=== PATIENT | male | born 1935 | race Caucasian/White ===

== ENCOUNTER 2019-09-09 10:02 | Emergency (ER) | payer MEDICARE, OTHER ==
[2019-09-09 10:11] VITALS: BP 109/78
--- NOTE | 2019-09-09 12:24 | ED Physician Documentation ---
PD HPI LOWER EXT INJURY - Stated complaint Stated Complaint: R LEG INJURY - Chief complaint Chief Complaint: Ext Problem - History obtained from History obtained from: Patient - History of Present Illness PD HPI LOW EXT INJURY LOCATION: Right, Knee Type of injury: Fall Where injury occurred: Other ([employer] [place]) Timing - onset: How many days ago (1) Timing - duration: Days (1) Timing - details: Gradual onset Pain level max: 7 Pain level now: 6 Improved by: Rest, Ice, Immobilization Worsened by: Moving, Palpating Associated symptoms: Swelling. No: Weakness, Numbness, Tingling Contributing factors: No: Anticoagulated, Prior ortho surgery, Prosthetic joint, Work related Recently seen: Not recently seen - Additional information Additional information: Patient states that he was at the [employer] when several dogs ran into him causing his knee to buckle. States has had swelling since that time. Worse with walking. Better with rest. Review of Systems Constitutional: denies: Fever, Chills GI: denies: Vomiting, Diarrhea Skin: denies: Rash Musculoskeletal: denies: Neck pain, Back pain Neurologic: denies: Headache PD PAST MEDICAL HISTORY - Past Medical History Past Medical History: Yes Cardiovascular: None Respiratory: Asthma Endocrine/Autoimmune: None GI: Colon polyps : None HEENT: None Psych: None Musculoskeletal: None Derm: None - Past Surgical History General: Bowel surgery, Colonoscopy Ortho: Hip replacement, Knee replacement - Present Medications Home Medications: Ambulatory Orders Medication Instructions Recorded Confirmed Albuterol Sulfate [Ventolin Hfa] 1 puffs INH DAILY PRN 06/13/14 06/13/14 Beclomethasone 80 Mcg [Qvar 80] 1 puffs INH DAILY 06/13/14 06/13/14 predniSONE [Prednisone] 20 mg ORAL DAILY 06/13/14 06/13/14 - Allergies Allergies/Adverse Reactions: Allergies Allergy/AdvReac Type Severity Reaction Status Date / Time azithromycin [From Zithromax] Allergy Hives Verified 06/13/14 07:55 Penicillins Allergy Hives Verified 06/12/14 12:10 PD ED PE NORMAL - Vitals Vital signs reviewed: Yes - General General: Alert and oriented X 3, No acute distress, Well developed/nourished - HEENT HEENT: Moist mucous membranes - Neck Neck: Supple, no meningeal sign - Cardiac Cardiac: RRR, Strong equal pulses - Respiratory Respiratory: No respiratory distress, Clear bilaterally - Derm Derm: Warm and dry - Extremities Extremities: Other (Tender to palpation diffusely about the right knee. Ligament testing is limited secondary to joint effusion and swelling and pain. Neurovascularly intact. No gross deformity.) - Neuro Neuro: Alert and oriented X 3 - Psych Psych: Normal mood, Normal affect Results - Vitals Vitals: Vital Signs - 24 hr 09/09/19 10:08 Temperature 36.8 C Heart Rate 94 Respiratory 18 Rate Blood Pressure 109/78 O2 Saturation 98 Oxygen O2 Source Room air - Rads (name of study) Right knee x-ray Radiology: Prelim report reviewed, EMP read contemporaneously, See rad report (1. "[id number]" appearance of the medial compartment, marginal arthrosis and subchondral sclerosis with some bone remodeling of the medial compartment. Kellgren David Grade 4. 2. No fractures. No joint effusion. ) PD MEDICAL DECISION MAKING - ED course Complexity details: reviewed results, re-evaluated patient, considered differential, d/w patient ED course: Possible right knee sprain. Ligaments were difficult to test secondary to acute pain. We will have his ligaments retested with his doctor in a week. He has his own walker. Is ambulating well with this. Oumar bandage applied. Patient counseled regarding signs and symptoms for which I believe and urgent re- evaluation would be necessary. Patient with good understanding of and agreement to plan and is comfortable going home at this time This document was made in part using voice recognition software. While efforts are made to proofread this document, sound alike and grammatical errors may occur. 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 Follow-up with your doctor for repeat evaluation in 1 week when the swelling has decreased. The ligament testing will be easier to perform at that time. You may bear weight as tolerated. You may also want to try a neoprene compression brace on your knee. This can be obtained at [facility] or [facility]
--- NOTE | 2019-09-09 12:38 | XRAY Report ---
Reason: trauma Procedure Date: 09/09/2019 Accession Number: [id number] / [id number] Procedure: XR - Knee 4 View RT CPT Code: Final Report FULL RESULT: EXAM: RIGHT KNEE RADIOGRAPHY EXAM DATE: 09/09/2019 12:15 PM. CLINICAL HISTORY: Trauma. COMPARISON: None. TECHNIQUE: 3 views. FINDINGS: Bones: Normal. No fractures or bone lesions. Joints: There is "[id number]" appearance of the medial compartment, marginal arthrosis, subchondral sclerosis and some bone remodeling at the medial compartment. Arthrosis also seen at the tibial spine and patellofemoral joint. Soft Tissues: Normal. No soft tissue swelling. IMPRESSION: 1. "[id number]" appearance of the medial compartment, marginal arthrosis and subchondral sclerosis with some bone remodeling of the medial compartment. Kellgren David Grade 4. 2. No fractures. No joint effusion. Kellgren and David classification of osteoarthritis: Grade 0: no radiographic features of osteoarthritis are present Grade 1: doubtful joint space narrowing (JSN) and possible osteophytic lipping Grade 2: definite osteophytes and possible JSN on anteroposterior weight-bearing radiograph Grade 3: multiple osteophytes, definite JSN, sclerosis, possible bony deformity Grade 4: large osteophytes, marked JSN, severe sclerosis and definite bony deformity RADIA
== END 2019-09-09 13:15 | disposition home or self-care (01) ==
LOC: ED 10:02
DX: S83.91XA Sprain of unspecified site of right knee, initial encounter (principal); W54.1XXA Struck by dog, initial encounter; Y92.838 Other recreation area as the place of occurrence of the external cause
CPT/HCPCS: 99282; 99283

== ENCOUNTER 2022-10-02 19:24 | Outpatient (CLI) | payer MEDICARE | END 2022-10-02 19:25 | disposition critical access hospital (66) | LOC: EMS 19:24 | DX: R31.9 Hematuria, unspecified (principal); N36.8 Other specified disorders of urethra; R53.1 Weakness; R60.0 Localized edema; Z99.3 Dependence on wheelchair | CPT/HCPCS: A0425; A0429 ==

== ENCOUNTER 2022-10-02 19:39 | Emergency (ER) | payer MEDICARE ==
[2022-10-02] MEDS ORDERED: SODIUM CHLORIDE 0.9% 500 ML IV STA (20:02)
[2022-10-02] MEDS ORDERED: FUROSEMIDE 20 MG/2 ML VIAL IVP STA (20:02)
--- NOTE | 2022-10-02 20:03 | ED Physician Documentation ---
History of Present Illness - Stated complaint Stated Complaint: CATH ISSUE - Chief complaint Chief Complaint: General - History obtained from History obtained from: Patient, Family - History of Present Illness Timing: Today Pain level max: 0 Pain level now: 0 - Additonal information Additional information: 86-year-old male history of paraplegia s/p spine surgery. He has a chronic indwelling Pugh catheter. He states that 2 weeks ago it was changed and there was difficulty in changing the catheter. It was changed again yesterday and today he noticed blood in his underwear. No fevers. No chills. Nothing makes it better or worse. Family also states he appears weaker than usual. And has more swelling in his legs than usual. No shortness of breath. No chest pain. He lives at home Review of Systems Constitutional: denies: Fever, Chills Nose: denies: Rhinorrhea / runny nose, Congestion Cardiac: denies: Chest pain / pressure, Palpitations Respiratory: denies: Cough GI: denies: Vomiting, Diarrhea Skin: denies: Rash Musculoskeletal: denies: Neck pain, Back pain Neurologic: denies: Headache PD PAST MEDICAL HISTORY - Past Medical History Past Medical History: Yes Cardiovascular: None Respiratory: Asthma Endocrine/Autoimmune: None GI: Colon polyps : None HEENT: None Psych: None Musculoskeletal: None Derm: None - Past Surgical History Past Surgical History: Yes General: Bowel surgery, Colonoscopy Ortho: Hip replacement, Knee replacement - Present Medications Home Medications: Ambulatory Orders Medication Instructions Recorded Confirmed Albuterol Sulfate [Ventolin Hfa] 1 puffs INH DAILY PRN 06/13/14 10/02/22 Beclomethasone 80 Mcg [Qvar 80] 1 puffs INH DAILY 06/13/14 10/02/22 Aspirin EC [Ecotrin] 81 mg PO BID 10/02/22 10/02/22 Baclofen 5 mg PO Q6HR PRN 10/02/22 10/02/22 Ciprofloxacin HCl [Cipro] 500 mg PO BID #14 tablet 10/02/22 Famotidine [Pepcid] 20 mg PO BID 10/02/22 10/02/22 Furosemide [Lasix] 20 mg PO DAILY #7 tablet 10/02/22 Gabapentin [Neurontin] 100 mg PO HS 10/02/22 10/02/22 HYDROcod/ACETAM 5/325 [Birney 5/325] 1 ea PO Q6H PRN #14 tablet 10/02/22 Lisinopril [Zestril] 40 mg PO DAILY 10/02/22 10/02/22 Metoprolol Succinate 100 mg PO DAILY 10/02/22 10/02/22 amLODIPine [Norvasc] 5 mg PO DAILY 10/02/22 10/02/22 traMADol [Ultram] 50 mg PO Q12H PRN 10/02/22 10/02/22 traZODone [Desyrel] 50 mg PO HS 10/02/22 10/02/22 - Allergies Allergies/Adverse Reactions: Allergies Allergy/AdvReac Type Severity Reaction Status Date / Time azithromycin [From Zithromax] Allergy Hives Verified 06/13/14 07:55 Penicillins Allergy Hives Verified 06/12/14 12:10 - Social History Does the pt smoke?: No Smoking Status: Never smoker PD ED PE NORMAL - Vitals Vital signs reviewed: Yes - General General: Alert and oriented X 3, No acute distress - Neck Neck: Supple, no meningeal sign - Cardiac Cardiac: RRR - Respiratory Respiratory: No respiratory distress, Clear bilaterally - Abdomen Abdomen: Soft, Non tender, Non distended - Derm Derm: Warm and dry, No rash - Extremities Extremities: Other (1+ B LE pitting edema) - Neuro Neuro: Alert and oriented X 3 - Psych Psych: Normal mood, Normal affect Results - Vitals Vitals: Vital Signs - 24 hr 10/02/22 10/02/22 19:58 21:13 Temperature 36.9 C 36.8 C Heart Rate 85 87 Respiratory 19 15 Rate Blood Pressure 167/75 H 154/74 H O2 Saturation 98 100 Oxygen O2 Source Room air - Labs Labs: Laboratory Tests 10/02/22 10/02/22 10/02/22 20:09 20:09 20:30 WBC 11.5 H RBC 3.78 L Hgb 11.2 L Hct 34.6 L MCV 91.5 MCH 29.6 MCHC 32.4 RDW 12.6 Plt Count 294 MPV 9.8 Neut # (Auto) 7.7 H Lymph # (Auto) 2.5 Drew # (Auto) 1.0 Eos # (Auto) 0.2 Baso # (Auto) 0.0 Absolute Nucleated RBC 0.00 Nucleated RBC % 0.0 Sodium 137 Potassium 3.9 Chloride 100 L Carbon Dioxide 26 Anion Gap 11.0 BUN 14 Creatinine 1.0 Estimated GFR (MDRD) 71 L Glucose 115 H Calcium 8.5 Total Bilirubin 0.7 AST 24 ALT 20 Alkaline Phosphatase 79 Total Protein 7.4 Albumin 3.3 Globulin 4.1 Albumin/Globulin Ratio 0.8 L Lipase 24 Urine Color YELLOW Urine Clarity CLOUDY Urine pH 6.0 Ur Specific [place] 1.020 Urine Protein 30 H Urine Glucose (UA) NEGATIVE Urine Ketones NEGATIVE Urine Occult Blood LARGE H Urine Nitrite POSITIVE H Urine Bilirubin NEGATIVE Urine Urobilinogen 0.2 (NORMAL) Ur Leukocyte Esterase MODERATE H Urine RBC 11-25 H Urine WBC >25 H Ur Squamous Epith Cells NONE SEEN Urine Bacteria Many H Ur Microscopic Review INDICATED Urine Culture Comments INDICATED PD Medical Decision Making - ED course Complexity details: reviewed results, considered differential, d/w patient, d/w family Reviewed Lab Results: CBC shows a mild leukocytosis, mild anemia. His ER abdominal panel does not show any significant acute abnormalities. Urinalysis is consistent with UTI. ED course: Patient is well-appearing, nontoxic. Afebrile. Has an elevated white blood cell count and what appears to be a catheter associated UTI. Will place on antibiotics for this. He has allergies to penicillins and azithromycin. We will place him on ciprofloxacin. We will have him follow-up with his doctor for further care. He was also given Lasix for his peripheral edema, recommend elevating his legs, compression stockings. He also request something for pain. Has tramadol but states that his sacral pressure ulcers hurt as well. No evidence of sepsis. No indication for admission. We will have him follow-up with his doctor for further care. Patient and family counseled regarding signs and symptoms for which I believe and urgent re-evaluation would be necessary. Patient with good understanding of and agreement to plan and is comfortable going home at this time This document was made in part using voice recognition software. While efforts are made to proofread this document, sound alike and grammatical errors may occur. Departure - Departure Disposition: 01 Home, Self Care Clinical Impression: Peripheral edema UTI (urinary tract infection) Qualifiers: Urinary tract infection type: catheter-associated UTI Indwelling urinary catheter type: indwelling urethral catheter Encounter type: initial encounter Qualified Code(s): T83.511A - Infection and inflammatory reaction due to indwelling urethral catheter, initial encounter Condition: Good Instructions: ED Edema Legs Bilateral, ED UTI Cystitis Male Follow-Up: your,doctor in 1 week [Other] Prescriptions: Ciprofloxacin HCl [Cipro] 500 mg PO BID #14 tablet Furosemide [Lasix] 20 mg PO DAILY #7 tablet HYDROcod/ACETAM 5/325 [Birney 5/325] 1 ea PO Q6H PRN #14 tablet PRN Reason: Pain Comments: Your prescriptions were sent to [facility] in [place]. Please follow-up with your doctor for further care. Take all antibiotics until gone. Please return if you worsen.
--- OUTSIDE RECORDS SUMMARY | 2022-10-02 20:03 | EXTERNAL MEDICAL SUMMARY RPT | Continuity of Care Document ---
:1935 Author Organization [facility] Address [address] [place] [address] Phone Care Team Providers Name Role Phone Unavailable Unavailable Unavailable Perico Sherman Unavailable Unavailable Allergies and Intolerances date description facility type (no date) [facility] (unknown) Encounters No information. Functional Status No information. Immunizations No information. Medications date description facility 2022-08-04 00:00 Oxycodone [facility] 2022-08-04 00:00 Docusate Sodium [facility] 2022-08-04 00:00 Aspirin [facility] 2022-08-04 00:00 Famotidine [facility] 2022-08-04 00:00 Methylprednisolone [facility] 2022-08-04 00:00 Hydroxyzine Pamoate [facility] Problems date description facility 2022-07-04 12:33 Arthrodesis status [facility] 2022-07-04 12:35 Arthrodesis [facility] 2022-07-15 14:59 Hyperglycemia, unspecified [facility] 2022-07-15 14:59 Encounter for preprocedural [facility] examination 2022-07-15 17:12 Hyperglycemia, unspecified [facility] 2022-07-15 17:12 Encounter for preprocedural [facility] examination 2022-07-30 12:39 Other spondylosis with myelopathy, [facility] 2022-07-30 12:39 Spinal stenosis, [facility] 2022-07-30 13:12 Other spondylosis with myelopathy, [facility] 2022-07-30 13:12 Spinal stenosis, [facility] 2022-07-30 13:31 Other spondylosis with myelopathy, [facility] 2022-07-30 13:31 Spinal stenosis, [facility] 2022-07-30 13:48 Other spondylosis with myelopathy, [facility] 2022-07-30 13:48 Spinal stenosis, [facility] 2022-07-31 16:19 Other spondylosis with myelopathy, [facility] 2022-07-31 16:19 Spinal stenosis, thoracic [facility] 2022-08-03 00:00 Right foot drop [facility] 2022-08-03 13:54 Foot drop, [facility] 2022-08-03 13:54 Other spondylosis with myelopathy, [facility] 2022-08-03 13:54 Spinal stenosis, [facility] 2022-08-04 12:24 Foot drop, [facility] 2022-08-04 12:24 Other spondylosis with myelopathy, [facility] 2022-08-04 12:24 Spinal stenosis, [facility] 2022-08-04 13:15 Foot drop, [facility] 2022-08-04 13:15 Other spondylosis with myelopathy, [facility] 2022-08-04 13:15 Spinal stenosis, [facility] 2022-08-04 15:03 Foot drop, [facility] 2022-08-04 15:03 Other spondylosis with myelopathy, [facility] 2022-08-04 15:03 Spinal stenosis, [facility] 2022-08-05 09:13 Foot drop, [facility] 2022-08-05 09:13 Other spondylosis with myelopathy, [facility] 2022-08-05 09:13 Spinal stenosis, [facility] 2022-08-06 08:17 Foot drop, [facility] 2022-08-06 08:17 Other spondylosis with myelopathy, [facility] 2022-08-06 08:17 Spinal stenosis, [facility] 2022-08-06 09:06 Foot drop, [facility] 2022-08-06 09:06 Other spondylosis with myelopathy, [facility] 2022-08-06 09:06 Spinal stenosis, [facility] 2022-08-06 15:22 Foot drop, [facility] 2022-08-06 15:22 Other spondylosis with myelopathy, [facility] 2022-08-06 15:22 Spinal stenosis, [facility] 2022-08-06 18:50 Foot drop, right [facility] 2022-08-06 18:50 Other spondylosis with myelopathy, [facility] region 2022-08-06 18:50 Spinal stenosis, thoracic region [facility] 2022-08-06 18:52 Foot drop, right [facility] 2022-08-06 18:52 Other spondylosis with myelopathy, [facility] 2022-08-06 18:52 Spinal stenosis, thoracic region [facility] Procedures date description facility 2022-07-30 00:00 [facility]:00 Excision of Thoracic Vertebral Disc, Op en [facility] Approach 2022-07-30 00:00 fusion of thoracic vertebral joint with [facility] autologous tissue substitute, posterior approach, posterior column, open approac h 2022-07-30 00:00 fusion of thoracic vertebral joint with [facility] interbody fusion device, posterior appro ach, anterior column, open approach 2022-07-30 00:00 XR fluoro, less than 60 minutes [facility] 2022-07-30 00:00 XR thoracic spine, 2 views [facility] Results/Labs test date author facility value unit interpret ation Result panel 1 (unknown) (no date) (unknown) [facility]) Result panel 2 (unknown) (no date) (unknown) [facility]) Result panel 3 (unknown) (no date) (unknown) [facility]) Result panel 4 (unknown) (no date) (unknown) [facility]) Result panel 5 (unknown) (no date) (unknown) [facility]) Result panel 6 (unknown) (no date) (unknown) [facility]) Result panel 7 (unknown) (no date) (unknown) [facility]) Result panel 8 (unknown) (no date) (unknown) [facility]) Result panel 9 (unknown) (no date) (unknown[facility]) Result panel 10 (unknown) (no date) (unknown[facility]) Result panel 11 (unknown) (no date) (unknown[facility]) Result panel 12 (unknown) (no date) (unknown[facility]) Result panel 13 (unknown) (no date) (unknown[facility]) Result panel 14 (unknown) (no date) (unknown[facility]) Result panel 15 (unknown) (no date) (unknown[facility]) Result panel 16 (unknown) (no date) (unknown[facility]) Result panel 17 (unknown) (no date) (unknown[facility]) Result panel 18 (unknown) (no date) (unknown[facility]) Result panel 19 (unknown) (no date) (unknown[facility]) Result panel 20 (unknown) (no date) (unknown[facility]) Result panel 21 (unknown) (no date) (unknown[facility]) Result panel 22 (unknown) (no date) (unknown[facility]) Result panel 23 (unknown) (no date) (unknown[facility]) Result panel 24 (unknown) (no date) (unknown) [facility]) Result panel 25 (unknown) (no date) (unknown[facility]) Result panel 26 (unknown) (no date) (unknown[facility]) Result panel 27 (unknown) (no date) (unknown[facility]) Result panel 28 (unknown) (no date) (unknown) [facility]) Result panel 29 (unknown) (no date) (unknown[facility]) Result panel 30 (unknown) (no date) (unknown) [facility]) Result panel 31 (unknown) (no date) (unknown) [facility]) Result panel 32 (unknown) (no date) (unknown) [facility]) Result panel 33 (unknown) (no date) (unknown) [facility]) Result panel 34 (unknown) (no date) (unknown[facility]) Result panel 35 (unknown) (no date) (unknown[facility]) Result panel 36 (unknown) (no date) (unknown) [facility]) Result panel 37 (unknown) (no date) (unknown) [facility]) Result panel 38 (unknown) (no date) (unknown) [facility]) Result panel 39 (unknown) (no date) (unknown) [facility]) Result panel 40 (unknown) (no date) (unknown) [facility]) Result panel 41 (unknown) (no date) (unknown) [facility]) Result panel 42 (unknown) (no date) (unknown) [facility]) Result panel 43 (unknown) (no date) (unknown) [facility]) Result panel 44 (unknown) (no date) (unknown) [facility]) Result panel 45 (unknown) (no date) (unknown) [facility]) Result panel 46 (unknown) (no date) (unknown) [facility]) Result panel 47 (unknown) (no date) (unknown) [facility]) Result panel 48 (unknown) (no date) (unknown) [facility]) Result panel 49 (unknown) (no date) (unknown) [facility]) Result panel 50 (unknown) (no date) (unknown) [facility]) Result panel 51 (unknown) (no date) (unknown) [facility]) Result panel 52 (unknown) (no date) (unknown) [facility]) Result panel 53 (unknown) (no date) (unknown) [facility]) Result panel 54 (unknown) (no date) (unknown[facility]) Result panel 55 (unknown) (no date) (unknown) [facility]) Result panel 56 (unknown) (no date) (unknown) [facility]) Result panel 57 (unknown) (no date) (unknown) [facility]) Result panel 58 (unknown) (no date) (unknown) [facility]) Result panel 59 (unknown) (no date) (unknown) [facility]) Result panel 60 (unknown) (no date) (unknown) [facility]) Result panel 61 (unknown) (no date) (unknown) [facility]) Result panel 62 (unknown) (no date) (unknown) [facility]) Result panel 63 (unknown) (no date) (unknown) [facility]) Result panel 64 (unknown) (no date) (unknown) [facility]) Result panel 65 (unknown) (no date) (unknown) [facility]) Result panel 66 (unknown) (no date) (unknown) [facility]) Result panel 67 (unknown) (no date) (unknown) [facility]) Result panel 68 (unknown) (no date) (unknown) [facility]) Result panel 69 (unknown) (no date) (unknown) [facility]) Result panel 70 (unknown) (no date) (unknown) [facility]) Result panel 71 (unknown) (no date) (unknown) [facility]) Result panel 72 (unknown) (no date) (unknown) [facility]) Result panel 73 (unknown) (no date) (unknown) [facility]) Result panel 74 (unknown) (no date) (unknown) [facility]) Result panel 75 (unknown) (no date) (unknown) [facility]) Result panel 76 (unknown) (no date) (unknown) [facility]) Result panel 77 (unknown) (no date) (unknown) [facility]) Result panel 78 (unknown) (no date) (unknown) [facility]) Result panel 79 (unknown) (no date) (unknown) [facility]) Result panel 80 (unknown) (no date) (unknown) [facility]) Result panel 81 (unknown) (no date) (unknown) [facility]) Result panel 82 (unknown) (no date) (unknown) [facility]) Result panel 83 (unknown) (no date) (unknown) [facility]) Result panel 84 (unknown) (no date) (unknown) [facility]) Result panel 85 (unknown) (no date) (unknown) [facility]) Result panel 86 (unknown) (no date) (unknown) [facility]) Result panel 87 (unknown) (no date) (unknown) [facility]) Result panel 88 (unknown) (no date) (unknown) [facility]) Result panel 89 (unknown) (no date) (unknown) [facility]) Result panel 90 (unknown) (no date) (unknown) [facility]) Result panel 91 (unknown) (no date) (unknown) [facility]) Result panel 92 (unknown) (no date) (unknown) [facility]) Result panel 93 (unknown) (no date) (unknown) [facility]) Result panel 94 (unknown) (no date) (unknown) [facility]) Result panel 95 (unknown) (no date) (unknown) [facility]) Result panel 96 (unknown) (no date) (unknown) [facility]) Result panel 97 (unknown) (no date) (unknown) [facility]) Result panel 98 (unknown) (no date) (unknown) [facility]) Result panel 99 (unknown) (no (unknown) (unknown) (no value) (units (unk nown) date) unknown) (unknown) (no (unknown) (unknown) 06/18/2022, (units (un known) date) 13:35. unknown) (unknown) (no (unknown) (unknown) 07/04/22 (units (unkno wn) date) unknown) (unknown) (no (unknown) (unknown) [address] [place] [address] (units (unknown) date) unknown) (unknown) (no (unknown) (unknown) 25. (units (unkno wn) date) unknown) (unknown) (no (unknown) (unknown) 730 (units (unkno wn) date) unknown) (unknown) (no (unknown) (unknown) Abnormally (units (unk nown) date) increased T2 unknown) weighted signal can be seen within the spinal cord at (unknown) (no (unknown) (unknown) Accession (units (unkn own) date) Number: unknown) [id number] (unknown) (no (unknown) (unknown) Age/Sex: 86 / M (units (unknown) date) Date of Service: unknown) (unknown) (no (unknown) (unknown) Alignment and (units ( unknown) date) Curvature: There unknown) is normal bony alignment. (unknown) (no (unknown) (unknown) BECKY Meneses (units ( unknown) date) [id number] unknown) (unknown) (no (unknown) (unknown) Approved by: (units (u nknown) date) noy Lamb M.D. on 07/04/2022 at 13:40 (unknown) (no (unknown) (unknown) Bone Marrow: (units (u nknown) date) Marrow is of unknown) normal overall signal. No acute vertebral body (unknown) (no (unknown) (unknown) COMPARISON: [facility] (units (unknown) date) Outside Film, CT, unknown) CT LUMBAR SPINE WITHOUT CONTRAST, (unknown) (no (unknown) (unknown) : 1935 (units (unknown) date) Acct:[id number] unknown) (unknown) (no (unknown) (unknown) Dictated by: (units (u nknown) date) Ramiro Castillo, unknownBreezy Christian on 07/04/2022 at 13:34 (unknown) (no (unknown) (unknown) Elsewhere, (units (unk nown) date) milder unknown) degenerative changes are seen, scattered levels of mild to (unknown) (no (unknown) (unknown) FINDINGS: (units (unkn own) date) unknown) (unknown) (no (unknown) (unknown) IMPRESSION: (units (un known) date) Focal T11-T12 unknown) degenerative change, with a central/right disc (unknown) (no (unknown) (unknown) INDICATIONS: S/P (units (unknown) date) LUMBAR FUSION unknown) (unknown) (no (unknown) (unknown) Image quality: (units (unknown) date) Excellent. unknown) (unknown) (no (unknown) (unknown) [facility] (units (unknown) date) unknown) (unknown) (no (unknown) (unknown) [facility], (units (unknown) date) MR, MR LUMBAR unknown) SPINE WO CON, 05/10/2021, 13:31. (unknown) (no (unknown) (unknown) Loc: MRI (units (unkno wn) date) unknown) (unknown) (no (unknown) (unknown) Magnetic (units (unkno wn) date) Resonance Report unknown) (unknown) (no (unknown) (unknown) Miscellaneous: (units (unknown) date) At the T11-T12 unknown) level, there is a central/right disc extrusion, (unknown) (no (unknown) (unknown) Moderate (units (unkno wn) date) bilateral neural unknown) foraminal narrowing can be seen at this level. (unknown) (no (unknown) (unknown) Noncontrast (units (un known) date) sagittal T1 spine unknown) echo and T2 fast spin echo, sagittal STIR, and T2 (unknown) (no (unknown) (unknown) Ordering (units (unkno wn) date) Provider: unknown) Chepe Cade MD (unknown) (no (unknown) (unknown) PROCEDURE: MR (units ( unknown) date) THORACIC SPINE WO unknown) CON (unknown) (no (unknown) (unknown) Paraspinous Soft (units (unknown) date) Tissues: No unknown) paravertebral masses. (unknown) (no (unknown) (unknown) Patient: (units (unkno wn) date) Faith Rosario MR#: unknown) [id number] (unknown) (no (unknown) (unknown) Procedure: MR (units ( unknown) date) thoracic spine wo unknown) con (unknown) (no (unknown) (unknown) Signed (units (unkno wn) date) unknown) (unknown) (no (unknown) (unknown) Spinal Cord: At (units (unknown) date) the T11-T12 unknown) level, there is increased T2 weighted cord signal (unknown) (no (unknown) (unknown) TECHNIQUE: (units (unk nown) date) unknown) (unknown) (no (unknown) (unknown) There is also (units ( unknown) date) prominent unknown) hypertrophy of the posterior elements. This results in (unknown) (no (unknown) (unknown) central canal (units ( unknown) date) narrowing, with unknown) prominent flattening and narrowing of the distal (unknown) (no (unknown) (unknown) compression (units (un known) date) unknown) (unknown) (no (unknown) (unknown) cord. (units (unkno wn) date) unknown) (unknown) (no (unknown) (unknown) echo through the (units (unknown) date) thoracic spine. unknown) (unknown) (no (unknown) (unknown) effect upon the (units (unknown) date) distal spinal unknown) cord, with flattening, as seen on series 8, image (unknown) (no (unknown) (unknown) elements seen, (units (unknown) date) right worse than unknown) left. There is severe central canal narrowing, (unknown) (no (unknown) (unknown) elsewhere. (units (unk nown) date) unknown) (unknown) (no (unknown) (unknown) extrusion. (units (unk nown) date) unknown) (unknown) (no (unknown) (unknown) fast spin (units (unkn own) date) unknown) (unknown) (no (unknown) (unknown) fractures. 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 (unknown) (no (unknown) (unknown) moderate (units (unkno wn) date) unknown) (unknown) (no (unknown) (unknown) neural foraminal (units (unknown) date) narrowing. No unknown) significant central canal narrowing is seen (unknown) (no (unknown) (unknown) posterior (units (unkn own) date) unknown) (unknown) (no (unknown) (unknown) seen (units (unkno wn) date) unknown) (unknown) (no (unknown) (unknown) severe (units (unkno wn) date) unknown) (unknown) (no (unknown) (unknown) spinal (units (unkno wn) date) unknown) (unknown) (no (unknown) (unknown) superior (units (unkno wn) date) migration of the unknown) disc material. There is prominent hypertrophy of the (unknown) (no (unknown) (unknown) the T11-T12 (units (un known) date) unknown) (unknown) (no (unknown) (unknown) with mass (units (unkn own) date) unknown) (unknown) (no (unknown) (unknown) with mild (units (unkn own) date) unknown) (unknown) (no (unknown) (unknown) within the (units (unk nown) date) central cord, as unknown) on series 6, image 9. Result panel 100 (unknown) (no date) (unknown) (unknown) 0.6 % (unkn own) (unknown) (no date) (unknown) (unknown) 100 /ul (unkn own) (unknown) (no date) (unknown) (unknown) 13.3 % (unkn own) (unknown) (no date) (unknown) (unknown) 14.0 g/dl (unkn own) (unknown) (no date) (unknown) (unknown) 26.4 % (unkn own) (unknown) (no date) (unknown) (unknown) 2600 /ul (unkn own) (unknown) (no date) (unknown) (unknown) 291 x10 3/ul (unkn own) (unknown) (no date) (unknown) (unknown) 3.1 % (unkn own) (unknown) (no date) (unknown) (unknown) 30.3 pg (unkn own) (unknown) (no date) (unknown) (unknown) 300 /ul (unkn own) (unknown) (no date) (unknown) (unknown) 33.9 % (unkn own) (unknown) (no date) (unknown) (unknown) 4.61 x10 6/ul (unkn own) (unknown) (no date) (unknown) (unknown) 41.2 % (unkn own) (unknown) (no date) (unknown) (unknown) 6.4 % (unkn own) (unknown) (no date) (unknown) (unknown) 600 /ul (unkn own) (unknown) (no date) (unknown) (unknown) 6200 /ul (unkn own) (unknown) (no date) (unknown) (unknown) 63.5 % (unkn own) (unknown) (no date) (unknown) (unknown) 89.4 fl (unkn own) (unknown) (no date) (unknown) (unknown) 9.7 x10 3/ul (unkn own) Result panel 101 (unknown) (no date) (unknown) (unknown) Negative (units (unkn own) unknown) (unknown) (no date) (unknown) (unknown) Negative (units (unkn own) unknown) Result panel 102 (unknown) (no (unknown) (unknown) (no value) (units (unk nown) date) unknown) (unknown) (no (unknown) (unknown) 07/30/22 1349 (units ( unknown) date) unknown) (unknown) (no (unknown) (unknown) 30 (units (unkno wn) date) unknown) (unknown) (no (unknown) (unknown) Age/Sex: 86 / M (units (unknown) date) unknown) (unknown) (no (unknown) (unknown) COVID-19 status: (units (unknown) date) Negative unknown) (unknown) (no (unknown) (unknown) COVID-19 (units (unkno wn) date) unknown) (unknown) (no (unknown) (unknown) Changes to H+P: (units (unknown) date) No unknown) (unknown) (no (unknown) (unknown) Criteria for (units (u nknown) date) continued unknown) procedure: Expected advancement of disease process, (unknown) (no (unknown) (unknown) : 1935 (units (unknown) date) Acct:[id number] unknown) (unknown) (no (unknown) (unknown) Date of Service: (units (unknown) date) 07/30/22 unknown) (unknown) (no (unknown) (unknown) Deterioration of (units (unknown) date) the patient's unknown) condition or overall health and Delay expected to (unknown) (no (unknown) (unknown) History + (units (unkn own) date) Physical unknown) reviewed/Exam performed by Physician: Yes (unknown) (no (unknown) (unknown) Interval Note (units ( unknown) date) unknown) (unknown) (no (unknown) (unknown) [facility] (units (unknown) date) [address] [place] [address] unknown) [place] [address] (unknown) (no (unknown) (unknown) Patient: (units (unkno wn) date) Faith Rosario MR#: unknown) [id number] (unknown) (no (unknown) (unknown) Possibility delay (units (unknown) date) results in more unknown) complex future surgery or treatment, Increased (unknown) (no (unknown) (unknown) Pre-operative (units ( unknown) date) Note unknown) (unknown) (no (unknown) (unknown) Provider: (units (unkn own) date) Chepe Cade MD unknown) (unknown) (no (unknown) (unknown) Result date/Date (units (unknown) date) tested (Pos, unknown) Neg/Pending): 07/30/22 (unknown) (no (unknown) (unknown) Signed (units (unkno wn) date) By:<Electronicall unknown) y signed by Chepe Cade MD> (unknown) (no (unknown) (unknown) loss of (units (unkno wn) date) function, unknown) Continuing or worsening of significant or severe pain, (unknown) (no (unknown) (unknown) result in (units (unkn own) date) less-positive unknown) ultimate med/surg outcome Result panel 103 (unknown) (no (unknown) (unknown) (no value) (units (unk nown) date) unknown) (unknown) (no (unknown) (unknown) 07/30/22 (units (unkno wn) date) unknown) (unknown) (no (unknown) (unknown) [address] [place] [address] (units (unknown) date) unknown) (unknown) (no (unknown) (unknown) 730 (units (unkno wn) date) unknown) (unknown) (no (unknown) (unknown) Accession Number: (units (unknown) date) [id number] unknown) (unknown) (no (unknown) (unknown) Age/Sex: 86 / M (units (unknown) date) Date of Service: unknown) (unknown) (no (unknown) (unknown) [place], [place] (units ( unknown) date) [id number] unknown) (unknown) (no (unknown) (unknown) Approved by: Jarred (units (unknown) date) Gino Beard on unknown) 07/30/2022 at 20:50 (unknown) (no (unknown) (unknown) COMPARISON: None. (units (unknown) date) unknown) (unknown) (no (unknown) (unknown) : 1935 (units (unknown) date) Acct:[id number] unknown) (unknown) (no (unknown) (unknown) Dictated by: Jarred (units (unknown) date) Gino Beard on unknown) 07/30/2022 at 20:49 (unknown) (no (unknown) (unknown) FINDINGS: (units (unkn own) date) unknown) (unknown) (no (unknown) (unknown) IMPRESSION: (units (un known) date) Intraoperative unknown) fluoroscopic support for T11-T12 posterior spinal (unknown) (no (unknown) (unknown) INDICATIONS: (units (u nknown) date) T11-12 FUSION unknown) (unknown) (no (unknown) (unknown) [facility] (units (unknown) date) unknown) (unknown) (no (unknown) (unknown) Limited (units (unkno wn) date) fluoroscopic images unknown) of the thoracic spine were acquired (unknown) (no (unknown) (unknown) Loc: AC 221-1 (units ( unknown) date) unknown) (unknown) (no (unknown) (unknown) Ordering Provider: (units (unknown) date) Chepe Cade MD unknown) (unknown) (no (unknown) (unknown) PROCEDURE: XR (units ( unknown) date) THORACIC SPINE 2V unknown) (unknown) (no (unknown) (unknown) Patient: (units (unkno wn) date) Faith Rosario MR#: unknown) [id number] (unknown) (no (unknown) (unknown) Please see (units (unk nown) date) procedural/operativ unknown) e note for further details. (unknown) (no (unknown) (unknown) Procedure: XR (units ( unknown) date) thoracic spine 2V unknown) (unknown) (no (unknown) (unknown) Signed (units (unkno wn) date) unknown) (unknown) (no (unknown) (unknown) TECHNIQUE: 2 views (units (unknown) date) of the thoracic unknown) spine were acquired. (unknown) (no (unknown) (unknown) XRay Report (units (un known) date) unknown) (unknown) (no (unknown) (unknown) and (units (unkno wn) date) unknown) (unknown) (no (unknown) (unknown) demonstrating (units ( unknown) date) posterior fusion of unknown) T11 and T12 with bilateral paraspinal rods (unknown) (no (unknown) (unknown) fusion. (units (unkno wn) date) unknown) (unknown) (no (unknown) (unknown) intraoperatively (units (unknown) date) unknown) (unknown) (no (unknown) (unknown) pedicular screws. (units (unknown) date) No gross hardware unknown) complication noted. Result panel 104 (unknown) (no (unknown) (unknown) (no value) (units (unk nown) date) unknown) (unknown) (no (unknown) (unknown) 1. T11-12 (units (unkn own) date) bilateral unknown) laminectomy and facetecomies (unknown) (no (unknown) (unknown) 2. 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 T11-12 (units (unkn own) date) posterolateral unknown) fusion (unknown) (no (unknown) (unknown) 3. T11-12 (units (unkn own) date) posterior unknown) non-segmental instrumentation (unknown) (no (unknown) (unknown) 30 (units (unkno wn) date) unknown) (unknown) (no (unknown) (unknown) 4. Utilization of (units (unknown) date) microsurgical unknown) technique and operating microscope (unknown) (no (unknown) (unknown) Admit to (units (unkno wn) date) inpatient hospital unknown) (unknown) (no (unknown) (unknown) Age/Sex: 86 / M (units (unknown) date) unknown) (unknown) (no (unknown) (unknown) Anesthesia Type: (units (unknown) date) General unknown) (unknown) (no (unknown) (unknown) Lens Marker: Jack Church (units (unknown) date) Pancho unknown) (unknown) (no (unknown) (unknown) Blood products (units (unknown) date) transfused: none unknown) (unknown) (no (unknown) (unknown) Click Yes if (units (u nknown) date) Unassisted: No unknown) (unknown) (no (unknown) (unknown) Closure Type: (units ( unknown) date) primary unknown) (unknown) (no (unknown) (unknown) Complications: (units (unknown) date) none unknown) (unknown) (no (unknown) (unknown) Condition: stable (units (unknown) date) unknown) (unknown) (no (unknown) (unknown) : 1935 (units (unknown) date) Acct:[id number] unknown) (unknown) (no (unknown) (unknown) Date of Service: (units (unknown) date) 07/30/22 unknown) (unknown) (no (unknown) (unknown) Date of (units (unkno wn) date) procedure: unknown) 07/30/22 (unknown) (no (unknown) (unknown) Disposition: PACU (units (unknown) date) unknown) (unknown) (no (unknown) (unknown) Estimated Blood (units (unknown) date) Loss (mL): 20 unknown) (unknown) (no (unknown) (unknown) Globus revolve (units (unknown) date) screws unknown) (unknown) (no (unknown) (unknown) Indications: (units (u nknown) date) unknown) (unknown) (no (unknown) (unknown) [facility] (units (unknown) date) [address] unknown) [place] [address] (unknown) (no (unknown) (unknown) Operative (units (unkn own) date) Date/Time/Diagnose unknown) s (unknown) (no (unknown) (unknown) Operative Note (units (unknown) date) unknown) (unknown) (no (unknown) (unknown) Operative Notes (units (unknown) date) unknown) (unknown) (no (unknown) (unknown) Patient failed (units ( unknown) date) multiple unknown) conservative management with worsening pain weakness and (unknown) (no (unknown) (unknown) Patient has been (units (unknown) date) having difficulty unknown) performing activity of daily living. 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 (unknown) (no (unknown) (unknown) Procedure + (units (un known) date) Clinicians unknown) (unknown) (no (unknown) (unknown) Procedure: (units (unk nown) date) unknown) (unknown) (no (unknown) (unknown) Prosthetic (units (unk nown) date) devices, grafts, unknown) tissues, transplants, or devices: (unknown) (no (unknown) (unknown) Provider: (units (unkn own) date) Chepe Cade MD unknown) (unknown) (no (unknown) (unknown) Same procedure as (units (unknown) date) scheduled: Yes unknown) (unknown) (no (unknown) (unknown) Signed By: (units (unk nown) date) unknown) (unknown) (no (unknown) (unknown) Specimen(s): none (units (unknown) date) sent unknown) (unknown) (no (unknown) (unknown) Surgeon: Chepe Cade (units (unknown) date) unknown) (unknown) (no (unknown) (unknown) Time of (units (unkno wn) date) procedure: 14:20 unknown) (unknown) (no (unknown) (unknown) discussing risks (units (unknown) date) benefits of unknown) treatment options, patient elected proceed with (unknown) (no (unknown) (unknown) edema. (units (unkno wn) date) unknown) (unknown) (no (unknown) (unknown) myelopathy. (units (un known) date) Thoracic MRI shows unknown) severe spinal stenosis at T11-12 with cord (unknown) (no (unknown) (unknown) surgery. (units (unkno wn) date) unknown) (unknown) (no (unknown) (unknown) worsening balance (units (unknown) date) consistent with unknown) myelopathy correlating to his MRI findings. Result panel 105 (unknown) (no (unknown) (unknown) (no value) (units (unk nown) date) unknown) (unknown) (no (unknown) (unknown) 1. T11-12 (units (unkn own) date) bilateral unknown) laminectomy and facetecomies (unknown) (no (unknown) (unknown) 07/30/22 1723 (units ( unknown) date) unknown) (unknown) (no (unknown) (unknown) 2. 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 T11-12 (units (unkn own) date) posterolateral unknown) fusion (unknown) (no (unknown) (unknown) 3. T11-12 (units (unkn own) date) posterior unknown) non-segmental instrumentation (unknown) (no (unknown) (unknown) 30 (units (unkno wn) date) unknown) (unknown) (no (unknown) (unknown) 4. Utilization of (units (unknown) date) microsurgical unknown) technique and operating microscope (unknown) (no (unknown) (unknown) Admit to (units (unkno wn) date) inpatient hospital unknown) (unknown) (no (unknown) (unknown) After all the (units ( unknown) date) hardware was unknown) placed, and confirmed with AP and lateral C-arm (unknown) (no (unknown) (unknown) Age/Sex: 86 / M (units (unknown) date) unknown) (unknown) (no (unknown) (unknown) Anesthesia Type: (units (unknown) date) General unknown) (unknown) (no (unknown) (unknown) Lens Marker: Jack Church (units (unknown) date) Pancho unknown) (unknown) (no (unknown) (unknown) Blood products (units (unknown) date) transfused: none unknown) (unknown) (no (unknown) (unknown) Click Yes if (units (u nknown) date) Unassisted: No unknown) (unknown) (no (unknown) (unknown) Closure Type: (units ( unknown) date) primary unknown) (unknown) (no (unknown) (unknown) Complications: (units (unknown) date) none unknown) (unknown) (no (unknown) (unknown) Condition: stable (units (unknown) date) unknown) (unknown) (no (unknown) (unknown) : 1935 (units (unknown) date) Acct:[id number] unknown) (unknown) (no (unknown) (unknown) Date of Service: (units (unknown) date) 07/30/22 unknown) (unknown) (no (unknown) (unknown) Date of (units (unkno wn) date) procedure: unknown) 07/30/22 (unknown) (no (unknown) (unknown) Disposition: PACU (units (unknown) date) unknown) (unknown) (no (unknown) (unknown) Estimated Blood (units (unknown) date) Loss (mL): 20 unknown) (unknown) (no (unknown) (unknown) Full decompression (units (unknown) date) was performed unknown) after the laminectomy facetectomy and resection (unknown) (no (unknown) (unknown) Globus revolve (units (unknown) date) screws unknown) (unknown) (no (unknown) (unknown) Immediately after (units (unknown) date) patient was placed unknown) into the prone position on the Uzair (unknown) (no (unknown) (unknown) Indications: (units (u nknown) date) unknown) (unknown) (no (unknown) (unknown) [facility] (units (unknown) date) [address] [place] [address] unknown) [place] [address] (unknown) (no (unknown) (unknown) MARS retractors (units (unknown) date) was placed inside unknown) the incision and docked onto the T11 lamina. (unknown) (no (unknown) (unknown) Operative (units (unkn own) date) Date/Time/Diagnose unknown) s (unknown) (no (unknown) (unknown) Operative Note (units (unknown) date) unknown) (unknown) (no (unknown) (unknown) Operative Notes (units (unknown) date) unknown) (unknown) (no (unknown) (unknown) Patient failed (units ( unknown) date) multiple unknown) conservative management with worsening pain weakness and (unknown) (no (unknown) (unknown) Patient has been (units (unknown) date) having difficulty unknown) performing activity of daily living. After (unknown) (no (unknown) (unknown) Patient has been (units (unknown) date) having unknown) progressively worsening symptoms consistent with (unknown) (no (unknown) (unknown) Patient tolerated (units (unknown) date) the procedure unknown) without issues. (unknown) (no (unknown) (unknown) Patient was found (units (unknown) date) to have severe unknown) central spinal stenosis due to multiple (unknown) (no (unknown) (unknown) Patient was seen (units (unknown) date) in the unknown) preoperative area. Risks and benefits of the surgery was (unknown) (no (unknown) (unknown) Patient will be (units (unknown) date) admitted to the unknown) inpatient hospital for medical management and (unknown) (no (unknown) (unknown) Patient: (units (unkno wn) date) Faith Rosario MR#: unknown) [id number] (unknown) (no (unknown) (unknown) Plan for (units (unkno wn) date) aftercare: unknown) (unknown) (no (unknown) (unknown) Post-op (units (unkno wn) date) diagnosis: same unknown) (unknown) (no (unknown) (unknown) Post-operative (units (unknown) date) unknown) (unknown) (no (unknown) (unknown) Pre-op diagnosis: (units (unknown) date) 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 (unknown) (no (unknown) (unknown) Procedure + (units (un known) date) Clinicians unknown) (unknown) (no (unknown) (unknown) Procedure in (units (u nknown) date) detail: unknown) (unknown) (no (unknown) (unknown) Procedure: (units (unk nown) date) unknown) (unknown) (no (unknown) (unknown) Prosthetic (units (unk nown) date) devices, grafts, unknown) tissues, transplants, or devices: (unknown) (no (unknown) (unknown) Provider: (units (unkn own) date) Chepe Cade MD unknown) (unknown) (no (unknown) (unknown) Ray-Dipti gauze for (units (unknown) date) 3 min to unknown) accomplish hemostasis. After the gauze was removed (unknown) (no (unknown) (unknown) Same procedure as (units (unknown) date) scheduled: Yes unknown) (unknown) (no (unknown) (unknown) Signed (units (unkno wn) date) By:<Electronically unknown) signed by Chepe Cade MD> (unknown) (no (unknown) (unknown) Specimen(s): none (units (unknown) date) sent unknown) (unknown) (no (unknown) (unknown) Surgeon: Chepe Cade (units (unknown) date) unknown) (unknown) (no (unknown) (unknown) There was partial (units (unknown) date) recovery to unknown) patient's left lower extremity after the (unknown) (no (unknown) (unknown) Time of (units (unkno wn) date) procedure: 14:20 unknown) (unknown) (no (unknown) (unknown) Using AP and (units (u nknown) date) lateral C-arm unknown) imaging the interval between T11-12 was identified (unknown) (no (unknown) (unknown) Using (units (unkno wn) date) microsurgical unknown) technique and operating microscope, a T11 bilateral (unknown) (no (unknown) (unknown) Using the double (units (unknown) date) C-arm technique, unknown) pedicle screws were placed into the T11-12 (unknown) (no (unknown) (unknown) and marked on (units ( unknown) date) patient's back. A unknown) 2 inch incision 2 in from midline was made on (unknown) (no (unknown) (unknown) closed with 2-0 (units (unknown) date) Vicryl. The skin unknown) was closed with skin seema. (unknown) (no (unknown) (unknown) decompression was (units (unknown) date) completed. And unknown) there was no change to patient's right lower (unknown) (no (unknown) (unknown) discussed with (units (unknown) date) the patient. unknown) Informed consent was obtained from the patient and (unknown) (no (unknown) (unknown) discussing risks (units (unknown) date) benefits of unknown) treatment options, patient elected proceed with (unknown) (no (unknown) (unknown) edema. (units (unkno wn) date) unknown) (unknown) (no (unknown) (unknown) enlarged facet (units (unknown) date) joint. These unknown) findings are all consistent with patient's MRI (unknown) (no (unknown) (unknown) extremity which (units (unknown) date) was still unknown) significantly decreased compared to patient's baseline (unknown) (no (unknown) (unknown) extruded disc (units ( unknown) date) fragments as well unknown) as hypertrophied ligamentum flavum along with (unknown) (no (unknown) (unknown) given to the (units (u nknown) date) patient less than unknown) 30 min before the incision was made. Patient was (unknown) (no (unknown) (unknown) imaging that was (units (unknown) date) performed on his unknown) thoracic spine. (unknown) (no (unknown) (unknown) imaging, the wound (units (unknown) date) was then irrigated unknown) with sterile normal saline and packed with (unknown) (no (unknown) (unknown) laminectomy and (units (unknown) date) T11-T12 unknown) facetectomy was performed using a Kerrison rongeur. (unknown) (no (unknown) (unknown) lower extremity. (units (unknown) date) unknown) (unknown) (no (unknown) (unknown) myelopathy. (units (un known) date) Thoracic MRI shows unknown) severe spinal stenosis at T11-12 with cord (unknown) (no (unknown) (unknown) neuro vascular (units (unknown) date) monitoring. unknown) (unknown) (no (unknown) (unknown) of ligamentum (units ( unknown) date) flavum along with unknown) partial diskectomy was performed. (unknown) (no (unknown) (unknown) operative room. (units (unknown) date) General anesthesia unknown) was administered. Prophylactic antibiotic was (unknown) (no (unknown) (unknown) pedicles (units (unkno wn) date) bilaterally. This unknown) was done by placing the Jamshidi needle into the (unknown) (no (unknown) (unknown) pedicles, then (units (unknown) date) placing the unknown) guidewires over the Jamshidi needle, and finally (unknown) (no (unknown) (unknown) placed in the (units ( unknown) date) chart. Surgical unknown) site was marked. Patient was taken to the (unknown) (no (unknown) (unknown) placed into a (units ( unknown) date) prone position on unknown) the Uzair table. Patient's back was then (unknown) (no (unknown) (unknown) placing the (units (unk nown) date) cannulated screws unknown) over the guidewires bilaterally. After the pedicle (unknown) (no (unknown) (unknown) prepped and (units (un known) date) draped in the unknown) sterile fashion. Time-out was performed at this time. (unknown) (no (unknown) (unknown) screws using (units (u nknown) date) locking caps and unknown) torque limiting screwdriver. (unknown) (no (unknown) (unknown) screws were (units (un known) date) placed, 2 titanium unknown) rods was locked into the heads of the pedicle (unknown) (no (unknown) (unknown) signal prior to (units (unknown) date) patient's was unknown) positioned into the prone position. (unknown) (no (unknown) (unknown) surgery. (units (unkno wn) date) unknown) (unknown) (no (unknown) (unknown) table there was a (units (unknown) date) significant unknown) decreased motor and sensory function to patient's (unknown) (no (unknown) (unknown) the deep fascia (units (unknown) date) was closed with #1 unknown) Vicryl suture. The subcutaneous layer was (unknown) (no (unknown) (unknown) the right side (units (unknown) date) first. The fascia unknown) was incised in line with skin incision. Globus (unknown) (no (unknown) (unknown) worsening balance (units (unknown) date) consistent with unknown) myelopathy correlating to his MRI findings. Result panel 106 (unknown) (no (unknown) (unknown) (no value) (units (unk nown) date) unknown) (unknown) (no (unknown) (unknown) (past 8 hours): (units (unknown) date) unknown) (unknown) (no (unknown) (unknown) 00:00 07/31/22 (units (unknown) date) unknown) (unknown) (no (unknown) (unknown) 02:00 07/31/22 (units (unknown) date) unknown) (unknown) (no (unknown) (unknown) 04:00 (units (unkno wn) date) unknown) (unknown) (no (unknown) (unknown) 07/30/22 (units (unkno wn) date) unknown) (unknown) (no (unknown) (unknown) 07/31/22 (units (unkno wn) date) unknown) (unknown) (no (unknown) (unknown) 12:49 (units (unkno wn) date) unknown) (unknown) (no (unknown) (unknown) 30 (units (unkno wn) date) unknown) (unknown) (no (unknown) (unknown) Age/Sex: 86 / M (units (unknown) date) unknown) (unknown) (no (unknown) (unknown) Assessment + Plan (units (unknown) date) narrative: unknown) (unknown) (no (unknown) (unknown) Assessment + Plan (units (unknown) date) unknown) (unknown) (no (unknown) (unknown) Asthma (units (unkno wn) date) unknown) (unknown) (no (unknown) (unknown) Blood Pressure (units (unknown) date) 128/55 L 111/53 L unknown) 132/63 (unknown) (no (unknown) (unknown) Critical Care (units ( unknown) date) time: unknown) (unknown) (no (unknown) (unknown) : 1935 (units (unknown) date) Acct:[id number] unknown) (unknown) (no (unknown) (unknown) Date of Service: (units (unknown) date) 07/30/22 unknown) (unknown) (no (unknown) (unknown) Exam (units (unkno wn) date) unknown) (unknown) (no (unknown) (unknown) Graves' disease (units (unknown) date) unknown) (unknown) (no (unknown) (unknown) HTN (hypertension) (units (unknown) date) unknown) (unknown) (no (unknown) (unknown) His BP was kept (units (unknown) date) higher unknown) intentionally in order to improving perfusion to his (unknown) (no (unknown) (unknown) History of colon (units (unknown) date) resection () unknown) (unknown) (no (unknown) (unknown) History of (units (unk nown) date) 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 (-1999) (unknown) (no (unknown) (unknown) 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 () (unknown) (no (unknown) (unknown) Hx of sinus (units (un known) date) surgery (-2018) unknown) (unknown) (no (unknown) (unknown) Hyperthyroidism (units (unknown) date) unknown) (unknown) (no (unknown) (unknown) I spent a total of (units (unknown) date) [] minutes of unknown) critical care time on this patient's care (unknown) (no (unknown) (unknown) [facility] (units (unknown) date) [address] unknown) [place] [address] (unknown) (no (unknown) (unknown) Laboratory Results (units (unknown) date) - last 24 hr unknown) (unknown) (no (unknown) (unknown) Labs (units (unkno wn) date) unknown) (unknown) (no (unknown) (unknown) Labs: (units (unkno wn) date) unknown) (unknown) (no (unknown) (unknown) Medical History (units (unknown) date) (Updated 11/19/21 @ unknown) 07:20 by Caty Martinez PA-C) (unknown) (no (unknown) (unknown) Mr. Rosario is POD#1 (units (unknown) date) s/p T11-12 unknown) laminectomy and posterior fusion with (unknown) (no (unknown) (unknown) Objective (units (unkn own) date) unknown) (unknown) (no (unknown) (unknown) On exam today, (units ( unknown) date) patient is A+O x3, unknown) he has intact sensation to both legs and feet, (unknown) (no (unknown) (unknown) Oxygen Delivery (units (unknown) date) Method Room Air unknown) (unknown) (no (unknown) (unknown) Oxygen Flow Rate 0 (units (unknown) date) unknown) (unknown) (no (unknown) (unknown) PFSH (units (unkno wn) date) unknown) (unknown) (no (unknown) (unknown) Patient had (units (un known) date) significant drop in unknown) baseline EMG and motor evoked potential from (unknown) (no (unknown) (unknown) Patient is in (units (u nknown) date) minimum pain this unknown) morning. He is receiving IV steroids to decrease (unknown) (no (unknown) (unknown) Patient: (units (unkno wn) date) Faith Rosario MR#: unknown) [id number] (unknown) (no (unknown) (unknown) Plan to continue (units (unknown) date) current medical unknown) management, take sedating medication only as (unknown) (no (unknown) (unknown) Post surgery, (units ( unknown) date) patient had slight unknown) recovery in his left sided neuromonitoring (unknown) (no (unknown) (unknown) Precancerous (units (u nknown) date) lesion unknown) (unknown) (no (unknown) (unknown) Progress Note (units ( unknown) date) unknown) (unknown) (no (unknown) (unknown) Provider: Chepe Cade (units (unknown) date) unknown) (unknown) (no (unknown) (unknown) Pulse Oximetry 97 (units (unknown) date) 97 98 unknown) (unknown) (no (unknown) (unknown) Pulse Rate 78 76 (units (unknown) date) 84 unknown) (unknown) (no (unknown) (unknown) Respiratory Rate (units (unknown) date) 18 17 unknown) (unknown) (no (unknown) (unknown) S/P lumbar spinal (units (unknown) date) fusion (11/18/21) unknown) (unknown) (no (unknown) (unknown) SARS-CoV-2 (PCR) (units (unknown) date) Negative unknown) (unknown) (no (unknown) (unknown) Sciatica (units (unkno wn) date) unknown) (unknown) (no (unknown) (unknown) Signed By: (units (unk nown) date) unknown) (unknown) (no (unknown) (unknown) Smoking Status: (units (unknown) date) Never smoker unknown) (unknown) (no (unknown) (unknown) Social History (units (unknown) date) unknown) (unknown) (no (unknown) (unknown) Spinal stenosis (units (unknown) date) unknown) (unknown) (no (unknown) (unknown) Surgical History (units (unknown) date) (Updated 07/25/22 @ unknown) 10:40 by Myah Dunham RN) (unknown) (no (unknown) (unknown) Temperature 97.3 F (units (unknown) date) L 97.1 F L unknown) (unknown) (no (unknown) (unknown) Time Spent With (units (unknown) date) Patient unknown) (unknown) (no (unknown) (unknown) Vital Signs (units (un known) date) unknown) (unknown) (no (unknown) (unknown) Will continue (units ( unknown) date) monitor and assess unknown) his neuro status. (unknown) (no (unknown) (unknown) Will participate (units (unknown) date) in PT as tolerated unknown) today. (unknown) (no (unknown) (unknown) alcohol intake: (units (unknown) date) current unknown) (unknown) (no (unknown) (unknown) he has intact (units ( unknown) date) motor exam to his unknown) LLE. He has 4+/5 right EHL, 3/5 right (unknown) (no (unknown) (unknown) household members: (units (unknown) date) none unknown) (unknown) (no (unknown) (unknown) indicating spinal (units (unknown) date) cord edema. unknown) (unknown) (no (unknown) (unknown) instrumentation. (units (unknown) date) unknown) (unknown) (no (unknown) (unknown) muscle groups; he (units (unknown) date) was examined in unknown) recovery room post anesthesia prior to (unknown) (no (unknown) (unknown) necessary in order (units (unknown) date) to keep his mean unknown) arterial pressure higher than 80 to improve (unknown) (no (unknown) (unknown) neuro structures (units (unknown) date) and facilitate unknown) recovery. (unknown) (no (unknown) (unknown) neuromonitoring (units (unknown) date) after patient was unknown) placed into prone position prior to starting (unknown) (no (unknown) (unknown) quadriceps. (units (un known) date) unknown) (unknown) (no (unknown) (unknown) sensiblity to both (units (unknown) date) legs and unknown) significant motor weakness to both legs in multiple (unknown) (no (unknown) (unknown) signals. Patient (units (unknown) date) had significant unknown) post surgery physical exam with decreased (unknown) (no (unknown) (unknown) spinal cord (units (un known) date) inflammation, which unknown) was present on his MRI as hyerintense signal (unknown) (no (unknown) (unknown) surgery. (units (unkno wn) date) unknown) (unknown) (no (unknown) (unknown) tissue perfusion. (units (unknown) date) unknown) (unknown) (no (unknown) (unknown) today; this time (units (unknown) date) is exclusive of unknown) procedural time. (unknown) (no (unknown) (unknown) transfer to his (units (unknown) date) room last evening. unknown) This was expected and consistent with Result panel 107 (unknown) (no date) (unknown) (unknown) 12.1 g/dl (unkn own) (unknown) (no date) (unknown) (unknown) 37.2 % (unkn own) Result panel 108 (unknown) (no (unknown) (unknown) (no value) (units (unk nown) date) unknown) (unknown) (no (unknown) (unknown) (past 8 hours): (units (unknown) date) unknown) (unknown) (no (unknown) (unknown) -He is receiving (units (unknown) date) IV steroids to unknown) decrease spinal cord inflammation, which was (unknown) (no (unknown) (unknown) -His BP was kept (units (unknown) date) higher unknown) intentionally in order to improving perfusion to his (unknown) (no (unknown) (unknown) -On exam today, (units (unknown) date) patient is A+O x3, unknown) he has intact sensation to both legs and (unknown) (no (unknown) (unknown) -Plan to continue (units (unknown) date) current medical unknown) management, take sedating medication only as (unknown) (no (unknown) (unknown) -Post surgery, (units (unknown) date) patient had slight unknown) recovery in his left sided neuromonitoring (unknown) (no (unknown) (unknown) -Will continue (units (unknown) date) monitor and assess unknown) his neuro status, which is slightly improved (unknown) (no (unknown) (unknown) -continue with (units (unknown) date) physical unknown) therapy/occupationa l therapy. No bending, lifting, (unknown) (no (unknown) (unknown) -disposition, to (units (unknown) date) be determined. unknown) Likely to acute rehab facility in the next 1-3 (unknown) (no (unknown) (unknown) -there is (units (unkn own) date) significant concern unknown) about him being safe upon discharge. Physical (unknown) (no (unknown) (unknown) 08/01/22 15:35 (units (unknown) date) unknown) (unknown) (no (unknown) (unknown) 08/01/22 1655 (units ( unknown) date) unknown) (unknown) (no (unknown) (unknown) 08/01/22 (units (unkno wn) date) unknown) (unknown) (no (unknown) (unknown) 11:00 08/01/22 (units (unknown) date) unknown) (unknown) (no (unknown) (unknown) 15:35 (units (unkno wn) date) unknown) (unknown) (no (unknown) (unknown) 30 (units (unkno wn) date) unknown) (unknown) (no (unknown) (unknown) Actual Procedure (units (unknown) date) Side Surgeon unknown) (unknown) (no (unknown) (unknown) Age/Sex: 86 / M (units (unknown) date) unknown) (unknown) (no (unknown) (unknown) Assessment + Plan (units (unknown) date) Post-op unknown) (unknown) (no (unknown) (unknown) Asthma (units (unkno wn) date) unknown) (unknown) (no (unknown) (unknown) Blood Pressure (units (unknown) date) 155/70 H 152/71 H unknown) (unknown) (no (unknown) (unknown) : 1935 (units (unknown) date) Acct:[id number] unknown) (unknown) (no (unknown) (unknown) Date Patient Seen: (units (unknown) date) 08/01/22 unknown) (unknown) (no (unknown) (unknown) Date of Service: (units (unknown) date) 07/30/22 unknown) (unknown) (no (unknown) (unknown) EHL is 4/5, (units (un known) date) plantar flexion is unknown) 3/5, dorsiflexion is 3/5. (unknown) (no (unknown) (unknown) Exam Narrative: (units (unknown) date) unknown) (unknown) (no (unknown) (unknown) Exam (units (unkno wn) date) unknown) (unknown) (no (unknown) (unknown) Graves' disease (units (unknown) date) unknown) (unknown) (no (unknown) (unknown) HTN (hypertension) (units (unknown) date) unknown) (unknown) (no (unknown) (unknown) Hct 37.2 L (units (unk nown) date) unknown) (unknown) (no (unknown) (unknown) Hgb 12.1 L (units (unk nown) date) unknown) (unknown) (no (unknown) (unknown) History of colon (units (unknown) date) resection (-1969) unknown) (unknown) (no (unknown) (unknown) History of (units (unk nown) date) 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 () (unknown) (no (unknown) (unknown) 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 () (unknown) (no (unknown) (unknown) Hx of sinus (units (un known) date) surgery (-2019) unknown) (unknown) (no (unknown) (unknown) Hyperthyroidism (units (unknown) date) unknown) (unknown) (no (unknown) (unknown) Interval history: (units (unknown) date) unknown) (unknown) (no (unknown) (unknown) [facility] (units (unknown) date) [address]) [place] [address] (unknown) (no (unknown) (unknown) Laboratory Results (units (unknown) date) - last 24 hr unknown) (unknown) (no (unknown) (unknown) Labs (units (unkno wn) date) unknown) (unknown) (no (unknown) (unknown) Labs: (units (unkno wn) date) unknown) (unknown) (no (unknown) (unknown) Medical History (units (unknown) date) (Reviewed 08/01/22 unknown) @ 16:51 by Cat Peter PA-C) (unknown) (no (unknown) (unknown) Narrative (units (unkn own) date) unknown) (unknown) (no (unknown) (unknown) Objective (units (unkn own) date) unknown) (unknown) (no (unknown) (unknown) Operation Date: (units (unknown) date) 07/30/22 14:45 unknown) (unknown) (no (unknown) (unknown) Oxygen Delivery (units (unknown) date) Method Room Air unknown) (unknown) (no (unknown) (unknown) Oxygen Flow Rate 0 (units (unknown) date) 0 unknown) (unknown) (no (unknown) (unknown) Oxygen Flow Rate 0 (units (unknown) date) unknown) (unknown) (no (unknown) (unknown) PFSH (units (unkno wn) date) unknown) (unknown) (no (unknown) (unknown) Patient: (units (unkno wn) date) Faith Rosario MR#: unknown) [id number] (unknown) (no (unknown) (unknown) Physical therapy (units (unknown) date) and occupational unknown) therapy are at bedside. Bilateral lower (unknown) (no (unknown) (unknown) Pleasant (units (unkno wn) date) 86-year-old male, unknown) resting comfortably in bed, no acute distress. (unknown) (no (unknown) (unknown) Postoperative day: (units (unknown) date) 2 unknown) (unknown) (no (unknown) (unknown) Postoperative plan (units (unknown) date) narrative: -Patient unknown) had significant drop in baseline EMG and (unknown) (no (unknown) (unknown) Postoperative (units ( unknown) date) status narrative: unknown) Mr. Rosario is POD#2 s/p T11-12 laminectomy and (unknown) (no (unknown) (unknown) Postoperative (units ( unknown) date) unknown) (unknown) (no (unknown) (unknown) Precancerous (units (u nknown) date) lesion unknown) (unknown) (no (unknown) (unknown) Procedures (units (unk nown) date) unknown) (unknown) (no (unknown) (unknown) Procedures: (units (un known) date) unknown) (unknown) (no (unknown) (unknown) Progress Note (units ( unknown) date) unknown) (unknown) (no (unknown) (unknown) Provider: (units (unkn own) date) Cat Peter P.A-C unknown) (unknown) (no (unknown) (unknown) Pulse Oximetry 99 (units (unknown) date) 98 unknown) (unknown) (no (unknown) (unknown) Pulse Rate 81 107 (units (unknown) date) H unknown) (unknown) (no (unknown) (unknown) Respiratory Rate (units (unknown) date) 18 16 unknown) (unknown) (no (unknown) (unknown) Result Diagrams: (units (unknown) date) unknown) (unknown) (no (unknown) (unknown) S/P lumbar spinal (units (unknown) date) fusion (11/18/21) unknown) (unknown) (no (unknown) (unknown) Sciatica (units (unkno wn) date) unknown) (unknown) (no (unknown) (unknown) Signed (units (unkno wn) date) By:<Electronically unknown) signed by Cat Peter> (unknown) (no (unknown) (unknown) Smoking Status: (units (unknown) date) Never smoker unknown) (unknown) (no (unknown) (unknown) Social History (units (unknown) date) (Reviewed 08/01/22 unknown) @ 16:51 by Cat Peter PA-C) (unknown) (no (unknown) (unknown) Spinal stenosis (units (unknown) date) unknown) (unknown) (no (unknown) (unknown) Subjective (units (unk nown) date) unknown) (unknown) (no (unknown) (unknown) Surgical History (units (unknown) date) (Reviewed 08/01/22 unknown) @ 16:51 by Cat Peter PA-C) (unknown) (no (unknown) (unknown) Temperature 97.7 F (units (unknown) date) 97.4 F L unknown) (unknown) (no (unknown) (unknown) The patient is (units (unknown) date) complaining of unknown) moderate mid back pain. The main concern was his (unknown) (no (unknown) (unknown) Time Patient Seen: (units (unknown) date) 12:20 unknown) (unknown) (no (unknown) (unknown) Vital Signs (units (un known) date) unknown) (unknown) (no (unknown) (unknown) [Embedded Image (units (unknown) date) Not Available] unknown) (unknown) (no (unknown) (unknown) alcohol intake: (units (unknown) date) current unknown) (unknown) (no (unknown) (unknown) baseline sensation (units (unknown) date) is returning and unknown) right feels comparable to left. He is still (unknown) (no (unknown) (unknown) complaining of (units (unknown) date) significant unknown) right-sided lower extremity weakness, although this (unknown) (no (unknown) (unknown) days. (units (unkno wn) date) unknown) (unknown) (no (unknown) (unknown) extremity motor (units (unknown) date) functions. unknown) (unknown) (no (unknown) (unknown) extremity (units (unkn own) date) throughout, right unknown) lower extremity demonstrates 3+ with hip flexion, (unknown) (no (unknown) (unknown) extremity: (units (unk nown) date) Sensation is unknown) grossly intact throughout all dermatomes bilaterally, (unknown) (no (unknown) (unknown) feet, he has (units (u nknown) date) intact motor exam unknown) to his LLE. He has 4+/5 right EHL, 3/5 right (unknown) (no (unknown) (unknown) from postop day 1. (units (unknown) date) He is still having unknown) significant limitations with right lower (unknown) (no (unknown) (unknown) has improved (units (u nknown) date) somewhat from unknown) yesterday. He is currently on IV steroids due to his (unknown) (no (unknown) (unknown) household members: (units (unknown) date) none unknown) (unknown) (no (unknown) (unknown) intraoperative (units (unknown) date) findings. unknown) (unknown) (no (unknown) (unknown) more intensive (units (unknown) date) physical therapy, unknown) and I concur with this plan. (unknown) (no (unknown) (unknown) motor evoked (units (u nknown) date) potential from unknown) neuromonitoring after patient was placed into prone (unknown) (no (unknown) (unknown) muscle groups; he (units (unknown) date) was examined in unknown) recovery room post anesthesia prior to (unknown) (no (unknown) (unknown) necessary in order (units (unknown) date) to keep his mean unknown) arterial pressure higher than 80 to improve (unknown) (no (unknown) (unknown) neuro structures (units (unknown) date) and facilitate unknown) recovery. (unknown) (no (unknown) (unknown) neurologic (units (unk nown) date) changes. unknown) (unknown) (no (unknown) (unknown) p T11-12 (units (unkno wn) date) laminectomy, fusion unknown) Chepe Cade MD (unknown) (no (unknown) (unknown) position prior to (units (unknown) date) starting surgery. unknown) (unknown) (no (unknown) (unknown) posterior fusion (units (unknown) date) with unknown) instrumentation (unknown) (no (unknown) (unknown) present on his MRI (units (unknown) date) as hyerintense unknown) signal indicating spinal cord edema. (unknown) (no (unknown) (unknown) quadriceps. (units (un known) date) unknown) (unknown) (no (unknown) (unknown) sensation to both (units (unknown) date) legs and unknown) significant motor weakness to both legs in multiple (unknown) (no (unknown) (unknown) signals. Patient (units (unknown) date) had significant unknown) post surgery physical exam with decreased (unknown) (no (unknown) (unknown) significant (units (un known) date) decrease in unknown) neurovascular status during the initial slip prior to (unknown) (no (unknown) (unknown) surgery (units (unkno wn) date) positioning. Please unknown) see plan for further details. He is currently (unknown) (no (unknown) (unknown) therapy and (units (un known) date) occupational unknown) therapy are recommending an acute rehab facility for (unknown) (no (unknown) (unknown) tissue perfusion. (units (unknown) date) unknown) (unknown) (no (unknown) (unknown) transfer to his (units (unknown) date) room on the floor. unknown) This was expected and consistent with his (unknown) (no (unknown) (unknown) twisting x6 weeks. (units (unknown) date) unknown) (unknown) (no (unknown) (unknown) which is improved (units (unknown) date) from yesterday. unknown) Strength is intact on his left lower (unknown) (no (unknown) (unknown) working with (units (u nknown) date) physical therapy unknown) and occupational therapy. He notes that his Result panel 109 (unknown) (no (unknown) (unknown) (no value) (units (unk nown) date) unknown) (unknown) (no (unknown) (unknown) (past 8 hours): (units (unknown) date) unknown) (unknown) (no (unknown) (unknown) 04:00 08/02/22 (units (unknown) date) unknown) (unknown) (no (unknown) (unknown) 08:06 (units (unkno wn) date) unknown) (unknown) (no (unknown) (unknown) 08/01/22 15:35 (units (unknown) date) unknown) (unknown) (no (unknown) (unknown) 08/01/22 (units (unkno wn) date) unknown) (unknown) (no (unknown) (unknown) 08/02/22 0932 (units ( unknown) date) unknown) (unknown) (no (unknown) (unknown) 08/02/22 (units (unkno wn) date) unknown) (unknown) (no (unknown) (unknown) 15:35 (units (unkno wn) date) unknown) (unknown) (no (unknown) (unknown) 30 (units (unkno wn) date) unknown) (unknown) (no (unknown) (unknown) Actual Procedure (units (unknown) date) Side Surgeon unknown) (unknown) (no (unknown) (unknown) Age/Sex: 86 / M (units (unknown) date) unknown) (unknown) (no (unknown) (unknown) Assessment + Plan (units (unknown) date) Post-op unknown) (unknown) (no (unknown) (unknown) Asthma (units (unkno wn) date) unknown) (unknown) (no (unknown) (unknown) Blood Pressure (units (unknown) date) 160/81 H 138/70 unknown) (unknown) (no (unknown) (unknown) : 1935 (units (unknown) date) Acct:[id number] unknown) (unknown) (no (unknown) (unknown) Date of Service: (units (unknown) date) 07/30/22 unknown) (unknown) (no (unknown) (unknown) Exam Narrative: (units (unknown) date) unknown) (unknown) (no (unknown) (unknown) Exam (units (unkno wn) date) unknown) (unknown) (no (unknown) (unknown) Graves' disease (units (unknown) date) unknown) (unknown) (no (unknown) (unknown) HTN (hypertension) (units (unknown) date) unknown) (unknown) (no (unknown) (unknown) Hct 37.2 L (units (unk nown) date) unknown) (unknown) (no (unknown) (unknown) Hgb 12.1 L (units (unk nown) date) unknown) (unknown) (no (unknown) (unknown) History of colon (units (unknown) date) resection (-1969) unknown) (unknown) (no (unknown) (unknown) History of (units (unk nown) date) 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 (-1999) (unknown) (no (unknown) (unknown) 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 We will (unknown) (no (unknown) (unknown) Interval history: (units (unknown) date) unknown) (unknown) (no (unknown) (unknown) [facility] (units (unknown) date) [address]) [place] [address] (unknown) (no (unknown) (unknown) Laboratory Results (units (unknown) date) - last 24 hr unknown) (unknown) (no (unknown) (unknown) Labs (units (unkno wn) date) unknown) (unknown) (no (unknown) (unknown) Labs: (units (unkno wn) date) unknown) (unknown) (no (unknown) (unknown) Medical History (units (unknown) date) (Reviewed 08/01/22 unknown) @ 16:51 by Cat Peter PA-C) (unknown) (no (unknown) (unknown) Narrative (units (unkn own) date) unknown) (unknown) (no (unknown) (unknown) Objective (units (unkn own) date) unknown) (unknown) (no (unknown) (unknown) Operation Date: (units (unknown) date) 07/30/22 14:45 unknown) (unknown) (no (unknown) (unknown) Oxygen Delivery (units (unknown) date) Method Room Air unknown) (unknown) (no (unknown) (unknown) Oxygen Flow Rate 0 (units (unknown) date) unknown) (unknown) (no (unknown) (unknown) PFSH (units (unkno wn) date) unknown) (unknown) (no (unknown) (unknown) Patient: (units (unkno wn) date) Faith Rosario MR#: unknown) [id number] (unknown) (no (unknown) (unknown) Postoperative day: (units (unknown) date) 3 unknown) (unknown) (no (unknown) (unknown) Postoperative plan (units (unknown) date) narrative: As noted unknown) above, the patient will be transferred to (unknown) (no (unknown) (unknown) Postoperative (units ( unknown) date) plan: routine unknown) post-op care (Care for neurologic deficit as (unknown) (no (unknown) (unknown) Postoperative (units ( unknown) date) status narrative: unknown) The patient has a continued neurologic deficit (unknown) (no (unknown) (unknown) Postoperative (units ( unknown) date) status: other unknown) (Neurologic deficit) (unknown) (no (unknown) (unknown) Postoperative (units ( unknown) date) unknown) (unknown) (no (unknown) (unknown) Precancerous (units (u nknown) date) lesion unknown) (unknown) (no (unknown) (unknown) Procedures (units (unk nown) date) unknown) (unknown) (no (unknown) (unknown) Procedures: (units (un known) date) unknown) (unknown) (no (unknown) (unknown) Progress Note (units ( unknown) date) unknown) (unknown) (no (unknown) (unknown) Provider: (units (unkn own) date) Georeg Das MD unknown) (unknown) (no (unknown) (unknown) Pulse Oximetry 97 (units (unknown) date) 95 unknown) (unknown) (no (unknown) (unknown) Pulse Rate 89 89 (units (unknown) date) unknown) (unknown) (no (unknown) (unknown) Respiratory Rate (units (unknown) date) 21 16 unknown) (unknown) (no (unknown) (unknown) Result Diagrams: (units (unknown) date) unknown) (unknown) (no (unknown) (unknown) S/P lumbar spinal (units (unknown) date) fusion (11/18/21) unknown) (unknown) (no (unknown) (unknown) Sciatica (units (unkno wn) date) unknown) (unknown) (no (unknown) (unknown) Signed (units (unkno wn) date) By:<Electronically unknown) signed by George Das MD> (unknown) (no (unknown) (unknown) Smoking Status: (units (unknown) date) Never smoker unknown) (unknown) (no (unknown) (unknown) Social History (units (unknown) date) (Reviewed 08/01/22 unknown) @ 16:51 by Cat Peter PA-C) (unknown) (no (unknown) (unknown) Spinal stenosis (units (unknown) date) unknown) (unknown) (no (unknown) (unknown) Subjective (units (unk nown) date) unknown) (unknown) (no (unknown) (unknown) Surgical History (units (unknown) date) (Reviewed 08/01/22 unknown) @ 16:51 by Cat Peter PA-C) (unknown) (no (unknown) (unknown) Temperature 97.7 F (units (unknown) date) 98.0 F unknown) (unknown) (no (unknown) (unknown) The patient is (units (unknown) date) examined while unknown) lying in his hospital bed. He appears (unknown) (no (unknown) (unknown) The patient (units (un known) date) reports he remains unknown) numb and has difficulty moving his right leg. (unknown) (no (unknown) (unknown) Time Spent With (units (unknown) date) Patient unknown) (unknown) (no (unknown) (unknown) Time with patient: (units (unknown) date) 15-24 minutes unknown) (unknown) (no (unknown) (unknown) Vital Signs (units (un known) date) unknown) (unknown) (no (unknown) (unknown) [Embedded Image (units (unknown) date) Not Available] unknown) (unknown) (no (unknown) (unknown) after loss of (units ( unknown) date) signal while unknown) positioning for surgery Thursday. He continues to (unknown) (no (unknown) (unknown) alcohol intake: (units (unknown) date) current unknown) (unknown) (no (unknown) (unknown) an inpatient (units (u nknown) date) rehabilitation unknown) facility. This requires evaluation by a medicine (unknown) (no (unknown) (unknown) can dorsiflex and (units (unknown) date) plantar flex his unknown) toes and ankle on the left. He can not lift (unknown) (no (unknown) (unknown) comfortable. He (units (unknown) date) can dorsiflex his unknown) great toe on the right but not his ankle. He (unknown) (no (unknown) (unknown) continue the (units (u nknown) date) supportive care as unknown) outlined by Dr. Cade in his notes. (unknown) (no (unknown) (unknown) either leg off the (units (unknown) date) mattress. unknown) (unknown) (no (unknown) (unknown) have significant (units (unknown) date) weakness on unknown) examination. (unknown) (no (unknown) (unknown) hospitalist (units (un known) date) consult in unknown) preparation for transfer to the inpatient rehabilitation (unknown) (no (unknown) (unknown) household members: (units (unknown) date) none unknown) (unknown) (no (unknown) (unknown) outlined by (units (unknown) date) Alyssia.) and discharge unknown) (Plan for discharge to inpatient (unknown) (no (unknown) (unknown) p T11-12 (units (unkno wn) date) laminectomy, fusion unknown) Chepe Cade MD (unknown) (no (unknown) (unknown) rehabilitation (units (unknown) date) based on his unknown) progress with physical therapy. We will obtain a (unknown) (no (unknown) (unknown) specialists prior (units (unknown) date) to transfer and we unknown) have consulted the hospitalist for this. (unknown) (no (unknown) (unknown) unit.) (units (unkno wn) date) unknown) Result panel 110 (unknown) (no date) (unknown) (unknown) 0-1/HPF (units (unkn own) unknown) (unknown) (no date) (unknown) (unknown) 0-1/HPF (units (unkn own) unknown) (unknown) (no date) (unknown) (unknown) 1-5 /HPF (units (unkn own) unknown) (unknown) (no date) (unknown) (unknown) 5-10/HPF (units (unkn own) unknown) (unknown) (no date) (unknown) (unknown) None Seen (units (unk nown) unknown) (unknown) (no date) (unknown) (unknown) Specimen (units (unkn own) Cultured unknown) Result panel 111 (unknown) (no (unknown) (unknown) (no value) (units (unk nown) date) unknown) (unknown) (no (unknown) (unknown) (1-3) #240 tabs (units (unknown) date) unknown) (unknown) (no (unknown) (unknown) (past 8 hours): (units (unknown) date) unknown) (unknown) (no (unknown) (unknown) 08/01/22 15:35 (units (unknown) date) unknown) (unknown) (no (unknown) (unknown) 08/02/22 (units (unkno wn) date) unknown) (unknown) (no (unknown) (unknown) 12:23 (units (unkno wn) date) unknown) (unknown) (no (unknown) (unknown) 16:52 (units (unkno wn) date) unknown) (unknown) (no (unknown) (unknown) 30 (units (unkno wn) date) unknown) (unknown) (no (unknown) (unknown) 86 yo male (units (unk nown) date) presently hospital unknown) day #3 and POD #3, admitted for T11-12 bilateral (unknown) (no (unknown) (unknown) Age/Sex: 86 / M (units (unknown) date) unknown) (unknown) (no (unknown) (unknown) Allergies (units (unkn own) date) unknown) (unknown) (no (unknown) (unknown) Allergy/AdvReac (units (unknown) date) Type Severity unknown) Reaction Status Date / Time (unknown) (no (unknown) (unknown) Assessment + Plan (units (unknown) date) unknown) (unknown) (no (unknown) (unknown) Asthma (units (unkno wn) date) unknown) (unknown) (no (unknown) (unknown) Blood Pressure (units (unknown) date) 149/74 H unknown) (unknown) (no (unknown) (unknown) Chief complaint: (units (unknown) date) INPT unknown) (unknown) (no (unknown) (unknown) Consult Note (units (u nknown) date) unknown) (unknown) (no (unknown) (unknown) Consult details (units (unknown) date) unknown) (unknown) (no (unknown) (unknown) Critical Care (units ( unknown) date) time: unknown) (unknown) (no (unknown) (unknown) : 1935 (units (unknown) date) Acct:[id number] unknown) (unknown) (no (unknown) (unknown) Date of Service: (units (unknown) date) 07/30/22 unknown) (unknown) (no (unknown) (unknown) Exam (units (unkno wn) date) unknown) (unknown) (no (unknown) (unknown) Graves' disease (units (unknown) date) unknown) (unknown) (no (unknown) (unknown) HTN (hypertension) (units (unknown) date) unknown) (unknown) (no (unknown) (unknown) History of Present (units (unknown) date) Illness unknown) (unknown) (no (unknown) (unknown) History of colon (units (unknown) date) resection () unknown) (unknown) (no (unknown) (unknown) History of (units (unk nown) date) 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 () (unknown) (no (unknown) (unknown) 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 () (unknown) (no (unknown) (unknown) Home Medications (units (unknown) date) and Allergies unknown) (unknown) (no (unknown) (unknown) Home Medications (units (unknown) date) unknown) (unknown) (no (unknown) (unknown) Hx of sinus (units (un known) date) surgery () unknown) (unknown) (no (unknown) (unknown) Hyperthyroidism (units (unknown) date) unknown) (unknown) (no (unknown) (unknown) I spent a total of (units (unknown) date) [] minutes of unknown) critical care time on this patient's care (unknown) (no (unknown) (unknown) [facility] (units (unknown) date) [address] unknown) [place] [address] (unknown) (no (unknown) (unknown) Laboratory Results (units (unknown) date) - last 24 hr unknown) (unknown) (no (unknown) (unknown) Labs (units (unkno wn) date) unknown) (unknown) (no (unknown) (unknown) Labs: (units (unkno wn) date) unknown) (unknown) (no (unknown) (unknown) Medical History (units (unknown) date) (Reviewed 08/01/22 unknown) @ 16:51 by Cat Peter PA-C) (unknown) (no (unknown) (unknown) Medication (units (unk nown) date) Instructions unknown) Recorded Confirmed Type (unknown) (no (unknown) (unknown) Meds (units (unkno wn) date) unknown) (unknown) (no (unknown) (unknown) Narrative: (units (unk nown) date) unknown) (unknown) (no (unknown) (unknown) Objective (units (unkn own) date) unknown) (unknown) (no (unknown) (unknown) Oxygen Delivery (units (unknown) date) Method Room Air unknown) (unknown) (no (unknown) (unknown) Oxygen Flow Rate 0 (units (unknown) date) unknown) (unknown) (no (unknown) (unknown) PFSH (units (unkno wn) date) unknown) (unknown) (no (unknown) (unknown) Patient: (units (unkno wn) date) Faith Rosario MR#: unknown) [id number] (unknown) (no (unknown) (unknown) Precancerous (units (u nknown) date) lesion unknown) (unknown) (no (unknown) (unknown) Provider: (units (unkn own) date) Kyung Fofana MD unknown) (unknown) (no (unknown) (unknown) Pulse Oximetry 96 (units (unknown) date) unknown) (unknown) (no (unknown) (unknown) Pulse Rate 93 H (units (unknown) date) unknown) (unknown) (no (unknown) (unknown) Respiratory Rate (units (unknown) date) 16 unknown) (unknown) (no (unknown) (unknown) Result Diagrams: (units (unknown) date) unknown) (unknown) (no (unknown) (unknown) S/P lumbar spinal (units (unknown) date) fusion (11/18/21) unknown) (unknown) (no (unknown) (unknown) Sciatica (units (unkno wn) date) unknown) (unknown) (no (unknown) (unknown) Signed By: (units (unk nown) date) unknown) (unknown) (no (unknown) (unknown) Smoking Status: (units (unknown) date) Never smoker unknown) (unknown) (no (unknown) (unknown) Social History (units (unknown) date) unknown) (unknown) (no (unknown) (unknown) Spinal stenosis (units (unknown) date) unknown) (unknown) (no (unknown) (unknown) Surgical History (units (unknown) date) (Reviewed 08/01/22 unknown) @ 16:51 by Cat Peter PA-C) (unknown) (no (unknown) (unknown) Temperature 98.2 F (units (unknown) date) unknown) (unknown) (no (unknown) (unknown) Time Spent With (units (unknown) date) Patient unknown) (unknown) (no (unknown) (unknown) Tobacco + (units (unkn own) date) Substance Use unknown) (unknown) (no (unknown) (unknown) Ur Culture (units (unk nown) date) Indicated? Specimen unknown) cultured (unknown) (no (unknown) (unknown) Ur Squamous Epith (units (unknown) date) Cells 1-5 /hpf unknown) (unknown) (no (unknown) (unknown) Urine Bacteria (units (unknown) date) None seen unknown) (unknown) (no (unknown) (unknown) Urine RBC 0-1/hpf (units (unknown) date) unknown) (unknown) (no (unknown) (unknown) Urine WBC 5-10/hpf (units (unknown) date) H unknown) (unknown) (no (unknown) (unknown) Vital Signs (units (un known) date) unknown) (unknown) (no (unknown) (unknown) [Embedded Image (units (unknown) date) Not Available] unknown) (unknown) (no (unknown) (unknown) acetaminophen 325 (units (unknown) date) mg tablet 650 mg PO unknown) Q6HR PRN Pain, Mild 11/20/21 07/30/22 Rx (unknown) (no (unknown) (unknown) alcohol intake: (units (unknown) date) current unknown) (unknown) (no (unknown) (unknown) amlodipine 5 mg (units (unknown) date) tablet 5 mg PO unknown) DAILY 11/14/21 07/30/22 History (unknown) (no (unknown) (unknown) azithromycin (units (u nknown) date) Allergy Severe unknown) Hives Verified 07/30/22 13:29 (unknown) (no (unknown) (unknown) fluticasone 500 (units (unknown) date) mcg-salmeterol 50 1 unknown) inh inhalation QAM 11/14/21 07/30/22 History (unknown) (no (unknown) (unknown) household members: (units (unknown) date) none unknown) (unknown) (no (unknown) (unknown) inhalation (Advair (units (unknown) date) Diskus) unknown) (unknown) (no (unknown) (unknown) laminectomy and (units (unknown) date) facetecomies, unknown) T11-12 posterolateral fusion [id number] posterior (unknown) (no (unknown) (unknown) lisinopril 40 mg (units (unknown) date) tablet 40 mg PO unknown) DAILY 11/14/21 07/30/22 History (unknown) (no (unknown) (unknown) mcg/dose blistr (units (unknown) date) powdr for unknown) (unknown) (no (unknown) (unknown) metoprolol (units (unk nown) date) succinate 100 mg unknown) 100 mg PO DAILY 11/14/21 07/30/22 History (unknown) (no (unknown) (unknown) non-segmental (units ( unknown) date) instrumentation for unknown) thoracic myelopathy sxs. (unknown) (no (unknown) (unknown) tablet,extended (units (unknown) date) release 24 hr unknown) (unknown) (no (unknown) (unknown) today; this time (units (unknown) date) is exclusive of unknown) procedural time. Result panel 112 (unknown) (no (unknown) (unknown) (no value) (units (unk nown) date) unknown) (unknown) (no (unknown) (unknown) (1-3) #240 tabs (units (unknown) date) unknown) (unknown) (no (unknown) (unknown) (past 8 hours): (units (unknown) date) unknown) (unknown) (no (unknown) (unknown) 08/01/22 15:35 (units (unknown) date) unknown) (unknown) (no (unknown) (unknown) 08/02/22 (units (unkno wn) date) unknown) (unknown) (no (unknown) (unknown) 12:23 (units (unkno wn) date) unknown) (unknown) (no (unknown) (unknown) 16:52 (units (unkno wn) date) unknown) (unknown) (no (unknown) (unknown) 30 (units (unkno wn) date) unknown) (unknown) (no (unknown) (unknown) 86 yo male (units (unk nown) date) presently hospital unknown) day #3 and POD #3, admitted for T11-12 bilateral (unknown) (no (unknown) (unknown) Age/Sex: 86 / M (units (unknown) date) unknown) (unknown) (no (unknown) (unknown) All systems (units (un known) date) reviewed and unknown) negative (unknown) (no (unknown) (unknown) Allergies (units (unkn own) date) unknown) (unknown) (no (unknown) (unknown) Allergy/AdvReac (units (unknown) date) Type Severity unknown) Reaction Status Date / Time (unknown) (no (unknown) (unknown) Assessment + Plan (units (unknown) date) unknown) (unknown) (no (unknown) (unknown) Asthma (units (unkno wn) date) unknown) (unknown) (no (unknown) (unknown) Blood Pressure (units (unknown) date) 149/74 H unknown) (unknown) (no (unknown) (unknown) Chief complaint: (units (unknown) date) INPT unknown) (unknown) (no (unknown) (unknown) Consult Note (units (u nknown) date) unknown) (unknown) (no (unknown) (unknown) Consult details (units (unknown) date) unknown) (unknown) (no (unknown) (unknown) Critical Care (units ( unknown) date) time: unknown) (unknown) (no (unknown) (unknown) : 1935 (units (unknown) date) Acct:[id number] unknown) (unknown) (no (unknown) (unknown) Date of Service: (units (unknown) date) 07/30/22 unknown) (unknown) (no (unknown) (unknown) Exam (units (unkno wn) date) unknown) (unknown) (no (unknown) (unknown) Graves' disease (units (unknown) date) unknown) (unknown) (no (unknown) (unknown) HTN (hypertension) (units (unknown) date) unknown) (unknown) (no (unknown) (unknown) History of Present (units (unknown) date) Illness unknown) (unknown) (no (unknown) (unknown) History of colon (units (unknown) date) resection (-1970) unknown) (unknown) (no (unknown) (unknown) History of (units (unk nown) date) 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 () (unknown) (no (unknown) (unknown) 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 () (unknown) (no (unknown) (unknown) Home Medications (units (unknown) date) and Allergies unknown) (unknown) (no (unknown) (unknown) Home Medications (units (unknown) date) unknown) (unknown) (no (unknown) (unknown) Hx of sinus (units (un known) date) surgery () unknown) (unknown) (no (unknown) (unknown) Hyperthyroidism (units (unknown) date) unknown) (unknown) (no (unknown) (unknown) I spent a total of (units (unknown) date) [] minutes of unknown) critical care time on this patient's care (unknown) (no (unknown) (unknown) [facility] (units (unknown) date) [address] [place] [address] Street unknown) [place] [address] (unknown) (no (unknown) (unknown) Laboratory Results (units (unknown) date) - last 24 hr unknown) (unknown) (no (unknown) (unknown) Labs (units (unkno wn) date) unknown) (unknown) (no (unknown) (unknown) Labs: (units (unkno wn) date) unknown) (unknown) (no (unknown) (unknown) Medical History (units (unknown) date) (Reviewed 08/01/22 unknown) @ 16:51 by aCt Peter PA-C) (unknown) (no (unknown) (unknown) Medication (units (unk nown) date) Instructions unknown) Recorded Confirmed Type (unknown) (no (unknown) (unknown) Meds (units (unkno wn) date) unknown) (unknown) (no (unknown) (unknown) Narrative: (units (unk nown) date) unknown) (unknown) (no (unknown) (unknown) Objective (units (unkn own) date) unknown) (unknown) (no (unknown) (unknown) Oxygen Delivery (units (unknown) date) Method Room Air unknown) (unknown) (no (unknown) (unknown) Oxygen Flow Rate 0 (units (unknown) date) unknown) (unknown) (no (unknown) (unknown) PFSH (units (unkno wn) date) unknown) (unknown) (no (unknown) (unknown) Patient: (units (unkno wn) date) Faith Rosario MR#: unknown) [id number] (unknown) (no (unknown) (unknown) Plans are in place (units (unknown) date) for admission to unknown) acute inpatient Rehab at discharge. Pt's (unknown) (no (unknown) (unknown) Precancerous (units (u nknown) date) lesion unknown) (unknown) (no (unknown) (unknown) Provider: (units (unkn own) date) Kyung Fofana MD unknown) (unknown) (no (unknown) (unknown) Pt reports he has (units (unknown) date) had some urinary unknown) retention. Booker catheter was d/c'd (unknown) (no (unknown) (unknown) Pulse Oximetry 96 (units (unknown) date) unknown) (unknown) (no (unknown) (unknown) Pulse Rate 93 H (units (unknown) date) unknown) (unknown) (no (unknown) (unknown) RLE slightly. He (units (unknown) date) feels his LLE is unknown) normal. (unknown) (no (unknown) (unknown) Respiratory Rate (units (unknown) date) 16 unknown) (unknown) (no (unknown) (unknown) Result Diagrams: (units (unknown) date) unknown) (unknown) (no (unknown) (unknown) Review of Systems (units (unknown) date) unknown) (unknown) (no (unknown) (unknown) S/P lumbar spinal (units (unknown) date) fusion (11/18/21) unknown) (unknown) (no (unknown) (unknown) Sciatica (units (unkno wn) date) unknown) (unknown) (no (unknown) (unknown) Signed By: (units (unk nown) date) unknown) (unknown) (no (unknown) (unknown) Smoking Status: (units (unknown) date) Never smoker unknown) (unknown) (no (unknown) (unknown) Social History (units (unknown) date) unknown) (unknown) (no (unknown) (unknown) Spinal stenosis (units (unknown) date) unknown) (unknown) (no (unknown) (unknown) Surgical History (units (unknown) date) (Reviewed 08/01/22 unknown) @ 16:51 by Cat Peter PA-C) (unknown) (no (unknown) (unknown) Temperature 98.2 F (units (unknown) date) unknown) (unknown) (no (unknown) (unknown) Time Spent With (units (unknown) date) Patient unknown) (unknown) (no (unknown) (unknown) Tobacco + (units (unkn own) date) Substance Use unknown) (unknown) (no (unknown) (unknown) Ur Culture (units (unk nown) date) Indicated? Specimen unknown) cultured (unknown) (no (unknown) (unknown) Ur Squamous Epith (units (unknown) date) Cells 1-5 /hpf unknown) (unknown) (no (unknown) (unknown) Urine Bacteria (units (unknown) date) None seen unknown) (unknown) (no (unknown) (unknown) Urine RBC 0-1/hpf (units (unknown) date) unknown) (unknown) (no (unknown) (unknown) Urine WBC 5-10/hpf (units (unknown) date) H unknown) (unknown) (no (unknown) (unknown) Vital Signs (units (un known) date) unknown) (unknown) (no (unknown) (unknown) [Embedded Image (units (unknown) date) Not Available] unknown) (unknown) (no (unknown) (unknown) acetaminophen 325 (units (unknown) date) mg tablet 650 mg PO unknown) Q6HR PRN Pain, Mild 11/20/21 07/30/22 Rx (unknown) (no (unknown) (unknown) alcohol intake: (units (unknown) date) current unknown) (unknown) (no (unknown) (unknown) amlodipine 5 mg (units (unknown) date) tablet 5 mg PO unknown) DAILY 11/14/21 07/30/22 History (unknown) (no (unknown) (unknown) azithromycin (units (u nknown) date) Allergy Severe unknown) Hives Verified 07/30/22 13:29 (unknown) (no (unknown) (unknown) continues to be (units (unknown) date) unable to void. He unknown) notes his last BM was 5 days ago. He notes (unknown) (no (unknown) (unknown) fluticasone 500 (units (unknown) date) mcg-salmeterol 50 1 unknown) inh inhalation QAM 11/14/21 07/30/22 History (unknown) (no (unknown) (unknown) had a drop in EMG (units (unknown) date) when placed in unknown) prone position at the start of surgery. AFter (unknown) (no (unknown) (unknown) household members: (units (unknown) date) none unknown) (unknown) (no (unknown) (unknown) inhalation (Advair (units (unknown) date) Diskus) unknown) (unknown) (no (unknown) (unknown) insurance is (units (u nknown) date) requesting a unknown) hospitalist consult. (unknown) (no (unknown) (unknown) laminectomy and (units (unknown) date) facetecomies, unknown) T11-12 posterolateral fusion [id number] posterior (unknown) (no (unknown) (unknown) lisinopril 40 mg (units (unknown) date) tablet 40 mg PO unknown) DAILY 11/14/21 07/30/22 History (unknown) (no (unknown) (unknown) mcg/dose blistr (units (unknown) date) powdr for unknown) (unknown) (no (unknown) (unknown) metoprolol (units (unk nown) date) succinate 100 mg unknown) 100 mg PO DAILY 11/14/21 07/30/22 History (unknown) (no (unknown) (unknown) non-segmental (units ( unknown) date) instrumentation for unknown) thoracic myelopathy sxs. During surgery, he (unknown) (no (unknown) (unknown) normal po intake. (units (unknown) date) NO unknown) CP/SOB/N/V/abdomina l pain/MOE/other neuro sxs. (unknown) (no (unknown) (unknown) since surgery and (units (unknown) date) now is able to unknown) wiggle his toes on the right side and move his (unknown) (no (unknown) (unknown) steroids d/t MRI (units (unknown) date) revealing spinal unknown) cord inflammation. He has had improvement (unknown) (no (unknown) (unknown) surgery, he had (units (unknown) date) decreased sensation unknown) to both legs as well as significant motor (unknown) (no (unknown) (unknown) tablet,extended (units (unknown) date) release 24 hr unknown) (unknown) (no (unknown) (unknown) today; this time (units (unknown) date) is exclusive of unknown) procedural time. (unknown) (no (unknown) (unknown) weakness. He was (units (unknown) date) found to have some unknown) partial paralysis. He was placed on (unknown) (no (unknown) (unknown) yesterday. He (units ( unknown) date) required I/O cathx unknown) 2 for volumes of 600 and 1L overnight. He Result panel 113 (unknown) (no (unknown) (unknown) (no value) (units (unk nown) date) unknown) (unknown) (no (unknown) (unknown) (1-3) #240 tabs (units (unknown) date) unknown) (unknown) (no (unknown) (unknown) (past 8 hours): (units (unknown) date) unknown) (unknown) (no (unknown) (unknown) 1. Post-op spinal (units (unknown) date) cord edema unknown) (unknown) (no (unknown) (unknown) 08/01/22 15:35 (units (unknown) date) unknown) (unknown) (no (unknown) (unknown) 08/02/22 (units (unkno wn) date) unknown) (unknown) (no (unknown) (unknown) 12:23 (units (unkno wn) date) unknown) (unknown) (no (unknown) (unknown) 16:52 (units (unkno wn) date) unknown) (unknown) (no (unknown) (unknown) 2. Urinary (units (unk nown) date) retention unknown) (unknown) (no (unknown) (unknown) 3. Constipation (units (unknown) date) unknown) (unknown) (no (unknown) (unknown) 30 (units (unkno wn) date) unknown) (unknown) (no (unknown) (unknown) 4. HTN (units (unkno wn) date) unknown) (unknown) (no (unknown) (unknown) 5. (units (unkno wn) date) unknown) (unknown) (no (unknown) (unknown) 86 yo male (units (unk nown) date) presently hospital unknown) day #3 and POD #3, admitted for T11-12 bilateral (unknown) (no (unknown) (unknown) Abd: soft, NT/ND, (units (unknown) date) BTx4, no HSM/masses unknown) (unknown) (no (unknown) (unknown) Add bowel regimen (units (unknown) date) unknown) (unknown) (no (unknown) (unknown) Age/Sex: 86 / M (units (unknown) date) unknown) (unknown) (no (unknown) (unknown) All systems (units (un known) date) reviewed and unknown) negative (unknown) (no (unknown) (unknown) Allergies (units (unkn own) date) unknown) (unknown) (no (unknown) (unknown) Allergy/AdvReac (units (unknown) date) Type Severity unknown) Reaction Status Date / Time (unknown) (no (unknown) (unknown) Assessment + Plan (units (unknown) date) narrative: unknown) (unknown) (no (unknown) (unknown) Assessment + Plan (units (unknown) date) unknown) (unknown) (no (unknown) (unknown) Asthma (units (unkno wn) date) unknown) (unknown) (no (unknown) (unknown) Blood Pressure (units (unknown) date) 149/74 H unknown) (unknown) (no (unknown) (unknown) CV: RRR, no M/R/G (units (unknown) date) unknown) (unknown) (no (unknown) (unknown) Chest: CTAB, resp (units (unknown) date) excursions symmetric unknown) (unknown) (no (unknown) (unknown) Chief complaint: (units (unknown) date) INPT unknown) (unknown) (no (unknown) (unknown) Consult Note (units (u nknown) date) unknown) (unknown) (no (unknown) (unknown) Consult details (units (unknown) date) unknown) (unknown) (no (unknown) (unknown) Continue (units (unkno wn) date) monitoring. Would unknown) recommend restarting his usual antihypertensives (unknown) (no (unknown) (unknown) Critical Care time: (unit s (unknown) date) unknown) (unknown) (no (unknown) (unknown) : 1935 (units (unknown) date) Acct:[id number] unknown) (unknown) (no (unknown) (unknown) Date of Service: (units (unknown) date) 07/30/22 unknown) (unknown) (no (unknown) (unknown) Exam Narrative: (units (unknown) date) unknown) (unknown) (no (unknown) (unknown) Exam (units (unkno wn) date) unknown) (unknown) (no (unknown) (unknown) Extr: warm, well (units (unknown) date) perfused no C/C/E unknown) (unknown) (no (unknown) (unknown) Booker to be (units (un known) date) replaced. Will send unknown) a UA to r/o UTI. Certainly he may have a (unknown) (no (unknown) (unknown) GEN: Pleasant (units ( unknown) date) elderly male, A+Ox3, unknown) NAD (unknown) (no (unknown) (unknown) Graves' disease (units (unknown) date) unknown) (unknown) (no (unknown) (unknown) HEENT: NC/AT, (units ( unknown) date) PERRL, EOMI, sclera unknown) anicteric, conjunctivae clear, OP clear (unknown) (no (unknown) (unknown) HTN (hypertension) (units (unknown) date) unknown) (unknown) (no (unknown) (unknown) History of Present (units (unknown) date) Illness unknown) (unknown) (no (unknown) (unknown) History of colon (units (unknown) date) resection (-1969) unknown) (unknown) (no (unknown) (unknown) History of (units (unk nown) date) 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 () (unknown) (no (unknown) (unknown) 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 unknown) () (unknown) (no (unknown) (unknown) Home Medications (units (unknown) date) and Allergies unknown) (unknown) (no (unknown) (unknown) Home Medications (units (unknown) date) unknown) (unknown) (no (unknown) (unknown) Hx of sinus surgery (unit s (unknown) date) () unknown) (unknown) (no (unknown) (unknown) Hyperthyroidism (units (unknown) date) unknown) (unknown) (no (unknown) (unknown) I spent a total of (units (unknown) date) [] minutes of unknown) critical care time on this patient's care (unknown) (no (unknown) (unknown) [facility] (units (unknown) date) [address] unknown) [place] [address] (unknown) (no (unknown) (unknown) Laboratory Results (units (unknown) date) - last 24 hr unknown) (unknown) (no (unknown) (unknown) Labs (units (unkno wn) date) unknown) (unknown) (no (unknown) (unknown) Labs: (units (unkno wn) date) unknown) (unknown) (no (unknown) (unknown) Medical History (units (unknown) date) (Reviewed 08/01/22 @ unknown) 16:51 by Cat Peter PA-C) (unknown) (no (unknown) (unknown) Medication (units (unk nown) date) Instructions unknown) Recorded Confirmed Type (unknown) (no (unknown) (unknown) Meds (units (unkno wn) date) unknown) (unknown) (no (unknown) (unknown) Narrative (units (unkn own) date) unknown) (unknown) (no (unknown) (unknown) Narrative: (units (unk nown) date) unknown) (unknown) (no (unknown) (unknown) Neck: supple, No (units (unknown) date) LAD, no bruits unknown) (unknown) (no (unknown) (unknown) Neuro: he is able (units (unknown) date) to move his right unknown) leg against gravity, able to wiggle toes, (unknown) (no (unknown) (unknown) Objective (units (unkn own) date) unknown) (unknown) (no (unknown) (unknown) Ongoing mgmt per (units (unknown) date) surgical team. unknown) Inpatient rehab is highly recommended. Pt is (unknown) (no (unknown) (unknown) Oxygen Delivery (units (unknown) date) Method Room Air unknown) (unknown) (no (unknown) (unknown) Oxygen Flow Rate 0 (units (unknown) date) unknown) (unknown) (no (unknown) (unknown) PFSH (units (unkno wn) date) unknown) (unknown) (no (unknown) (unknown) Patient: Faith Rosario (unit s (unknown) date) MR#: [id number] unknown) (unknown) (no (unknown) (unknown) Plans are in place (units (unknown) date) for admission to unknown) acute inpatient Rehab at discharge. Pt's (unknown) (no (unknown) (unknown) Precancerous lesion (unit s (unknown) date) unknown) (unknown) (no (unknown) (unknown) Provider: (units (unkn own) date) Kyung Fofana MD unknown) (unknown) (no (unknown) (unknown) Pt reports he has (units (unknown) date) had some urinary unknown) retention. Booker catheter was d/c'd (unknown) (no (unknown) (unknown) Pulse Oximetry 96 (units (unknown) date) unknown) (unknown) (no (unknown) (unknown) Pulse Rate 93 H (units (unknown) date) unknown) (unknown) (no (unknown) (unknown) RLE slightly. He (units (unknown) date) feels his LLE is unknown) normal. (unknown) (no (unknown) (unknown) Respiratory Rate 16 (unit s (unknown) date) unknown) (unknown) (no (unknown) (unknown) Result Diagrams: (units (unknown) date) unknown) (unknown) (no (unknown) (unknown) Review of Systems (units (unknown) date) unknown) (unknown) (no (unknown) (unknown) S/P lumbar spinal (units (unknown) date) fusion (11/18/21) unknown) (unknown) (no (unknown) (unknown) Sciatica (units (unkno wn) date) unknown) (unknown) (no (unknown) (unknown) Signed By: (units (unk nown) date) unknown) (unknown) (no (unknown) (unknown) Smoking Status: (units (unknown) date) Never smoker unknown) (unknown) (no (unknown) (unknown) Social History (units (unknown) date) unknown) (unknown) (no (unknown) (unknown) Spinal stenosis (units (unknown) date) unknown) (unknown) (no (unknown) (unknown) Surgical History (units (unknown) date) (Reviewed 08/01/22 @ unknown) 16:51 by Cat Peter PA-C) (unknown) (no (unknown) (unknown) Temperature 98.2 F (units (unknown) date) unknown) (unknown) (no (unknown) (unknown) Time Spent With (units (unknown) date) Patient unknown) (unknown) (no (unknown) (unknown) Tobacco + Substance (unit s (unknown) date) Use unknown) (unknown) (no (unknown) (unknown) Ur Culture (units (unk nown) date) Indicated? Specimen unknown) cultured (unknown) (no (unknown) (unknown) Ur Squamous Epith (units (unknown) date) Cells 1-5 /hpf unknown) (unknown) (no (unknown) (unknown) Urine Bacteria None (unit s (unknown) date) seen unknown) (unknown) (no (unknown) (unknown) Urine RBC 0-1/hpf (units (unknown) date) unknown) (unknown) (no (unknown) (unknown) Urine WBC 5-10/hpf (units (unknown) date) H unknown) (unknown) (no (unknown) (unknown) Vital Signs (units (un known) date) unknown) (unknown) (no (unknown) (unknown) [Embedded Image Not (unit s (unknown) date) Available] unknown) (unknown) (no (unknown) (unknown) acetaminophen 325 (units (unknown) date) mg tablet 650 mg PO unknown) Q6HR PRN Pain, Mild 11/20/21 07/30/22 Rx (unknown) (no (unknown) (unknown) alcohol intake: (units (unknown) date) current unknown) (unknown) (no (unknown) (unknown) amlodipine 5 mg (units (unknown) date) tablet 5 mg PO DAILY unknown) 11/14/21 07/30/22 History (unknown) (no (unknown) (unknown) azithromycin (units (u nknown) date) Allergy Severe Hives unknown) Verified 07/30/22 13:29 (unknown) (no (unknown) (unknown) component of (units (u nknown) date) neurogenic bladder. unknown) Could also be secondary to constipation and (unknown) (no (unknown) (unknown) continues to be (units (unknown) date) unable to void. He unknown) notes his last BM was 5 days ago. He notes (unknown) (no (unknown) (unknown) fluticasone 500 (units (unknown) date) mcg-salmeterol 50 1 unknown) inh inhalation QAM 11/14/21 07/30/22 History (unknown) (no (unknown) (unknown) had a drop in EMG (units (unknown) date) when placed in prone unknown) position at the start of surgery. AFter (unknown) (no (unknown) (unknown) household members: (units (unknown) date) none unknown) (unknown) (no (unknown) (unknown) inhalation (Advair (units (unknown) date) Diskus) unknown) (unknown) (no (unknown) (unknown) insurance is (units (u nknown) date) requesting a unknown) hospitalist consult. (unknown) (no (unknown) (unknown) laminectomy and (units (unknown) date) facetecomies, T11-12 unknown) posterolateral fusion [id number] posterior (unknown) (no (unknown) (unknown) lisinopril 40 mg (units (unknown) date) tablet 40 mg PO unknown) DAILY 11/14/21 07/30/22 History (unknown) (no (unknown) (unknown) mcg/dose blistr (units (unknown) date) powdr for unknown) (unknown) (no (unknown) (unknown) metoprolol (units (unk nown) date) succinate 100 mg 100 unknown) mg PO DAILY 11/14/21 07/30/22 History (unknown) (no (unknown) (unknown) non-segmental (units ( unknown) date) instrumentation for unknown) thoracic myelopathy sxs. During surgery, he (unknown) (no (unknown) (unknown) normal po intake. (units (unknown) date) NO unknown) CP/SOB/N/V/abdominal pain/MOE/other neuro sxs. (unknown) (no (unknown) (unknown) not having a BM in (units (unknown) date) 5 days. Will unknown) monitor. (unknown) (no (unknown) (unknown) sensation intact (units (unknown) date) t/o unknown) (unknown) (no (unknown) (unknown) since surgery and (units (unknown) date) now is able to unknown) wiggle his toes on the right side and move his (unknown) (no (unknown) (unknown) steroids d/t MRI (units (unknown) date) revealing spinal unknown) cord inflammation. He has had improvement (unknown) (no (unknown) (unknown) surgery, he had (units (unknown) date) decreased sensation unknown) to both legs as well as significant motor (unknown) (no (unknown) (unknown) tablet,extended (units (unknown) date) release 24 hr unknown) (unknown) (no (unknown) (unknown) today; this time is (unit s (unknown) date) exclusive of unknown) procedural time. (unknown) (no (unknown) (unknown) very motivated and (units (unknown) date) is exhibiting unknown) improvement since surgery. (unknown) (no (unknown) (unknown) weakness. He was (units (unknown) date) found to have some unknown) partial paralysis. He was placed on (unknown) (no (unknown) (unknown) yesterday. He (units ( unknown) date) required I/O cathx 2 unknown) for volumes of 600 and 1L overnight. He Result panel 114 (unknown) (no (unknown) (unknown) (no value) (units (unk nown) date) unknown) (unknown) (no (unknown) (unknown) (1-3) #240 tabs (units (unknown) date) unknown) (unknown) (no (unknown) (unknown) (past 8 hours): (units (unknown) date) unknown) (unknown) (no (unknown) (unknown) 1. Post-op spinal (units (unknown) date) cord edema unknown) (unknown) (no (unknown) (unknown) 08/01/22 15:35 (units (unknown) date) unknown) (unknown) (no (unknown) (unknown) 08/02/22 2137 (units ( unknown) date) unknown) (unknown) (no (unknown) (unknown) 08/02/22 (units (unkno wn) date) unknown) (unknown) (no (unknown) (unknown) 12:23 (units (unkno wn) date) unknown) (unknown) (no (unknown) (unknown) 16:52 (units (unkno wn) date) unknown) (unknown) (no (unknown) (unknown) 2. Urinary (units (unk nown) date) retention unknown) (unknown) (no (unknown) (unknown) 3. Constipation (units (unknown) date) unknown) (unknown) (no (unknown) (unknown) 30 (units (unkno wn) date) unknown) (unknown) (no (unknown) (unknown) 4. HTN (units (unkno wn) date) unknown) (unknown) (no (unknown) (unknown) 5. Asthma (units (unkn own) date) unknown) (unknown) (no (unknown) (unknown) 86 yo male (units (unk nown) date) presently hospital unknown) day #3 and POD #3, admitted for T11-12 bilateral (unknown) (no (unknown) (unknown) Abd: soft, NT/ND, (units (unknown) date) BTx4, no HSM/masses unknown) (unknown) (no (unknown) (unknown) Add bowel regimen (units (unknown) date) unknown) (unknown) (no (unknown) (unknown) Age/Sex: 86 / M (units (unknown) date) unknown) (unknown) (no (unknown) (unknown) All systems (units (un known) date) reviewed and unknown) negative (unknown) (no (unknown) (unknown) Allergies (units (unkn own) date) unknown) (unknown) (no (unknown) (unknown) Allergy/AdvReac (units (unknown) date) Type Severity unknown) Reaction Status Date / Time (unknown) (no (unknown) (unknown) Assessment + Plan (units (unknown) date) narrative: unknown) (unknown) (no (unknown) (unknown) Assessment + Plan (units (unknown) date) unknown) (unknown) (no (unknown) (unknown) Asthma (units (unkno wn) date) unknown) (unknown) (no (unknown) (unknown) Blood Pressure (units (unknown) date) 149/74 H unknown) (unknown) (no (unknown) (unknown) CV: RRR, no M/R/G (units (unknown) date) unknown) (unknown) (no (unknown) (unknown) Chest: CTAB, resp (units (unknown) date) excursions symmetric unknown) (unknown) (no (unknown) (unknown) Chief complaint: (units (unknown) date) INPT unknown) (unknown) (no (unknown) (unknown) Code (units (unkno wn) date) unknown) (unknown) (no (unknown) (unknown) Consult Note (units (u nknown) date) unknown) (unknown) (no (unknown) (unknown) Consult details (units (unknown) date) unknown) (unknown) (no (unknown) (unknown) Continue (units (unkno wn) date) monitoring. Would unknown) recommend restarting his usual antihypertensives (unknown) (no (unknown) (unknown) Critical Care time: (unit s (unknown) date) unknown) (unknown) (no (unknown) (unknown) : 1935 (units (unknown) date) Acct:[id number] unknown) (unknown) (no (unknown) (unknown) Date of Service: (units (unknown) date) 07/30/22 unknown) (unknown) (no (unknown) (unknown) Dispo (units (unkno wn) date) unknown) (unknown) (no (unknown) (unknown) Exam Narrative: (units (unknown) date) unknown) (unknown) (no (unknown) (unknown) Exam (units (unkno wn) date) unknown) (unknown) (no (unknown) (unknown) Extr: warm, well (units (unknown) date) perfused no C/C/E unknown) (unknown) (no (unknown) (unknown) Booker to be (units (un known) date) replaced. Will send unknown) a UA to r/o UTI. Certainly he may have a (unknown) (no (unknown) (unknown) Full (units (unkno wn) date) unknown) (unknown) (no (unknown) (unknown) GEN: Pleasant (units ( unknown) date) elderly male, A+Ox3, unknown) NAD (unknown) (no (unknown) (unknown) Graves' disease (units (unknown) date) unknown) (unknown) (no (unknown) (unknown) HEENT: NC/AT, (units ( unknown) date) PERRL, EOMI, sclera unknown) anicteric, conjunctivae clear, OP clear (unknown) (no (unknown) (unknown) HTN (hypertension) (units (unknown) date) unknown) (unknown) (no (unknown) (unknown) History of Present (units (unknown) date) Illness unknown) (unknown) (no (unknown) (unknown) History of colon (units (unknown) date) resection (-1969) unknown) (unknown) (no (unknown) (unknown) History of (units (unk nown) date) 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 () (unknown) (no (unknown) (unknown) 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 unknown) () (unknown) (no (unknown) (unknown) Home Medications (units (unknown) date) and Allergies unknown) (unknown) (no (unknown) (unknown) Home Medications (units (unknown) date) unknown) (unknown) (no (unknown) (unknown) Hx of sinus surgery (unit s (unknown) date) () unknown) (unknown) (no (unknown) (unknown) Hyperthyroidism (units (unknown) date) unknown) (unknown) (no (unknown) (unknown) I spent a total of (units (unknown) date) [] minutes of unknown) critical care time on this patient's care (unknown) (no (unknown) (unknown) [facility] (units (unknown) date) [address] [place] [address] unknown) [place] [address] (unknown) (no (unknown) (unknown) Laboratory Results (units (unknown) date) - last 24 hr unknown) (unknown) (no (unknown) (unknown) Labs (units (unkno wn) date) unknown) (unknown) (no (unknown) (unknown) Labs: (units (unkno wn) date) unknown) (unknown) (no (unknown) (unknown) Medical History (units (unknown) date) (Reviewed 08/01/22 @ unknown) 16:51 by Cat Peter PA-C) (unknown) (no (unknown) (unknown) Medication (units (unk nown) date) Instructions unknown) Recorded Confirmed Type (unknown) (no (unknown) (unknown) Meds (units (unkno wn) date) unknown) (unknown) (no (unknown) (unknown) Narrative (units (unkn own) date) unknown) (unknown) (no (unknown) (unknown) Narrative: (units (unk nown) date) unknown) (unknown) (no (unknown) (unknown) Neck: supple, No (units (unknown) date) LAD, no bruits unknown) (unknown) (no (unknown) (unknown) Neuro: he is able (units (unknown) date) to move his right unknown) leg against gravity, able to wiggle toes, (unknown) (no (unknown) (unknown) Objective (units (unkn own) date) unknown) (unknown) (no (unknown) (unknown) Ongoing mgmt per (units (unknown) date) surgical team. unknown) Inpatient rehab is highly recommended. Pt is (unknown) (no (unknown) (unknown) Oxygen Delivery (units (unknown) date) Method Room Air unknown) (unknown) (no (unknown) (unknown) Oxygen Flow Rate 0 (units (unknown) date) unknown) (unknown) (no (unknown) (unknown) PFSH (units (unkno wn) date) unknown) (unknown) (no (unknown) (unknown) Patient: Faith Rosario (unit s (unknown) date) MR#: [id number] unknown) (unknown) (no (unknown) (unknown) Pending (units (unkno wn) date) unknown) (unknown) (no (unknown) (unknown) Per surgery (units (un known) date) unknown) (unknown) (no (unknown) (unknown) Plans are in place (units (unknown) date) for admission to unknown) acute inpatient Rehab at discharge. Pt's (unknown) (no (unknown) (unknown) Precancerous lesion (unit s (unknown) date) unknown) (unknown) (no (unknown) (unknown) Prophy (units (unkno wn) date) unknown) (unknown) (no (unknown) (unknown) Provider: (units (unkn own) date) Kyung Fofana MD unknown) (unknown) (no (unknown) (unknown) Pt reports he has (units (unknown) date) had some urinary unknown) retention. Booker catheter was d/c'd (unknown) (no (unknown) (unknown) Pulse Oximetry 96 (units (unknown) date) unknown) (unknown) (no (unknown) (unknown) Pulse Rate 93 H (units (unknown) date) unknown) (unknown) (no (unknown) (unknown) RLE slightly. He (units (unknown) date) feels his LLE is unknown) normal. (unknown) (no (unknown) (unknown) Respiratory Rate 16 (unit s (unknown) date) unknown) (unknown) (no (unknown) (unknown) Restart Advair (units (unknown) date) unknown) (unknown) (no (unknown) (unknown) Result Diagrams: (units (unknown) date) unknown) (unknown) (no (unknown) (unknown) Review of Systems (units (unknown) date) unknown) (unknown) (no (unknown) (unknown) S/P lumbar spinal (units (unknown) date) fusion (11/18/21) unknown) (unknown) (no (unknown) (unknown) Sciatica (units (unkno wn) date) unknown) (unknown) (no (unknown) (unknown) Signed (units (unkno wn) date) By:<Electronically unknown) signed by Kyung Fofana MD> (unknown) (no (unknown) (unknown) Smoking Status: (units (unknown) date) Never smoker unknown) (unknown) (no (unknown) (unknown) Social History (units (unknown) date) unknown) (unknown) (no (unknown) (unknown) Spinal stenosis (units (unknown) date) unknown) (unknown) (no (unknown) (unknown) Surgical History (units (unknown) date) (Reviewed 08/01/22 @ unknown) 16:51 by Cat Peter PA-C) (unknown) (no (unknown) (unknown) Temperature 98.2 F (units (unknown) date) unknown) (unknown) (no (unknown) (unknown) Time Spent With (units (unknown) date) Patient unknown) (unknown) (no (unknown) (unknown) Tobacco + Substance (unit s (unknown) date) Use unknown) (unknown) (no (unknown) (unknown) Ur Culture (units (unk nown) date) Indicated? Specimen unknown) cultured (unknown) (no (unknown) (unknown) Ur Squamous Epith (units (unknown) date) Cells 1-5 /hpf unknown) (unknown) (no (unknown) (unknown) Urine Bacteria None (unit s (unknown) date) seen unknown) (unknown) (no (unknown) (unknown) Urine RBC 0-1/hpf (units (unknown) date) unknown) (unknown) (no (unknown) (unknown) Urine WBC 5-10/hpf (units (unknown) date) H unknown) (unknown) (no (unknown) (unknown) Vital Signs (units (un known) date) unknown) (unknown) (no (unknown) (unknown) [Embedded Image Not (unit s (unknown) date) Available] unknown) (unknown) (no (unknown) (unknown) acetaminophen 325 (units (unknown) date) mg tablet 650 mg PO unknown) Q6HR PRN Pain, Mild 11/20/21 07/30/22 Rx (unknown) (no (unknown) (unknown) alcohol intake: (units (unknown) date) current unknown) (unknown) (no (unknown) (unknown) amlodipine 5 mg (units (unknown) date) tablet 5 mg PO DAILY unknown) 11/14/21 07/30/22 History (unknown) (no (unknown) (unknown) azithromycin (units (u nknown) date) Allergy Severe Hives unknown) Verified 07/30/22 13:29 (unknown) (no (unknown) (unknown) component of (units (u nknown) date) neurogenic bladder. unknown) Could also be secondary to constipation and (unknown) (no (unknown) (unknown) continues to be (units (unknown) date) unable to void. He unknown) notes his last BM was 5 days ago. He notes (unknown) (no (unknown) (unknown) fluticasone 500 (units (unknown) date) mcg-salmeterol 50 1 unknown) inh inhalation QAM 11/14/21 07/30/22 History (unknown) (no (unknown) (unknown) had a drop in EMG (units (unknown) date) when placed in prone unknown) position at the start of surgery. AFter (unknown) (no (unknown) (unknown) household members: (units (unknown) date) none unknown) (unknown) (no (unknown) (unknown) inhalation (Advair (units (unknown) date) Diskus) unknown) (unknown) (no (unknown) (unknown) insurance is (units (u nknown) date) requesting a unknown) hospitalist consult. 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 During surgery, he (unknown) (no (unknown) (unknown) normal po intake. (units (unknown) date) NO unknown) CP/SOB/N/V/abdominal pain/MOE/other neuro sxs. (unknown) (no (unknown) (unknown) not having a BM in (units (unknown) date) 5 days. Will unknown) monitor. (unknown) (no (unknown) (unknown) sensation intact (units (unknown) date) t/o unknown) (unknown) (no (unknown) (unknown) since surgery and (units (unknown) date) now is able to unknown) wiggle his toes on the right side and move his (unknown) (no (unknown) (unknown) steroids d/t MRI (units (unknown) date) revealing spinal unknown) cord inflammation. He has had improvement (unknown) (no (unknown) (unknown) surgery, he had (units (unknown) date) decreased sensation unknown) to both legs as well as significant motor (unknown) (no (unknown) (unknown) tablet,extended (units (unknown) date) release 24 hr unknown) (unknown) (no (unknown) (unknown) today; this time is (unit s (unknown) date) exclusive of unknown) procedural time. (unknown) (no (unknown) (unknown) very motivated and (units (unknown) date) is exhibiting unknown) improvement since surgery. (unknown) (no (unknown) (unknown) weakness. He was (units (unknown) date) found to have some unknown) partial paralysis. He was placed on (unknown) (no (unknown) (unknown) yesterday. He (units ( unknown) date) required I/O cathx 2 unknown) for volumes of 600 and 1L overnight. He Result panel 115 (unknown) (no (unknown) (unknown) (no value) (units (unk nown) date) unknown) (unknown) (no (unknown) (unknown) (past 8 hours): (units (unknown) date) unknown) (unknown) (no (unknown) (unknown) 07:00 (units (unkno wn) date) unknown) (unknown) (no (unknown) (unknown) 08/01/22 15:35 (units (unknown) date) unknown) (unknown) (no (unknown) (unknown) 08/02/22 (units (unkno wn) date) unknown) (unknown) (no (unknown) (unknown) 08/03/22 0905 (units ( unknown) date) unknown) (unknown) (no (unknown) (unknown) 08/03/22 (units (unkno wn) date) unknown) (unknown) (no (unknown) (unknown) 12:23 (units (unkno wn) date) unknown) (unknown) (no (unknown) (unknown) 30 (units (unkno wn) date) unknown) (unknown) (no (unknown) (unknown) Actual Procedure (units (unknown) date) Side Surgeon unknown) (unknown) (no (unknown) (unknown) Age/Sex: 86 / M (units (unknown) date) unknown) (unknown) (no (unknown) (unknown) Assessment + Plan (units (unknown) date) Post-op unknown) (unknown) (no (unknown) (unknown) Asthma (units (unkno wn) date) unknown) (unknown) (no (unknown) (unknown) Blood Pressure (units (unknown) date) 150/69 H unknown) (unknown) (no (unknown) (unknown) : 1935 (units (unknown) date) Acct:[id number] unknown) (unknown) (no (unknown) (unknown) Date Patient Seen: (units (unknown) date) 08/03/22 unknown) (unknown) (no (unknown) (unknown) Date of Service: (units (unknown) date) 07/30/22 unknown) (unknown) (no (unknown) (unknown) Exam Narrative: (units (unknown) date) unknown) (unknown) (no (unknown) (unknown) Exam (units (unkno wn) date) unknown) (unknown) (no (unknown) (unknown) Graves' disease (units (unknown) date) unknown) (unknown) (no (unknown) (unknown) HTN (hypertension) (units (unknown) date) unknown) (unknown) (no (unknown) (unknown) History of colon (units (unknown) date) resection (-1969) unknown) (unknown) (no (unknown) (unknown) History of (units (unk nown) date) 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 () (unknown) (no (unknown) (unknown) 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 () (unknown) (no (unknown) (unknown) Hx of sinus (units (un known) date) surgery () unknown) (unknown) (no (unknown) (unknown) Hyperthyroidism (units (unknown) date) unknown) (unknown) (no (unknown) (unknown) Interval history: (units (unknown) date) unknown) (unknown) (no (unknown) (unknown) [facility] (units (unknown) date) [address] [place] [address] unknown) [place] [address] (unknown) (no (unknown) (unknown) Laboratory Results (units (unknown) date) - last 24 hr unknown) (unknown) (no (unknown) (unknown) Labs (units (unkno wn) date) unknown) (unknown) (no (unknown) (unknown) Labs: (units (unkno wn) date) unknown) (unknown) (no (unknown) (unknown) Medical History (units (unknown) date) (Reviewed 08/01/22 unknown) @ 16:51 by Cat Peter PA-C) (unknown) (no (unknown) (unknown) Narrative (units (unkn own) date) unknown) (unknown) (no (unknown) (unknown) Objective (units (unkn own) date) unknown) (unknown) (no (unknown) (unknown) On physical (units (un known) date) examination he unknown) shows he can bend and straighten his knees. He is (unknown) (no (unknown) (unknown) Operation Date: (units (unknown) date) 07/30/22 14:45 unknown) (unknown) (no (unknown) (unknown) Oxygen Delivery (units (unknown) date) Method Room Air unknown) (unknown) (no (unknown) (unknown) Oxygen Flow Rate 0 (units (unknown) date) unknown) (unknown) (no (unknown) (unknown) PFSH (units (unkno wn) date) unknown) (unknown) (no (unknown) (unknown) Patient: (units (unkno wn) date) Faith Rosario MR#: unknown) [id number] (unknown) (no (unknown) (unknown) Postoperative day: (units (unknown) date) 4 unknown) (unknown) (no (unknown) (unknown) Postoperative plan (units (unknown) date) narrative: He has unknown) been seen by the hospitalist service in (unknown) (no (unknown) (unknown) Postoperative (units ( unknown) date) plan: routine unknown) post-op care and other (Continued supportive care (unknown) (no (unknown) (unknown) Postoperative (units ( unknown) date) status narrative: unknown) He appears to have some mild improvement in his (unknown) (no (unknown) (unknown) Postoperative (units ( unknown) date) status: other unknown) (Slight [place] improving neurologic deficit) (unknown) (no (unknown) (unknown) Postoperative (units ( unknown) date) unknown) (unknown) (no (unknown) (unknown) Precancerous (units (u nknown) date) lesion unknown) (unknown) (no (unknown) (unknown) Procedures (units (unk nown) date) unknown) (unknown) (no (unknown) (unknown) Procedures: (units (un known) date) unknown) (unknown) (no (unknown) (unknown) Progress Note (units ( unknown) date) unknown) (unknown) (no (unknown) (unknown) Provider: (units (unkn own) date) George Das MD unknown) (unknown) (no (unknown) (unknown) Pulse Oximetry 98 (units (unknown) date) unknown) (unknown) (no (unknown) (unknown) Pulse Rate 61 (units ( unknown) date) unknown) (unknown) (no (unknown) (unknown) Respiratory Rate (units (unknown) date) 16 unknown) (unknown) (no (unknown) (unknown) Result Diagrams: (units (unknown) date) unknown) (unknown) (no (unknown) (unknown) S/P lumbar spinal (units (unknown) date) fusion (11/18/21) unknown) (unknown) (no (unknown) (unknown) Sciatica (units (unkno wn) date) unknown) (unknown) (no (unknown) (unknown) Signed (units (unkno wn) date) By:<Electronically unknown) signed by George Das MD> (unknown) (no (unknown) (unknown) Smoking Status: (units (unknown) date) Never smoker unknown) (unknown) (no (unknown) (unknown) Social History (units (unknown) date) (Reviewed 08/01/22 unknown) @ 16:51 by Cat Peter PA-C) (unknown) (no (unknown) (unknown) Spinal stenosis (units (unknown) date) unknown) (unknown) (no (unknown) (unknown) Subjective (units (unk nown) date) unknown) (unknown) (no (unknown) (unknown) Surgical History (units (unknown) date) (Reviewed 08/01/22 unknown) @ 16:51 by Cat Peter PA-C) (unknown) (no (unknown) (unknown) Temperature 98.4 F (units (unknown) date) unknown) (unknown) (no (unknown) (unknown) The patient (units (un known) date) reports he is unknown) seeing some improvement in his leg function and is (unknown) (no (unknown) (unknown) Time Patient Seen: (units (unknown) date) 08:45 unknown) (unknown) (no (unknown) (unknown) Time Spent With (units (unknown) date) Patient unknown) (unknown) (no (unknown) (unknown) Time with patient: (units (unknown) date) less than 15 unknown) minutes (unknown) (no (unknown) (unknown) Ur Culture (units (unk nown) date) Indicated? Specimen unknown) cultured (unknown) (no (unknown) (unknown) Ur Squamous Epith (units (unknown) date) Cells 1-5 /hpf unknown) (unknown) (no (unknown) (unknown) Urine Bacteria (units (unknown) date) None seen unknown) (unknown) (no (unknown) (unknown) Urine RBC 0-1/hpf (units (unknown) date) unknown) (unknown) (no (unknown) (unknown) Urine WBC 5-10/hpf (units (unknown) date) H unknown) (unknown) (no (unknown) (unknown) Vital Signs (units (un known) date) unknown) (unknown) (no (unknown) (unknown) [Embedded Image (units (unknown) date) Not Available] unknown) (unknown) (no (unknown) (unknown) able to flex and (units (unknown) date) extend his knees unknown) partially. (unknown) (no (unknown) (unknown) alcohol intake: (units (unknown) date) current unknown) (unknown) (no (unknown) (unknown) household members: (units (unknown) date) none unknown) (unknown) (no (unknown) (unknown) neurologic (units (unk nown) date) deficit. unknown) (unknown) (no (unknown) (unknown) p T11-12 (units (unkno wn) date) laminectomy, fusion unknown) Chepe Cade MD (unknown) (no (unknown) (unknown) preparation for (units (unknown) date) his transferred to unknown) inpatient rehabilitation likely tomorrow. We (unknown) (no (unknown) (unknown) still limited in (units (unknown) date) dorsiflexion of the unknown) foot on the right. (unknown) (no (unknown) (unknown) while neurologic (units (unknown) date) recovery unknown) continues.) (unknown) (no (unknown) (unknown) will continue the (units (unknown) date) supportive care as unknown) outlined in Dr. Cade's plan earlier. Result panel 116 (unknown) (no (unknown) (unknown) (no value) (units (unk nown) date) unknown) (unknown) (no (unknown) (unknown) (past 8 hours): (units (unknown) date) unknown) (unknown) (no (unknown) (unknown) 00:00 07/31/22 (units (unknown) date) unknown) (unknown) (no (unknown) (unknown) 02:00 07/31/22 (units (unknown) date) unknown) (unknown) (no (unknown) (unknown) 04:00 (units (unkno wn) date) unknown) (unknown) (no (unknown) (unknown) 07/30/22 (units (unkno wn) date) unknown) (unknown) (no (unknown) (unknown) 07/31/22 (units (unkno wn) date) unknown) (unknown) (no (unknown) (unknown) 08/03/22 1030 (units ( unknown) date) unknown) (unknown) (no (unknown) (unknown) 12:49 (units (unkno wn) date) unknown) (unknown) (no (unknown) (unknown) 30 (units (unkno wn) date) unknown) (unknown) (no (unknown) (unknown) Age/Sex: 86 / M (units (unknown) date) unknown) (unknown) (no (unknown) (unknown) Assessment + Plan (units (unknown) date) narrative: unknown) (unknown) (no (unknown) (unknown) Assessment + Plan (units (unknown) date) unknown) (unknown) (no (unknown) (unknown) Asthma (units (unkno wn) date) unknown) (unknown) (no (unknown) (unknown) Blood Pressure (units (unknown) date) 128/55 L 111/53 L unknown) 132/63 (unknown) (no (unknown) (unknown) Critical Care (units ( unknown) date) time: unknown) (unknown) (no (unknown) (unknown) : 1935 (units (unknown) date) Acct:[id number] unknown) (unknown) (no (unknown) (unknown) Date of Service: (units (unknown) date) 07/30/22 unknown) (unknown) (no (unknown) (unknown) Exam (units (unkno wn) date) unknown) (unknown) (no (unknown) (unknown) Graves' disease (units (unknown) date) unknown) (unknown) (no (unknown) (unknown) HTN (hypertension) (units (unknown) date) unknown) (unknown) (no (unknown) (unknown) His BP was kept (units (unknown) date) higher unknown) intentionally in order to improving perfusion to his (unknown) (no (unknown) (unknown) History of colon (units (unknown) date) resection (-1970) unknown) (unknown) (no (unknown) (unknown) History of (units (unk nown) date) 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 () (unknown) (no (unknown) (unknown) 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 () (unknown) (no (unknown) (unknown) Hx of sinus (units (un known) date) surgery (-2019) unknown) (unknown) (no (unknown) (unknown) Hyperthyroidism (units (unknown) date) unknown) (unknown) (no (unknown) (unknown) I spent a total of (units (unknown) date) [] minutes of unknown) critical care time on this patient's care (unknown) (no (unknown) (unknown) [facility] (units (unknown) date) [address] unknown) [place] [address] (unknown) (no (unknown) (unknown) Laboratory Results (units (unknown) date) - last 24 hr unknown) (unknown) (no (unknown) (unknown) Labs (units (unkno wn) date) unknown) (unknown) (no (unknown) (unknown) Labs: (units (unkno wn) date) unknown) (unknown) (no (unknown) (unknown) Medical History (units (unknown) date) (Updated 11/19/21 @ unknown) 07:20 by Caty Martinez PA-C) (unknown) (no (unknown) (unknown) Mr. Rosario is POD#1 (units (unknown) date) s/p T11-12 unknown) laminectomy and posterior fusion with (unknown) (no (unknown) (unknown) Objective (units (unkn own) date) unknown) (unknown) (no (unknown) (unknown) On exam today, (units ( unknown) date) patient is A+O x3, unknown) he has intact sensation to both legs and feet, (unknown) (no (unknown) (unknown) Oxygen Delivery (units (unknown) date) Method Room Air unknown) (unknown) (no (unknown) (unknown) Oxygen Flow Rate 0 (units (unknown) date) unknown) (unknown) (no (unknown) (unknown) PFSH (units (unkno wn) date) unknown) (unknown) (no (unknown) (unknown) Patient had (units (un known) date) significant drop in unknown) baseline EMG and motor evoked potential from (unknown) (no (unknown) (unknown) Patient is in (units (u nknown) date) minimum pain this unknown) morning. He is receiving IV steroids to decrease (unknown) (no (unknown) (unknown) Patient: (units (unkno wn) date) Faith Rosario MR#: unknown) [id number] (unknown) (no (unknown) (unknown) Plan to continue (units (unknown) date) current medical unknown) management, take sedating medication only as (unknown) (no (unknown) (unknown) Post surgery, (units ( unknown) date) patient had slight unknown) recovery in his left sided neuromonitoring (unknown) (no (unknown) (unknown) Precancerous (units (u nknown) date) lesion unknown) (unknown) (no (unknown) (unknown) Progress Note (units ( unknown) date) unknown) (unknown) (no (unknown) (unknown) Provider: Chepe Cade (units (unknown) date) unknown) (unknown) (no (unknown) (unknown) Pulse Oximetry 97 (units (unknown) date) 97 98 unknown) (unknown) (no (unknown) (unknown) Pulse Rate 78 76 (units (unknown) date) 84 unknown) (unknown) (no (unknown) (unknown) Respiratory Rate (units (unknown) date) 18 17 unknown) (unknown) (no (unknown) (unknown) S/P lumbar spinal (units (unknown) date) fusion (11/18/21) unknown) (unknown) (no (unknown) (unknown) SARS-CoV-2 (PCR) (units (unknown) date) Negative unknown) (unknown) (no (unknown) (unknown) Sciatica (units (unkno wn) date) unknown) (unknown) (no (unknown) (unknown) Signed (units (unkno wn) date) By:<Electronically unknown) signed by Chepe Cade MD> (unknown) (no (unknown) (unknown) Smoking Status: (units (unknown) date) Never smoker unknown) (unknown) (no (unknown) (unknown) Social History (units (unknown) date) unknown) (unknown) (no (unknown) (unknown) Spinal stenosis (units (unknown) date) unknown) (unknown) (no (unknown) (unknown) Surgical History (units (unknown) date) (Updated 07/25/22 @ unknown) 10:40 by Myah Dunham RN) (unknown) (no (unknown) (unknown) Temperature 97.3 F (units (unknown) date) L 97.1 F L unknown) (unknown) (no (unknown) (unknown) Time Spent With (units (unknown) date) Patient unknown) (unknown) (no (unknown) (unknown) Vital Signs (units (un known) date) unknown) (unknown) (no (unknown) (unknown) Will continue (units ( unknown) date) monitor and assess unknown) his neuro status. (unknown) (no (unknown) (unknown) Will participate (units (unknown) date) in PT as tolerated unknown) today. (unknown) (no (unknown) (unknown) alcohol intake: (units (unknown) date) current unknown) (unknown) (no (unknown) (unknown) he has intact (units ( unknown) date) motor exam to his unknown) LLE. He has 4+/5 right EHL, 3/5 right (unknown) (no (unknown) (unknown) household members: (units (unknown) date) none unknown) (unknown) (no (unknown) (unknown) indicating spinal (units (unknown) date) cord edema. unknown) (unknown) (no (unknown) (unknown) instrumentation. (units (unknown) date) unknown) (unknown) (no (unknown) (unknown) muscle groups; he (units (unknown) date) was examined in unknown) recovery room post anesthesia prior to (unknown) (no (unknown) (unknown) necessary in order (units (unknown) date) to keep his mean unknown) arterial pressure higher than 80 to improve (unknown) (no (unknown) (unknown) neuro structures (units (unknown) date) and facilitate unknown) recovery. (unknown) (no (unknown) (unknown) neuromonitoring (units (unknown) date) after patient was unknown) placed into prone position prior to starting (unknown) (no (unknown) (unknown) quadriceps. (units (un known) date) unknown) (unknown) (no (unknown) (unknown) sensiblity to both (units (unknown) date) legs and unknown) significant motor weakness to both legs in multiple (unknown) (no (unknown) (unknown) signals. Patient (units (unknown) date) had significant unknown) post surgery physical exam with decreased (unknown) (no (unknown) (unknown) spinal cord (units (un known) date) inflammation, which unknown) was present on his MRI as hyerintense signal (unknown) (no (unknown) (unknown) surgery. (units (unkno wn) date) unknown) (unknown) (no (unknown) (unknown) tissue perfusion. (units (unknown) date) unknown) (unknown) (no (unknown) (unknown) today; this time (units (unknown) date) is exclusive of unknown) procedural time. (unknown) (no (unknown) (unknown) transfer to his (units (unknown) date) room last evening. unknown) This was expected and consistent with Result panel 117 (unknown) (no (unknown) (unknown) (no value) (units (unk nown) date) unknown) (unknown) (no (unknown) (unknown) (past 8 hours): (units (unknown) date) unknown) (unknown) (no (unknown) (unknown) 07:00 (units (unkno wn) date) unknown) (unknown) (no (unknown) (unknown) 08/01/22 15:35 (units (unknown) date) unknown) (unknown) (no (unknown) (unknown) 08/02/22 (units (unkno wn) date) unknown) (unknown) (no (unknown) (unknown) 08/03/22 (units (unkno wn) date) unknown) (unknown) (no (unknown) (unknown) 12:23 (units (unkno wn) date) unknown) (unknown) (no (unknown) (unknown) 30 (units (unkno wn) date) unknown) (unknown) (no (unknown) (unknown) Age/Sex: 86 / M (units (unknown) date) unknown) (unknown) (no (unknown) (unknown) Assessment + Plan (units (unknown) date) narrative: unknown) (unknown) (no (unknown) (unknown) Assessment + Plan (units (unknown) date) unknown) (unknown) (no (unknown) (unknown) Asthma (units (unkno wn) date) unknown) (unknown) (no (unknown) (unknown) Blood Pressure (units (unknown) date) 150/69 H unknown) (unknown) (no (unknown) (unknown) Critical Care (units ( unknown) date) time: unknown) (unknown) (no (unknown) (unknown) : 1935 (units (unknown) date) Acct:[id number] unknown) (unknown) (no (unknown) (unknown) Date of Service: (units (unknown) date) 07/30/22 unknown) (unknown) (no (unknown) (unknown) Exam (units (unkno wn) date) unknown) (unknown) (no (unknown) (unknown) Graves' disease (units (unknown) date) unknown) (unknown) (no (unknown) (unknown) HTN (hypertension) (units (unknown) date) unknown) (unknown) (no (unknown) (unknown) History of colon (units (unknown) date) resection () unknown) (unknown) (no (unknown) (unknown) History of (units (unk nown) date) 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 () (unknown) (no (unknown) (unknown) 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 () (unknown) (no (unknown) (unknown) Hx of sinus (units (un known) date) surgery () unknown) (unknown) (no (unknown) (unknown) Hyperthyroidism (units (unknown) date) unknown) (unknown) (no (unknown) (unknown) I spent a total of (units (unknown) date) [] minutes of unknown) critical care time on this patient's care (unknown) (no (unknown) (unknown) [facility] (units (unknown) date) [address]) [place] [address] (unknown) (no (unknown) (unknown) Laboratory Results (units (unknown) date) - last 24 hr unknown) (unknown) (no (unknown) (unknown) Labs (units (unkno wn) date) unknown) (unknown) (no (unknown) (unknown) Labs: (units (unkno wn) date) unknown) (unknown) (no (unknown) (unknown) Medical History (units (unknown) date) (Reviewed 08/01/22 unknown) @ 16:51 by Cat Peter PA-C) (unknown) (no (unknown) (unknown) Objective (units (unkn own) date) unknown) (unknown) (no (unknown) (unknown) On exam, he's (units ( unknown) date) alert and oriented unknown) x3, pain is well controlled. (unknown) (no (unknown) (unknown) Oxygen Delivery (units (unknown) date) Method Room Air unknown) (unknown) (no (unknown) (unknown) Oxygen Flow Rate 0 (units (unknown) date) unknown) (unknown) (no (unknown) (unknown) PFSH (units (unkno wn) date) unknown) (unknown) (no (unknown) (unknown) POD#3 s/p T11-12 (units (unknown) date) laminectomy and unknown) posterior fusion. (unknown) (no (unknown) (unknown) Patient states he (units (unknown) date) has more ability unknown) today to move his legs today than yesterday. (unknown) (no (unknown) (unknown) Patient: (units (unkno wn) date) Faith Rosario MR#: unknown) [id number] (unknown) (no (unknown) (unknown) Precancerous (units (u nknown) date) lesion unknown) (unknown) (no (unknown) (unknown) Progress Note (units ( unknown) date) unknown) (unknown) (no (unknown) (unknown) Provider: Chepe Cade (units (unknown) date) unknown) (unknown) (no (unknown) (unknown) Pulse Oximetry 98 (units (unknown) date) unknown) (unknown) (no (unknown) (unknown) Pulse Rate 61 (units ( unknown) date) unknown) (unknown) (no (unknown) (unknown) Respiratory Rate (units (unknown) date) 16 unknown) (unknown) (no (unknown) (unknown) Result Diagrams: (units (unknown) date) unknown) (unknown) (no (unknown) (unknown) S/P lumbar spinal (units (unknown) date) fusion (11/18/21) unknown) (unknown) (no (unknown) (unknown) Sciatica (units (unkno wn) date) unknown) (unknown) (no (unknown) (unknown) Signed By: (units (unk nown) date) unknown) (unknown) (no (unknown) (unknown) Smoking Status: (units (unknown) date) Never smoker unknown) (unknown) (no (unknown) (unknown) Social History (units (unknown) date) (Reviewed 08/01/22 unknown) @ 16:51 by Cat Peter PA-C) (unknown) (no (unknown) (unknown) Spinal stenosis (units (unknown) date) unknown) (unknown) (no (unknown) (unknown) Surgical History (units (unknown) date) (Reviewed 08/01/22 unknown) @ 16:51 by Cat Peter PA-C) (unknown) (no (unknown) (unknown) Temperature 98.4 F (units (unknown) date) unknown) (unknown) (no (unknown) (unknown) Time Spent With (units (unknown) date) Patient unknown) (unknown) (no (unknown) (unknown) Ur Culture (units (unk nown) date) Indicated? Specimen unknown) cultured (unknown) (no (unknown) (unknown) Ur Squamous Epith (units (unknown) date) Cells 1-5 /hpf unknown) (unknown) (no (unknown) (unknown) Urine Bacteria (units (unknown) date) None seen unknown) (unknown) (no (unknown) (unknown) Urine RBC 0-1/hpf (units (unknown) date) unknown) (unknown) (no (unknown) (unknown) Urine WBC 5-10/hpf (units (unknown) date) H unknown) (unknown) (no (unknown) (unknown) Vital Signs (units (un known) date) unknown) (unknown) (no (unknown) (unknown) [Embedded Image (units (unknown) date) Not Available] unknown) (unknown) (no (unknown) (unknown) alcohol intake: (units (unknown) date) current unknown) (unknown) (no (unknown) (unknown) household members: (units (unknown) date) none unknown) (unknown) (no (unknown) (unknown) today; this time (units (unknown) date) is exclusive of unknown) procedural time. Result panel 118 (unknown) (no (unknown) (unknown) (no value) (units (unk nown) date) unknown) (unknown) (no (unknown) (unknown) (past 8 hours): (units (unknown) date) unknown) (unknown) (no (unknown) (unknown) 07:00 (units (unkno wn) date) unknown) (unknown) (no (unknown) (unknown) 08/01/22 15:35 (units (unknown) date) unknown) (unknown) (no (unknown) (unknown) 08/02/22 (units (unkno wn) date) unknown) (unknown) (no (unknown) (unknown) 08/03/22 1039 (units ( unknown) date) unknown) (unknown) (no (unknown) (unknown) 08/03/22 (units (unkno wn) date) unknown) (unknown) (no (unknown) (unknown) 12:23 (units (unkno wn) date) unknown) (unknown) (no (unknown) (unknown) 30 (units (unkno wn) date) unknown) (unknown) (no (unknown) (unknown) Age/Sex: 86 / M (units (unknown) date) unknown) (unknown) (no (unknown) (unknown) Assessment + Plan (units (unknown) date) narrative: unknown) (unknown) (no (unknown) (unknown) Assessment + Plan (units (unknown) date) unknown) (unknown) (no (unknown) (unknown) Asthma (units (unkno wn) date) unknown) (unknown) (no (unknown) (unknown) Blood Pressure (units (unknown) date) 150/69 H unknown) (unknown) (no (unknown) (unknown) Critical Care (units ( unknown) date) time: unknown) (unknown) (no (unknown) (unknown) : 1935 (units (unknown) date) Acct:[id number] unknown) (unknown) (no (unknown) (unknown) Date of Service: (units (unknown) date) 07/30/22 unknown) (unknown) (no (unknown) (unknown) EHL, 4-/5 hip (units ( unknown) date) flexion, 3/5 knee unknown) extension. 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) [place] [address] (unknown) (no (unknown) (unknown) Laboratory Results (units (unknown) date) - last 24 hr unknown) (unknown) (no (unknown) (unknown) Labs (units (unkno wn) date) unknown) (unknown) (no (unknown) (unknown) Labs: (units (unkno wn) date) unknown) (unknown) (no (unknown) (unknown) Medical History (units (unknown) date) (Reviewed 08/01/22 unknown) @ 16:51 by Cat Peter PA-C) (unknown) (no (unknown) (unknown) Objective (units (unkn own) date) unknown) (unknown) (no (unknown) (unknown) On exam, he's (units ( unknown) date) alert and oriented unknown) x3, pain is well controlled. He has in LLE 5/5 (unknown) (no (unknown) (unknown) Oxygen Delivery (units (unknown) date) Method Room Air unknown) (unknown) (no (unknown) (unknown) Oxygen Flow Rate 0 (units (unknown) date) unknown) (unknown) (no (unknown) (unknown) PFSH (units (unkno wn) date) unknown) (unknown) (no (unknown) (unknown) POD#3 s/p T11-12 (units (unknown) date) laminectomy and unknown) posterior fusion. (unknown) (no (unknown) (unknown) Patient stated his (units (unknown) date) right ankle was unknown) 'rolling under his leg' prior to surgery, (unknown) (no (unknown) (unknown) Patient states he (units (unknown) date) has more ability unknown) today to move his legs today than yesterday. (unknown) (no (unknown) (unknown) Patient: (units (unkno wn) date) Faith Rosario MR#: unknown) [id number] (unknown) (no (unknown) (unknown) Plan for placement (units (unknown) date) to inpatient rehab unknown) tomorrow. (unknown) (no (unknown) (unknown) Precancerous (units (u nknown) date) lesion unknown) (unknown) (no (unknown) (unknown) Progress Note (units ( unknown) date) unknown) (unknown) (no (unknown) (unknown) Provider: Chepe Cade (units (unknown) date) unknown) (unknown) (no (unknown) (unknown) Pulse Oximetry 98 (units (unknown) date) unknown) (unknown) (no (unknown) (unknown) Pulse Rate 61 (units ( unknown) date) unknown) (unknown) (no (unknown) (unknown) Respiratory Rate (units (unknown) date) 16 unknown) (unknown) (no (unknown) (unknown) Result Diagrams: (units (unknown) date) unknown) (unknown) (no (unknown) (unknown) S/P lumbar spinal (units (unknown) date) fusion (11/18/21) unknown) (unknown) (no (unknown) (unknown) Sciatica (units (unkno wn) date) unknown) (unknown) (no (unknown) (unknown) Sensibility is (units (unknown) date) grossly intact in unknown) BLE. (unknown) (no (unknown) (unknown) Signed (units (unkno wn) date) By:<Electronically unknown) signed by Chepe Cade MD> (unknown) (no (unknown) (unknown) Smoking Status: (units (unknown) date) Never smoker unknown) (unknown) (no (unknown) (unknown) Social History (units (unknown) date) (Reviewed 08/01/22 unknown) @ 16:51 by Cat Peter PA-C) (unknown) (no (unknown) (unknown) Spinal stenosis (units (unknown) date) unknown) (unknown) (no (unknown) (unknown) Surgical History (units (unknown) date) (Reviewed 08/01/22 unknown) @ 16:51 by Cat Peter PA-C) (unknown) (no (unknown) (unknown) Temperature 98.4 F (units (unknown) date) unknown) (unknown) (no (unknown) (unknown) Time Spent With (units (unknown) date) Patient unknown) (unknown) (no (unknown) (unknown) Ur Culture (units (unk nown) date) Indicated? Specimen unknown) cultured (unknown) (no (unknown) (unknown) Ur Squamous Epith (units (unknown) date) Cells 1-5 /hpf unknown) (unknown) (no (unknown) (unknown) Urine Bacteria (units (unknown) date) None seen unknown) (unknown) (no (unknown) (unknown) Urine RBC 0-1/hpf (units (unknown) date) unknown) (unknown) (no (unknown) (unknown) Urine WBC 5-10/hpf (units (unknown) date) H unknown) (unknown) (no (unknown) (unknown) Vital Signs (units (un known) date) unknown) (unknown) (no (unknown) (unknown) Will continue (units ( unknown) date) current medical unknown) management and therapy. (unknown) (no (unknown) (unknown) [Embedded Image (units (unknown) date) Not Available] unknown) (unknown) (no (unknown) (unknown) alcohol intake: (units (unknown) date) current unknown) (unknown) (no (unknown) (unknown) consistent with a (units (unknown) date) drop foot to the unknown) right ankle prior to surgery. He may benefit (unknown) (no (unknown) (unknown) from AFO to his (units (unknown) date) RLE to facilitate unknown) ambulation. (unknown) (no (unknown) (unknown) household members: (units (unknown) date) none unknown) (unknown) (no (unknown) (unknown) quadriceps, 4+/5 (units (unknown) date) hamstring/knee unknown) flexion, 4+/5 plantar/dorsiflexio n. RLE 4+/5 (unknown) (no (unknown) (unknown) today; this time (units (unknown) date) is exclusive of unknown) procedural time. Result panel 119 (unknown) (no date) (unknown) (unknown) No growth. (units (un known) unknown) Result panel 120 (unknown) (no (unknown) (unknown) (no value) (units (unk nown) date) unknown) (unknown) (no (unknown) (unknown) (past 8 hours): (units (unknown) date) unknown) (unknown) (no (unknown) (unknown) 1. 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 Urinary (units (unk nown) date) retention unknown) (unknown) (no (unknown) (unknown) 3. Constipation (units (unknown) date) unknown) (unknown) (no (unknown) (unknown) 30 (units (unkno wn) date) unknown) (unknown) (no (unknown) (unknown) 4. Hypertension (units (unknown) date) unknown) (unknown) (no (unknown) (unknown) 5. Asthma (units (unkn own) date) unknown) (unknown) (no (unknown) (unknown) ?yo male presently (units (unknown) date) hospital day #3 and unknown) POD #3, admitted for? T11-12 bilateral (unknown) (no (unknown) (unknown) ABD: Soft, NT/ND, (units (unknown) date) BT present in all 4 unknown) quadrants, no organomegaly or masses (unknown) (no (unknown) (unknown) Age/Sex: 86 / M (units (unknown) date) unknown) (unknown) (no (unknown) (unknown) Assessment + Plan (units (unknown) date) narrative: unknown) (unknown) (no (unknown) (unknown) Assessment + Plan (units (unknown) date) unknown) (unknown) (no (unknown) (unknown) Asthma (units (unkno wn) date) unknown) (unknown) (no (unknown) (unknown) Blood Pressure (units (unknown) date) 134/65 unknown) (unknown) (no (unknown) (unknown) Blood pressures (units (unknown) date) have been elevated unknown) at times. He has been off of his (unknown) (no (unknown) (unknown) CHEST: Respiratory (units (unknown) date) excursions unknown) symmetric, CTAB (unknown) (no (unknown) (unknown) CV: RRR, no M/R/G (units (unknown) date) unknown) (unknown) (no (unknown) (unknown) Code status (units (un known) date) unknown) (unknown) (no (unknown) (unknown) Continue Advair (units (unknown) date) unknown) (unknown) (no (unknown) (unknown) Continue Booker (units (unknown) date) catheter for now. unknown) Await urine culture. He may neurogenic (unknown) (no (unknown) (unknown) Critical Care (units ( unknown) date) time: unknown) (unknown) (no (unknown) (unknown) : 1935 (units (unknown) date) Acct:[id number] unknown) (unknown) (no (unknown) (unknown) Date of Service: (units (unknown) date) 07/30/22 unknown) (unknown) (no (unknown) (unknown) Discussed a (units (un known) date) suppository with unknown) him today and he is receptive. This has been (unknown) (no (unknown) (unknown) Disposition (units (un known) date) unknown) (unknown) (no (unknown) (unknown) EXTR: warm, well (units (unknown) date) perfused, no C/C/E unknown) (unknown) (no (unknown) (unknown) Exam Narrative: (units (unknown) date) unknown) (unknown) (no (unknown) (unknown) Exam (units (unkno wn) date) unknown) (unknown) (no (unknown) (unknown) Full (units (unkno wn) date) unknown) (unknown) (no (unknown) (unknown) GEN: Very pleasant (units (unknown) date) elderly male, Alert unknown) and oriented x 3, NAD (unknown) (no (unknown) (unknown) Graves' disease (units (unknown) date) unknown) (unknown) (no (unknown) (unknown) HEENT:NC, Face (units (unknown) date) symmetric unknown) (unknown) (no (unknown) (unknown) HTN (hypertension) (units (unknown) date) unknown) (unknown) (no (unknown) (unknown) History of colon (units (unknown) date) resection (-1969) unknown) (unknown) (no (unknown) (unknown) History of (units (unk nown) date) 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 (-1999) (unknown) (no (unknown) (unknown) 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 () (unknown) (no (unknown) (unknown) Hx of sinus (units (un known) date) surgery () unknown) (unknown) (no (unknown) (unknown) Hyperthyroidism (units (unknown) date) unknown) (unknown) (no (unknown) (unknown) I spent a total of (units (unknown) date) [] minutes of unknown) critical care time on this patient's care (unknown) (no (unknown) (unknown) Inpatient rehab (units (unknown) date) once insurance Auth unknown) obtain (unknown) (no (unknown) (unknown) Interval history: (units (unknown) date) unknown) (unknown) (no (unknown) (unknown) [facility] (units (unknown) date) [address] unknown) [place] [address] (unknown) (no (unknown) (unknown) Labs (units (unkno wn) date) unknown) (unknown) (no (unknown) (unknown) Medical History (units (unknown) date) (Reviewed 08/01/22 unknown) @ 16:51 by Cat Peter PA-C) (unknown) (no (unknown) (unknown) NEURO: Alert and (units (unknown) date) oriented x 3, he unknown) does have some mildly improved movement of his (unknown) (no (unknown) (unknown) Narrative (units (unkn own) date) unknown) (unknown) (no (unknown) (unknown) Objective (units (unkn own) date) unknown) (unknown) (no (unknown) (unknown) Oxygen Delivery (units (unknown) date) Method Room Air unknown) (unknown) (no (unknown) (unknown) Oxygen Flow Rate 0 (units (unknown) date) unknown) (unknown) (no (unknown) (unknown) PFSH (units (unkno wn) date) unknown) (unknown) (no (unknown) (unknown) Patient: (units (unkno wn) date) Faith Rosario MR#: unknown) [id number] (unknown) (no (unknown) (unknown) Per surgery (units (un known) date) unknown) (unknown) (no (unknown) (unknown) Precancerous (units (u nknown) date) lesion unknown) (unknown) (no (unknown) (unknown) Progress Note (units ( unknown) date) unknown) (unknown) (no (unknown) (unknown) Prophylaxis (units (un known) date) unknown) (unknown) (no (unknown) (unknown) Provider: (units (unkn own) date) Kyung Fofana MD unknown) (unknown) (no (unknown) (unknown) Pulse Oximetry 98 (units (unknown) date) 96 unknown) (unknown) (no (unknown) (unknown) Pulse Rate 87 101 (units (unknown) date) H unknown) (unknown) (no (unknown) (unknown) RLE slightly.? He (units (unknown) date) feels his LLE is unknown) normal. Plans are in place for admission to (unknown) (no (unknown) (unknown) Respiratory Rate (units (unknown) date) 18 22 unknown) (unknown) (no (unknown) (unknown) Result Diagrams: (units (unknown) date) unknown) (unknown) (no (unknown) (unknown) S/P lumbar spinal (units (unknown) date) fusion (11/18/21) unknown) (unknown) (no (unknown) (unknown) SKIN: warm and (units (unknown) date) dry, no rash unknown) (unknown) (no (unknown) (unknown) Sciatica (units (unkno wn) date) unknown) (unknown) (no (unknown) (unknown) Signed (units (unkno wn) date) By:<Electronically unknown) signed by Kyung Fofana MD> (unknown) (no (unknown) (unknown) Smoking Status: (units (unknown) date) Never smoker unknown) (unknown) (no (unknown) (unknown) Social History (units (unknown) date) (Reviewed 08/01/22 unknown) @ 16:51 by aCt Peter PA-C) (unknown) (no (unknown) (unknown) Spinal stenosis (units (unknown) date) unknown) (unknown) (no (unknown) (unknown) Subjective (units (unk nown) date) unknown) (unknown) (no (unknown) (unknown) Surgical History (units (unknown) date) (Reviewed 08/01/22 unknown) @ 16:51 by Cat Peter PA-C) (unknown) (no (unknown) (unknown) Temperature 97.9 F (units (unknown) date) 97.9 F unknown) (unknown) (no (unknown) (unknown) Time Spent With (units (unknown) date) Patient unknown) (unknown) (no (unknown) (unknown) Vital Signs (units (un known) date) unknown) (unknown) (no (unknown) (unknown) [Embedded Image (units (unknown) date) Not Available] unknown) (unknown) (no (unknown) (unknown) acute inpatient (units (unknown) date) Rehab at unknown) discharge.? Pt's insurance requested a hospitalist (unknown) (no (unknown) (unknown) alcohol intake: (units (unknown) date) current unknown) (unknown) (no (unknown) (unknown) antihypertensive (units (unknown) date) therapy per the unknown) attending physician to promote blood supply and (unknown) (no (unknown) (unknown) ation. Continue (units (unknown) date) monitoring. unknown) (unknown) (no (unknown) (unknown) bladder given his (units (unknown) date) spinal cord edema unknown) versus urinary retention related to constip (unknown) (no (unknown) (unknown) blood flow. Resume (units (unknown) date) when surgeon feels unknown) appropriate (unknown) (no (unknown) (unknown) consult, and I saw (units (unknown) date) the patient unknown) yesterday. Booker catheter remains in place (unknown) (no (unknown) (unknown) had a drop in EMG (units (unknown) date) when placed in unknown) prone position at the start of surgery.? AFter (unknown) (no (unknown) (unknown) household members: (units (unknown) date) none unknown) (unknown) (no (unknown) (unknown) laminectomy and (units (unknown) date) facetecomies, unknown) T11-12 posterolateral fusion [id number] posterior (unknown) (no (unknown) (unknown) movements. (units (unk nown) date) unknown) (unknown) (no (unknown) (unknown) non-segmental (units ( unknown) date) instrumentation for unknown) thoracic myelopathy sxs.? During surgery, he (unknown) (no (unknown) (unknown) ongoing management (units (unknown) date) by surgical team. unknown) He has been accepted to inpatient rehab at (unknown) (no (unknown) (unknown) ordered. Continue (units (unknown) date) oral bowel unknown) medication regimen as well (unknown) (no (unknown) (unknown) Penboost (units (u nknown) date) pending insurance unknown) authorization. (unknown) (no (unknown) (unknown) right lower (units (un known) date) extremity against unknown) gravity compared with yesterday (unknown) (no (unknown) (unknown) secondary to (units (u nknown) date) recurrent urinary unknown) retention. He reports he has not yet had a bowel (unknown) (no (unknown) (unknown) since surgery and (units (unknown) date) now is able to unknown) wiggle his toes on the right side and move his (unknown) (no (unknown) (unknown) steroids d/t MRI (units (unknown) date) revealing spinal unknown) cord inflammation.? He has had improvement (unknown) (no (unknown) (unknown) surgery, he had (units (unknown) date) decreased sensation unknown) to both legs as well as significant motor (unknown) (no (unknown) (unknown) today; this time (units (unknown) date) is exclusive of unknown) procedural time. (unknown) (no (unknown) (unknown) weakness.? He was (units (unknown) date) found to have some unknown) partial paralysis.? He was placed on Result panel 121 (unknown) (no date) (unknown) (unknown) No growth. (units (un known) unknown) Result panel 122 (unknown) (no (unknown) (unknown) (no value) (units (unk nown) date) unknown) (unknown) (no (unknown) (unknown) (past 8 hours): (units (unknown) date) unknown) (unknown) (no (unknown) (unknown) 06:00 08/04/22 (units (unknown) date) unknown) (unknown) (no (unknown) (unknown) 07:52 08/04/22 (units (unknown) date) unknown) (unknown) (no (unknown) (unknown) 08:00 (units (unkno wn) date) unknown) (unknown) (no (unknown) (unknown) 1 inh INHALATION (units (unknown) date) QAM unknown) (unknown) (no (unknown) (unknown) 1. T11-12 (units (unkn own) date) bilateral unknown) laminectomy and facetecomies (unknown) (no (unknown) (unknown) 1. 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 T11-12 (units (unkn own) date) posterolateral unknown) fusion (unknown) (no (unknown) (unknown) 3. T11-12 (units (unkn own) date) posterior unknown) non-segmental instrumentation (unknown) (no (unknown) (unknown) 30 (units (unkno wn) date) unknown) (unknown) (no (unknown) (unknown) 4. Utilization of (units (unknown) date) microsurgical unknown) technique and operating microscope (unknown) (no (unknown) (unknown) 40 mg PO DAILY (units (unknown) date) unknown) (unknown) (no (unknown) (unknown) 5 mg PO DAILY (units ( unknown) date) unknown) (unknown) (no (unknown) (unknown) 650 mg PO Q6HR PRN (units (unknown) date) (Reason: Pain, Mild unknown) (1-3)) Qty: 240 2RF (unknown) (no (unknown) (unknown) Age/Sex: 86 / M (units (unknown) date) unknown) (unknown) (no (unknown) (unknown) Anesthesia Type: (units (unknown) date) General unknown) (unknown) (no (unknown) (unknown) Lens Marker: Jack Church (units (unknown) date) [place] unknown) (unknown) (no (unknown) (unknown) Asthma (units (unkno wn) date) unknown) (unknown) (no (unknown) (unknown) Blood Pressure (units (unknown) date) 153/76 H 168/78 H unknown) (unknown) (no (unknown) (unknown) Blood products (units (unknown) date) transfused: none unknown) (unknown) (no (unknown) (unknown) Cat Peter, (units (unknown) date) PA-C unknown) (unknown) (no (unknown) (unknown) Chief complaint: (units (unknown) date) s/p thoracic unknown) fusion; h/o R foot drop, myelopathy (unknown) (no (unknown) (unknown) Click Yes if (units (u nknown) date) Unassisted: No unknown) (unknown) (no (unknown) (unknown) Closure Type: (units ( unknown) date) primary unknown) (unknown) (no (unknown) (unknown) Comment: (units (unkno wn) date) unknown) (unknown) (no (unknown) (unknown) Consult to (units (unk nown) date) Hospitalist Service unknown) Routine (unknown) (no (unknown) (unknown) Consult to (units (unk nown) date) Occupational unknown) Therapy Evaluate + Treat (unknown) (no (unknown) (unknown) Consult to (units (unk nown) date) Physical Therapy unknown) Evaluate + Treat (unknown) (no (unknown) (unknown) Consulting (units (unk nown) date) Provider: unknown) George Das (unknown) (no (unknown) (unknown) Consults: (units (unkn own) date) unknown) (unknown) (no (unknown) (unknown) : 1935 (units (unknown) date) Acct:[id number] unknown) (unknown) (no (unknown) (unknown) Date Patient Seen: (units (unknown) date) 08/04/22 unknown) (unknown) (no (unknown) (unknown) Date of Service: (units (unknown) date) 07/30/22 unknown) (unknown) (no (unknown) (unknown) Date of admission: (units (unknown) date) unknown) (unknown) (no (unknown) (unknown) Date of procedure: (units (unknown) date) 07/30/22 unknown) (unknown) (no (unknown) (unknown) Device (units (unkno wn) date) unknown) (unknown) (no (unknown) (unknown) Discharge Data (units (unknown) date) unknown) (unknown) (no (unknown) (unknown) Discharge (units (unkn own) date) Diagnosis: unknown) (unknown) (no (unknown) (unknown) Discharge Plan (units (unknown) date) unknown) (unknown) (no (unknown) (unknown) Discharge (units (unkn own) date) Providers unknown) (unknown) (no (unknown) (unknown) Discharge Summary (units (unknown) date) unknown) (unknown) (no (unknown) (unknown) Discharge orders + (units (unknown) date) Medications unknown) (unknown) (no (unknown) (unknown) Discharge (units (unkn own) date) provider: unknown) (unknown) (no (unknown) (unknown) Perico Sherman MD (units (unknown) date) [Primary Care unknown) Provider] (unknown) (no (unknown) (unknown) Estimated Blood (units (unknown) date) Loss (mL): 20 unknown) (unknown) (no (unknown) (unknown) Exam (units (unkno wn) date) unknown) (unknown) (no (unknown) (unknown) Follow (units (unkno wn) date) up/Referrals: unknown) (unknown) (no (unknown) (unknown) Globus revolve (units (unknown) date) screws unknown) (unknown) (no (unknown) (unknown) Graves' disease (units (unknown) date) unknown) (unknown) (no (unknown) (unknown) HTN (hypertension) (units (unknown) date) unknown) (unknown) (no (unknown) (unknown) Has provider been (units (unknown) date) notified: Yes unknown) (unknown) (no (unknown) (unknown) History of Present (units (unknown) date) Illness unknown) (unknown) (no (unknown) (unknown) History of colon (units (unknown) date) resection () unknown) (unknown) (no (unknown) (unknown) History of (units (unk nown) date) 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 () (unknown) (no (unknown) (unknown) 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 () (unknown) (no (unknown) (unknown) Hospital Course (units (unknown) date) unknown) (unknown) (no (unknown) (unknown) Hospital Course: (units (unknown) date) unknown) (unknown) (no (unknown) (unknown) Hx of sinus (units (un known) date) surgery () unknown) (unknown) (no (unknown) (unknown) Hyperthyroidism (units (unknown) date) unknown) (unknown) (no (unknown) (unknown) Indications: (units (u nknown) date) unknown) (unknown) (no (unknown) (unknown) [facility] (units (unknown) date) [address] unknown) [place] [id number] (unknown) (no (unknown) (unknown) Labs (units (unkno wn) date) unknown) (unknown) (no (unknown) (unknown) Perico Sherman MD (units (unknown) date) unknown) (unknown) (no (unknown) (unknown) Medical History (units (unknown) date) (Reviewed 08/01/22 unknown) @ 16:51 by Cat A Walker, PA-C) (unknown) (no (unknown) (unknown) Narrative: (units (unk nown) date) unknown) (unknown) (no (unknown) (unknown) No Action (units (unkn own) date) unknown) (unknown) (no (unknown) (unknown) Objective (units (unkn own) date) unknown) (unknown) (no (unknown) (unknown) Operative (units (unkn own) date) Date/Time/Diagnoses unknown) (unknown) (no (unknown) (unknown) Operative Notes (units (unknown) date) unknown) (unknown) (no (unknown) (unknown) Oxygen Delivery (units (unknown) date) Method Room Air unknown) (unknown) (no (unknown) (unknown) Oxygen Flow Rate 0 (units (unknown) date) unknown) (unknown) (no (unknown) (unknown) PFSH (units (unkno wn) date) unknown) (unknown) (no (unknown) (unknown) Patient failed (units ( unknown) date) multiple unknown) conservative management with worsening pain weakness and (unknown) (no (unknown) (unknown) Patient has been (units (unknown) date) having difficulty unknown) performing activity of daily living.? After (unknown) (no (unknown) (unknown) Patient has been (units (unknown) date) having unknown) progressively worsening symptoms consistent with (unknown) (no (unknown) (unknown) Patient is (units (unk nown) date) complaining of mild unknown) low back pain. He continues to have somewhat (unknown) (no (unknown) (unknown) Patient: (units (unkno wn) date) Faith Rosario MR#: unknown) [id number] (unknown) (no (unknown) (unknown) Physician (units (unkn own) date) Instructions: unknown) Evaluate and Treat (unknown) (no (unknown) (unknown) Physician (units (unkn own) date) Instructions: unknown) Evaluate and treat (unknown) (no (unknown) (unknown) Precancerous (units (u nknown) date) lesion unknown) (unknown) (no (unknown) (unknown) Prescriptions: (units (unknown) date) unknown) (unknown) (no (unknown) (unknown) Primary Care (units (u nknown) date) Provider: unknown) Perico Sherman (unknown) (no (unknown) (unknown) Primary care (units (u nknown) date) physician: unknown) (unknown) (no (unknown) (unknown) Procedure + (units (un known) date) Clinicians unknown) (unknown) (no (unknown) (unknown) Procedure: (units (unk nown) date) unknown) (unknown) (no (unknown) (unknown) Prosthetic (units (unk nown) date) devices, grafts, unknown) tissues, transplants, or devices: (unknown) (no (unknown) (unknown) Provider (units (unkno wn) date) unknown) (unknown) (no (unknown) (unknown) Provider: (units (unkn own) date) Cat Peter P.A-C unknown) (unknown) (no (unknown) (unknown) Pulse Oximetry 98 (units (unknown) date) 97 97 unknown) (unknown) (no (unknown) (unknown) Pulse Rate 77 84 (units (unknown) date) 79 unknown) (unknown) (no (unknown) (unknown) Reason for (units (unk nown) date) consultation: unknown) Medical evaluation prior to transfer to inpatient (unknown) (no (unknown) (unknown) Respiratory Rate (units (unknown) date) 16 18 15 unknown) (unknown) (no (unknown) (unknown) Result Diagrams: (units (unknown) date) unknown) (unknown) (no (unknown) (unknown) S/P lumbar spinal (units (unknown) date) fusion (11/18/21) unknown) (unknown) (no (unknown) (unknown) Same procedure as (units (unknown) date) scheduled: Yes unknown) (unknown) (no (unknown) (unknown) Sciatica (units (unkno wn) date) unknown) (unknown) (no (unknown) (unknown) Signed By: (units (unk nown) date) unknown) (unknown) (no (unknown) (unknown) Smoking Status: (units (unknown) date) Never smoker unknown) (unknown) (no (unknown) (unknown) Social History (units (unknown) date) (Reviewed 08/01/22 unknown) @ 16:51 by Cat Peter PA-C) (unknown) (no (unknown) (unknown) Specimen(s): none (units (unknown) date) sent unknown) (unknown) (no (unknown) (unknown) Spinal stenosis (units (unknown) date) unknown) (unknown) (no (unknown) (unknown) Summary (units (unkno wn) date) unknown) (unknown) (no (unknown) (unknown) Surgeon: Chepe Cade (units (unknown) date) unknown) (unknown) (no (unknown) (unknown) Surgical History (units (unknown) date) (Reviewed 08/01/22 unknown) @ 16:51 by Cat Peter PA-C) (unknown) (no (unknown) (unknown) Temperature 97.9 F (units (unknown) date) 97.6 F unknown) (unknown) (no (unknown) (unknown) The main concern (units (unknown) date) was his significant unknown) decrease in neurovascular status during the (unknown) (no (unknown) (unknown) Time Patient Seen: (units (unknown) date) 07:40 unknown) (unknown) (no (unknown) (unknown) Time of procedure: (units (unknown) date) 14:20 unknown) (unknown) (no (unknown) (unknown) Vital Signs (units (un known) date) unknown) (unknown) (no (unknown) (unknown) [Embedded Image (units (unknown) date) Not Available] unknown) (unknown) (no (unknown) (unknown) acetaminophen 325 (units (unknown) date) mg Tablet unknown) (unknown) (no (unknown) (unknown) alcohol intake: (units (unknown) date) current unknown) (unknown) (no (unknown) (unknown) amlodipine 5 mg (units (unknown) date) Tablet unknown) (unknown) (no (unknown) (unknown) comparable to (units ( unknown) date) left.? He is still unknown) complaining of significant right-sided lower (unknown) (no (unknown) (unknown) currently on IV (units (unknown) date) steroids due to his unknown) neurologic changes. (unknown) (no (unknown) (unknown) decreased (units (unkn own) date) sensation in unknown) bilateral lower extremities. He notes his weakness has (unknown) (no (unknown) (unknown) details.? He is (units (unknown) date) currently working unknown) with physical therapy and occupational (unknown) (no (unknown) (unknown) discussing risks (units (unknown) date) benefits of unknown) treatment options, patient elected proceed with (unknown) (no (unknown) (unknown) edema. (units (unkno wn) date) unknown) (unknown) (no (unknown) (unknown) extremity weakness, (units (unknown) date) which has stayed unknown) about the same in the last 24 hours.? He is (unknown) (no (unknown) (unknown) fluticasone (units (un known) date) propion-salmeterol unknown) [Advair Diskus] 500-50 mcg/dose Blister With (unknown) (no (unknown) (unknown) household members: (units (unknown) date) none unknown) (unknown) (no (unknown) (unknown) initial slip prior (units (unknown) date) to surgery unknown) positioning.? Please see plan for further (unknown) (no (unknown) (unknown) lisinopril 40 mg (units (unknown) date) Tablet unknown) (unknown) (no (unknown) (unknown) metoprolol (units (unk nown) date) succinate 100 mg unknown) Tablet Extended Release 24 Hr (unknown) (no (unknown) (unknown) myelopathy.? (units (u nknown) date) Thoracic MRI shows unknown) severe spinal stenosis at T11-12 with cord (unknown) (no (unknown) (unknown) rehab (units (unkno wn) date) unknown) (unknown) (no (unknown) (unknown) stayed about the (units (unknown) date) same in last 24 unknown) hours. (unknown) (no (unknown) (unknown) surgery. (units (unkno wn) date) unknown) (unknown) (no (unknown) (unknown) therapy.? He notes (units (unknown) date) that his baseline unknown) sensation is returning and right feels (unknown) (no (unknown) (unknown) worsening balance (units (unknown) date) consistent with unknown) myelopathy correlating to his MRI findings.? Result panel 123 (unknown) (no (unknown) (unknown) (no value) (units (unk nown) date) unknown) (unknown) (no (unknown) (unknown) (past 8 hours): (units (unknown) date) unknown) (unknown) (no (unknown) (unknown) -He is receiving (units (unknown) date) IV steroids to unknown) decrease spinal cord inflammation, which was (unknown) (no (unknown) (unknown) -His BP was kept (units (unknown) date) higher unknown) intentionally in order to improving perfusion to his (unknown) (no (unknown) (unknown) -On exam today, (units (unknown) date) patient is A+O x3, unknown) he has intact sensation to both legs and (unknown) (no (unknown) (unknown) -Patient had (units (u nknown) date) significant drop in unknown) baseline EMG and motor evoked potential from (unknown) (no (unknown) (unknown) -Plan to continue (units (unknown) date) current medical unknown) management, take sedating medication only as (unknown) (no (unknown) (unknown) -Post surgery, (units (unknown) date) patient had slight unknown) recovery in his left sided neuromonitoring (unknown) (no (unknown) (unknown) -Will continue (units (unknown) date) monitor and assess unknown) his neuro status, which is slightly improved (unknown) (no (unknown) (unknown) -continue with (units (unknown) date) physical unknown) therapy/occupationa l therapy.? No bending, lifting, (unknown) (no (unknown) (unknown) -disposition, to (units (unknown) date) be determined.? unknown) Likely to acute rehab facility in the next 1-3 (unknown) (no (unknown) (unknown) -there is (units (unkn own) date) significant concern unknown) about him being safe upon discharge.? Physical (unknown) (no (unknown) (unknown) 06:00 08/04/22 (units (unknown) date) unknown) (unknown) (no (unknown) (unknown) 07:52 08/04/22 (units (unknown) date) unknown) (unknown) (no (unknown) (unknown) 08:00 (units (unkno wn) date) unknown) (unknown) (no (unknown) (unknown) 1 inh INHALATION (units (unknown) date) QAM unknown) (unknown) (no (unknown) (unknown) 1. T11-12 (units (unkn own) date) bilateral unknown) laminectomy and facetecomies (unknown) (no (unknown) (unknown) 1. 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 T11-12 (units (unkn own) date) posterolateral unknown) fusion (unknown) (no (unknown) (unknown) 3. T11-12 (units (unkn own) date) posterior unknown) non-segmental instrumentation (unknown) (no (unknown) (unknown) 30 (units (unkno wn) date) unknown) (unknown) (no (unknown) (unknown) 4. Utilization of (units (unknown) date) microsurgical unknown) technique and operating microscope (unknown) (no (unknown) (unknown) 40 mg PO DAILY (units (unknown) date) unknown) (unknown) (no (unknown) (unknown) 5 mg PO DAILY (units ( unknown) date) unknown) (unknown) (no (unknown) (unknown) 650 mg PO Q6HR PRN (units (unknown) date) (Reason: Pain, Mild unknown) (1-3)) Qty: 240 2RF (unknown) (no (unknown) (unknown) Age/Sex: 86 / M (units (unknown) date) unknown) (unknown) (no (unknown) (unknown) Anesthesia Type: (units (unknown) date) General unknown) (unknown) (no (unknown) (unknown) Assessment and (units (unknown) date) Plan unknown) (unknown) (no (unknown) (unknown) Assessment: (units (un known) date) unknown) (unknown) (no (unknown) (unknown) Lens Marker: Jack Church (units (unknown) date) [place] unknown) (unknown) (no (unknown) (unknown) Asthma (units (unkno wn) date) unknown) (unknown) (no (unknown) (unknown) Blood Pressure (units (unknown) date) 153/76 H 168/78 H unknown) (unknown) (no (unknown) (unknown) Blood products (units (unknown) date) transfused: none unknown) (unknown) (no (unknown) (unknown) Cat A Walker, (units (unknown) date) PA-C unknown) (unknown) (no (unknown) (unknown) Chief complaint: (units (unknown) date) s/p thoracic unknown) fusion; h/o R foot drop, myelopathy (unknown) (no (unknown) (unknown) Click Yes if (units (u nknown) date) Unassisted: No unknown) (unknown) (no (unknown) (unknown) Closure Type: (units ( unknown) date) primary unknown) (unknown) (no (unknown) (unknown) Comment: (units (unkno wn) date) unknown) (unknown) (no (unknown) (unknown) Consult to (units (unk nown) date) Hospitalist Service unknown) Routine (unknown) (no (unknown) (unknown) Consult to (units (unk nown) date) Occupational unknown) Therapy Evaluate + Treat (unknown) (no (unknown) (unknown) Consult to (units (unk nown) date) Physical Therapy unknown) Evaluate + Treat (unknown) (no (unknown) (unknown) Consulting (units (unk nown) date) Provider: unknown) George Das (unknown) (no (unknown) (unknown) Consults: (units (unkn own) date) unknown) (unknown) (no (unknown) (unknown) : 1935 (units (unknown) date) Acct:[id number] unknown) (unknown) (no (unknown) (unknown) Date Patient Seen: (units (unknown) date) 08/04/22 unknown) (unknown) (no (unknown) (unknown) Date of Service: (units (unknown) date) 07/30/22 unknown) (unknown) (no (unknown) (unknown) Date of admission: (units (unknown) date) unknown) (unknown) (no (unknown) (unknown) Date of procedure: (units (unknown) date) 07/30/22 unknown) (unknown) (no (unknown) (unknown) Device (units (unkno wn) date) unknown) (unknown) (no (unknown) (unknown) Discharge (units (unkn own) date) Assessment + Plan unknown) (unknown) (no (unknown) (unknown) Discharge Data (units (unknown) date) unknown) (unknown) (no (unknown) (unknown) Discharge (units (unkn own) date) Diagnosis: unknown) (unknown) (no (unknown) (unknown) Discharge Plan (units (unknown) date) unknown) (unknown) (no (unknown) (unknown) Discharge (units (unkn own) date) Providers unknown) (unknown) (no (unknown) (unknown) Discharge Summary (units (unknown) date) unknown) (unknown) (no (unknown) (unknown) Discharge orders + (units (unknown) date) Medications unknown) (unknown) (no (unknown) (unknown) Discharge (units (unkn own) date) provider: unknown) (unknown) (no (unknown) (unknown) Perico Sherman MD (units (unknown) date) [Primary Care unknown) Provider] (unknown) (no (unknown) (unknown) Estimated Blood (units (unknown) date) Loss (mL): 20 unknown) (unknown) (no (unknown) (unknown) Exam Narrative: (units (unknown) date) unknown) (unknown) (no (unknown) (unknown) Exam (units (unkno wn) date) unknown) (unknown) (no (unknown) (unknown) Follow (units (unkno wn) date) up/Referrals: unknown) (unknown) (no (unknown) (unknown) Globus revolve (units (unknown) date) screws unknown) (unknown) (no (unknown) (unknown) Graves' disease (units (unknown) date) unknown) (unknown) (no (unknown) (unknown) HTN (hypertension) (units (unknown) date) unknown) (unknown) (no (unknown) (unknown) Has provider been (units (unknown) date) notified: Yes unknown) (unknown) (no (unknown) (unknown) History of Present (units (unknown) date) Illness unknown) (unknown) (no (unknown) (unknown) History of colon (units (unknown) date) resection () unknown) (unknown) (no (unknown) (unknown) History of (units (unk nown) date) 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 () (unknown) (no (unknown) (unknown) 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 () (unknown) (no (unknown) (unknown) Hospital Course (units (unknown) date) unknown) (unknown) (no (unknown) (unknown) Hospital Course: (units (unknown) date) unknown) (unknown) (no (unknown) (unknown) Hx of sinus (units (un known) date) surgery () unknown) (unknown) (no (unknown) (unknown) Hyperthyroidism (units (unknown) date) unknown) (unknown) (no (unknown) (unknown) Indications: (units (u nknown) date) unknown) (unknown) (no (unknown) (unknown) [facility] (units (unknown) date) [address] unknown) [place] [address] (unknown) (no (unknown) (unknown) Labs (units (unkno wn) date) unknown) (unknown) (no (unknown) (unknown) Perico Sherman MD (units (unknown) date) unknown) (unknown) (no (unknown) (unknown) Medical History (units (unknown) date) (Reviewed 08/01/22 unknown) @ 16:51 by Cat Peter PA-C) (unknown) (no (unknown) (unknown) Mr. Rosario is POD#5 (units (unknown) date) s/p T11-12 unknown) laminectomy and posterior fusion with (unknown) (no (unknown) (unknown) Narrative (units (unkn own) date) unknown) (unknown) (no (unknown) (unknown) Narrative: (units (unk nown) date) unknown) (unknown) (no (unknown) (unknown) No Action (units (unkn own) date) unknown) (unknown) (no (unknown) (unknown) Objective (units (unkn own) date) unknown) (unknown) (no (unknown) (unknown) Operative (units (unkn own) date) Date/Time/Diagnoses unknown) (unknown) (no (unknown) (unknown) Operative Notes (units (unknown) date) unknown) (unknown) (no (unknown) (unknown) Oxygen Delivery (units (unknown) date) Method Room Air unknown) (unknown) (no (unknown) (unknown) Oxygen Flow Rate 0 (units (unknown) date) unknown) (unknown) (no (unknown) (unknown) PFSH (units (unkno wn) date) unknown) (unknown) (no (unknown) (unknown) Patient failed (units ( unknown) date) multiple unknown) conservative management with worsening pain weakness and (unknown) (no (unknown) (unknown) Patient has been (units (unknown) date) having difficulty unknown) performing activity of daily living.? After (unknown) (no (unknown) (unknown) Patient has been (units (unknown) date) having unknown) progressively worsening symptoms consistent with (unknown) (no (unknown) (unknown) Patient is (units (unk nown) date) complaining of mild unknown) low back pain. He continues to have somewhat (unknown) (no (unknown) (unknown) Patient: (units (unkno wn) date) Faith Rosario MR#: unknown) [id number] (unknown) (no (unknown) (unknown) Physician (units (unkn own) date) Instructions: unknown) Evaluate and Treat (unknown) (no (unknown) (unknown) Physician (units (unkn own) date) Instructions: unknown) Evaluate and treat (unknown) (no (unknown) (unknown) Plan of Treatment: (units (unknown) date) unknown) (unknown) (no (unknown) (unknown) Pleasant (units (unkno wn) date) 86-year-old male, unknown) resting comfortably in bed, no acute distress. (unknown) (no (unknown) (unknown) Precancerous (units (u nknown) date) lesion unknown) (unknown) (no (unknown) (unknown) Prescriptions: (units (unknown) date) unknown) (unknown) (no (unknown) (unknown) Primary Care (units (u nknown) date) Provider: unknown) Perico Sherman (unknown) (no (unknown) (unknown) Primary care (units (u nknown) date) physician: unknown) (unknown) (no (unknown) (unknown) Procedure + (units (un known) date) Clinicians unknown) (unknown) (no (unknown) (unknown) Procedure: (units (unk nown) date) unknown) (unknown) (no (unknown) (unknown) Prosthetic (units (unk nown) date) devices, grafts, unknown) tissues, transplants, or devices: (unknown) (no (unknown) (unknown) Provider (units (unkno wn) date) unknown) (unknown) (no (unknown) (unknown) Provider: (units (unkn own) date) Cat Peter P.A-C unknown) (unknown) (no (unknown) (unknown) Pulse Oximetry 98 (units (unknown) date) 97 97 unknown) (unknown) (no (unknown) (unknown) Pulse Rate 77 84 (units (unknown) date) 79 unknown) (unknown) (no (unknown) (unknown) Reason for (units (unk nown) date) consultation: unknown) Medical evaluation prior to transfer to inpatient (unknown) (no (unknown) (unknown) Respiratory Rate (units (unknown) date) 16 18 15 unknown) (unknown) (no (unknown) (unknown) Result Diagrams: (units (unknown) date) unknown) (unknown) (no (unknown) (unknown) S/P lumbar spinal (units (unknown) date) fusion (11/18/21) unknown) (unknown) (no (unknown) (unknown) Same procedure as (units (unknown) date) scheduled: Yes unknown) (unknown) (no (unknown) (unknown) Sciatica (units (unkno wn) date) unknown) (unknown) (no (unknown) (unknown) Signed By: (units (unk nown) date) unknown) (unknown) (no (unknown) (unknown) Smoking Status: (units (unknown) date) Never smoker unknown) (unknown) (no (unknown) (unknown) Social History (units (unknown) date) (Reviewed 08/01/22 unknown) @ 16:51 by Cat Peter PA-C) (unknown) (no (unknown) (unknown) Specimen(s): none (units (unknown) date) sent unknown) (unknown) (no (unknown) (unknown) Spinal stenosis (units (unknown) date) unknown) (unknown) (no (unknown) (unknown) Summary (units (unkno wn) date) unknown) (unknown) (no (unknown) (unknown) Surgeon: Chepe Cade (units (unknown) date) unknown) (unknown) (no (unknown) (unknown) Surgical History (units (unknown) date) (Reviewed 08/01/22 unknown) @ 16:51 by Cat Peter PA-C) (unknown) (no (unknown) (unknown) Temperature 97.9 F (units (unknown) date) 97.6 F unknown) (unknown) (no (unknown) (unknown) The main concern (units (unknown) date) was his significant unknown) decrease in neurovascular status during the (unknown) (no (unknown) (unknown) Time Patient Seen: (units (unknown) date) 07:40 unknown) (unknown) (no (unknown) (unknown) Time of procedure: (units (unknown) date) 14:20 unknown) (unknown) (no (unknown) (unknown) Vital Signs (units (un known) date) unknown) (unknown) (no (unknown) (unknown) [Embedded Image (units (unknown) date) Not Available] unknown) (unknown) (no (unknown) (unknown) acetaminophen 325 (units (unknown) date) mg Tablet unknown) (unknown) (no (unknown) (unknown) alcohol intake: (units (unknown) date) current unknown) (unknown) (no (unknown) (unknown) amlodipine 5 mg (units (unknown) date) Tablet unknown) (unknown) (no (unknown) (unknown) comparable to (units ( unknown) date) left.? He is still unknown) complaining of significant right-sided lower (unknown) (no (unknown) (unknown) currently on IV (units (unknown) date) steroids due to his unknown) neurologic changes. (unknown) (no (unknown) (unknown) days. (units (unkno wn) date) unknown) (unknown) (no (unknown) (unknown) decreased (units (unkn own) date) sensation in unknown) bilateral lower extremities. He notes his weakness has (unknown) (no (unknown) (unknown) details.? He is (units (unknown) date) currently working unknown) with physical therapy and occupational (unknown) (no (unknown) (unknown) discussing risks (units (unknown) date) benefits of unknown) treatment options, patient elected proceed with (unknown) (no (unknown) (unknown) edema. (units (unkno wn) date) unknown) (unknown) (no (unknown) (unknown) extremity motor (units (unknown) date) functions. unknown) (unknown) (no (unknown) (unknown) extremity weakness, (units (unknown) date) which has stayed unknown) about the same in the last 24 hours.? He is (unknown) (no (unknown) (unknown) feet, he has (units (u nknown) date) intact motor exam unknown) to his LLE. He has 4+/5 right EHL, 3/5 right (unknown) (no (unknown) (unknown) fluticasone (units (un known) date) propion-salmeterol unknown) [Advair Diskus] 500-50 mcg/dose Blister With (unknown) (no (unknown) (unknown) from postop day (units (unknown) date) 1.? He is still unknown) having significant limitations with right lower (unknown) (no (unknown) (unknown) household members: (units (unknown) date) none unknown) (unknown) (no (unknown) (unknown) initial slip prior (units (unknown) date) to surgery unknown) positioning.? Please see plan for further (unknown) (no (unknown) (unknown) instrumentation (units (unknown) date) unknown) (unknown) (no (unknown) (unknown) intraoperative (units (unknown) date) findings. unknown) (unknown) (no (unknown) (unknown) lisinopril 40 mg (units (unknown) date) Tablet unknown) (unknown) (no (unknown) (unknown) metoprolol (units (unk nown) date) succinate 100 mg unknown) Tablet Extended Release 24 Hr (unknown) (no (unknown) (unknown) more intensive (units (unknown) date) physical therapy, unknown) and I concur with this plan. (unknown) (no (unknown) (unknown) muscle groups; he (units (unknown) date) was examined in unknown) recovery room post anesthesia prior to (unknown) (no (unknown) (unknown) myelopathy.? 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 (unknown) (no (unknown) (unknown) neuromonitoring (units (unknown) date) after patient was unknown) placed into prone position prior to starting (unknown) (no (unknown) (unknown) present on his MRI (units (unknown) date) as hyerintense unknown) signal indicating spinal cord edema. (unknown) (no (unknown) (unknown) quadriceps. (units (un known) date) unknown) (unknown) (no (unknown) (unknown) rehab (units (unkno wn) date) unknown) (unknown) (no (unknown) (unknown) sensation to both (units (unknown) date) legs and unknown) significant motor weakness to both legs in multiple (unknown) (no (unknown) (unknown) signals. Patient (units (unknown) date) had significant unknown) post surgery physical exam with decreased (unknown) (no (unknown) (unknown) stayed about the (units (unknown) date) same in last 24 unknown) hours. (unknown) (no (unknown) (unknown) surgery. (units (unkno wn) date) unknown) (unknown) (no (unknown) (unknown) therapy and (units (un known) date) occupational unknown) therapy are recommending an acute rehab facility for (unknown) (no (unknown) (unknown) therapy.? He notes (units (unknown) date) that his baseline unknown) sensation is returning and right feels (unknown) (no (unknown) (unknown) tissue perfusion. (units (unknown) date) unknown) (unknown) (no (unknown) (unknown) transfer to his (units (unknown) date) room on the floor. unknown) This was expected and consistent with his (unknown) (no (unknown) (unknown) twisting x6 weeks. (units (unknown) date) unknown) (unknown) (no (unknown) (unknown) worsening balance (units (unknown) date) consistent with unknown) myelopathy correlating to his MRI findings.? Result panel 124 (unknown) (no (unknown) (unknown) (no value) (units (unk nown) date) unknown) (unknown) (no (unknown) (unknown) (past 8 hours): (units (unknown) date) unknown) (unknown) (no (unknown) (unknown) -He is receiving (units (unknown) date) IV steroids to unknown) decrease spinal cord inflammation, which was (unknown) (no (unknown) (unknown) -He received IV (units (unknown) date) steroids to unknown) decrease spinal cord inflammation, which was present (unknown) (no (unknown) (unknown) -His BP was kept (units (unknown) date) higher unknown) intentionally in order to improving perfusion to his (unknown) (no (unknown) (unknown) -On exam today, (units (unknown) date) patient is A+O x3, unknown) he has intact sensation to both legs and (unknown) (no (unknown) (unknown) -Patient had (units (u nknown) date) significant drop in unknown) baseline EMG and motor evoked potential from (unknown) (no (unknown) (unknown) -Plan to continue (units (unknown) date) current medical unknown) management, take sedating medication only as (unknown) (no (unknown) (unknown) -Post surgery, (units (unknown) date) patient had slight unknown) recovery in his left sided neuromonitoring (unknown) (no (unknown) (unknown) -Will continue (units (unknown) date) monitor and assess unknown) his neuro status, which is slightly improved (unknown) (no (unknown) (unknown) -continue with (units (unknown) date) physical unknown) therapy/occupationa l therapy.? No bending, lifting, (unknown) (no (unknown) (unknown) -disposition, to (units (unknown) date) be determined.? unknown) Likely to acute rehab facility in the next 1-3 (unknown) (no (unknown) (unknown) -he will need (units ( unknown) date) intense rehab unknown) during his recovery, therefore he will be (unknown) (no (unknown) (unknown) -there is (units (unkn own) date) significant concern unknown) about him being safe upon discharge.? Physical (unknown) (no (unknown) (unknown) 06:00 08/04/22 (units (unknown) date) unknown) (unknown) (no (unknown) (unknown) 07:52 08/04/22 (units (unknown) date) unknown) (unknown) (no (unknown) (unknown) 08:00 (units (unkno wn) date) unknown) (unknown) (no (unknown) (unknown) 1 inh INHALATION (units (unknown) date) QAM unknown) (unknown) (no (unknown) (unknown) 1. T11-12 (units (unkn own) date) bilateral unknown) laminectomy and facetecomies (unknown) (no (unknown) (unknown) 1. 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 T11-12 (units (unkn own) date) posterolateral unknown) fusion (unknown) (no (unknown) (unknown) 3. T11-12 (units (unkn own) date) posterior unknown) non-segmental instrumentation (unknown) (no (unknown) (unknown) 30 (units (unkno wn) date) unknown) (unknown) (no (unknown) (unknown) 4. Utilization of (units (unknown) date) microsurgical unknown) technique and operating microscope (unknown) (no (unknown) (unknown) 40 mg PO DAILY (units (unknown) date) unknown) (unknown) (no (unknown) (unknown) 5 mg PO DAILY (units ( unknown) date) unknown) (unknown) (no (unknown) (unknown) 650 mg PO Q6HR PRN (units (unknown) date) (Reason: Pain, Mild unknown) (1-3)) Qty: 240 2RF (unknown) (no (unknown) (unknown) Age/Sex: 86 / M (units (unknown) date) unknown) (unknown) (no (unknown) (unknown) Anesthesia Type: (units (unknown) date) General unknown) (unknown) (no (unknown) (unknown) Assessment and (units (unknown) date) Plan unknown) (unknown) (no (unknown) (unknown) Assessment: (units (un known) date) unknown) (unknown) (no (unknown) (unknown) Lens Marker: Jack Church (units (unknown) date) [place] unknown) (unknown) (no (unknown) (unknown) Asthma (units (unkno wn) date) unknown) (unknown) (no (unknown) (unknown) Blood Pressure (units (unknown) date) 153/76 H 168/78 H unknown) (unknown) (no (unknown) (unknown) Blood products (units (unknown) date) transfused: none unknown) (unknown) (no (unknown) (unknown) Cat Peter, (units (unknown) date) PA-C unknown) (unknown) (no (unknown) (unknown) Chief complaint: (units (unknown) date) s/p thoracic unknown) fusion; h/o R foot drop, myelopathy (unknown) (no (unknown) (unknown) Click Yes if (units (u nknown) date) Unassisted: No unknown) (unknown) (no (unknown) (unknown) Closure Type: (units ( unknown) date) primary unknown) (unknown) (no (unknown) (unknown) Cognitive/behavior (units (unknown) date) al status at unknown) discharge: at baseline, oriented (unknown) (no (unknown) (unknown) Comment: (units (unkno wn) date) unknown) (unknown) (no (unknown) (unknown) Consult to (units (unk nown) date) Hospitalist Service unknown) Routine (unknown) (no (unknown) (unknown) Consult to (units (unk nown) date) Occupational unknown) Therapy Evaluate + Treat (unknown) (no (unknown) (unknown) Consult to (units (unk nown) date) Physical Therapy unknown) Evaluate + Treat (unknown) (no (unknown) (unknown) Consulting (units (unk nown) date) Provider: unknown) George Das (unknown) (no (unknown) (unknown) Consults: (units (unkn own) date) unknown) (unknown) (no (unknown) (unknown) : 1935 (units (unknown) date) Acct:[id number] unknown) (unknown) (no (unknown) (unknown) Date Patient Seen: (units (unknown) date) 08/04/22 unknown) (unknown) (no (unknown) (unknown) Date of Service: (units (unknown) date) 07/30/22 unknown) (unknown) (no (unknown) (unknown) Date of admission: (units (unknown) date) unknown) (unknown) (no (unknown) (unknown) Date of procedure: (units (unknown) date) 07/30/22 unknown) (unknown) (no (unknown) (unknown) Device (units (unkno wn) date) unknown) (unknown) (no (unknown) (unknown) Discharge (units (unkn own) date) Assessment + Plan unknown) (unknown) (no (unknown) (unknown) Discharge Data (units (unknown) date) unknown) (unknown) (no (unknown) (unknown) Discharge Date: (units (unknown) date) 08/04/22 unknown) (unknown) (no (unknown) (unknown) Discharge (units (unkn own) date) Diagnosis: unknown) (unknown) (no (unknown) (unknown) Discharge Plan (units (unknown) date) unknown) (unknown) (no (unknown) (unknown) Discharge (units (unkn own) date) Providers unknown) (unknown) (no (unknown) (unknown) Discharge Summary (units (unknown) date) unknown) (unknown) (no (unknown) (unknown) Discharge orders + (units (unknown) date) Medications unknown) (unknown) (no (unknown) (unknown) Discharge (units (unkn own) date) provider: unknown) (unknown) (no (unknown) (unknown) Perico Sherman MD (units (unknown) date) [Primary Care unknown) Provider] (unknown) (no (unknown) (unknown) Estimated Blood (units (unknown) date) Loss (mL): 20 unknown) (unknown) (no (unknown) (unknown) Exam Narrative: (units (unknown) date) unknown) (unknown) (no (unknown) (unknown) Exam (units (unkno wn) date) unknown) (unknown) (no (unknown) (unknown) Follow (units (unkno wn) date) up/Referrals: unknown) (unknown) (no (unknown) (unknown) Functional status (units (unknown) date) at discharge: uses unknown) cane/walker (unknown) (no (unknown) (unknown) Globus revolve (units (unknown) date) screws unknown) (unknown) (no (unknown) (unknown) Graves' disease (units (unknown) date) unknown) (unknown) (no (unknown) (unknown) HTN (hypertension) (units (unknown) date) unknown) (unknown) (no (unknown) (unknown) Has provider been (units (unknown) date) notified: Yes unknown) (unknown) (no (unknown) (unknown) History of Present (units (unknown) date) Illness unknown) (unknown) (no (unknown) (unknown) History of colon (units (unknown) date) resection (-1969) unknown) (unknown) (no (unknown) (unknown) History of (units (unk nown) date) 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 () (unknown) (no (unknown) (unknown) 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 () (unknown) (no (unknown) (unknown) Hospital Course (units (unknown) date) unknown) (unknown) (no (unknown) (unknown) Hospital Course: (units (unknown) date) unknown) (unknown) (no (unknown) (unknown) Hx of sinus (units (un known) date) surgery (-2018) unknown) (unknown) (no (unknown) (unknown) Hyperthyroidism (units (unknown) date) unknown) (unknown) (no (unknown) (unknown) Indications: (units (u nknown) date) unknown) (unknown) (no (unknown) (unknown) [facility] (units (unknown) date) [address] unknown) [place] [address] (unknown) (no (unknown) (unknown) Labs (units (unkno wn) date) unknown) (unknown) (no (unknown) (unknown) Perico Sherman MD (units (unknown) date) unknown) (unknown) (no (unknown) (unknown) Medical History (units (unknown) date) (Reviewed 08/01/22 unknown) @ 16:51 by Cat Peter PA-C) (unknown) (no (unknown) (unknown) Mr. Rosario is POD#5 (units (unknown) date) s/p T11-12 unknown) laminectomy and posterior fusion with (unknown) (no (unknown) (unknown) Narrative (units (unkn own) date) unknown) (unknown) (no (unknown) (unknown) Narrative: (units (unk nown) date) unknown) (unknown) (no (unknown) (unknown) No Action (units (unkn own) date) unknown) (unknown) (no (unknown) (unknown) Objective (units (unkn own) date) unknown) (unknown) (no (unknown) (unknown) Operative (units (unkn own) date) Date/Time/Diagnoses unknown) (unknown) (no (unknown) (unknown) Operative Notes (units (unknown) date) unknown) (unknown) (no (unknown) (unknown) Overall status at (units (unknown) date) discharge: patient unknown) is progressing back to baseline (unknown) (no (unknown) (unknown) Oxygen Delivery (units (unknown) date) Method Room Air unknown) (unknown) (no (unknown) (unknown) Oxygen Flow Rate 0 (units (unknown) date) unknown) (unknown) (no (unknown) (unknown) PFSH (units (unkno wn) date) unknown) (unknown) (no (unknown) (unknown) Patient failed (units ( unknown) date) multiple unknown) conservative management with worsening pain weakness and (unknown) (no (unknown) (unknown) Patient has been (units (unknown) date) having difficulty unknown) performing activity of daily living.? After (unknown) (no (unknown) (unknown) Patient has been (units (unknown) date) having unknown) progressively worsening symptoms consistent with (unknown) (no (unknown) (unknown) Patient is (units (unk n) date) complaining of mild unknown) back pain. He continues to have somewhat (unknown) (no (unknown) (unknown) Patient: (units (unkno wn) date) Faith Rosario MR#: unknown) [id number] (unknown) (no (unknown) (unknown) Physician (units (unkn own) date) Instructions: unknown) Evaluate and Treat (unknown) (no (unknown) (unknown) Physician (units (unkn own) date) Instructions: unknown) Evaluate and treat (unknown) (no (unknown) (unknown) Plan of Treatment: (units (unknown) date) unknown) (unknown) (no (unknown) (unknown) Pleasant (units (o wn) date) 86-year-old male, unknown) resting comfortably in bed, no acute distress. (unknown) (no (unknown) (unknown) Precancerous (units (u nknown) date) lesion unknown) (unknown) (no (unknown) (unknown) Prescriptions: (units (unknown) date) unknown) (unknown) (no (unknown) (unknown) Primary Care (units (u nknown) date) Provider: unknown) Perico Sherman (unknown) (no (unknown) (unknown) Primary care (units (u nknown) date) physician: unknown) (unknown) (no (unknown) (unknown) Procedure + (units (un known) date) Clinicians unknown) (unknown) (no (unknown) (unknown) Procedure: (units (unk nown) date) unknown) (unknown) (no (unknown) (unknown) Prosthetic (units (unk n) date) devices, grafts, unknown) tissues, transplants, or devices: (unknown) (no (unknown) (unknown) Provider (units (o wn) date) unknown) (unknown) (no (unknown) (unknown) Provider: (units (unkn own) date) Cat Peter P.A-C unknown) (unknown) (no (unknown) (unknown) Pulse Oximetry 98 (units (unknown) date) 97 97 unknown) (unknown) (no (unknown) (unknown) Pulse Rate 77 84 (units (unknown) date) 79 unknown) (unknown) (no (unknown) (unknown) Reason for (units (unk nown) date) consultation: unknown) Medical evaluation prior to transfer to inpatient (unknown) (no (unknown) (unknown) Respiratory Rate (units (unknown) date) 16 18 15 unknown) (unknown) (no (unknown) (unknown) Result Diagrams: (units (unknown) date) unknown) (unknown) (no (unknown) (unknown) S/P lumbar spinal (units (unknown) date) fusion (11/18/21) unknown) (unknown) (no (unknown) (unknown) Same procedure as (units (unknown) date) scheduled: Yes unknown) (unknown) (no (unknown) (unknown) Sciatica (units (unkno wn) date) unknown) (unknown) (no (unknown) (unknown) Signed By: (units (unk nown) date) unknown) (unknown) (no (unknown) (unknown) Smoking Status: (units (unknown) date) Never smoker unknown) (unknown) (no (unknown) (unknown) Social History (units (unknown) date) (Reviewed 08/01/22 unknown) @ 16:51 by Cat Peter PA-C) (unknown) (no (unknown) (unknown) Specimen(s): none (units (unknown) date) sent unknown) (unknown) (no (unknown) (unknown) Spinal stenosis (units (unknown) date) unknown) (unknown) (no (unknown) (unknown) Status at (units (unkn own) date) Discharge unknown) (unknown) (no (unknown) (unknown) Summary (units (unkno wn) date) unknown) (unknown) (no (unknown) (unknown) Surgeon: Chepe Cade (units (unknown) date) unknown) (unknown) (no (unknown) (unknown) Surgical History (units (unknown) date) (Reviewed 08/01/22 unknown) @ 16:51 by Cat Peter PA-C) (unknown) (no (unknown) (unknown) Temperature 97.9 F (units (unknown) date) 97.6 F unknown) (unknown) (no (unknown) (unknown) The main concern (units (unknown) date) was his significant unknown) decrease in neurovascular status during the (unknown) (no (unknown) (unknown) Time Patient Seen: (units (unknown) date) 07:40 unknown) (unknown) (no (unknown) (unknown) Time of procedure: (units (unknown) date) 14:20 unknown) (unknown) (no (unknown) (unknown) Vital Signs (units (un known) date) unknown) (unknown) (no (unknown) (unknown) [Embedded Image (units (unknown) date) Not Available] unknown) (unknown) (no (unknown) (unknown) acetaminophen 325 (units (unknown) date) mg Tablet unknown) (unknown) (no (unknown) (unknown) alcohol intake: (units (unknown) date) current unknown) (unknown) (no (unknown) (unknown) amlodipine 5 mg (units (unknown) date) Tablet unknown) (unknown) (no (unknown) (unknown) comparable to (units ( unknown) date) left.? He is still unknown) complaining of significant right-sided lower (unknown) (no (unknown) (unknown) currently on IV (units (unknown) date) steroids due to his unknown) neurologic changes. (unknown) (no (unknown) (unknown) days. (units (unkno wn) date) unknown) (unknown) (no (unknown) (unknown) decreased (units (unkn own) date) sensation in unknown) bilateral lower extremities. He notes his weakness has (unknown) (no (unknown) (unknown) details.? He is (units (unknown) date) currently working unknown) with physical therapy and occupational (unknown) (no (unknown) (unknown) discussing risks (units (unknown) date) benefits of unknown) treatment options, patient elected proceed with (unknown) (no (unknown) (unknown) edema. (units (unkno wn) date) unknown) (unknown) (no (unknown) (unknown) extremity motor (units (unknown) date) functions. unknown) (unknown) (no (unknown) (unknown) extremity weakness, (units (unknown) date) which has stayed unknown) about the same in the last 24 hours.? He is (unknown) (no (unknown) (unknown) feet, he has (units (u nknown) date) intact motor exam unknown) to his LLE. He has 4+/5 right EHL, 3/5 right (unknown) (no (unknown) (unknown) fluticasone (units (un known) date) propion-salmeterol unknown) [Advair Diskus] 500-50 mcg/dose Blister With (unknown) (no (unknown) (unknown) from postop day (units (unknown) date) 1.? He is still unknown) having significant limitations with right lower (unknown) (no (unknown) (unknown) household members: (units (unknown) date) none unknown) (unknown) (no (unknown) (unknown) initial slip prior (units (unknown) date) to surgery unknown) positioning.? Please see plan for further (unknown) (no (unknown) (unknown) instrumentation (units (unknown) date) unknown) (unknown) (no (unknown) (unknown) intraoperative (units (unknown) date) findings. unknown) (unknown) (no (unknown) (unknown) lisinopril 40 mg (units (unknown) date) Tablet unknown) (unknown) (no (unknown) (unknown) metoprolol (units (unk nown) date) succinate 100 mg unknown) Tablet Extended Release 24 Hr (unknown) (no (unknown) (unknown) more intensive (units (unknown) date) physical therapy, unknown) and I concur with this plan. (unknown) (no (unknown) (unknown) muscle groups; he (units (unknown) date) was examined in unknown) recovery room post anesthesia prior to (unknown) (no (unknown) (unknown) myelopathy.? 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 (unknown) (no (unknown) (unknown) neuromonitoring (units (unknown) date) after patient was unknown) placed into prone position prior to starting (unknown) (no (unknown) (unknown) on his MRI as (units ( unknown) date) hyerintense signal unknown) indicating spinal cord edema. (unknown) (no (unknown) (unknown) present on his MRI (units (unknown) date) as hyerintense unknown) signal indicating spinal cord edema. (unknown) (no (unknown) (unknown) quadriceps. (units (un known) date) unknown) (unknown) (no (unknown) (unknown) rehab (units (unkno wn) date) unknown) (unknown) (no (unknown) (unknown) sensation to both (units (unknown) date) legs and unknown) significant motor weakness to both legs in multiple (unknown) (no (unknown) (unknown) signals. Patient (units (unknown) date) had significant unknown) post surgery physical exam with decreased (unknown) (no (unknown) (unknown) stayed about the (units (unknown) date) same in last 24 unknown) hours. (unknown) (no (unknown) (unknown) surgery. (units (unkno wn) date) unknown) (unknown) (no (unknown) (unknown) therapy and (units (un known) date) occupational unknown) therapy are recommending an acute rehab facility for (unknown) (no (unknown) (unknown) therapy.? He notes (units (unknown) date) that his baseline unknown) sensation is returning and right feels (unknown) (no (unknown) (unknown) tissue perfusion. (units (unknown) date) unknown) (unknown) (no (unknown) (unknown) transfer to his (units (unknown) date) room on the floor. unknown) This was expected and consistent with his (unknown) (no (unknown) (unknown) transferred to an (units (unknown) date) acute care rehab unknown) facility. (unknown) (no (unknown) (unknown) twisting x6 weeks. (units (unknown) date) unknown) (unknown) (no (unknown) (unknown) worsening balance (units (unknown) date) consistent with unknown) myelopathy correlating to his MRI findings.? Result panel 125 (unknown) (no (unknown) (unknown) (no value) (units (unk nown) date) unknown) (unknown) (no (unknown) (unknown) (past 8 hours): (units (unknown) date) unknown) (unknown) (no (unknown) (unknown) -He is receiving (units (unknown) date) IV steroids to unknown) decrease spinal cord inflammation, which was (unknown) (no (unknown) (unknown) -He received IV (units (unknown) date) steroids to unknown) decrease spinal cord inflammation, which was present (unknown) (no (unknown) (unknown) -His BP was kept (units (unknown) date) higher unknown) intentionally in order to improving perfusion to his (unknown) (no (unknown) (unknown) -On exam today, (units (unknown) date) patient is A+O x3, unknown) he has intact sensation to both legs and (unknown) (no (unknown) (unknown) -Patient had (units (u nknown) date) significant drop in unknown) baseline EMG and motor evoked potential from (unknown) (no (unknown) (unknown) -Plan to continue (units (unknown) date) current medical unknown) management, take sedating medication only as (unknown) (no (unknown) (unknown) -Post surgery, (units (unknown) date) patient had slight unknown) recovery in his left sided neuromonitoring (unknown) (no (unknown) (unknown) -Will continue (units (unknown) date) monitor and assess unknown) his neuro status, which is slightly improved (unknown) (no (unknown) (unknown) -continue with (units (unknown) date) physical unknown) therapy/occupationa l therapy.? No bending, lifting, (unknown) (no (unknown) (unknown) -disposition, to (units (unknown) date) be determined.? unknown) Likely to acute rehab facility in the next 1-3 (unknown) (no (unknown) (unknown) -he will need (units ( unknown) date) intense rehab unknown) during his recovery, therefore he will be (unknown) (no (unknown) (unknown) -there is (units (unkn own) date) significant concern unknown) about him being safe upon discharge.? Physical (unknown) (no (unknown) (unknown) 06:00 08/04/22 (units (unknown) date) unknown) (unknown) (no (unknown) (unknown) 07:52 08/04/22 (units (unknown) date) unknown) (unknown) (no (unknown) (unknown) 08:00 (units (unkno wn) date) unknown) (unknown) (no (unknown) (unknown) 1 inh INHALATION (units (unknown) date) QAM unknown) (unknown) (no (unknown) (unknown) 1. T11-12 (units (unkn own) date) bilateral unknown) laminectomy and facetecomies (unknown) (no (unknown) (unknown) 1. 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 T11-12 (units (unkn own) date) posterolateral unknown) fusion (unknown) (no (unknown) (unknown) 3. T11-12 (units (unkn own) date) posterior unknown) non-segmental instrumentation (unknown) (no (unknown) (unknown) 30 (units (unkno wn) date) unknown) (unknown) (no (unknown) (unknown) 4. Utilization of (units (unknown) date) microsurgical unknown) technique and operating microscope (unknown) (no (unknown) (unknown) 40 mg PO DAILY (units (unknown) date) unknown) (unknown) (no (unknown) (unknown) 5 mg PO DAILY (units ( unknown) date) unknown) (unknown) (no (unknown) (unknown) 650 mg PO Q6HR PRN (units (unknown) date) (Reason: Pain, Mild unknown) (1-3)) Qty: 240 2RF (unknown) (no (unknown) (unknown) Age/Sex: 86 / M (units (unknown) date) unknown) (unknown) (no (unknown) (unknown) Anesthesia Type: (units (unknown) date) General unknown) (unknown) (no (unknown) (unknown) Assessment and (units (unknown) date) Plan unknown) (unknown) (no (unknown) (unknown) Assessment: (units (un known) date) unknown) (unknown) (no (unknown) (unknown) Lens Marker: Jack Church (units (unknown) date) [place] unknown) (unknown) (no (unknown) (unknown) Asthma (units (unkno wn) date) unknown) (unknown) (no (unknown) (unknown) Blood Pressure (units (unknown) date) 153/76 H 168/78 H unknown) (unknown) (no (unknown) (unknown) Blood products (units (unknown) date) transfused: none unknown) (unknown) (no (unknown) (unknown) Cat A Walker, (units (unknown) date) PA-C unknown) (unknown) (no (unknown) (unknown) Chief complaint: (units (unknown) date) s/p thoracic unknown) fusion; h/o R foot drop, myelopathy (unknown) (no (unknown) (unknown) Click Yes if (units (u nknown) date) Unassisted: No unknown) (unknown) (no (unknown) (unknown) Closure Type: (units ( unknown) date) primary unknown) (unknown) (no (unknown) (unknown) Cognitive/behavior (units (unknown) date) al status at unknown) discharge: at baseline, oriented (unknown) (no (unknown) (unknown) Comment: (units (unkno wn) date) unknown) (unknown) (no (unknown) (unknown) Consult to (units (unk nown) date) Hospitalist Service unknown) Routine (unknown) (no (unknown) (unknown) Consult to (units (unk nown) date) Occupational unknown) Therapy Evaluate + Treat (unknown) (no (unknown) (unknown) Consult to (units (unk nown) date) Physical Therapy unknown) Evaluate + Treat (unknown) (no (unknown) (unknown) Consulting (units (unk nown) date) Provider: unknown) George Das (unknown) (no (unknown) (unknown) Consults: (units (unkn own) date) unknown) (unknown) (no (unknown) (unknown) : 1935 (units (unknown) date) Acct:[id number] unknown) (unknown) (no (unknown) (unknown) Date Patient Seen: (units (unknown) date) 08/04/22 unknown) (unknown) (no (unknown) (unknown) Date of Service: (units (unknown) date) 07/30/22 unknown) (unknown) (no (unknown) (unknown) Date of admission: (units (unknown) date) unknown) (unknown) (no (unknown) (unknown) Date of procedure: (units (unknown) date) 07/30/22 unknown) (unknown) (no (unknown) (unknown) Device (units (unkno wn) date) unknown) (unknown) (no (unknown) (unknown) Discharge (units (unkn own) date) Assessment + Plan unknown) (unknown) (no (unknown) (unknown) Discharge Data (units (unknown) date) unknown) (unknown) (no (unknown) (unknown) Discharge Date: (units (unknown) date) 08/04/22 unknown) (unknown) (no (unknown) (unknown) Discharge (units (unkn own) date) Diagnosis: unknown) (unknown) (no (unknown) (unknown) Discharge Plan (units (unknown) date) unknown) (unknown) (no (unknown) (unknown) Discharge (units (unkn own) date) Providers unknown) (unknown) (no (unknown) (unknown) Discharge Summary (units (unknown) date) unknown) (unknown) (no (unknown) (unknown) Discharge orders + (units (unknown) date) Medications unknown) (unknown) (no (unknown) (unknown) Discharge (units (unkn own) date) provider: unknown) (unknown) (no (unknown) (unknown) Perico Sherman MD (units (unknown) date) [Primary Care unknown) Provider] (unknown) (no (unknown) (unknown) Estimated Blood (units (unknown) date) Loss (mL): 20 unknown) (unknown) (no (unknown) (unknown) Exam Narrative: (units (unknown) date) unknown) (unknown) (no (unknown) (unknown) Exam (units (unkno wn) date) unknown) (unknown) (no (unknown) (unknown) Follow (units (unkno wn) date) up/Referrals: unknown) (unknown) (no (unknown) (unknown) Functional status (units (unknown) date) at discharge: uses unknown) edwarde/walker (unknown) (no (unknown) (unknown) Globus revolve (units (unknown) date) screws unknown) (unknown) (no (unknown) (unknown) Graves' disease (units (unknown) date) unknown) (unknown) (no (unknown) (unknown) HTN (hypertension) (units (unknown) date) unknown) (unknown) (no (unknown) (unknown) Has provider been (units (unknown) date) notified: Yes unknown) (unknown) (no (unknown) (unknown) History of Present (units (unknown) date) Illness unknown) (unknown) (no (unknown) (unknown) History of colon (units (unknown) date) resection () unknown) (unknown) (no (unknown) (unknown) History of (units (unk nown) date) 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 () (unknown) (no (unknown) (unknown) 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 () (unknown) (no (unknown) (unknown) Hospital Course (units (unknown) date) unknown) (unknown) (no (unknown) (unknown) Hospital Course: (units (unknown) date) unknown) (unknown) (no (unknown) (unknown) Hx of sinus (units (un known) date) surgery () unknown) (unknown) (no (unknown) (unknown) Hyperthyroidism (units (unknown) date) unknown) (unknown) (no (unknown) (unknown) Indications: (units (u nknown) date) unknown) (unknown) (no (unknown) (unknown) [facility] (units (unknown) date) [address] unknown) [place] [id number] (unknown) (no (unknown) (unknown) Labs (units (unkno wn) date) unknown) (unknown) (no (unknown) (unknown) Perico Sherman MD (units (unknown) date) unknown) (unknown) (no (unknown) (unknown) Medical History (units (unknown) date) (Reviewed 08/01/22 unknown) @ 16:51 by Cat Peter PA-C) (unknown) (no (unknown) (unknown) Mr. Rosario is POD#5 (units (unknown) date) s/p T11-12 unknown) laminectomy and posterior fusion with (unknown) (no (unknown) (unknown) Narrative (units (unkn own) date) unknown) (unknown) (no (unknown) (unknown) Narrative: (units (unk nown) date) unknown) (unknown) (no (unknown) (unknown) No Action (units (unkn own) date) unknown) (unknown) (no (unknown) (unknown) Objective (units (unkn own) date) unknown) (unknown) (no (unknown) (unknown) Operative (units (unkn own) date) Date/Time/Diagnoses unknown) (unknown) (no (unknown) (unknown) Operative Notes (units (unknown) date) unknown) (unknown) (no (unknown) (unknown) Overall status at (units (unknown) date) discharge: patient unknown) is progressing back to baseline (unknown) (no (unknown) (unknown) Oxygen Delivery (units (unknown) date) Method Room Air unknown) (unknown) (no (unknown) (unknown) Oxygen Flow Rate 0 (units (unknown) date) unknown) (unknown) (no (unknown) (unknown) PFSH (units (unkno wn) date) unknown) (unknown) (no (unknown) (unknown) Patient failed (units ( unknown) date) multiple unknown) conservative management with worsening pain weakness and (unknown) (no (unknown) (unknown) Patient has been (units (unknown) date) having difficulty unknown) performing activity of daily living.? After (unknown) (no (unknown) (unknown) Patient has been (units (unknown) date) having unknown) progressively worsening symptoms consistent with (unknown) (no (unknown) (unknown) Patient is (units (unk nown) date) complaining of mild unknown) back pain. He continues to have somewhat (unknown) (no (unknown) (unknown) Patient: (units (unkno wn) date) Faith Rosario MR#: unknown) [id number] (unknown) (no (unknown) (unknown) Physician (units (unkn own) date) Instructions: unknown) Evaluate and Treat (unknown) (no (unknown) (unknown) Physician (units (unkn own) date) Instructions: unknown) Evaluate and treat (unknown) (no (unknown) (unknown) Plan of Treatment: (units (unknown) date) unknown) (unknown) (no (unknown) (unknown) Pleasant (units (o wn) date) 86-year-old male, unknown) resting comfortably in bed, no acute distress. (unknown) (no (unknown) (unknown) Precancerous (units (u nknown) date) lesion unknown) (unknown) (no (unknown) (unknown) Prescriptions: (units (unknown) date) unknown) (unknown) (no (unknown) (unknown) Primary Care (units (u nknown) date) Provider: unknown) Perico Sherman (unknown) (no (unknown) (unknown) Primary care (units (u nknown) date) physician: unknown) (unknown) (no (unknown) (unknown) Procedure + (units (un known) date) Clinicians unknown) (unknown) (no (unknown) (unknown) Procedure: (units (unk n) date) unknown) (unknown) (no (unknown) (unknown) Prosthetic (units (unk n) date) devices, grafts, unknown) tissues, transplants, or devices: (unknown) (no (unknown) (unknown) Provider (units (o wn) date) unknown) (unknown) (no (unknown) (unknown) Provider: (units (unkn own) date) Cat Peter P.A-C unknown) (unknown) (no (unknown) (unknown) Pulse Oximetry 98 (units (unknown) date) 97 97 unknown) (unknown) (no (unknown) (unknown) Pulse Rate 77 84 (units (unknown) date) 79 unknown) (unknown) (no (unknown) (unknown) Reason for (units (unk nown) date) consultation: unknown) Medical evaluation prior to transfer to inpatient (unknown) (no (unknown) (unknown) Respiratory Rate (units (unknown) date) 16 18 15 unknown) (unknown) (no (unknown) (unknown) Result Diagrams: (units (unknown) date) unknown) (unknown) (no (unknown) (unknown) S/P lumbar spinal (units (unknown) date) fusion (11/18/21) unknown) (unknown) (no (unknown) (unknown) Same procedure as (units (unknown) date) scheduled: Yes unknown) (unknown) (no (unknown) (unknown) Sciatica (units (unkno wn) date) unknown) (unknown) (no (unknown) (unknown) Signed By: (units (unk nown) date) unknown) (unknown) (no (unknown) (unknown) Smoking Status: (units (unknown) date) Never smoker unknown) (unknown) (no (unknown) (unknown) Social History (units (unknown) date) (Reviewed 08/01/22 unknown) @ 16:51 by Cat Peter PA-C) (unknown) (no (unknown) (unknown) Specimen(s): none (units (unknown) date) sent unknown) (unknown) (no (unknown) (unknown) Spinal stenosis (units (unknown) date) unknown) (unknown) (no (unknown) (unknown) Status at (units (unkn own) date) Discharge unknown) (unknown) (no (unknown) (unknown) Summary (units (unkno wn) date) unknown) (unknown) (no (unknown) (unknown) Surgeon: Chepe Cade (units (unknown) date) unknown) (unknown) (no (unknown) (unknown) Surgical History (units (unknown) date) (Reviewed 08/01/22 unknown) @ 16:51 by Cat Peter PA-C) (unknown) (no (unknown) (unknown) Temperature 97.9 F (units (unknown) date) 97.6 F unknown) (unknown) (no (unknown) (unknown) The main concern (units (unknown) date) was his significant unknown) decrease in neurovascular status during the (unknown) (no (unknown) (unknown) Time Patient Seen: (units (unknown) date) 07:40 unknown) (unknown) (no (unknown) (unknown) Time of procedure: (units (unknown) date) 14:20 unknown) (unknown) (no (unknown) (unknown) Vital Signs (units (un known) date) unknown) (unknown) (no (unknown) (unknown) [Embedded Image (units (unknown) date) Not Available] unknown) (unknown) (no (unknown) (unknown) acetaminophen 325 (units (unknown) date) mg Tablet unknown) (unknown) (no (unknown) (unknown) alcohol intake: (units (unknown) date) current unknown) (unknown) (no (unknown) (unknown) amlodipine 5 mg (units (unknown) date) Tablet unknown) (unknown) (no (unknown) (unknown) comparable to (units ( unknown) date) left.? He is still unknown) complaining of significant right-sided lower (unknown) (no (unknown) (unknown) currently on IV (units (unknown) date) steroids due to his unknown) neurologic changes. (unknown) (no (unknown) (unknown) days. (units (unkno wn) date) unknown) (unknown) (no (unknown) (unknown) decreased (units (unkn own) date) sensation in unknown) bilateral lower extremities. He notes his weakness has (unknown) (no (unknown) (unknown) details.? He is (units (unknown) date) currently working unknown) with physical therapy and occupational (unknown) (no (unknown) (unknown) discussing risks (units (unknown) date) benefits of unknown) treatment options, patient elected proceed with (unknown) (no (unknown) (unknown) edema. (units (unkno wn) date) unknown) (unknown) (no (unknown) (unknown) extremity motor (units (unknown) date) functions. unknown) (unknown) (no (unknown) (unknown) extremity weakness, (units (unknown) date) which has stayed unknown) about the same in the last 24 hours.? He is (unknown) (no (unknown) (unknown) feet, he has (units (u nknown) date) intact motor exam unknown) to his LLE. He has 4+/5 right EHL, 3/5 right (unknown) (no (unknown) (unknown) fluticasone (units (un known) date) propion-salmeterol unknown) [Advair Diskus] 500-50 mcg/dose Blister With (unknown) (no (unknown) (unknown) from postop day (units (unknown) date) 1.? He is still unknown) having significant limitations with right lower (unknown) (no (unknown) (unknown) household members: (units (unknown) date) none unknown) (unknown) (no (unknown) (unknown) initial slip prior (units (unknown) date) to surgery unknown) positioning.? Please see plan for further (unknown) (no (unknown) (unknown) instrumentation (units (unknown) date) unknown) (unknown) (no (unknown) (unknown) intraoperative (units (unknown) date) findings. unknown) (unknown) (no (unknown) (unknown) lisinopril 40 mg (units (unknown) date) Tablet unknown) (unknown) (no (unknown) (unknown) metoprolol (units (unk nown) date) succinate 100 mg unknown) Tablet Extended Release 24 Hr (unknown) (no (unknown) (unknown) more intensive (units (unknown) date) physical therapy, unknown) and I concur with this plan. (unknown) (no (unknown) (unknown) muscle groups; he (units (unknown) date) was examined in unknown) recovery room post anesthesia prior to (unknown) (no (unknown) (unknown) myelopathy.? 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 (unknown) (no (unknown) (unknown) neuromonitoring (units (unknown) date) after patient was unknown) placed into prone position prior to starting (unknown) (no (unknown) (unknown) on his MRI as (units ( unknown) date) hyerintense signal unknown) indicating spinal cord edema. (unknown) (no (unknown) (unknown) present on his MRI (units (unknown) date) as hyerintense unknown) signal indicating spinal cord edema. (unknown) (no (unknown) (unknown) quadriceps. (units (un known) date) unknown) (unknown) (no (unknown) (unknown) rehab (units (unkno wn) date) unknown) (unknown) (no (unknown) (unknown) sensation to both (units (unknown) date) legs and unknown) significant motor weakness to both legs in multiple (unknown) (no (unknown) (unknown) signals. Patient (units (unknown) date) had significant unknown) post surgery physical exam with decreased (unknown) (no (unknown) (unknown) stayed about the (units (unknown) date) same in last 24 unknown) hours. (unknown) (no (unknown) (unknown) surgery. (units (unkno wn) date) unknown) (unknown) (no (unknown) (unknown) therapy and (units (un known) date) occupational unknown) therapy are recommending an acute rehab facility for (unknown) (no (unknown) (unknown) therapy.? He notes (units (unknown) date) that his baseline unknown) sensation is returning and right feels (unknown) (no (unknown) (unknown) tissue perfusion. (units (unknown) date) unknown) (unknown) (no (unknown) (unknown) transfer to his (units (unknown) date) room on the floor. unknown) This was expected and consistent with his (unknown) (no (unknown) (unknown) transferred to an (units (unknown) date) acute care rehab unknown) facility. (unknown) (no (unknown) (unknown) twisting x6 weeks. (units (unknown) date) unknown) (unknown) (no (unknown) (unknown) worsening balance (units (unknown) date) consistent with unknown) myelopathy correlating to his MRI findings.? Result panel 126 (unknown) (no (unknown) (unknown) (no value) (units (unk nown) date) unknown) (unknown) (no (unknown) (unknown) (past 8 hours): (units (unknown) date) unknown) (unknown) (no (unknown) (unknown) -He is receiving (units (unknown) date) IV steroids to unknown) decrease spinal cord inflammation, which was (unknown) (no (unknown) (unknown) -He received IV (units (unknown) date) steroids to unknown) decrease spinal cord inflammation, which was present (unknown) (no (unknown) (unknown) -His BP was kept (units (unknown) date) higher unknown) intentionally in order to improving perfusion to his (unknown) (no (unknown) (unknown) -Patient had (units (u nknown) date) significant drop in unknown) baseline EMG and motor evoked potential from (unknown) (no (unknown) (unknown) -Plan to continue (units (unknown) date) current medical unknown) management, take sedating medication only as (unknown) (no (unknown) (unknown) -Post surgery, (units (unknown) date) patient had slight unknown) recovery in his left sided neuromonitoring (unknown) (no (unknown) (unknown) -Will continue (units (unknown) date) monitor and assess unknown) his neuro status, which is slightly improved (unknown) (no (unknown) (unknown) -continue with (units (unknown) date) physical unknown) therapy/occupationa l therapy.? No bending, lifting, (unknown) (no (unknown) (unknown) -disposition, to (units (unknown) date) be determined.? unknown) Likely to acute rehab facility in the next 1-3 (unknown) (no (unknown) (unknown) -he will need (units ( unknown) date) intense rehab unknown) during his recovery, therefore he will be (unknown) (no (unknown) (unknown) -myelopathy (units (un known) date) unknown) (unknown) (no (unknown) (unknown) -there is (units (unkn own) date) significant concern unknown) about him being safe upon discharge.? Physical (unknown) (no (unknown) (unknown) 06:00 08/04/22 (units (unknown) date) unknown) (unknown) (no (unknown) (unknown) 07:52 08/04/22 (units (unknown) date) unknown) (unknown) (no (unknown) (unknown) 08:00 (units (unkno wn) date) unknown) (unknown) (no (unknown) (unknown) 1 inh INHALATION (units (unknown) date) QAM unknown) (unknown) (no (unknown) (unknown) 1. T11-12 (units (unkn own) date) bilateral unknown) laminectomy and facetecomies (unknown) (no (unknown) (unknown) 1. 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 T11-12 (units (unkn own) date) posterolateral unknown) fusion (unknown) (no (unknown) (unknown) 3. T11-12 (units (unkn own) date) posterior unknown) non-segmental instrumentation (unknown) (no (unknown) (unknown) 30 (units (unkno wn) date) unknown) (unknown) (no (unknown) (unknown) 4. Utilization of (units (unknown) date) microsurgical unknown) technique and operating microscope (unknown) (no (unknown) (unknown) 40 mg PO DAILY (units (unknown) date) unknown) (unknown) (no (unknown) (unknown) 5 mg PO DAILY (units ( unknown) date) unknown) (unknown) (no (unknown) (unknown) 650 mg PO Q6HR PRN (units (unknown) date) (Reason: Pain, Mild unknown) (1-3)) Qty: 240 2RF (unknown) (no (unknown) (unknown) Age/Sex: 86 / M (units (unknown) date) unknown) (unknown) (no (unknown) (unknown) Anesthesia Type: (units (unknown) date) General unknown) (unknown) (no (unknown) (unknown) Assessment and (units (unknown) date) Plan unknown) (unknown) (no (unknown) (unknown) Assessment: (units (un known) date) unknown) (unknown) (no (unknown) (unknown) Lens Marker: Jack W (units (unknown) date) [place] unknown) (unknown) (no (unknown) (unknown) Asthma (units (unkno wn) date) unknown) (unknown) (no (unknown) (unknown) Bilateral lower (units (unknown) date) extremity: unknown) Sensation is grossly intact throughout all (unknown) (no (unknown) (unknown) Blood Pressure (units (unknown) date) 153/76 H 168/78 H unknown) (unknown) (no (unknown) (unknown) Blood products (units (unknown) date) transfused: none unknown) (unknown) (no (unknown) (unknown) Cat A Walker, (units (unknown) date) PA-C unknown) (unknown) (no (unknown) (unknown) Chief complaint: (units (unknown) date) s/p thoracic unknown) fusion; h/o R foot drop, myelopathy (unknown) (no (unknown) (unknown) Click Yes if (units (u nknown) date) Unassisted: No unknown) (unknown) (no (unknown) (unknown) Closure Type: (units ( unknown) date) primary unknown) (unknown) (no (unknown) (unknown) Cognitive/behavior (units (unknown) date) al status at unknown) discharge: at baseline, oriented (unknown) (no (unknown) (unknown) Comment: (units (unkno wn) date) unknown) (unknown) (no (unknown) (unknown) Consult to (units (unk nown) date) Hospitalist Service unknown) Routine (unknown) (no (unknown) (unknown) Consult to (units (unk nown) date) Occupational unknown) Therapy Evaluate + Treat (unknown) (no (unknown) (unknown) Consult to (units (unk nown) date) Physical Therapy unknown) Evaluate + Treat (unknown) (no (unknown) (unknown) Consulting (units (unk nown) date) Provider: unknown) George Das (unknown) (no (unknown) (unknown) Consults: (units (unkn own) date) unknown) (unknown) (no (unknown) (unknown) : 1935 (units (unknown) date) Acct:[id number] unknown) (unknown) (no (unknown) (unknown) Date Patient Seen: (units (unknown) date) 08/04/22 unknown) (unknown) (no (unknown) (unknown) Date of Service: (units (unknown) date) 07/30/22 unknown) (unknown) (no (unknown) (unknown) Date of admission: (units (unknown) date) unknown) (unknown) (no (unknown) (unknown) Date of procedure: (units (unknown) date) 07/30/22 unknown) (unknown) (no (unknown) (unknown) Device (units (unkno wn) date) unknown) (unknown) (no (unknown) (unknown) Discharge (units (unkn own) date) Assessment + Plan unknown) (unknown) (no (unknown) (unknown) Discharge Data (units (unknown) date) unknown) (unknown) (no (unknown) (unknown) Discharge Date: (units (unknown) date) 08/04/22 unknown) (unknown) (no (unknown) (unknown) Discharge (units (unkn own) date) Diagnosis: unknown) (unknown) (no (unknown) (unknown) Discharge Plan (units (unknown) date) unknown) (unknown) (no (unknown) (unknown) Discharge (units (unkn own) date) Providers unknown) (unknown) (no (unknown) (unknown) Discharge Summary (units (unknown) date) unknown) (unknown) (no (unknown) (unknown) Discharge orders + (units (unknown) date) Medications unknown) (unknown) (no (unknown) (unknown) Discharge (units (unkn own) date) provider: unknown) (unknown) (no (unknown) (unknown) Perico Sherman MD (units (unknown) date) [Primary Care unknown) Provider] (unknown) (no (unknown) (unknown) Estimated Blood (units (unknown) date) Loss (mL): 20 unknown) (unknown) (no (unknown) (unknown) Exam Narrative: (units (unknown) date) unknown) (unknown) (no (unknown) (unknown) Exam (units (unkno wn) date) unknown) (unknown) (no (unknown) (unknown) Follow (units (unkno wn) date) up/Referrals: unknown) (unknown) (no (unknown) (unknown) Functional status (units (unknown) date) at discharge: uses unknown) cane/walker (unknown) (no (unknown) (unknown) Globus revolve (units (unknown) date) screws unknown) (unknown) (no (unknown) (unknown) Graves' disease (units (unknown) date) unknown) (unknown) (no (unknown) (unknown) HTN (hypertension) (units (unknown) date) unknown) (unknown) (no (unknown) (unknown) Has provider been (units (unknown) date) notified: Yes unknown) (unknown) (no (unknown) (unknown) History of Present (units (unknown) date) Illness unknown) (unknown) (no (unknown) (unknown) History of colon (units (unknown) date) resection () unknown) (unknown) (no (unknown) (unknown) History of (units (unk nown) date) 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 () (unknown) (no (unknown) (unknown) 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 () (unknown) (no (unknown) (unknown) Hospital Course (units (unknown) date) unknown) (unknown) (no (unknown) (unknown) Hospital Course: (units (unknown) date) unknown) (unknown) (no (unknown) (unknown) Hx of sinus (units (un known) date) surgery () unknown) (unknown) (no (unknown) (unknown) Hyperthyroidism (units (unknown) date) unknown) (unknown) (no (unknown) (unknown) Indications: (units (u nknown) date) unknown) (unknown) (no (unknown) (unknown) [facility] (units (unknown) date) [address] unknown) [place] [address] (unknown) (no (unknown) (unknown) Labs (units (unkno wn) date) unknown) (unknown) (no (unknown) (unknown) Perico Sherman MD (units (unknown) date) unknown) (unknown) (no (unknown) (unknown) Medical History (units (unknown) date) (Reviewed 08/04/22 unknown) @ 13:29 by Cat Peter PA-C) (unknown) (no (unknown) (unknown) Mr. Rosario is POD#5 (units (unknown) date) s/p T11-12 unknown) laminectomy and posterior fusion with (unknown) (no (unknown) (unknown) Narrative (units (unkn own) date) unknown) (unknown) (no (unknown) (unknown) Narrative: (units (unk nown) date) unknown) (unknown) (no (unknown) (unknown) No Action (units (unkn own) date) unknown) (unknown) (no (unknown) (unknown) Objective (units (unkn own) date) unknown) (unknown) (no (unknown) (unknown) Operative (units (unkn own) date) Date/Time/Diagnoses unknown) (unknown) (no (unknown) (unknown) Operative Notes (units (unknown) date) unknown) (unknown) (no (unknown) (unknown) Overall status at (units (unknown) date) discharge: patient unknown) is progressing back to baseline (unknown) (no (unknown) (unknown) Oxygen Delivery (units (unknown) date) Method Room Air unknown) (unknown) (no (unknown) (unknown) Oxygen Flow Rate 0 (units (unknown) date) unknown) (unknown) (no (unknown) (unknown) PFSH (units (unkno wn) date) unknown) (unknown) (no (unknown) (unknown) Patient failed (units ( unknown) date) multiple unknown) conservative management with worsening pain weakness and (unknown) (no (unknown) (unknown) Patient has been (units (unknown) date) having difficulty unknown) performing activity of daily living.? After (unknown) (no (unknown) (unknown) Patient has been (units (unknown) date) having unknown) progressively worsening symptoms consistent with (unknown) (no (unknown) (unknown) Patient is (units (unk nown) date) complaining of mild unknown) back pain. He continues to have somewhat (unknown) (no (unknown) (unknown) Patient: (units (unkno wn) date) Faith Rosario MR#: unknown) [id number] (unknown) (no (unknown) (unknown) Physician (units (unkn own) date) Instructions: unknown) Evaluate and Treat (unknown) (no (unknown) (unknown) Physician (units (unkn own) date) Instructions: unknown) Evaluate and treat (unknown) (no (unknown) (unknown) Plan of Treatment: (units (unknown) date) unknown) (unknown) (no (unknown) (unknown) Pleasant (units (unkno wn) date) 86-year-old male, unknown) resting comfortably in bed, no acute distress. (unknown) (no (unknown) (unknown) Precancerous (units (u nknown) date) lesion unknown) (unknown) (no (unknown) (unknown) Prescriptions: (units (unknown) date) unknown) (unknown) (no (unknown) (unknown) Primary Care (units (u nknown) date) Provider: unknown) Perico Sherman (unknown) (no (unknown) (unknown) Primary care (units (u nknown) date) physician: unknown) (unknown) (no (unknown) (unknown) Procedure + (units (un known) date) Clinicians unknown) (unknown) (no (unknown) (unknown) Procedure: (units (unk n) date) unknown) (unknown) (no (unknown) (unknown) Prosthetic (units (unk n) date) devices, grafts, unknown) tissues, transplants, or devices: (unknown) (no (unknown) (unknown) Provider (units (o wn) date) unknown) (unknown) (no (unknown) (unknown) Provider: (units (unkn own) date) Cat Peter P.A-C unknown) (unknown) (no (unknown) (unknown) Pulse Oximetry 98 (units (unknown) date) 97 97 unknown) (unknown) (no (unknown) (unknown) Pulse Rate 77 84 (units (unknown) date) 79 unknown) (unknown) (no (unknown) (unknown) Reason for (units (k ) date) consultation: unknown) Medical evaluation prior to transfer to inpatient (unknown) (no (unknown) (unknown) Respiratory Rate (units (unknown) date) 16 18 15 unknown) (unknown) (no (unknown) (unknown) Result Diagrams: (units (unknown) date) unknown) (unknown) (no (unknown) (unknown) S/P lumbar spinal (units (unknown) date) fusion (11/18/21) unknown) (unknown) (no (unknown) (unknown) Same procedure as (units (unknown) date) scheduled: Yes unknown) (unknown) (no (unknown) (unknown) Sciatica (units (o wn) date) unknown) (unknown) (no (unknown) (unknown) Signed By: (units (unk nown) date) unknown) (unknown) (no (unknown) (unknown) Smoking Status: (units (unknown) date) Never smoker unknown) (unknown) (no (unknown) (unknown) Social History (units (unknown) date) (Reviewed 08/04/22 unknown) @ 13:29 by Cat Peter PA-C) (unknown) (no (unknown) (unknown) Specimen(s): none (units (unknown) date) sent unknown) (unknown) (no (unknown) (unknown) Spinal stenosis (units (unknown) date) unknown) (unknown) (no (unknown) (unknown) Status at (units (unkn own) date) Discharge unknown) (unknown) (no (unknown) (unknown) Strength LLE: Quad (units (unknown) date) is 5/5, hamstring, unknown) 4+ out of 5, df/PF 4- out of 5, EHL 5/5. (unknown) (no (unknown) (unknown) Strength RLE: Quad (units (unknown) date) 4/5, hamstring 3/5, unknown) plantar flexion 3/5, EHL 4+ out of 5. (unknown) (no (unknown) (unknown) Summary (units (unkno wn) date) unknown) (unknown) (no (unknown) (unknown) Surgeon: Chepe Cade (units (unknown) date) unknown) (unknown) (no (unknown) (unknown) Surgical History (units (unknown) date) (Reviewed 08/04/22 unknown) @ 13:29 by Cat Peter PA-C) (unknown) (no (unknown) (unknown) Temperature 97.9 F (units (unknown) date) 97.6 F unknown) (unknown) (no (unknown) (unknown) The main concern (units (unknown) date) was his significant unknown) decrease in neurovascular status during the (unknown) (no (unknown) (unknown) Time Patient Seen: (units (unknown) date) 07:40 unknown) (unknown) (no (unknown) (unknown) Time of procedure: (units (unknown) date) 14:20 unknown) (unknown) (no (unknown) (unknown) Vital Signs (units (un known) date) unknown) (unknown) (no (unknown) (unknown) [Embedded Image (units (unknown) date) Not Available] unknown) (unknown) (no (unknown) (unknown) acetaminophen 325 (units (unknown) date) mg Tablet unknown) (unknown) (no (unknown) (unknown) alcohol intake: (units (unknown) date) current unknown) (unknown) (no (unknown) (unknown) amlodipine 5 mg (units (unknown) date) Tablet unknown) (unknown) (no (unknown) (unknown) comparable to (units ( unknown) date) left.? He is still unknown) complaining of significant right-sided lower (unknown) (no (unknown) (unknown) currently on IV (units (unknown) date) steroids due to his unknown) neurologic changes. (unknown) (no (unknown) (unknown) days. (units (unkno wn) date) unknown) (unknown) (no (unknown) (unknown) decreased (units (unkn own) date) sensation in unknown) bilateral lower extremities. He notes his weakness has (unknown) (no (unknown) (unknown) dermatomes (units (unk nown) date) bilaterally. unknown) (unknown) (no (unknown) (unknown) details.? He is (units (unknown) date) currently working unknown) with physical therapy and occupational (unknown) (no (unknown) (unknown) discussing risks (units (unknown) date) benefits of unknown) treatment options, patient elected proceed with (unknown) (no (unknown) (unknown) edema. (units (unkno wn) date) unknown) (unknown) (no (unknown) (unknown) extremity motor (units (unknown) date) functions. unknown) (unknown) (no (unknown) (unknown) extremity weakness, (units (unknown) date) which has stayed unknown) about the same in the last 24 hours.? He is (unknown) (no (unknown) (unknown) fluticasone (units (un known) date) propion-salmeterol unknown) [Advair Diskus] 500-50 mcg/dose Blister With (unknown) (no (unknown) (unknown) from postop day (units (unknown) date) 1.? He is still unknown) having significant limitations with right lower (unknown) (no (unknown) (unknown) household members: (units (unknown) date) none unknown) (unknown) (no (unknown) (unknown) initial slip prior (units (unknown) date) to surgery unknown) positioning.? Please see plan for further (unknown) (no (unknown) (unknown) instrumentation (units (unknown) date) unknown) (unknown) (no (unknown) (unknown) intraoperative (units (unknown) date) findings. unknown) (unknown) (no (unknown) (unknown) lisinopril 40 mg (units (unknown) date) Tablet unknown) (unknown) (no (unknown) (unknown) metoprolol (units (unk nown) date) succinate 100 mg unknown) Tablet Extended Release 24 Hr (unknown) (no (unknown) (unknown) more intensive (units (unknown) date) physical therapy, unknown) and I concur with this plan. (unknown) (no (unknown) (unknown) muscle groups; he (units (unknown) date) was examined in unknown) recovery room post anesthesia prior to (unknown) (no (unknown) (unknown) myelopathy.? 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 (unknown) (no (unknown) (unknown) neuromonitoring (units (unknown) date) after patient was unknown) placed into prone position prior to starting (unknown) (no (unknown) (unknown) on his MRI as (units ( unknown) date) hyerintense signal unknown) indicating spinal cord edema. (unknown) (no (unknown) (unknown) present on his MRI (units (unknown) date) as hyerintense unknown) signal indicating spinal cord edema. (unknown) (no (unknown) (unknown) rehab (units (unkno wn) date) unknown) (unknown) (no (unknown) (unknown) sensation to both (units (unknown) date) legs and unknown) significant motor weakness to both legs in multiple (unknown) (no (unknown) (unknown) signals. Patient (units (unknown) date) had significant unknown) post surgery physical exam with decreased (unknown) (no (unknown) (unknown) stayed about the (units (unknown) date) same in last 24 unknown) hours. (unknown) (no (unknown) (unknown) surgery. (units (unkno wn) date) unknown) (unknown) (no (unknown) (unknown) therapy and (units (un known) date) occupational unknown) therapy are recommending an acute rehab facility for (unknown) (no (unknown) (unknown) therapy.? He notes (units (unknown) date) that his baseline unknown) sensation is returning and right feels (unknown) (no (unknown) (unknown) tissue perfusion. (units (unknown) date) unknown) (unknown) (no (unknown) (unknown) transfer to his (units (unknown) date) room on the floor. unknown) This was expected and consistent with his (unknown) (no (unknown) (unknown) transferred to an (units (unknown) date) acute care rehab unknown) facility. (unknown) (no (unknown) (unknown) twisting x6 weeks. (units (unknown) date) unknown) (unknown) (no (unknown) (unknown) worsening balance (units (unknown) date) consistent with unknown) myelopathy correlating to his MRI findings.? Result panel 127 (unknown) (no (unknown) (unknown) (no value) (units (unk nown) date) unknown) (unknown) (no (unknown) (unknown) (past 8 hours): (units (unknown) date) unknown) (unknown) (no (unknown) (unknown) -He is receiving (units (unknown) date) IV steroids to unknown) decrease spinal cord inflammation, which was (unknown) (no (unknown) (unknown) -He received IV (units (unknown) date) steroids to unknown) decrease spinal cord inflammation, which was present (unknown) (no (unknown) (unknown) -His BP was kept (units (unknown) date) higher unknown) intentionally in order to improving perfusion to his (unknown) (no (unknown) (unknown) -Hypertension and (units (unknown) date) Asthma, being unknown) managed by hospitalist team (unknown) (no (unknown) (unknown) -POD#5 s/p T11-12 (units (unknown) date) laminectomy and unknown) posterior fusion with instrumentation (unknown) (no (unknown) (unknown) -Patient had (units (u nknown) date) significant drop in unknown) baseline EMG and motor evoked potential from (unknown) (no (unknown) (unknown) -Plan to continue (units (unknown) date) current medical unknown) management, take sedating medication only as (unknown) (no (unknown) (unknown) -Post surgery, (units (unknown) date) patient had slight unknown) recovery in his left sided neuromonitoring (unknown) (no (unknown) (unknown) -Urinary retention (units (unknown) date) unknown) (unknown) (no (unknown) (unknown) -Will continue (units (unknown) date) monitor and assess unknown) his neuro status, which is slightly improved (unknown) (no (unknown) (unknown) -continue with (units (unknown) date) physical unknown) therapy/occupationa l therapy.? No bending, lifting, (unknown) (no (unknown) (unknown) -disposition, (units ( unknown) date) acute rehab today, unknown) if authorized in bed is available.? (unknown) (no (unknown) (unknown) -h/o myelopathy (units (unknown) date) with Postop spinal unknown) cord edema (unknown) (no (unknown) (unknown) -he will need (units ( unknown) date) intense rehab unknown) during his recovery, therefore he will be (unknown) (no (unknown) (unknown) -there is (units (unkn own) date) significant concern unknown) about him being safe upon discharge.? Physical (unknown) (no (unknown) (unknown) 06:00 08/04/22 (units (unknown) date) unknown) (unknown) (no (unknown) (unknown) 07:52 08/04/22 (units (unknown) date) unknown) (unknown) (no (unknown) (unknown) 08:00 (units (unkno wn) date) unknown) (unknown) (no (unknown) (unknown) 1 inh INHALATION (units (unknown) date) QAM unknown) (unknown) (no (unknown) (unknown) 1. Postop spinal (units (unknown) date) cord edema unknown) (unknown) (no (unknown) (unknown) 1. T11-12 (units (unkn own) date) bilateral unknown) laminectomy and facetecomies (unknown) (no (unknown) (unknown) 1. 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 T11-12 (units (unkn own) date) posterolateral unknown) fusion (unknown) (no (unknown) (unknown) 2. Urinary (units (unk nown) date) retention unknown) (unknown) (no (unknown) (unknown) 3. Constipation (units (unknown) date) unknown) (unknown) (no (unknown) (unknown) 3. T11-12 (units (unkn own) date) posterior unknown) non-segmental instrumentation (unknown) (no (unknown) (unknown) 30 (units (unkno wn) date) unknown) (unknown) (no (unknown) (unknown) 4. Hypertension (units (unknown) date) unknown) (unknown) (no (unknown) (unknown) 4. Utilization of (units (unknown) date) microsurgical unknown) technique and operating microscope (unknown) (no (unknown) (unknown) 40 mg PO DAILY (units (unknown) date) unknown) (unknown) (no (unknown) (unknown) 5 mg PO DAILY (units ( unknown) date) unknown) (unknown) (no (unknown) (unknown) 5. Asthma (units (unkn own) date) unknown) (unknown) (no (unknown) (unknown) 650 mg PO Q6HR PRN (units (unknown) date) (Reason: Pain, Mild unknown) (1-3)) Qty: 240 2RF (unknown) (no (unknown) (unknown) Age/Sex: 86 / M (units (unknown) date) unknown) (unknown) (no (unknown) (unknown) Anesthesia Type: (units (unknown) date) General unknown) (unknown) (no (unknown) (unknown) Assessment and (units (unknown) date) Plan unknown) (unknown) (no (unknown) (unknown) Assessment: (units (un known) date) unknown) (unknown) (no (unknown) (unknown) Lens Marker: Jack W (units (unknown) date) [place] unknown) (unknown) (no (unknown) (unknown) Asthma (units (unkno wn) date) unknown) (unknown) (no (unknown) (unknown) Bilateral lower (units (unknown) date) extremity: unknown) Sensation is grossly intact throughout all (unknown) (no (unknown) (unknown) Blood Pressure (units (unknown) date) 153/76 H 168/78 H unknown) (unknown) (no (unknown) (unknown) Blood pressures (units (unknown) date) have been elevated unknown) at times.? He has been off of his (unknown) (no (unknown) (unknown) Blood products (units (unknown) date) transfused: none unknown) (unknown) (no (unknown) (unknown) Cat A Walker, (units (unknown) date) PA-C unknown) (unknown) (no (unknown) (unknown) Chief complaint: (units (unknown) date) s/p thoracic unknown) fusion; h/o R foot drop, myelopathy (unknown) (no (unknown) (unknown) Click Yes if (units (u nknown) date) Unassisted: No unknown) (unknown) (no (unknown) (unknown) Closure Type: (units ( unknown) date) primary unknown) (unknown) (no (unknown) (unknown) Cognitive/behavior (units (unknown) date) al status at unknown) discharge: at baseline, oriented (unknown) (no (unknown) (unknown) Comment: (units (unkno wn) date) unknown) (unknown) (no (unknown) (unknown) Consult to (units (unk nown) date) Hospitalist Service unknown) Routine (unknown) (no (unknown) (unknown) Consult to (units (unk nown) date) Occupational unknown) Therapy Evaluate + Treat (unknown) (no (unknown) (unknown) Consult to (units (unk nown) date) Physical Therapy unknown) Evaluate + Treat (unknown) (no (unknown) (unknown) Consulting (units (unk nown) date) Provider: unknown) George Das (unknown) (no (unknown) (unknown) Consults: (units (unkn own) date) unknown) (unknown) (no (unknown) (unknown) Continue Advair (units (unknown) date) unknown) (unknown) (no (unknown) (unknown) Continue Booker (units (unknown) date) catheter for now.? unknown) Await urine culture.? He may neurogenic (unknown) (no (unknown) (unknown) : 1935 (units (unknown) date) Acct:[id number] unknown) (unknown) (no (unknown) (unknown) Date Patient Seen: (units (unknown) date) 08/04/22 unknown) (unknown) (no (unknown) (unknown) Date of Service: (units (unknown) date) 07/30/22 unknown) (unknown) (no (unknown) (unknown) Date of admission: (units (unknown) date) unknown) (unknown) (no (unknown) (unknown) Date of procedure: (units (unknown) date) 07/30/22 unknown) (unknown) (no (unknown) (unknown) Device (units (unkno wn) date) unknown) (unknown) (no (unknown) (unknown) Discharge (units (unkn own) date) Assessment + Plan unknown) (unknown) (no (unknown) (unknown) Discharge Data (units (unknown) date) unknown) (unknown) (no (unknown) (unknown) Discharge Date: (units (unknown) date) 08/04/22 unknown) (unknown) (no (unknown) (unknown) Discharge (units (unkn own) date) Diagnosis: unknown) (unknown) (no (unknown) (unknown) Discharge Plan (units (unknown) date) unknown) (unknown) (no (unknown) (unknown) Discharge (units (unkn own) date) Providers unknown) (unknown) (no (unknown) (unknown) Discharge Summary (units (unknown) date) unknown) (unknown) (no (unknown) (unknown) Discharge orders + (units (unknown) date) Medications unknown) (unknown) (no (unknown) (unknown) Discharge (units (unkn own) date) provider: unknown) (unknown) (no (unknown) (unknown) Discussed a (units (un known) date) suppository with unknown) him today and he is receptive.? This has been (unknown) (no (unknown) (unknown) Perico Sherman MD (units (unknown) date) [Primary Care unknown) Provider] (unknown) (no (unknown) (unknown) Estimated Blood (units (unknown) date) Loss (mL): 20 unknown) (unknown) (no (unknown) (unknown) Exam Narrative: (units (unknown) date) unknown) (unknown) (no (unknown) (unknown) Exam (units (unkno wn) date) unknown) (unknown) (no (unknown) (unknown) Follow (units (unkno wn) date) up/Referrals: unknown) (unknown) (no (unknown) (unknown) Functional status (units (unknown) date) at discharge: uses unknown) cane/walker (unknown) (no (unknown) (unknown) Globus revolve (units (unknown) date) screws unknown) (unknown) (no (unknown) (unknown) Graves' disease (units (unknown) date) unknown) (unknown) (no (unknown) (unknown) HTN (hypertension) (units (unknown) date) unknown) (unknown) (no (unknown) (unknown) Has provider been (units (unknown) date) notified: Yes unknown) (unknown) (no (unknown) (unknown) History of Present (units (unknown) date) Illness unknown) (unknown) (no (unknown) (unknown) History of colon (units (unknown) date) resection (-1969) unknown) (unknown) (no (unknown) (unknown) History of (units (unk nown) date) 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 () (unknown) (no (unknown) (unknown) 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 unknown) [place] [address] (unknown) (no (unknown) (unknown) Labs (units (unkno wn) date) unknown) (unknown) (no (unknown) (unknown) Perico Sherman MD (units (unknown) date) unknown) (unknown) (no (unknown) (unknown) Medical History (units (unknown) date) (Reviewed 08/04/22 unknown) @ 13:29 by Cat Peter PA-C) (unknown) (no (unknown) (unknown) Narrative (units (unkn own) date) unknown) (unknown) (no (unknown) (unknown) Narrative: (units (unk nown) date) unknown) (unknown) (no (unknown) (unknown) No Action (units (unkn own) date) unknown) (unknown) (no (unknown) (unknown) Objective (units (unkn own) date) unknown) (unknown) (no (unknown) (unknown) Operative (units (unkn own) date) Date/Time/Diagnoses unknown) (unknown) (no (unknown) (unknown) Operative Notes (units (unknown) date) unknown) (unknown) (no (unknown) (unknown) Overall status at (units (unknown) date) discharge: patient unknown) is progressing back to baseline (unknown) (no (unknown) (unknown) Oxygen Delivery (units (unknown) date) Method Room Air unknown) (unknown) (no (unknown) (unknown) Oxygen Flow Rate 0 (units (unknown) date) unknown) (unknown) (no (unknown) (unknown) PFSH (units (unkno wn) date) unknown) (unknown) (no (unknown) (unknown) Patient failed (units ( unknown) date) multiple unknown) conservative management with worsening pain weakness and (unknown) (no (unknown) (unknown) Patient has been (units (unknown) date) having difficulty unknown) performing activity of daily living.? After (unknown) (no (unknown) (unknown) Patient has been (units (unknown) date) having unknown) progressively worsening symptoms consistent with (unknown) (no (unknown) (unknown) Patient is (units (unk n) date) complaining of mild unknown) back pain. He continues to have somewhat (unknown) (no (unknown) (unknown) Patient: (units (unkno wn) date) Faith Rosario MR#: unknown) [id number] (unknown) (no (unknown) (unknown) Physician (units (unkn own) date) Instructions: unknown) Evaluate and Treat (unknown) (no (unknown) (unknown) Physician (units (unkn own) date) Instructions: unknown) Evaluate and treat (unknown) (no (unknown) (unknown) Plan of Treatment: (units (unknown) date) unknown) (unknown) (no (unknown) (unknown) Pleasant (units (o wn) date) 86-year-old male, unknown) resting comfortably in bed, no acute distress. (unknown) (no (unknown) (unknown) Precancerous (units (u nknown) date) lesion unknown) (unknown) (no (unknown) (unknown) Prescriptions: (units (unknown) date) unknown) (unknown) (no (unknown) (unknown) Primary Care (units (u nknown) date) Provider: unknown) Perico Sherman (unknown) (no (unknown) (unknown) Primary care (units (u nknown) date) physician: unknown) (unknown) (no (unknown) (unknown) Procedure + (units (un known) date) Clinicians unknown) (unknown) (no (unknown) (unknown) Procedure: (units (unk nown) date) unknown) (unknown) (no (unknown) (unknown) Prosthetic (units (unk n) date) devices, grafts, unknown) tissues, transplants, or devices: (unknown) (no (unknown) (unknown) Provider (units (o wn) date) unknown) (unknown) (no (unknown) (unknown) Provider: (units (unkn own) date) Cat Peter P.A-C unknown) (unknown) (no (unknown) (unknown) Pulse Oximetry 98 (units (unknown) date) 97 97 unknown) (unknown) (no (unknown) (unknown) Pulse Rate 77 84 (units (unknown) date) 79 unknown) (unknown) (no (unknown) (unknown) Reason for (units (unk nown) date) consultation: unknown) Medical evaluation prior to transfer to inpatient (unknown) (no (unknown) (unknown) Respiratory Rate (units (unknown) date) 16 18 15 unknown) (unknown) (no (unknown) (unknown) Result Diagrams: (units (unknown) date) unknown) (unknown) (no (unknown) (unknown) S/P lumbar spinal (units (unknown) date) fusion (11/18/21) unknown) (unknown) (no (unknown) (unknown) Same procedure as (units (unknown) date) scheduled: Yes unknown) (unknown) (no (unknown) (unknown) Sciatica (units (unkno wn) date) unknown) (unknown) (no (unknown) (unknown) Signed By: (units (unk nown) date) unknown) (unknown) (no (unknown) (unknown) Smoking Status: (units (unknown) date) Never smoker unknown) (unknown) (no (unknown) (unknown) Social History (units (unknown) date) (Reviewed 08/04/22 unknown) @ 13:29 by Cat Peter PA-C) (unknown) (no (unknown) (unknown) Specimen(s): none (units (unknown) date) sent unknown) (unknown) (no (unknown) (unknown) Spinal stenosis (units (unknown) date) unknown) (unknown) (no (unknown) (unknown) Status at (units (unkn own) date) Discharge unknown) (unknown) (no (unknown) (unknown) Strength LLE: Quad (units (unknown) date) is 5/5, hamstring, unknown) 4+ out of 5, df/PF 4- out of 5, EHL 5/5. (unknown) (no (unknown) (unknown) Strength RLE: Quad (units (unknown) date) 4/5, hamstring 3/5, unknown) plantar flexion 3/5, EHL 4+ out of 5. (unknown) (no (unknown) (unknown) Summary (units (unkno wn) date) unknown) (unknown) (no (unknown) (unknown) Surgeon: Chepe Cade (units (unknown) date) unknown) (unknown) (no (unknown) (unknown) Surgical History (units (unknown) date) (Reviewed 08/04/22 unknown) @ 13:29 by Cat Peter PA-C) (unknown) (no (unknown) (unknown) Temperature 97.9 F (units (unknown) date) 97.6 F unknown) (unknown) (no (unknown) (unknown) The main concern (units (unknown) date) was his significant unknown) decrease in neurovascular status during the (unknown) (no (unknown) (unknown) Time Patient Seen: (units (unknown) date) 07:40 unknown) (unknown) (no (unknown) (unknown) Time of procedure: (units (unknown) date) 14:20 unknown) (unknown) (no (unknown) (unknown) Vital Signs (units (un known) date) unknown) (unknown) (no (unknown) (unknown) [Embedded Image (units (unknown) date) Not Available] unknown) (unknown) (no (unknown) (unknown) acetaminophen 325 (units (unknown) date) mg Tablet unknown) (unknown) (no (unknown) (unknown) alcohol intake: (units (unknown) date) current unknown) (unknown) (no (unknown) (unknown) amlodipine 5 mg (units (unknown) date) Tablet unknown) (unknown) (no (unknown) (unknown) antihypertensive (units (unknown) date) therapy per the unknown) attending physician to promote blood supply and (unknown) (no (unknown) (unknown) bladder given his (units (unknown) date) spinal cord edema unknown) versus urinary retention related to (unknown) (no (unknown) (unknown) blood flow. ? (units ( unknown) date) Resume when surgeon unknown) feels appropriate (unknown) (no (unknown) (unknown) comparable to (units ( unknown) date) left.? He is still unknown) complaining of significant right-sided lower (unknown) (no (unknown) (unknown) constipation.? (units (unknown) date) Continue unknown) monitoring. (unknown) (no (unknown) (unknown) currently on IV (units (unknown) date) steroids due to his unknown) neurologic changes. (unknown) (no (unknown) (unknown) decreased (units (unkn own) date) sensation in unknown) bilateral lower extremities. He notes his weakness has (unknown) (no (unknown) (unknown) dermatomes (units (unk nown) date) bilaterally. unknown) (unknown) (no (unknown) (unknown) details.? He is (units (unknown) date) currently working unknown) with physical therapy and occupational (unknown) (no (unknown) (unknown) discussing risks (units (unknown) date) benefits of unknown) treatment options, patient elected proceed with (unknown) (no (unknown) (unknown) edema. (units (unkno wn) date) unknown) (unknown) (no (unknown) (unknown) extremity motor (units (unknown) date) functions. unknown) (unknown) (no (unknown) (unknown) extremity weakness, (units (unknown) date) which has stayed unknown) about the same in the last 24 hours.? He is (unknown) (no (unknown) (unknown) fluticasone (units (un known) date) propion-salmeterol unknown) [Advair Diskus] 500-50 mcg/dose Blister With (unknown) (no (unknown) (unknown) from postop day (units (unknown) date) 1.? He is still unknown) having significant limitations with right lower (unknown) (no (unknown) (unknown) household members: (units (unknown) date) none unknown) (unknown) (no (unknown) (unknown) initial slip prior (units (unknown) date) to surgery unknown) positioning.? Please see plan for further (unknown) (no (unknown) (unknown) intraoperative (units (unknown) date) findings. unknown) (unknown) (no (unknown) (unknown) lisinopril 40 mg (units (unknown) date) Tablet unknown) (unknown) (no (unknown) (unknown) metoprolol (units (unk nown) date) succinate 100 mg unknown) Tablet Extended Release 24 Hr (unknown) (no (unknown) (unknown) more intensive (units (unknown) date) physical therapy, unknown) and I concur with this plan. (unknown) (no (unknown) (unknown) muscle groups; he (units (unknown) date) was examined in unknown) recovery room post anesthesia prior to (unknown) (no (unknown) (unknown) myelopathy.? 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 (unknown) (no (unknown) (unknown) neuromonitoring (units (unknown) date) after patient was unknown) placed into prone position prior to starting (unknown) (no (unknown) (unknown) on his MRI as (units ( unknown) date) hyerintense signal unknown) indicating spinal cord edema. (unknown) (no (unknown) (unknown) ongoing management (units (unknown) date) by surgical team.? unknown) He has been accepted to inpatient rehab at (unknown) (no (unknown) (unknown) ordered.? Continue (units (unknown) date) oral bowel unknown) medication regimen as well (unknown) (no (unknown) (unknown) [facility]boost (units (u nknown) date) pending insurance unknown) authorization. (unknown) (no (unknown) (unknown) present on his MRI (units (unknown) date) as hyerintense unknown) signal indicating spinal cord edema. (unknown) (no (unknown) (unknown) rehab (units (unkno wn) date) unknown) (unknown) (no (unknown) (unknown) sensation to both (units (unknown) date) legs and unknown) significant motor weakness to both legs in multiple (unknown) (no (unknown) (unknown) signals. Patient (units (unknown) date) had significant unknown) post surgery physical exam with decreased (unknown) (no (unknown) (unknown) stayed about the (units (unknown) date) same in last 24 unknown) hours. (unknown) (no (unknown) (unknown) surgery. (units (unkno wn) date) unknown) (unknown) (no (unknown) (unknown) therapy and (units (un known) date) occupational unknown) therapy are recommending an acute rehab facility for (unknown) (no (unknown) (unknown) therapy.? He notes (units (unknown) date) that his baseline unknown) sensation is returning and right feels (unknown) (no (unknown) (unknown) tissue perfusion. (units (unknown) date) unknown) (unknown) (no (unknown) (unknown) transfer to his (units (unknown) date) room on the floor. unknown) This was expected and consistent with his (unknown) (no (unknown) (unknown) transferred to an (units (unknown) date) acute care rehab unknown) facility. (unknown) (no (unknown) (unknown) twisting x6 weeks. (units (unknown) date) unknown) (unknown) (no (unknown) (unknown) worsening balance (units (unknown) date) consistent with unknown) myelopathy correlating to his MRI findings.? Result panel 128 (unknown) (no (unknown) (unknown) (no value) (units (unk nown) date) unknown) (unknown) (no (unknown) (unknown) (past 8 hours): (units (unknown) date) unknown) (unknown) (no (unknown) (unknown) Call the office (units (unknown) date) if you have chest unknown) pain, shortness of breath, significant (unknown) (no (unknown) (unknown) -Asthma :Continue (units (unknown) date) Advair unknown) (unknown) (no (unknown) (unknown) -Continue with (units (unknown) date) home exercises as unknown) directed by your physical therapist. (unknown) (no (unknown) (unknown) -Follow-up with (units (unknown) date) your surgeon 6 unknown) weeks postoperatively. (unknown) (no (unknown) (unknown) -Follow-up with (units (unknown) date) your surgeon or PA unknown) in the office in 10-14 days after surgery. (unknown) (no (unknown) (unknown) -He is receiving (units (unknown) date) IV steroids to unknown) decrease spinal cord inflammation, which was (unknown) (no (unknown) (unknown) -He received IV (units (unknown) date) steroids to unknown) decrease spinal cord inflammation, which was present (unknown) (no (unknown) (unknown) -His BP was kept (units (unknown) date) higher unknown) intentionally in order to improving perfusion to his (unknown) (no (unknown) (unknown) -Hypertension :ok (units (unknown) date) to resume normal BP unknown) meds now (unknown) (no (unknown) (unknown) -Hypertension and (units (unknown) date) Asthma, being unknown) managed by hospitalist team (unknown) (no (unknown) (unknown) -Ice your incision (units (unknown) date) as needed for unknown) pain/inflammation/s welling. Protect your skin (unknown) (no (unknown) (unknown) -Incentive (units (unk nown) date) Spirometer unknown) (breathing device from hospital): 5-10xs every hour while (unknown) (no (unknown) (unknown) -Keep dressing in (units (unknown) date) place until unknown) postoperative follow-up office visit. (unknown) (no (unknown) (unknown) -Limit bending, (units (unknown) date) lifting, twisting unknown) x6 weeks. No deep bending (more than 90 (unknown) (no (unknown) (unknown) -Okay to shower. (units (unknown) date) Keep wound out of unknown) direct water stream. Can use PressNSeal (unknown) (no (unknown) (unknown) -POD#5 s/p T11-12 (units (unknown) date) laminectomy and unknown) posterior fusion with instrumentation (unknown) (no (unknown) (unknown) -Patient had (units (u nknown) date) significant drop in unknown) baseline EMG and motor evoked potential from (unknown) (no (unknown) (unknown) -Plan to continue (units (unknown) date) current medical unknown) management, take sedating medication only as (unknown) (no (unknown) (unknown) -Please call the (units (unknown) date) office if dressing unknown) becomes wet, soiled, or saturated. 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 Urine culture showed no growth.? (unknown) (no (unknown) (unknown) -Walk frequently. (units (unknown) date) unknown) (unknown) (no (unknown) (unknown) -Weight-bearing as (units (unknown) date) tolerated. Use unknown) front wheeled walker, and progress to cane (unknown) (no (unknown) (unknown) -Will continue (units (unknown) date) monitor and assess unknown) his neuro status, which is slightly improved (unknown) (no (unknown) (unknown) -continue with (units (unknown) date) physical unknown) therapy/occupationa l therapy.? No bending, lifting, (unknown) (no (unknown) (unknown) -disposition, acute (units (unknown) date) rehab today or unknown) tomorrow, if authorized in bed is available.? (unknown) (no (unknown) (unknown) -h/o myelopathy (units (unknown) date) with Postop spinal unknown) cord edema (unknown) (no (unknown) (unknown) -he will need (units ( unknown) date) intense rehab unknown) during his recovery, therefore he will be (unknown) (no (unknown) (unknown) -s/p T11-12 (units (un known) date) laminectomy and unknown) posterior fusion with instrumentation (unknown) (no (unknown) (unknown) -there is (units (unkn own) date) significant concern unknown) about him being safe upon discharge.? Physical (unknown) (no (unknown) (unknown) 06:00 08/04/22 (units (unknown) date) unknown) (unknown) (no (unknown) (unknown) 07:52 08/04/22 (units (unknown) date) unknown) (unknown) (no (unknown) (unknown) 08:00 (units (unkno wn) date) unknown) (unknown) (no (unknown) (unknown) 1 inh INHALATION (units (unknown) date) QAM unknown) (unknown) (no (unknown) (unknown) 1. T11-12 (units (unkn own) date) bilateral unknown) laminectomy and facetecomies (unknown) (no (unknown) (unknown) 100 mg PO DAILY (units (unknown) date) unknown) (unknown) (no (unknown) (unknown) 07/30/22 12:35 (units (unknown) date) unknown) (unknown) (no (unknown) (unknown) 07/30/22 18:59 (units (unknown) date) unknown) (unknown) (no (unknown) (unknown) 07/30/22 20:30 (units (unknown) date) unknown) (unknown) (no (unknown) (unknown) 08/01/22 15:35 (units (unknown) date) unknown) (unknown) (no (unknown) (unknown) 08/02/22 09:26 (units (unknown) date) unknown) (unknown) (no (unknown) (unknown) 08/04/22 (units (unkno wn) date) unknown) (unknown) (no (unknown) (unknown) 2. T11-12 (units (unkn own) date) posterolateral unknown) fusion (unknown) (no (unknown) (unknown) 3. T11-12 (units (unkn own) date) posterior unknown) non-segmental instrumentation (unknown) (no (unknown) (unknown) 30 (units (unkno wn) date) unknown) (unknown) (no (unknown) (unknown) 4. Utilization of (units (unknown) date) microsurgical unknown) technique and operating microscope (unknown) (no (unknown) (unknown) 40 mg PO DAILY (units (unknown) date) unknown) (unknown) (no (unknown) (unknown) 5 mg PO DAILY (units ( unknown) date) unknown) (unknown) (no (unknown) (unknown) 650 mg PO Q6HR PRN (units (unknown) date) (Reason: Pain, Mild unknown) (1-3)) Qty: 240 2RF (unknown) (no (unknown) (unknown) Activities: (units (un known) date) unknown) (unknown) (no (unknown) (unknown) Age/Sex: 86 / M (units (unknown) date) unknown) (unknown) (no (unknown) (unknown) Anesthesia Type: (units (unknown) date) General unknown) (unknown) (no (unknown) (unknown) Assessment and (units (unknown) date) Plan unknown) (unknown) (no (unknown) (unknown) Assessment: (units (un known) date) unknown) (unknown) (no (unknown) (unknown) Lens Marker: Jack Church (units (unknown) date) [place] unknown) (unknown) (no (unknown) (unknown) Asthma (units (unkno wn) date) unknown) (unknown) (no (unknown) (unknown) Bilateral lower (units (unknown) date) extremity: unknown) Sensation is grossly intact throughout all (unknown) (no (unknown) (unknown) Blood Pressure (units (unknown) date) 153/76 H 168/78 H unknown) (unknown) (no (unknown) (unknown) Blood products (units (unknown) date) transfused: none unknown) (unknown) (no (unknown) (unknown) Cat A Walker, (units (unknown) date) PA-C unknown) (unknown) (no (unknown) (unknown) Chief complaint: (units (unknown) date) s/p thoracic unknown) fusion; h/o R foot drop, myelopathy (unknown) (no (unknown) (unknown) Click Yes if (units (u nknown) date) Unassisted: No unknown) (unknown) (no (unknown) (unknown) Closure Type: (units ( unknown) date) primary unknown) (unknown) (no (unknown) (unknown) Cognitive/behavior (units (unknown) date) al status at unknown) discharge: at baseline, oriented (unknown) (no (unknown) (unknown) Comment: (units (unkno wn) date) unknown) (unknown) (no (unknown) (unknown) Consult to (units (unk nown) date) Hospitalist Service unknown) Routine (unknown) (no (unknown) (unknown) Consult to (units (unk nown) date) Occupational unknown) Therapy Evaluate + Treat (unknown) (no (unknown) (unknown) Consult to (units (unk nown) date) Physical Therapy unknown) Evaluate + Treat (unknown) (no (unknown) (unknown) Consulting (units (unk nown) date) Provider: unknown) George Das (unknown) (no (unknown) (unknown) Consults: (units (unkn own) date) unknown) (unknown) (no (unknown) (unknown) : 1935 (units (unknown) date) Acct:[id number] unknown) (unknown) (no (unknown) (unknown) Date Patient Seen: (units (unknown) date) 08/04/22 unknown) (unknown) (no (unknown) (unknown) Date of Service: (units (unknown) date) 07/30/22 unknown) (unknown) (no (unknown) (unknown) Date of admission: (units (unknown) date) unknown) (unknown) (no (unknown) (unknown) Date of procedure: (units (unknown) date) 07/30/22 unknown) (unknown) (no (unknown) (unknown) Device (units (unkno wn) date) unknown) (unknown) (no (unknown) (unknown) Diet/Activity/Yolette (units (unknown) date) tments unknown) (unknown) (no (unknown) (unknown) Diet: Diet as (units ( unknown) date) Tolerated unknown) (unknown) (no (unknown) (unknown) Discharge (units (unkn own) date) Assessment + Plan unknown) (unknown) (no (unknown) (unknown) Discharge Data (units (unknown) date) unknown) (unknown) (no (unknown) (unknown) Discharge Date: (units (unknown) date) 08/04/22 unknown) (unknown) (no (unknown) (unknown) Discharge (units (unkn own) date) Diagnosis: unknown) (unknown) (no (unknown) (unknown) Discharge Plan (units (unknown) date) unknown) (unknown) (no (unknown) (unknown) Discharge (units (unkn own) date) Providers unknown) (unknown) (no (unknown) (unknown) Discharge Summary (units (unknown) date) unknown) (unknown) (no (unknown) (unknown) Discharge orders + (units (unknown) date) Medications unknown) (unknown) (no (unknown) (unknown) Discharge (units (unkn own) date) provider: unknown) (unknown) (no (unknown) (unknown) Dressing/Wound (units (unknown) date) care: unknown) (unknown) (no (unknown) (unknown) Perico Sherman MD (units (unknown) date) [Primary Care unknown) Provider] (unknown) (no (unknown) (unknown) Estimated Blood (units (unknown) date) Loss (mL): 20 unknown) (unknown) (no (unknown) (unknown) Exam Narrative: (units (unknown) date) unknown) (unknown) (no (unknown) (unknown) Exam (units (unkno wn) date) unknown) (unknown) (no (unknown) (unknown) Follow (units (unkno wn) date) up/Referrals: unknown) (unknown) (no (unknown) (unknown) Follow-up: (units (unk nown) date) unknown) (unknown) (no (unknown) (unknown) Functional status (units (unknown) date) at discharge: uses unknown) cane/walker (unknown) (no (unknown) (unknown) Globus revolve (units (unknown) date) screws unknown) (unknown) (no (unknown) (unknown) Graves' disease (units (unknown) date) unknown) (unknown) (no (unknown) (unknown) HTN (hypertension) (units (unknown) date) unknown) (unknown) (no (unknown) (unknown) Has provider been (units (unknown) date) notified: Yes unknown) 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 unknown) given his spinal cord edema versus urinary reten 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 () (unknown) (no (unknown) (unknown) 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 () (unknown) (no (unknown) (unknown) Hospital Course (units (unknown) date) unknown) (unknown) (no (unknown) (unknown) Hospital Course: (units (unknown) date) unknown) (unknown) (no (unknown) (unknown) Hx of sinus (units (un known) date) surgery (2019) unknown) (unknown) (no (unknown) (unknown) Hyperthyroidism (units (unknown) date) unknown) (unknown) (no (unknown) (unknown) Indications: (units (u nknown) date) unknown) (unknown) (no (unknown) (unknown) Instructions: DI (units (unknown) date) for Laminectomy unknown) (unknown) (no (unknown) (unknown) [facility] (units (unknown) date) [address] unknown) [place] [address] (unknown) (no (unknown) (unknown) Labs (units (unkno wn) date) unknown) (unknown) (no (unknown) (unknown) Perico Sherman MD (units (unknown) date) unknown) (unknown) (no (unknown) (unknown) Medical History (units (unknown) date) (Reviewed 08/04/22 unknown) @ 13:29 by Cat Peter PA-C) (unknown) (no (unknown) (unknown) Narrative (units (unkn own) date) unknown) (unknown) (no (unknown) (unknown) Narrative: (units (unk nown) date) unknown) (unknown) (no (unknown) (unknown) No Action (units (unkn own) date) unknown) (unknown) (no (unknown) (unknown) Objective (units (unkn own) date) unknown) (unknown) (no (unknown) (unknown) Operative (units (unkn own) date) Date/Time/Diagnoses unknown) (unknown) (no (unknown) (unknown) Operative Notes (units (unknown) date) unknown) (unknown) (no (unknown) (unknown) Other treatments: (units (unknown) date) -Patient had unknown) significant drop in baseline EMG and motor evoked (unknown) (no (unknown) (unknown) Overall status at (units (unknown) date) discharge: patient unknown) is progressing back to baseline (unknown) (no (unknown) (unknown) Oxygen Delivery (units (unknown) date) Method Room Air unknown) (unknown) (no (unknown) (unknown) Oxygen Flow Rate 0 (units (unknown) date) unknown) (unknown) (no (unknown) (unknown) PFSH (units (unkno wn) date) unknown) (unknown) (no (unknown) (unknown) Patient (units (unkno wn) date) Disposition: [facility]fer unknown) [facility] ([facility]) (no (unknown) (unknown) Patient failed (units ( unknown) date) multiple unknown) conservative management with worsening pain weakness and (unknown) (no (unknown) (unknown) Patient has been (units (unknown) date) having difficulty unknown) performing activity of daily living.? After (unknown) (no (unknown) (unknown) Patient has been (units (unknown) date) having unknown) progressively worsening symptoms consistent with (unknown) (no (unknown) (unknown) Patient is (units (unk nown) date) complaining of mild unknown) back pain. He continues to have somewhat (unknown) (no (unknown) (unknown) Patient: (units (unkno wn) date) Faith Rosario MR#: unknown) [id number] (unknown) (no (unknown) (unknown) Physician (units (unkn own) date) Instructions: unknown) Evaluate and Treat (unknown) (no (unknown) (unknown) Physician (units (unkn own) date) Instructions: unknown) Evaluate and treat (unknown) (no (unknown) (unknown) Plan of Treatment: (units (unknown) date) unknown) (unknown) (no (unknown) (unknown) Pleasant (units (unkno wn) date) 86-year-old male, unknown) resting comfortably in bed, no acute distress. (unknown) (no (unknown) (unknown) Precancerous (units (u nknown) date) lesion unknown) (unknown) (no (unknown) (unknown) Prescriptions: (units (unknown) date) unknown) (unknown) (no (unknown) (unknown) Primary Care (units (u nknown) date) Provider: unknown) Perico Sherman (unknown) (no (unknown) (unknown) Primary care (units (u nknown) date) physician: unknown) (unknown) (no (unknown) (unknown) Procedure + (units (un known) date) Clinicians unknown) (unknown) (no (unknown) (unknown) Procedure: (units (unk nown) date) unknown) (unknown) (no (unknown) (unknown) Prosthetic (units (unk nown) date) devices, grafts, unknown) tissues, transplants, or devices: (unknown) (no (unknown) (unknown) Provider (units (unkno wn) date) unknown) (unknown) (no (unknown) (unknown) Provider: (units (unkn own) date) Walker,Cat A P.A-C unknown) (unknown) (no (unknown) (unknown) Pulse Oximetry 98 (units (unknown) date) 97 97 unknown) (unknown) (no (unknown) (unknown) Pulse Rate 77 84 (units (unknown) date) 79 unknown) (unknown) (no (unknown) (unknown) Reason for (units (unk nown) date) consultation: unknown) Medical evaluation prior to transfer to inpatient (unknown) (no (unknown) (unknown) Respiratory Rate (units (unknown) date) 16 18 15 unknown) (unknown) (no (unknown) (unknown) Result Diagrams: (units (unknown) date) unknown) (unknown) (no (unknown) (unknown) S/P lumbar spinal (units (unknown) date) fusion (11/18/21) unknown) (unknown) (no (unknown) (unknown) Same procedure as (units (unknown) date) scheduled: Yes unknown) (unknown) (no (unknown) (unknown) Sciatica (units (unkno wn) date) unknown) (unknown) (no (unknown) (unknown) Signed By: (units (unk nown) date) unknown) (unknown) (no (unknown) (unknown) [facility] (units (unknown) date) Orthopedics: unknown) [phone] (unknown) (no (unknown) (unknown) Smoking Status: (units (unknown) date) Never smoker unknown) (unknown) (no (unknown) (unknown) Social History (units (unknown) date) (Reviewed 08/04/22 unknown) @ 13:29 by Cat Peter PA-C) (unknown) (no (unknown) (unknown) Specimen(s): none (units (unknown) date) sent unknown) (unknown) (no (unknown) (unknown) Spinal stenosis (units (unknown) date) unknown) (unknown) (no (unknown) (unknown) Stand Alone Forms: (units (unknown) date) Surgery Discharge unknown) (unknown) (no (unknown) (unknown) Status at (units (unkn own) date) Discharge unknown) (unknown) (no (unknown) (unknown) Strength LLE: Quad (units (unknown) date) is 5/5, hamstring, unknown) 4+ out of 5, df/PF 4- out of 5, EHL 5/5. (unknown) (no (unknown) (unknown) Strength RLE: Quad (units (unknown) date) 4/5, hamstring 3/5, unknown) plantar flexion 3/5, EHL 4+ out of 5. (unknown) (no (unknown) (unknown) Summary (units (unkno wn) date) unknown) (unknown) (no (unknown) (unknown) Surgeon: Chepe Cade (units (unknown) date) unknown) (unknown) (no (unknown) (unknown) Surgical History (units (unknown) date) (Reviewed 08/04/22 unknown) @ 13:29 by Cat Peter PA-C) (unknown) (no (unknown) (unknown) Temperature 97.9 F (units (unknown) date) 97.6 F unknown) (unknown) (no (unknown) (unknown) The main concern (units (unknown) date) was his significant unknown) decrease in neurovascular status during the (unknown) (no (unknown) (unknown) Time Patient Seen: (units (unknown) date) 07:40 unknown) (unknown) (no (unknown) (unknown) Time of procedure: (units (unknown) date) 14:20 unknown) (unknown) (no (unknown) (unknown) Visit (units (unkno wn) date) Report/Discharge unknown) Packet (unknown) (no (unknown) (unknown) Vital Signs (units (un known) date) unknown) (unknown) (no (unknown) (unknown) [Embedded Image (units (unknown) date) Not Available] unknown) (unknown) (no (unknown) (unknown) acetaminophen 325 (units (unknown) date) mg Tablet unknown) (unknown) (no (unknown) (unknown) alcohol intake: (units (unknown) date) current unknown) (unknown) (no (unknown) (unknown) amlodipine 5 mg (units (unknown) date) Tablet unknown) (unknown) (no (unknown) (unknown) awake for the (units ( unknown) date) first 1-2 weeks. unknown) (unknown) (no (unknown) (unknown) catheter if unable (units (unknown) date) to void. unknown) (unknown) (no (unknown) (unknown) comparable to (units ( unknown) date) left.? He is still unknown) complaining of significant right-sided lower (unknown) (no (unknown) (unknown) decreased (units (unkn own) date) sensation in unknown) bilateral lower extremities. He notes his weakness has (unknown) (no (unknown) (unknown) degrees) or (units (un known) date) twisting at the unknown) waist. No lifting > 20 pounds. (unknown) (no (unknown) (unknown) dermatomes (units (unk nown) date) bilaterally. unknown) (unknown) (no (unknown) (unknown) details.? He is (units (unknown) date) currently working unknown) with physical therapy and occupational (unknown) (no (unknown) (unknown) discharge, we will (units (unknown) date) transition to a unknown) Medrol Dosepak. (unknown) (no (unknown) (unknown) discussing risks (units (unknown) date) benefits of unknown) treatment options, patient elected proceed with (unknown) (no (unknown) (unknown) edema. (units (unkno wn) date) unknown) (unknown) (no (unknown) (unknown) extremity motor (units (unknown) date) functions. unknown) (unknown) (no (unknown) (unknown) extremity (units (unkn own) date) weakness, which is unknown) somewhat consistent with his baseline prior to (unknown) (no (unknown) (unknown) fluticasone (units (un known) date) propion-salmeterol unknown) [Advair Diskus] 500-50 mcg/dose Blister With (unknown) (no (unknown) (unknown) from postop day (units (unknown) date) 1.? He is still unknown) having significant limitations with right lower (unknown) (no (unknown) (unknown) household members: (units (unknown) date) none unknown) (unknown) (no (unknown) (unknown) initial slip prior (units (unknown) date) to surgery unknown) positioning.? Please see plan for further (unknown) (no (unknown) (unknown) intraoperative (units (unknown) date) findings. unknown) (unknown) (no (unknown) (unknown) lisinopril 40 mg (units (unknown) date) Tablet unknown) (unknown) (no (unknown) (unknown) metoprolol (units (unk nown) date) succinate 100 mg unknown) Tablet Extended Release 24 Hr (unknown) (no (unknown) (unknown) more intensive (units (unknown) date) physical therapy, unknown) and I concur with this plan. (unknown) (no (unknown) (unknown) muscle groups; he (units (unknown) date) was examined in unknown) recovery room post anesthesia prior to (unknown) (no (unknown) (unknown) myelopathy.? 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 OK to resume normal BP meds now. (unknown) (no (unknown) (unknown) neuro structures (units (unknown) date) and facilitate unknown) recovery. (unknown) (no (unknown) (unknown) neuromonitoring (units (unknown) date) after patient was unknown) placed into prone position prior to starting (unknown) (no (unknown) (unknown) on his MRI as (units ( unknown) date) hyerintense signal unknown) indicating spinal cord edema. (unknown) (no (unknown) (unknown) plastic wrap to (units (unknown) date) protect from shower unknown) stream. No soaking or submerging until all (unknown) (no (unknown) (unknown) potential from (units (unknown) date) neuromonitoring unknown) after patient was placed into prone position (unknown) (no (unknown) (unknown) present on his MRI (units (unknown) date) as hyerintense unknown) signal indicating spinal cord edema. Upon (unknown) (no (unknown) (unknown) prior to starting (units (unknown) date) surgery. unknown) (unknown) (no (unknown) (unknown) rehab (units (unkno wn) date) unknown) (unknown) (no (unknown) (unknown) retention related (units (unknown) date) to constipation.? unknown) Continue monitoring, he may need a new booker (unknown) (no (unknown) (unknown) sensation to both (units (unknown) date) legs and unknown) significant motor weakness to both legs in multiple (unknown) (no (unknown) (unknown) signals. Patient (units (unknown) date) had significant unknown) post surgery physical exam with decreased (unknown) (no (unknown) (unknown) stayed about the (units (unknown) date) same in last 24 unknown) hours. (unknown) (no (unknown) (unknown) surgery. (units (unkno wn) date) unknown) (unknown) (no (unknown) (unknown) surgery.? He is (units (unknown) date) currently on IV unknown) steroids due to his neurologic changes. (unknown) (no (unknown) (unknown) swelling that will (units (unknown) date) not resolve with unknown) elevating, fever over 101?, significantly (unknown) (no (unknown) (unknown) the scabs fall off (units (unknown) date) (approximately 6 unknown) weeks). (unknown) (no (unknown) (unknown) therapy and (units (un known) date) occupational unknown) therapy are recommending an acute rehab facility for (unknown) (no (unknown) (unknown) therapy.? He notes (units (unknown) date) that his baseline unknown) sensation is returning and right feels (unknown) (no (unknown) (unknown) tion related to (units (unknown) date) constipation.? unknown) Continue monitoring, he may need a new booker (unknown) (no (unknown) (unknown) tissue perfusion. (units (unknown) date) unknown) (unknown) (no (unknown) (unknown) transfer to his (units (unknown) date) room on the floor. unknown) This was expected and consistent with his (unknown) (no (unknown) (unknown) transferred to an (units (unknown) date) acute care rehab unknown) facility. (unknown) (no (unknown) (unknown) twisting x6 weeks. (units (unknown) date) unknown) (unknown) (no (unknown) (unknown) when safe. (units (unk nown) date) unknown) (unknown) (no (unknown) (unknown) with a folded (units ( unknown) date) pillowcase. unknown) (unknown) (no (unknown) (unknown) worsening balance (units (unknown) date) consistent with unknown) myelopathy correlating to his MRI findings.? (unknown) (no (unknown) (unknown) worsening pain, or (units (unknown) date) are concerned you unknown) might need to go to the Emergency Room. Result panel 129 (unknown) (no (unknown) (unknown) (no value) (units (unk nown) date) unknown) (unknown) (no (unknown) (unknown) (past 8 hours): (units (unknown) date) unknown) (unknown) (no (unknown) (unknown) Call the office (units (unknown) date) if you have chest unknown) pain, shortness of breath, significant (unknown) (no (unknown) (unknown) -Asthma :Continue (units (unknown) date) Advair unknown) (unknown) (no (unknown) (unknown) -Continue with (units (unknown) date) home exercises as unknown) directed by your physical therapist. (unknown) (no (unknown) (unknown) -Follow-up with (units (unknown) date) your surgeon 6 unknown) weeks postoperatively. (unknown) (no (unknown) (unknown) -Follow-up with (units (unknown) date) your surgeon or PA unknown) in the office in 10-14 days after surgery. (unknown) (no (unknown) (unknown) -He is receiving (units (unknown) date) IV steroids to unknown) decrease spinal cord inflammation, which was (unknown) (no (unknown) (unknown) -He received IV (units (unknown) date) steroids to unknown) decrease spinal cord inflammation, which was present (unknown) (no (unknown) (unknown) -His BP was kept (units (unknown) date) higher unknown) intentionally in order to improving perfusion to his (unknown) (no (unknown) (unknown) -Hypertension :ok (units (unknown) date) to resume normal BP unknown) meds now (unknown) (no (unknown) (unknown) -Hypertension and (units (unknown) date) Asthma, being unknown) managed by hospitalist team (unknown) (no (unknown) (unknown) -Ice your incision (units (unknown) date) as needed for unknown) pain/inflammation/s welling. Protect your skin (unknown) (no (unknown) (unknown) -Incentive (units (unk nown) date) Spirometer unknown) (breathing device from hospital): 5-10xs every hour while (unknown) (no (unknown) (unknown) -Keep dressing in (units (unknown) date) place until unknown) postoperative follow-up office visit. (unknown) (no (unknown) (unknown) -Limit bending, (units (unknown) date) lifting, twisting unknown) x6 weeks. No deep bending (more than 90 (unknown) (no (unknown) (unknown) -Okay to shower. (units (unknown) date) Keep wound out of unknown) direct water stream. Can use PressNSeal (unknown) (no (unknown) (unknown) -POD#5 s/p T11-12 (units (unknown) date) laminectomy and unknown) posterior fusion with instrumentation (unknown) (no (unknown) (unknown) -Patient had (units (u nknown) date) significant drop in unknown) baseline EMG and motor evoked potential from (unknown) (no (unknown) (unknown) -Plan to continue (units (unknown) date) current medical unknown) management, take sedating medication only as (unknown) (no (unknown) (unknown) -Please call the (units (unknown) date) office if dressing unknown) becomes wet, soiled, or saturated. 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 Urine culture showed no growth.? (unknown) (no (unknown) (unknown) -Walk frequently. (units (unknown) date) unknown) (unknown) (no (unknown) (unknown) -Weight-bearing as (units (unknown) date) tolerated. Use unknown) front wheeled walker, and progress to cane (unknown) (no (unknown) (unknown) -Will continue (units (unknown) date) monitor and assess unknown) his neuro status, which is slightly improved (unknown) (no (unknown) (unknown) -continue with (units (unknown) date) physical unknown) therapy/occupationa l therapy.? No bending, lifting, (unknown) (no (unknown) (unknown) -disposition, acute (units (unknown) date) rehab today or unknown) tomorrow, if authorized in bed is available.? (unknown) (no (unknown) (unknown) -h/o myelopathy (units (unknown) date) with Postop spinal unknown) cord edema (unknown) (no (unknown) (unknown) -he will need (units ( unknown) date) intense rehab unknown) during his recovery, therefore he will be (unknown) (no (unknown) (unknown) -s/p T11-12 (units (un known) date) laminectomy and unknown) posterior fusion with instrumentation (unknown) (no (unknown) (unknown) -there is (units (unkn own) date) significant concern unknown) about him being safe upon discharge.? Physical (unknown) (no (unknown) (unknown) 06:00 08/04/22 (units (unknown) date) unknown) (unknown) (no (unknown) (unknown) 07:52 08/04/22 (units (unknown) date) unknown) (unknown) (no (unknown) (unknown) 08:00 (units (unkno wn) date) unknown) (unknown) (no (unknown) (unknown) 1 inh INHALATION (units (unknown) date) QAM unknown) (unknown) (no (unknown) (unknown) 1. T11-12 (units (unkn own) date) bilateral unknown) laminectomy and facetecomies (unknown) (no (unknown) (unknown) 100 mg PO DAILY (units (unknown) date) unknown) (unknown) (no (unknown) (unknown) 07/30/22 12:35 (units (unknown) date) unknown) (unknown) (no (unknown) (unknown) 07/30/22 18:59 (units (unknown) date) unknown) (unknown) (no (unknown) (unknown) 07/30/22 20:30 (units (unknown) date) unknown) (unknown) (no (unknown) (unknown) 08/01/22 15:35 (units (unknown) date) unknown) (unknown) (no (unknown) (unknown) 08/02/22 09:26 (units (unknown) date) unknown) (unknown) (no (unknown) (unknown) 08/04/22 (units (unkno wn) date) unknown) (unknown) (no (unknown) (unknown) 2. T11-12 (units (unkn own) date) posterolateral unknown) fusion (unknown) (no (unknown) (unknown) 3. T11-12 (units (unkn own) date) posterior unknown) non-segmental instrumentation (unknown) (no (unknown) (unknown) 30 (units (unkno wn) date) unknown) (unknown) (no (unknown) (unknown) 4. Utilization of (units (unknown) date) microsurgical unknown) technique and operating microscope (unknown) (no (unknown) (unknown) 40 mg PO DAILY (units (unknown) date) unknown) (unknown) (no (unknown) (unknown) 5 mg PO DAILY (units ( unknown) date) unknown) (unknown) (no (unknown) (unknown) 650 mg PO Q6HR PRN (units (unknown) date) (Reason: Pain, Mild unknown) (1-3)) Qty: 240 2RF (unknown) (no (unknown) (unknown) Activities: (units (un known) date) unknown) (unknown) (no (unknown) (unknown) Age/Sex: 86 / M (units (unknown) date) unknown) (unknown) (no (unknown) (unknown) Anesthesia Type: (units (unknown) date) General unknown) (unknown) (no (unknown) (unknown) Assessment and (units (unknown) date) Plan unknown) (unknown) (no (unknown) (unknown) Assessment: (units (un known) date) unknown) (unknown) (no (unknown) (unknown) Lens Marker: Jack W (units (unknown) date) [place] unknown) (unknown) (no (unknown) (unknown) Asthma (units (unkno wn) date) unknown) (unknown) (no (unknown) (unknown) Bilateral lower (units (unknown) date) extremity: unknown) Sensation is grossly intact throughout all (unknown) (no (unknown) (unknown) Blood Pressure (units (unknown) date) 153/76 H 168/78 H unknown) (unknown) (no (unknown) (unknown) Blood products (units (unknown) date) transfused: none unknown) (unknown) (no (unknown) (unknown) Cat A Walker, (units (unknown) date) PA-C unknown) (unknown) (no (unknown) (unknown) Chief complaint: (units (unknown) date) s/p thoracic unknown) fusion; h/o R foot drop, myelopathy (unknown) (no (unknown) (unknown) Click Yes if (units (u nknown) date) Unassisted: No unknown) (unknown) (no (unknown) (unknown) Closure Type: (units ( unknown) date) primary unknown) (unknown) (no (unknown) (unknown) Cognitive/behavior (units (unknown) date) al status at unknown) discharge: at baseline, oriented (unknown) (no (unknown) (unknown) Comment: (units (unkno wn) date) unknown) (unknown) (no (unknown) (unknown) Consult to (units (unk nown) date) Hospitalist Service unknown) Routine (unknown) (no (unknown) (unknown) Consult to (units (unk nown) date) Occupational unknown) Therapy Evaluate + Treat (unknown) (no (unknown) (unknown) Consult to (units (unk nown) date) Physical Therapy unknown) Evaluate + Treat (unknown) (no (unknown) (unknown) Consulting (units (unk nown) date) Provider: unknown) George Das (unknown) (no (unknown) (unknown) Consults: (units (unkn own) date) unknown) (unknown) (no (unknown) (unknown) : 1935 (units (unknown) date) Acct:[id number] unknown) (unknown) (no (unknown) (unknown) Date Patient Seen: (units (unknown) date) 08/04/22 unknown) (unknown) (no (unknown) (unknown) Date of Service: (units (unknown) date) 07/30/22 unknown) (unknown) (no (unknown) (unknown) Date of admission: (units (unknown) date) unknown) (unknown) (no (unknown) (unknown) Date of procedure: (units (unknown) date) 07/30/22 unknown) (unknown) (no (unknown) (unknown) Device (units (unkno wn) date) unknown) (unknown) (no (unknown) (unknown) Diet/Activity/Yolette (units (unknown) date) tments unknown) (unknown) (no (unknown) (unknown) Diet: Diet as (units ( unknown) date) Tolerated unknown) (unknown) (no (unknown) (unknown) Discharge (units (unkn own) date) Assessment + Plan unknown) (unknown) (no (unknown) (unknown) Discharge Data (units (unknown) date) unknown) (unknown) (no (unknown) (unknown) Discharge Date: (units (unknown) date) 08/04/22 unknown) (unknown) (no (unknown) (unknown) Discharge (units (unkn own) date) Diagnosis: unknown) (unknown) (no (unknown) (unknown) Discharge Plan (units (unknown) date) unknown) (unknown) (no (unknown) (unknown) Discharge (units (unkn own) date) Providers unknown) (unknown) (no (unknown) (unknown) Discharge Summary (units (unknown) date) unknown) (unknown) (no (unknown) (unknown) Discharge orders + (units (unknown) date) Medications unknown) (unknown) (no (unknown) (unknown) Discharge (units (unkn own) date) provider: unknown) (unknown) (no (unknown) (unknown) Dressing/Wound (units (unknown) date) care: unknown) (unknown) (no (unknown) (unknown) Perico Sherman MD (units (unknown) date) [Primary Care unknown) Provider] (unknown) (no (unknown) (unknown) Estimated Blood (units (unknown) date) Loss (mL): 20 unknown) (unknown) (no (unknown) (unknown) Exam Narrative: (units (unknown) date) unknown) (unknown) (no (unknown) (unknown) Exam (units (unkno wn) date) unknown) (unknown) (no (unknown) (unknown) Follow (units (unkno wn) date) up/Referrals: unknown) (unknown) (no (unknown) (unknown) Follow-up: (units (unk nown) date) unknown) (unknown) (no (unknown) (unknown) Functional status (units (unknown) date) at discharge: uses unknown) cane/walker (unknown) (no (unknown) (unknown) Globus revolve (units (unknown) date) screws unknown) (unknown) (no (unknown) (unknown) Graves' disease (units (unknown) date) unknown) (unknown) (no (unknown) (unknown) HTN (hypertension) (units (unknown) date) unknown) (unknown) (no (unknown) (unknown) Has provider been (units (unknown) date) notified: Yes unknown) 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 () (unknown) (no (unknown) (unknown) 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 () (unknown) (no (unknown) (unknown) Hospital Course (units (unknown) date) unknown) (unknown) (no (unknown) (unknown) Hospital Course: (units (unknown) date) unknown) (unknown) (no (unknown) (unknown) Hx of sinus (units (un known) date) surgery () unknown) (unknown) (no (unknown) (unknown) Hyperthyroidism (units (unknown) date) unknown) (unknown) (no (unknown) (unknown) Indications: (units (u nknown) date) unknown) (unknown) (no (unknown) (unknown) Instructions: DI (units (unknown) date) for Laminectomy unknown) (unknown) (no (unknown) (unknown) [facility] (units (unknown) date) [address] unknown) [place] [id number] (unknown) (no (unknown) (unknown) Labs (units (unkno wn) date) unknown) (unknown) (no (unknown) (unknown) Perico Sherman MD (units (unknown) date) unknown) (unknown) (no (unknown) (unknown) Medical History (units (unknown) date) (Reviewed 08/04/22 unknown) @ 13:29 by Cat Peter PA-C) (unknown) (no (unknown) (unknown) Narrative (units (unkn own) date) unknown) (unknown) (no (unknown) (unknown) Narrative: (units (unk nown) date) unknown) (unknown) (no (unknown) (unknown) No Action (units (unkn own) date) unknown) (unknown) (no (unknown) (unknown) Objective (units (unkn own) date) unknown) (unknown) (no (unknown) (unknown) Operative (units (unkn own) date) Date/Time/Diagnoses unknown) (unknown) (no (unknown) (unknown) Operative Notes (units (unknown) date) unknown) (unknown) (no (unknown) (unknown) Other facility: (units (unknown) date) Acute Care Rehab unknown) facility (unknown) (no (unknown) (unknown) Other treatments: (units (unknown) date) -Patient had unknown) significant drop in baseline EMG and motor evoked (unknown) (no (unknown) (unknown) Overall status at (units (unknown) date) discharge: patient unknown) is progressing back to baseline (unknown) (no (unknown) (unknown) Oxygen Delivery (units (unknown) date) Method Room Air unknown) (unknown) (no (unknown) (unknown) Oxygen Flow Rate 0 (units (unknown) date) unknown) (unknown) (no (unknown) (unknown) PFSH (units (unkno wn) date) unknown) (unknown) (no (unknown) (unknown) Patient (units (unkno wn) date) Disposition: SNF unknown) (unknown) (no (unknown) (unknown) Patient failed (units ( unknown) date) multiple unknown) conservative management with worsening pain weakness and (unknown) (no (unknown) (unknown) Patient has been (units (unknown) date) having difficulty unknown) performing activity of daily living.? After (unknown) (no (unknown) (unknown) Patient has been (units (unknown) date) having unknown) progressively worsening symptoms consistent with (unknown) (no (unknown) (unknown) Patient is (units (unk nown) date) complaining of mild unknown) back pain. He continues to have somewhat (unknown) (no (unknown) (unknown) Patient: (units (unkno wn) date) Faith Rosario MR#: unknown) [id number] (unknown) (no (unknown) (unknown) Physician (units (unkn own) date) Instructions: unknown) Evaluate and Treat (unknown) (no (unknown) (unknown) Physician (units (unkn own) date) Instructions: unknown) Evaluate and treat (unknown) (no (unknown) (unknown) Plan of Treatment: (units (unknown) date) unknown) (unknown) (no (unknown) (unknown) Pleasant (units (unkno wn) date) 86-year-old male, unknown) resting comfortably in bed, no acute distress. (unknown) (no (unknown) (unknown) Precancerous (units (u nknown) date) lesion unknown) (unknown) (no (unknown) (unknown) Prescriptions: (units (unknown) date) unknown) (unknown) (no (unknown) (unknown) Primary Care (units (u nknown) date) Provider: unknown) Perico Sherman (unknown) (no (unknown) (unknown) Primary care (units (u nknown) date) physician: unknown) (unknown) (no (unknown) (unknown) Procedure + (units (un known) date) Clinicians unknown) (unknown) (no (unknown) (unknown) Procedure: (units (unk nown) date) unknown) (unknown) (no (unknown) (unknown) Prosthetic (units (unk n) date) devices, grafts, unknown) tissues, transplants, or devices: (unknown) (no (unknown) (unknown) Provider (units (o wn) date) unknown) (unknown) (no (unknown) (unknown) Provider: (units (unkn own) date) Cat Peter P.A-C unknown) (unknown) (no (unknown) (unknown) Pulse Oximetry 98 (units (unknown) date) 97 97 unknown) (unknown) (no (unknown) (unknown) Pulse Rate 77 84 (units (unknown) date) 79 unknown) (unknown) (no (unknown) (unknown) Reason for (units (unk nown) date) consultation: unknown) Medical evaluation prior to transfer to inpatient (unknown) (no (unknown) (unknown) Respiratory Rate (units (unknown) date) 16 18 15 unknown) (unknown) (no (unknown) (unknown) Result Diagrams: (units (unknown) date) unknown) (unknown) (no (unknown) (unknown) S/P lumbar spinal (units (unknown) date) fusion (11/18/21) unknown) (unknown) (no (unknown) (unknown) Same procedure as (units (unknown) date) scheduled: Yes unknown) (unknown) (no (unknown) (unknown) Sciatica (units (unkno wn) date) unknown) (unknown) (no (unknown) (unknown) Signed By: (units (unk nown) date) unknown) (unknown) (no (unknown) (unknown) [facility] (units (unknown) date) Orthopedics: unknown) [phone] (unknown) (no (unknown) (unknown) Smoking Status: (units (unknown) date) Never smoker unknown) (unknown) (no (unknown) (unknown) Social History (units (unknown) date) (Reviewed 08/04/22 unknown) @ 13:29 by Cat Peter PA-C) (unknown) (no (unknown) (unknown) Specimen(s): none (units (unknown) date) sent unknown) (unknown) (no (unknown) (unknown) Spinal stenosis (units (unknown) date) unknown) (unknown) (no (unknown) (unknown) Stand Alone Forms: (units (unknown) date) Surgery Discharge unknown) (unknown) (no (unknown) (unknown) Status at (units (unkn own) date) Discharge unknown) (unknown) (no (unknown) (unknown) Strength LLE: Quad (units (unknown) date) is 5/5, hamstring, unknown) 4+ out of 5, df/PF 4- out of 5, EHL 5/5. (unknown) (no (unknown) (unknown) Strength RLE: Quad (units (unknown) date) 4/5, hamstring 3/5, unknown) plantar flexion 3/5, EHL 4+ out of 5. (unknown) (no (unknown) (unknown) Summary (units (unkno wn) date) unknown) (unknown) (no (unknown) (unknown) Surgeon: Chepe Cade (units (unknown) date) unknown) (unknown) (no (unknown) (unknown) Surgical History (units (unknown) date) (Reviewed 08/04/22 unknown) @ 13:29 by Cat Peter PA-C) (unknown) (no (unknown) (unknown) Temperature 97.9 F (units (unknown) date) 97.6 F unknown) (unknown) (no (unknown) (unknown) The main concern (units (unknown) date) was his significant unknown) decrease in neurovascular status during the (unknown) (no (unknown) (unknown) Time Patient Seen: (units (unknown) date) 07:40 unknown) (unknown) (no (unknown) (unknown) Time of procedure: (units (unknown) date) 14:20 unknown) (unknown) (no (unknown) (unknown) Visit (units (unkno wn) date) Report/Discharge unknown) Packet (unknown) (no (unknown) (unknown) Vital Signs (units (un known) date) unknown) (unknown) (no (unknown) (unknown) [Embedded Image (units (unknown) date) Not Available] unknown) (unknown) (no (unknown) (unknown) acetaminophen 325 (units (unknown) date) mg Tablet unknown) (unknown) (no (unknown) (unknown) alcohol intake: (units (unknown) date) current unknown) (unknown) (no (unknown) (unknown) amlodipine 5 mg (units (unknown) date) Tablet unknown) (unknown) (no (unknown) (unknown) awake for the (units ( unknown) date) first 1-2 weeks. unknown) (unknown) (no (unknown) (unknown) catheter if unable (units (unknown) date) to void. unknown) (unknown) (no (unknown) (unknown) comparable to (units ( unknown) date) left.? He is still unknown) complaining of significant right-sided lower (unknown) (no (unknown) (unknown) decreased (units (unkn own) date) sensation in unknown) bilateral lower extremities. He notes his weakness has (unknown) (no (unknown) (unknown) degrees) or (units (un known) date) twisting at the unknown) waist. No lifting > 20 pounds. (unknown) (no (unknown) (unknown) dermatomes (units (unk nown) date) bilaterally. unknown) (unknown) (no (unknown) (unknown) discharge, we will (units (unknown) date) transition to a unknown) Medrol Dosepak. (unknown) (no (unknown) (unknown) discussing risks (units (unknown) date) benefits of unknown) treatment options, patient elected proceed with (unknown) (no (unknown) (unknown) edema. (units (unkno wn) date) unknown) (unknown) (no (unknown) (unknown) extremity motor (units (unknown) date) functions. unknown) (unknown) (no (unknown) (unknown) extremity (units (unkn own) date) weakness, which is unknown) somewhat consistent with his baseline prior to (unknown) (no (unknown) (unknown) fluticasone (units (un known) date) propion-salmeterol unknown) [Advair Diskus] 500-50 mcg/dose Blister With (unknown) (no (unknown) (unknown) from postop day (units (unknown) date) 1.? He is still unknown) having significant limitations with right lower (unknown) (no (unknown) (unknown) further details.? (units (unknown) date) He is currently unknown) working with physical therapy and occupational (unknown) (no (unknown) (unknown) household members: (units (unknown) date) none unknown) (unknown) (no (unknown) (unknown) initial flip to (units (unknown) date) prone during unknown) initial surgical positioning.? Please see plan for (unknown) (no (unknown) (unknown) intraoperative (units (unknown) date) findings. unknown) (unknown) (no (unknown) (unknown) lisinopril 40 mg (units (unknown) date) Tablet unknown) (unknown) (no (unknown) (unknown) metoprolol (units (unk nown) date) succinate 100 mg unknown) Tablet Extended Release 24 Hr (unknown) (no (unknown) (unknown) more intensive (units (unknown) date) physical therapy, unknown) and I concur with this plan. (unknown) (no (unknown) (unknown) muscle groups; he (units (unknown) date) was examined in unknown) recovery room post anesthesia prior to (unknown) (no (unknown) (unknown) myelopathy.? 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 OK to resume normal BP meds now. (unknown) (no (unknown) (unknown) neuro structures (units (unknown) date) and facilitate unknown) recovery. (unknown) (no (unknown) (unknown) neuromonitoring (units (unknown) date) after patient was unknown) placed into prone position prior to starting (unknown) (no (unknown) (unknown) on his MRI as (units ( unknown) date) hyerintense signal unknown) indicating spinal cord edema. (unknown) (no (unknown) (unknown) plastic wrap to (units (unknown) date) protect from shower unknown) stream. No soaking or submerging until all (unknown) (no (unknown) (unknown) potential from (units (unknown) date) neuromonitoring unknown) after patient was placed into prone position (unknown) (no (unknown) (unknown) present on his MRI (units (unknown) date) as hyerintense unknown) signal indicating spinal cord edema. Upon (unknown) (no (unknown) (unknown) prior to starting (units (unknown) date) surgery. unknown) (unknown) (no (unknown) (unknown) rehab (units (unkno wn) date) unknown) (unknown) (no (unknown) (unknown) retention related (units (unknown) date) to constipation.? unknown) Continue monitoring, he may need a new booker (unknown) (no (unknown) (unknown) sensation to both (units (unknown) date) legs and unknown) significant motor weakness to both legs in multiple (unknown) (no (unknown) (unknown) signals. Patient (units (unknown) date) had significant unknown) post surgery physical exam with decreased (unknown) (no (unknown) (unknown) stayed about the (units (unknown) date) same in last 24 unknown) hours. (unknown) (no (unknown) (unknown) surgery. (units (unkno wn) date) unknown) (unknown) (no (unknown) (unknown) surgery.? He is (units (unknown) date) currently on IV unknown) steroids due to his neurologic changes. (unknown) (no (unknown) (unknown) swelling that will (units (unknown) date) not resolve with unknown) elevating, fever over 101?, significantly (unknown) (no (unknown) (unknown) the scabs fall off (units (unknown) date) (approximately 6 unknown) weeks). (unknown) (no (unknown) (unknown) therapy and (units (un known) date) occupational unknown) therapy are recommending an acute rehab facility for (unknown) (no (unknown) (unknown) therapy.? He notes (units (unknown) date) that his baseline unknown) sensation is returning and right feels (unknown) (no (unknown) (unknown) tissue perfusion. (units (unknown) date) unknown) (unknown) (no (unknown) (unknown) transfer to his (units (unknown) date) room on the floor. unknown) This was expected and consistent with his (unknown) (no (unknown) (unknown) transferred to an (units (unknown) date) acute care rehab unknown) facility. (unknown) (no (unknown) (unknown) twisting x6 weeks. (units (unknown) date) unknown) (unknown) (no (unknown) (unknown) when safe. (units (unk nown) date) unknown) (unknown) (no (unknown) (unknown) with a folded (units ( unknown) date) pillowcase. unknown) (unknown) (no (unknown) (unknown) worsening balance (units (unknown) date) consistent with unknown) myelopathy correlating to his MRI findings.? (unknown) (no (unknown) (unknown) worsening pain, or (units (unknown) date) are concerned you unknown) might need to go to the Emergency Room. Result panel 130 (unknown) (no (unknown) (unknown) (no value) (units (unk nown) date) unknown) (unknown) (no (unknown) (unknown) (past 8 hours): (units (unknown) date) unknown) (unknown) (no (unknown) (unknown) Call the office (units (unknown) date) if you have chest unknown) pain, shortness of breath, significant (unknown) (no (unknown) (unknown) -Asthma :Continue (units (unknown) date) Advair unknown) (unknown) (no (unknown) (unknown) -Continue with home (unit s (unknown) date) exercises as unknown) directed by your physical therapist. (unknown) (no (unknown) (unknown) -Follow-up with (units (unknown) date) your surgeon 6 weeks unknown) postoperatively. (unknown) (no (unknown) (unknown) -Follow-up with (units (unknown) date) your surgeon or PA unknown) in the office in 10-14 days after surgery. (unknown) (no (unknown) (unknown) -He is receiving IV (unit s (unknown) date) steroids to decrease unknown) spinal cord inflammation, which was (unknown) (no (unknown) (unknown) -He received IV (units (unknown) date) steroids to decrease unknown) spinal cord inflammation, which was present (unknown) (no (unknown) (unknown) -His BP was kept (units (unknown) date) higher intentionally unknown) in order to improving perfusion to his (unknown) (no (unknown) (unknown) -Hypertension :ok (units (unknown) date) to resume normal BP unknown) meds now (unknown) (no (unknown) (unknown) -Hypertension and (units (unknown) date) Asthma, being unknown) managed by hospitalist team (unknown) (no (unknown) (unknown) -Ice your incision (units (unknown) date) as needed for unknown) pain/inflammation/sw elling. Protect your skin (unknown) (no (unknown) (unknown) -Incentive (units (unk nown) date) Spirometer unknown) (breathing device from hospital): 5-10xs every hour while (unknown) (no (unknown) (unknown) -Keep dressing in (units (unknown) date) place until unknown) postoperative follow-up office visit. (unknown) (no (unknown) (unknown) -Limit bending, (units (unknown) date) lifting, twisting x6 unknown) weeks. No deep bending (more than 90 (unknown) (no (unknown) (unknown) -Okay to shower. (units (unknown) date) Keep wound out of unknown) direct water stream. Can use PressNSeal (unknown) (no (unknown) (unknown) -POD#5 s/p T11-12 (units (unknown) date) laminectomy and unknown) posterior fusion with instrumentation (unknown) (no (unknown) (unknown) -Patient had (units (u nknown) date) significant drop in unknown) baseline EMG and motor evoked potential from (unknown) (no (unknown) (unknown) -Plan to continue (units (unknown) date) current medical unknown) management, take sedating medication only as (unknown) (no (unknown) (unknown) -Please call the (units (unknown) date) office if dressing unknown) becomes wet, soiled, or saturated. 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 Urine culture showed no growth.? (unknown) (no (unknown) (unknown) -Walk frequently. (units (unknown) date) unknown) (unknown) (no (unknown) (unknown) -Weight-bearing as (units (unknown) date) tolerated. Use front unknown) wheeled walker, and progress to cane (unknown) (no (unknown) (unknown) -Will continue (units (unknown) date) monitor and assess unknown) his neuro status, which is slightly improved (unknown) (no (unknown) (unknown) -continue with (units (unknown) date) physical unknown) therapy/occupational therapy.? No bending, lifting, (unknown) (no (unknown) (unknown) -discontinue (units (u nknown) date) Lovenox upon unknown) discharge and change to aspirin 81 mg b.i.d. x6 weeks (unknown) (no (unknown) (unknown) -disposition, acute (units (unknown) date) rehab today or unknown) tomorrow, if authorized in bed is available.? (unknown) (no (unknown) (unknown) -h/o myelopathy (units (unknown) date) with Postop spinal unknown) cord edema (unknown) (no (unknown) (unknown) -he will need (units ( unknown) date) intense rehab during unknown) his recovery, therefore he will be (unknown) (no (unknown) (unknown) -s/p T11-12 (units (un known) date) laminectomy and unknown) posterior fusion with instrumentation (unknown) (no (unknown) (unknown) -there is (units (unkn own) date) significant concern unknown) about him being safe upon discharge.? Physical (unknown) (no (unknown) (unknown) 06:00 08/04/22 (units (unknown) date) unknown) (unknown) (no (unknown) (unknown) 07:52 08/04/22 (units (unknown) date) unknown) (unknown) (no (unknown) (unknown) 08:00 (units (unkno wn) date) unknown) (unknown) (no (unknown) (unknown) 1 inh INHALATION (units (unknown) date) QAM unknown) (unknown) (no (unknown) (unknown) 1. T11-12 bilateral (unit s (unknown) date) laminectomy and unknown) facetecomies (unknown) (no (unknown) (unknown) 100 mg PO BID PRN (units (unknown) date) (Reason: unknown) constipation) Qty: 30 0RF (unknown) (no (unknown) (unknown) 100 mg PO DAILY (units (unknown) date) unknown) (unknown) (no (unknown) (unknown) 07/30/22 12:35 (units (unknown) date) unknown) (unknown) (no (unknown) (unknown) 07/30/22 18:59 (units (unknown) date) unknown) (unknown) (no (unknown) (unknown) 07/30/22 20:30 (units (unknown) date) unknown) (unknown) (no (unknown) (unknown) 08/01/22 15:35 (units (unknown) date) unknown) (unknown) (no (unknown) (unknown) 08/02/22 09:26 (units (unknown) date) unknown) (unknown) (no (unknown) (unknown) 08/04/22 1533 (units ( unknown) date) unknown) (unknown) (no (unknown) (unknown) 08/04/22 (units (unkno wn) date) unknown) (unknown) (no (unknown) (unknown) 2. T11-12 (units (unkn own) date) posterolateral unknown) fusion (unknown) (no (unknown) (unknown) 20 mg PO BID PRN (units (unknown) date) (Reason: dyspepsia) unknown) Qty: 30 0RF (unknown) (no (unknown) (unknown) 25 mg PO Q4HR PRN (units (unknown) date) (Reason: Muscle unknown) spasm/pain/nausea) Qty: 30 0RF (unknown) (no (unknown) (unknown) 3. T11-12 posterior (unit s (unknown) date) non-segmental unknown) instrumentation (unknown) (no (unknown) (unknown) 30 (units (unkno wn) date) unknown) (unknown) (no (unknown) (unknown) 4. Utilization of (units (unknown) date) microsurgical unknown) technique and operating microscope (unknown) (no (unknown) (unknown) 40 mg PO DAILY (units (unknown) date) unknown) (unknown) (no (unknown) (unknown) 5 mg PO DAILY (units ( unknown) date) unknown) (unknown) (no (unknown) (unknown) 5 mg PO Q3HR PRN (units (unknown) date) (Reason: Pain, unknown) Moderate (4-6)) Qty: 20 0RF (unknown) (no (unknown) (unknown) 650 mg PO Q6HR PRN (units (unknown) date) (Reason: Pain, Mild unknown) (1-3)) Qty: 240 2RF (unknown) (no (unknown) (unknown) 81 mg PO BID 42 (units (unknown) date) Days Qty: 84 0RF unknown) (unknown) (no (unknown) (unknown) Activities: (units (un known) date) unknown) (unknown) (no (unknown) (unknown) Age/Sex: 86 / M (units (unknown) date) unknown) (unknown) (no (unknown) (unknown) Anesthesia Type: (units (unknown) date) General unknown) (unknown) (no (unknown) (unknown) Assessment and Plan (unit s (unknown) date) unknown) (unknown) (no (unknown) (unknown) Assessment: (units (un known) date) unknown) (unknown) (no (unknown) (unknown) Lens Marker: Jack Church (units (unknown) date) [place] unknown) (unknown) (no (unknown) (unknown) Asthma (units (unkno wn) date) unknown) (unknown) (no (unknown) (unknown) Bilateral lower (units (unknown) date) extremity: Sensation unknown) is grossly intact throughout all (unknown) (no (unknown) (unknown) Blood Pressure (units (unknown) date) 153/76 H 168/78 H unknown) (unknown) (no (unknown) (unknown) Blood products (units (unknown) date) transfused: none unknown) (unknown) (no (unknown) (unknown) Cat Peter PA-C (unit s (unknown) date) unknown) (unknown) (no (unknown) (unknown) Chief complaint: (units (unknown) date) s/p thoracic fusion; unknown) h/o R foot drop, myelopathy (unknown) (no (unknown) (unknown) Click Yes if (units (u nknown) date) Unassisted: No unknown) (unknown) (no (unknown) (unknown) Closure Type: (units ( unknown) date) primary unknown) (unknown) (no (unknown) (unknown) Cognitive/behaviora (unit s (unknown) date) l status at unknown) discharge: at baseline, oriented (unknown) (no (unknown) (unknown) Comment: (units (unkno wn) date) unknown) (unknown) (no (unknown) (unknown) Consult to (units (unk nown) date) Hospitalist Service unknown) Routine (unknown) (no (unknown) (unknown) Consult to (units (unk nown) date) Occupational Therapy unknown) Evaluate + Treat (unknown) (no (unknown) (unknown) Consult to Physical (unit s (unknown) date) Therapy Evaluate + unknown) Treat (unknown) (no (unknown) (unknown) Consulting (units (unk nown) date) Provider: unknown) George Das (unknown) (no (unknown) (unknown) Consults: (units (unkn own) date) unknown) (unknown) (no (unknown) (unknown) Continued (units (unkn own) date) unknown) (unknown) (no (unknown) (unknown) : 1935 (units (unknown) date) Acct:[id number] unknown) (unknown) (no (unknown) (unknown) Date Patient Seen: (units (unknown) date) 08/04/22 unknown) (unknown) (no (unknown) (unknown) Date of Service: (units (unknown) date) 07/30/22 unknown) (unknown) (no (unknown) (unknown) Date of admission: (units (unknown) date) unknown) (unknown) (no (unknown) (unknown) Date of procedure: (units (unknown) date) 07/30/22 unknown) (unknown) (no (unknown) (unknown) Device (units (unkno wn) date) unknown) (unknown) (no (unknown) (unknown) Diet/Activity/Treat (unit s (unknown) date) ments unknown) (unknown) (no (unknown) (unknown) Diet: Diet as (units ( unknown) date) Tolerated unknown) (unknown) (no (unknown) (unknown) Discharge (units (unkn own) date) Assessment + Plan unknown) (unknown) (no (unknown) (unknown) Discharge Data (units (unknown) date) unknown) (unknown) (no (unknown) (unknown) Discharge Date: (units (unknown) date) 08/04/22 unknown) (unknown) (no (unknown) (unknown) Discharge (units (unkn own) date) Diagnosis: unknown) (unknown) (no (unknown) (unknown) Discharge Health (units (unknown) date) Status unknown) (unknown) (no (unknown) (unknown) Discharge Plan (units (unknown) date) unknown) (unknown) (no (unknown) (unknown) Discharge Providers (unit s (unknown) date) unknown) (unknown) (no (unknown) (unknown) Discharge Summary (units (unknown) date) unknown) (unknown) (no (unknown) (unknown) Discharge orders + (units (unknown) date) Medications unknown) (unknown) (no (unknown) (unknown) Discharge provider: (unit s (unknown) date) unknown) (unknown) (no (unknown) (unknown) Dressing/Wound (units (unknown) date) care: unknown) (unknown) (no (unknown) (unknown) Perico Sherman MD (units (unknown) date) [Primary Care unknown) Provider] (unknown) (no (unknown) (unknown) Estimated Blood (units (unknown) date) Loss (mL): 20 unknown) (unknown) (no (unknown) (unknown) Exam Narrative: (units (unknown) date) unknown) (unknown) (no (unknown) (unknown) Exam (units (unkno wn) date) unknown) (unknown) (no (unknown) (unknown) Follow (units (unkno wn) date) up/Referrals: unknown) (unknown) (no (unknown) (unknown) Follow-up: (units (unk nown) date) unknown) (unknown) (no (unknown) (unknown) Functional status (units (unknown) date) at discharge: uses unknown) cane/walker (unknown) (no (unknown) (unknown) Globus revolve (units (unknown) date) screws unknown) (unknown) (no (unknown) (unknown) Graves' disease (units (unknown) date) unknown) (unknown) (no (unknown) (unknown) HTN (hypertension) (units (unknown) date) unknown) (unknown) (no (unknown) (unknown) Has provider been (units (unknown) date) notified: Yes unknown) 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 unknown) () (unknown) (no (unknown) (unknown) Hospital Course (units (unknown) date) unknown) (unknown) (no (unknown) (unknown) Hospital Course: (units (unknown) date) unknown) (unknown) (no (unknown) (unknown) Hx of sinus surgery (unit s (unknown) date) (-2019) unknown) (unknown) (no (unknown) (unknown) Hyperthyroidism (units (unknown) date) unknown) (unknown) (no (unknown) (unknown) Indications: (units (u nknown) date) unknown) (unknown) (no (unknown) (unknown) Instructions: DI (units (unknown) date) for Laminectomy unknown) (unknown) (no (unknown) (unknown) [facility] (units (unknown) date) [address] unknown) [place] [address] (unknown) (no (unknown) (unknown) Labs (units (unkno wn) date) unknown) (unknown) (no (unknown) (unknown) Chepe Cade MD (units (u nknown) date) [Physician] - (10-14 unknown) days for postoperative visit) (unknown) (no (unknown) (unknown) Perico Sherman MD (units (unknown) date) unknown) (unknown) (no (unknown) (unknown) Medical History (units (unknown) date) (Reviewed 08/04/22 @ unknown) 13:29 by Cat Peter PA-C) (unknown) (no (unknown) (unknown) Multidrug resistant (unit s (unknown) date) organism: No MDRO unknown) (unknown) (no (unknown) (unknown) Narrative (units (unkn own) date) unknown) (unknown) (no (unknown) (unknown) Narrative: (units (unk nown) date) unknown) (unknown) (no (unknown) (unknown) New (units (unkno wn) date) unknown) (unknown) (no (unknown) (unknown) Objective (units (unkn own) date) unknown) (unknown) (no (unknown) (unknown) Operative (units (unkn own) date) Date/Time/Diagnoses unknown) (unknown) (no (unknown) (unknown) Operative Notes (units (unknown) date) unknown) (unknown) (no (unknown) (unknown) Other facility: (units (unknown) date) Acute Care Rehab unknown) facility (unknown) (no (unknown) (unknown) Other treatments: (units (unknown) date) -Patient had unknown) significant drop in baseline EMG and motor evoked (unknown) (no (unknown) (unknown) Overall status at (units (unknown) date) discharge: patient unknown) is progressing back to baseline (unknown) (no (unknown) (unknown) Oxygen Delivery (units (unknown) date) Method Room Air unknown) (unknown) (no (unknown) (unknown) Oxygen Flow Rate 0 (units (unknown) date) unknown) (unknown) (no (unknown) (unknown) PFSH (units (unkno wn) date) unknown) (unknown) (no (unknown) (unknown) Patient (units (unkno wn) date) Disposition: SNF unknown) (unknown) (no (unknown) (unknown) Patient failed (units ( unknown) date) multiple unknown) conservative management with worsening pain weakness and (unknown) (no (unknown) (unknown) Patient has been (units (unknown) date) having difficulty unknown) performing activity of daily living.? After (unknown) (no (unknown) (unknown) Patient has been (units (unknown) date) having progressively unknown) worsening symptoms consistent with (unknown) (no (unknown) (unknown) Patient is (units (unk nown) date) complaining of mild unknown) back pain. He continues to have somewhat (unknown) (no (unknown) (unknown) Patient: Faith Rosario (unit s (unknown) date) MR#: [id number] unknown) (unknown) (no (unknown) (unknown) Physician (units (unkn own) date) Instructions: unknown) Evaluate and Treat (unknown) (no (unknown) (unknown) Physician (units (unkn own) date) Instructions: unknown) Evaluate and treat (unknown) (no (unknown) (unknown) Plan of Treatment: (units (unknown) date) unknown) (unknown) (no (unknown) (unknown) Pleasant (units (unkno wn) date) 86-year-old male, unknown) resting comfortably in bed, no acute distress. (unknown) (no (unknown) (unknown) Precancerous lesion (unit s (unknown) date) unknown) (unknown) (no (unknown) (unknown) Prescriptions: (units (unknown) date) unknown) (unknown) (no (unknown) (unknown) Prevent blood clots (unit s (unknown) date) unknown) (unknown) (no (unknown) (unknown) Primary Care (units (u nknown) date) Provider: unknown) Perico Sherman (unknown) (no (unknown) (unknown) Primary care (units (u nknown) date) physician: unknown) (unknown) (no (unknown) (unknown) Procedure + (units (un known) date) Clinicians unknown) (unknown) (no (unknown) (unknown) Procedure: (units (unk nown) date) unknown) (unknown) (no (unknown) (unknown) Prosthetic devices, (unit s (unknown) date) grafts, tissues, unknown) transplants, or devices: (unknown) (no (unknown) (unknown) Provider (units (unkno wn) date) unknown) (unknown) (no (unknown) (unknown) Provider: (units (unkn own) date) Cat Peter P.A-C unknown) (unknown) (no (unknown) (unknown) Pulse Oximetry 98 (units (unknown) date) 97 97 unknown) (unknown) (no (unknown) (unknown) Pulse Rate 77 84 79 (unit s (unknown) date) unknown) (unknown) (no (unknown) (unknown) Reason for (units (k ) date) consultation: unknown) Medical evaluation prior to transfer to inpatient (unknown) (no (unknown) (unknown) Reason for (units (unk n) date) rehabilitation: unknown) Post-operative therapy (unknown) (no (unknown) (unknown) Rehab type: (units (un known) date) Physical therapy and unknown) Occupational therapy (unknown) (no (unknown) (unknown) Report to your (units (unknown) date) healthcare provider unknown) any signs of infection, such as:: chills, (unknown) (no (unknown) (unknown) Respiratory Rate 16 (unit s (unknown) date) 18 15 unknown) (unknown) (no (unknown) (unknown) Result Diagrams: (units (unknown) date) unknown) (unknown) (no (unknown) (unknown) Rx Instructions: (units (unknown) date) unknown) (unknown) (no (unknown) (unknown) S/P lumbar spinal (units (unknown) date) fusion (11/18/21) unknown) (unknown) (no (unknown) (unknown) Same procedure as (units (unknown) date) scheduled: Yes unknown) (unknown) (no (unknown) (unknown) Sciatica (units (o wn) date) unknown) (unknown) (no (unknown) (unknown) See Rx Instructions (unit s (unknown) date) .ROUTE .COMPLEX Qty: unknown) 21 0RF (unknown) (no (unknown) (unknown) Signed (units (unkno wn) date) By:<Electronically unknown) signed by Cat Peter> (unknown) (no (unknown) (unknown) [facility] (units (unknown) date) Orthopedics: unknown) [phone] (unknown) (no (unknown) (unknown) Skin/Wound/Dressing (unit s (unknown) date) Care unknown) (unknown) (no (unknown) (unknown) Smoking Status: (units (unknown) date) Never smoker unknown) (unknown) (no (unknown) (unknown) Social History (units (unknown) date) (Reviewed 08/04/22 @ unknown) 13:29 by Cat Peter PA-C) (unknown) (no (unknown) (unknown) Special (units (unkno wn) date) Rehabilitation unknown) Services (unknown) (no (unknown) (unknown) Specimen(s): none (units (unknown) date) sent unknown) (unknown) (no (unknown) (unknown) Spinal stenosis (units (unknown) date) unknown) (unknown) (no (unknown) (unknown) Stand Alone Forms: (units (unknown) date) Surgery Discharge unknown) (unknown) (no (unknown) (unknown) Status at Discharge (unit s (unknown) date) unknown) (unknown) (no (unknown) (unknown) Strength LLE: Quad (units (unknown) date) is 5/5, hamstring, unknown) 4+ out of 5, df/PF 4- out of 5, EHL 5/5. (unknown) (no (unknown) (unknown) Strength RLE: Quad (units (unknown) date) 4/5, hamstring 3/5, unknown) plantar flexion 3/5, EHL 4+ out of 5. (unknown) (no (unknown) (unknown) Summary (units (unkno wn) date) unknown) (unknown) (no (unknown) (unknown) Surgeon: Chepe Cade (units (unknown) date) unknown) (unknown) (no (unknown) (unknown) Surgical History (units (unknown) date) (Reviewed 08/04/22 @ unknown) 13:29 by Cat Peter PA-C) (unknown) (no (unknown) (unknown) Temperature 97.9 F (units (unknown) date) 97.6 F unknown) (unknown) (no (unknown) (unknown) The main concern was (unit s (unknown) date) his significant unknown) decrease in neurovascular status during the (unknown) (no (unknown) (unknown) Time Patient Seen: (units (unknown) date) 07:40 unknown) (unknown) (no (unknown) (unknown) Time of procedure: (units (unknown) date) 14:20 unknown) (unknown) (no (unknown) (unknown) Visit (units (unkno wn) date) Report/Discharge unknown) Packet (unknown) (no (unknown) (unknown) Vital Signs (units (un known) date) unknown) (unknown) (no (unknown) (unknown) [Embedded Image Not (unit s (unknown) date) Available] unknown) (unknown) (no (unknown) (unknown) acetaminophen 325 (units (unknown) date) mg Tablet unknown) (unknown) (no (unknown) (unknown) alcohol intake: (units (unknown) date) current unknown) (unknown) (no (unknown) (unknown) amlodipine 5 mg (units (unknown) date) Tablet unknown) (unknown) (no (unknown) (unknown) aspirin 81 mg (units ( unknown) date) tablet,delayed unknown) release (DR/EC) (unknown) (no (unknown) (unknown) awake for the first (unit s (unknown) date) 1-2 weeks. unknown) (unknown) (no (unknown) (unknown) catheter if unable (units (unknown) date) to void. unknown) (unknown) (no (unknown) (unknown) comparable to (units ( unknown) date) left.? He is still unknown) complaining of significant right-sided lower (unknown) (no (unknown) (unknown) decreased sensation (unit s (unknown) date) in bilateral lower unknown) extremities. He notes his weakness has (unknown) (no (unknown) (unknown) degrees) or (units (un known) date) twisting at the unknown) waist. No lifting > 20 pounds. (unknown) (no (unknown) (unknown) dermatomes (units (unk nown) date) bilaterally. unknown) (unknown) (no (unknown) (unknown) discharge, we will (units (unknown) date) transition to a unknown) Medrol Dosepak. (unknown) (no (unknown) (unknown) discussing risks (units (unknown) date) benefits of unknown) treatment options, patient elected proceed with (unknown) (no (unknown) (unknown) docusate sodium 100 (unit s (unknown) date) mg Capsule unknown) (unknown) (no (unknown) (unknown) edema. (units (unkno wn) date) unknown) (unknown) (no (unknown) (unknown) extremity motor (units (unknown) date) functions. unknown) (unknown) (no (unknown) (unknown) extremity weakness, (unit s (unknown) date) which is somewhat unknown) consistent with his baseline prior to (unknown) (no (unknown) (unknown) famotidine [Pepcid (units (unknown) date) AC] 20 mg Tablet unknown) (unknown) (no (unknown) (unknown) fever, night (units (u nknown) date) sweats, unusual unknown) drainage and unusual redness (unknown) (no (unknown) (unknown) fluticasone (units (un known) date) propion-salmeterol unknown) [Advair Diskus] 500-50 mcg/dose Blister With (unknown) (no (unknown) (unknown) for DVT prophylaxis (unit s (unknown) date) unknown) (unknown) (no (unknown) (unknown) from postop day 1.? (unit s (unknown) date) He is still having unknown) significant limitations with right lower (unknown) (no (unknown) (unknown) further details.? He (unit s (unknown) date) is currently working unknown) with physical therapy and occupational (unknown) (no (unknown) (unknown) household members: (units (unknown) date) none unknown) (unknown) (no (unknown) (unknown) hydroxyzine pamoate (unit s (unknown) date) 25 mg Capsule unknown) (unknown) (no (unknown) (unknown) initial flip to (units (unknown) date) prone during initial unknown) surgical positioning.? Please see plan for (unknown) (no (unknown) (unknown) intraoperative (units (unknown) date) findings. unknown) (unknown) (no (unknown) (unknown) lisinopril 40 mg (units (unknown) date) Tablet unknown) (unknown) (no (unknown) (unknown) methylprednisolone (units (unknown) date) [Medrol (Trey)] 4 mg unknown) tablets,dose pack (unknown) (no (unknown) (unknown) metoprolol (units (unk nown) date) succinate 100 mg unknown) Tablet Extended Release 24 Hr (unknown) (no (unknown) (unknown) more intensive (units (unknown) date) physical therapy, unknown) and I concur with this plan. (unknown) (no (unknown) (unknown) muscle groups; he (units (unknown) date) was examined in unknown) recovery room post anesthesia prior to (unknown) (no (unknown) (unknown) myelopathy.? 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 OK to resume home BP meds now. (unknown) (no (unknown) (unknown) neuro structures (units (unknown) date) and facilitate unknown) recovery. OK to resume normal BP meds now. (unknown) (no (unknown) (unknown) neuro structures (units (unknown) date) and facilitate unknown) recovery. (unknown) (no (unknown) (unknown) neuromonitoring (units (unknown) date) after patient was unknown) placed into prone position prior to starting (unknown) (no (unknown) (unknown) on his MRI as (units ( unknown) date) hyerintense signal unknown) indicating spinal cord edema. (unknown) (no (unknown) (unknown) orally per package (units (unknown) date) directions once unknown) discharged from [facility] (unknown) (no (unknown) (unknown) oxycodone 5 mg (units (unknown) date) Tablet unknown) (unknown) (no (unknown) (unknown) plastic wrap to (units (unknown) date) protect from shower unknown) stream. No soaking or submerging until all (unknown) (no (unknown) (unknown) potential from (units (unknown) date) neuromonitoring unknown) after patient was placed into prone position (unknown) (no (unknown) (unknown) present on his MRI (units (unknown) date) as hyerintense unknown) signal indicating spinal cord edema. Upon (unknown) (no (unknown) (unknown) prior to starting (units (unknown) date) surgery. unknown) (unknown) (no (unknown) (unknown) rehab (units (unkno wn) date) unknown) (unknown) (no (unknown) (unknown) retention related to (unit s (unknown) date) constipation.? unknown) Continue monitoring, he may need a new booker (unknown) (no (unknown) (unknown) sensation to both (units (unknown) date) legs and significant unknown) motor weakness to both legs in multiple (unknown) (no (unknown) (unknown) signals. Patient (units (unknown) date) had significant post unknown) surgery physical exam with decreased (unknown) (no (unknown) (unknown) stayed about the (units (unknown) date) same in last 24 unknown) hours. (unknown) (no (unknown) (unknown) surgery. (units (unkno wn) date) unknown) (unknown) (no (unknown) (unknown) surgery.? He is (units (unknown) date) currently on IV unknown) steroids due to his neurologic changes. (unknown) (no (unknown) (unknown) swelling that will (units (unknown) date) not resolve with unknown) elevating, fever over 101?, significantly (unknown) (no (unknown) (unknown) the scabs fall off (units (unknown) date) (approximately 6 unknown) weeks). (unknown) (no (unknown) (unknown) therapy and (units (un known) date) occupational therapy unknown) are recommending an acute rehab facility for (unknown) (no (unknown) (unknown) therapy.? He notes (units (unknown) date) that his baseline unknown) sensation is returning and right feels (unknown) (no (unknown) (unknown) tissue perfusion. (units (unknown) date) unknown) (unknown) (no (unknown) (unknown) transfer to his (units (unknown) date) room on the floor. unknown) This was expected and consistent with his (unknown) (no (unknown) (unknown) transferred to an (units (unknown) date) acute care rehab unknown) facility. (unknown) (no (unknown) (unknown) twisting x6 weeks. (units (unknown) date) unknown) (unknown) (no (unknown) (unknown) when safe. (units (unk nown) date) unknown) (unknown) (no (unknown) (unknown) with a folded (units ( unknown) date) pillowcase. unknown) (unknown) (no (unknown) (unknown) worsening balance (units (unknown) date) consistent with unknown) myelopathy correlating to his MRI findings.? (unknown) (no (unknown) (unknown) worsening pain, or (units (unknown) date) are concerned you unknown) might need to go to the Emergency Room. Result panel 131 (unknown) (no (unknown) (unknown) (no value) (units (unk nown) date) unknown) (unknown) (no (unknown) (unknown) (past 8 hours): (units (unknown) date) unknown) (unknown) (no (unknown) (unknown) ADDENDUM (units (u nknown) date) unknown) (unknown) (no (unknown) (unknown) Call the office (units (unknown) date) if you have chest unknown) pain, shortness of breath, significant (unknown) (no (unknown) (unknown) -Asthma :Continue (units (unknown) date) Advair unknown) (unknown) (no (unknown) (unknown) -Continue with home (unit s (unknown) date) exercises as unknown) directed by your physical therapist. (unknown) (no (unknown) (unknown) -Follow-up with (units (unknown) date) your surgeon 6 weeks unknown) postoperatively. (unknown) (no (unknown) (unknown) -Follow-up with (units (unknown) date) your surgeon or PA unknown) in the office in 10-14 days after surgery. (unknown) (no (unknown) (unknown) -He is receiving IV (unit s (unknown) date) steroids to decrease unknown) spinal cord inflammation, which was (unknown) (no (unknown) (unknown) -He received IV (units (unknown) date) steroids to decrease unknown) spinal cord inflammation, which was present (unknown) (no (unknown) (unknown) -His BP was kept (units (unknown) date) higher intentionally unknown) in order to improving perfusion to his (unknown) (no (unknown) (unknown) -Hypertension :ok (units (unknown) date) to resume normal BP unknown) meds now (unknown) (no (unknown) (unknown) -Hypertension and (units (unknown) date) Asthma, being unknown) managed by hospitalist team (unknown) (no (unknown) (unknown) -Ice your incision (units (unknown) date) as needed for unknown) pain/inflammation/sw elling. Protect your skin (unknown) (no (unknown) (unknown) -Incentive (units (unk nown) date) Spirometer unknown) (breathing device from hospital): 5-10xs every hour while (unknown) (no (unknown) (unknown) -Keep dressing in (units (unknown) date) place until unknown) postoperative follow-up office visit. (unknown) (no (unknown) (unknown) -Limit bending, (units (unknown) date) lifting, twisting x6 unknown) weeks. No deep bending (more than 90 (unknown) (no (unknown) (unknown) -Okay to shower. (units (unknown) date) Keep wound out of unknown) direct water stream. Can use PressNSeal (unknown) (no (unknown) (unknown) -POD#5 s/p T11-12 (units (unknown) date) laminectomy and unknown) posterior fusion with instrumentation (unknown) (no (unknown) (unknown) -Patient had (units (u nknown) date) significant drop in unknown) baseline EMG and motor evoked potential from (unknown) (no (unknown) (unknown) -Plan to continue (units (unknown) date) current medical unknown) management, take sedating medication only as (unknown) (no (unknown) (unknown) -Please call the (units (unknown) date) office if dressing unknown) becomes wet, soiled, or saturated. 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 Urine culture showed no growth.? (unknown) (no (unknown) (unknown) -Walk frequently. (units (unknown) date) unknown) (unknown) (no (unknown) (unknown) -Weight-bearing as (units (unknown) date) tolerated. Use front unknown) wheeled walker, and progress to cane (unknown) (no (unknown) (unknown) -Will continue (units (unknown) date) monitor and assess unknown) his neuro status, which is slightly improved (unknown) (no (unknown) (unknown) -continue with (units (unknown) date) physical unknown) therapy/occupational therapy.? No bending, lifting, (unknown) (no (unknown) (unknown) -discontinue (units (u nknown) date) Lovenox upon unknown) discharge and change to aspirin 81 mg b.i.d. x6 weeks (unknown) (no (unknown) (unknown) -disposition, acute (units (unknown) date) rehab today or unknown) tomorrow, if authorized in bed is available.? (unknown) (no (unknown) (unknown) -h/o myelopathy (units (unknown) date) with Postop spinal unknown) cord edema (unknown) (no (unknown) (unknown) -he will need (units ( unknown) date) intense rehab during unknown) his recovery, therefore he will be (unknown) (no (unknown) (unknown) -s/p T11-12 (units (un known) date) laminectomy and unknown) posterior fusion with instrumentation (unknown) (no (unknown) (unknown) -there is (units (unkn own) date) significant concern unknown) about him being safe upon discharge.? Physical (unknown) (no (unknown) (unknown) 06:00 08/04/22 (units (unknown) date) unknown) (unknown) (no (unknown) (unknown) 07:52 08/04/22 (units (unknown) date) unknown) (unknown) (no (unknown) (unknown) 08:00 (units (unkno wn) date) unknown) (unknown) (no (unknown) (unknown) 1 inh INHALATION (units (unknown) date) QAM unknown) (unknown) (no (unknown) (unknown) 1. T11-12 bilateral (unit s (unknown) date) laminectomy and unknown) facetecomies (unknown) (no (unknown) (unknown) 100 mg PO BID PRN (units (unknown) date) (Reason: unknown) constipation) Qty: 30 0RF (unknown) (no (unknown) (unknown) 100 mg PO DAILY (units (unknown) date) unknown) (unknown) (no (unknown) (unknown) 07/30/22 12:35 (units (unknown) date) unknown) (unknown) (no (unknown) (unknown) 07/30/22 18:59 (units (unknown) date) unknown) (unknown) (no (unknown) (unknown) 07/30/22 20:30 (units (unknown) date) unknown) (unknown) (no (unknown) (unknown) 08/01/22 15:35 (units (unknown) date) unknown) (unknown) (no (unknown) (unknown) 08/02/22 09:26 (units (unknown) date) unknown) (unknown) (no (unknown) (unknown) 08/04/22 1533 (units ( unknown) date) unknown) (unknown) (no (unknown) (unknown) 08/04/22 (units (unkno wn) date) unknown) (unknown) (no (unknown) (unknown) 08/05/22 0755 (units ( unknown) date) unknown) (unknown) (no (unknown) (unknown) 2. T11-12 (units (unkn own) date) posterolateral unknown) fusion (unknown) (no (unknown) (unknown) 20 mg PO BID PRN (units (unknown) date) (Reason: dyspepsia) unknown) Qty: 30 0RF (unknown) (no (unknown) (unknown) 25 mg PO Q4HR PRN (units (unknown) date) (Reason: Muscle unknown) spasm/pain/nausea) Qty: 30 0RF (unknown) (no (unknown) (unknown) 3. T11-12 posterior (unit s (unknown) date) non-segmental unknown) instrumentation (unknown) (no (unknown) (unknown) 30 (units (unkno wn) date) unknown) (unknown) (no (unknown) (unknown) 4. Utilization of (units (unknown) date) microsurgical unknown) technique and operating microscope (unknown) (no (unknown) (unknown) 40 mg PO DAILY (units (unknown) date) unknown) (unknown) (no (unknown) (unknown) 5 mg PO DAILY (units ( unknown) date) unknown) (unknown) (no (unknown) (unknown) 5 mg PO Q3HR PRN (units (unknown) date) (Reason: Pain, unknown) Moderate (4-6)) Qty: 20 0RF (unknown) (no (unknown) (unknown) 650 mg PO Q6HR PRN (units (unknown) date) (Reason: Pain, Mild unknown) (1-3)) Qty: 240 2RF (unknown) (no (unknown) (unknown) 81 mg PO BID 42 (units (unknown) date) Days Qty: 84 0RF unknown) (unknown) (no (unknown) (unknown) Activities: (units (un known) date) unknown) (unknown) (no (unknown) (unknown) Addendum Documented (unit s (unknown) date) By: Jack Church P.A-C unknown) Pancho (unknown) (no (unknown) (unknown) Addendum Signed By: (unit s (unknown) date) <Electronically unknown) signed by Jcak Church P.A-C Clar (unknown) (no (unknown) (unknown) Age/Sex: 86 / M (units (unknown) date) unknown) (unknown) (no (unknown) (unknown) Anesthesia Type: (units (unknown) date) General unknown) (unknown) (no (unknown) (unknown) Assessment and Plan (unit s (unknown) date) unknown) (unknown) (no (unknown) (unknown) Assessment: (units (un known) date) unknown) (unknown) (no (unknown) (unknown) Lens Marker: Jack Church (units (unknown) date) Pancho unknown) (unknown) (no (unknown) (unknown) Asthma (units (unkno wn) date) unknown) (unknown) (no (unknown) (unknown) Bilateral lower (units (unknown) date) extremity: Sensation unknown) is grossly intact throughout all (unknown) (no (unknown) (unknown) Blood Pressure (units (unknown) date) 153/76 H 168/78 H unknown) (unknown) (no (unknown) (unknown) Blood products (units (unknown) date) transfused: none unknown) (unknown) (no (unknown) (unknown) Cat Peter PA-C (unit s (unknown) date) unknown) (unknown) (no (unknown) (unknown) Chief complaint: (units (unknown) date) s/p thoracic fusion; unknown) h/o R foot drop, myelopathy (unknown) (no (unknown) (unknown) Click Yes if (units (u nknown) date) Unassisted: No unknown) (unknown) (no (unknown) (unknown) Closure Type: (units ( unknown) date) primary unknown) (unknown) (no (unknown) (unknown) Cognitive/behaviora (unit s (unknown) date) l status at unknown) discharge: at baseline, oriented (unknown) (no (unknown) (unknown) Comment: (units (unkno wn) date) unknown) (unknown) (no (unknown) (unknown) Consult to (units (unk nown) date) Hospitalist Service unknown) Routine (unknown) (no (unknown) (unknown) Consult to (units (unk nown) date) Occupational Therapy unknown) Evaluate + Treat (unknown) (no (unknown) (unknown) Consult to Physical (unit s (unknown) date) Therapy Evaluate + unknown) Treat (unknown) (no (unknown) (unknown) Consulting (units (unk nown) date) Provider: unknown) George Das (unknown) (no (unknown) (unknown) Consults: (units (unkn own) date) unknown) (unknown) (no (unknown) (unknown) Continue current (units (unknown) date) medical management unknown) and therapy. (unknown) (no (unknown) (unknown) Continued (units (unkn own) date) unknown) (unknown) (no (unknown) (unknown) : 1935 (units (unknown) date) Acct:[id number] unknown) (unknown) (no (unknown) (unknown) Date Patient Seen: (units (unknown) date) 08/04/22 unknown) (unknown) (no (unknown) (unknown) Date of Service: (units (unknown) date) 07/30/22 unknown) (unknown) (no (unknown) (unknown) Date of admission: (units (unknown) date) unknown) (unknown) (no (unknown) (unknown) Date of procedure: (units (unknown) date) 07/30/22 unknown) (unknown) (no (unknown) (unknown) Device (units (unkno wn) date) unknown) (unknown) (no (unknown) (unknown) Diet/Activity/Treat (unit s (unknown) date) ments unknown) (unknown) (no (unknown) (unknown) Diet: Diet as (units ( unknown) date) Tolerated unknown) (unknown) (no (unknown) (unknown) Discharge (units (unkn own) date) Assessment + Plan unknown) (unknown) (no (unknown) (unknown) Discharge Data (units (unknown) date) unknown) (unknown) (no (unknown) (unknown) Discharge Date: (units (unknown) date) 08/04/22 unknown) (unknown) (no (unknown) (unknown) Discharge (units (unkn own) date) Diagnosis: unknown) (unknown) (no (unknown) (unknown) Discharge Health (units (unknown) date) Status unknown) (unknown) (no (unknown) (unknown) Discharge Plan (units (unknown) date) unknown) (unknown) (no (unknown) (unknown) Discharge Providers (unit s (unknown) date) unknown) (unknown) (no (unknown) (unknown) Discharge Summary (units (unknown) date) unknown) (unknown) (no (unknown) (unknown) Discharge orders + (units (unknown) date) Medications unknown) (unknown) (no (unknown) (unknown) Discharge provider: (unit s (unknown) date) unknown) (unknown) (no (unknown) (unknown) Dressing/Wound (units (unknown) date) care: unknown) (unknown) (no (unknown) (unknown) Perico Sherman MD (units (unknown) date) [Primary Care unknown) Provider] (unknown) (no (unknown) (unknown) Estimated Blood (units (unknown) date) Loss (mL): 20 unknown) (unknown) (no (unknown) (unknown) Exam Narrative: (units (unknown) date) unknown) (unknown) (no (unknown) (unknown) Exam (units (unkno wn) date) unknown) (unknown) (no (unknown) (unknown) Follow up [facility] 2 (units (unknown) date) weeks post op. unknown) (unknown) (no (unknown) (unknown) Follow (units (unkno wn) date) up/Referrals: unknown) (unknown) (no (unknown) (unknown) Follow-up: (units (unk nown) date) unknown) (unknown) (no (unknown) (unknown) Functional status (units (unknown) date) at discharge: uses unknown) cane/walker (unknown) (no (unknown) (unknown) Globus revolve (units (unknown) date) screws unknown) (unknown) (no (unknown) (unknown) Graves' disease (units (unknown) date) unknown) (unknown) (no (unknown) (unknown) HTN (hypertension) (units (unknown) date) unknown) (unknown) (no (unknown) (unknown) Has provider been (units (unknown) date) notified: Yes unknown) (unknown) (no (unknown) (unknown) He may benefit from (unit s (unknown) date) AFO to his RLE to unknown) facilitate ambulation. 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 unknown) () (unknown) (no (unknown) (unknown) Hospital Course (units (unknown) date) unknown) (unknown) (no (unknown) (unknown) Hospital Course: (units (unknown) date) unknown) (unknown) (no (unknown) (unknown) Hx of sinus surgery (unit s (unknown) date) (-2019) unknown) (unknown) (no (unknown) (unknown) Hyperthyroidism (units (unknown) date) unknown) (unknown) (no (unknown) (unknown) Indications: (units (u nknown) date) unknown) (unknown) (no (unknown) (unknown) Instructions: DI (units (unknown) date) for Laminectomy unknown) (unknown) (no (unknown) (unknown) [facility] (units (unknown) date) [address] unknown) [place] [address] (unknown) (no (unknown) (unknown) Labs (units (unkno wn) date) unknown) (unknown) (no (unknown) (unknown) Chepe Cade MD (units (u nknown) date) [Physician] - (10-14 unknown) days for postoperative visit) (unknown) (no (unknown) (unknown) Perico Sherman MD (units (unknown) date) unknown) (unknown) (no (unknown) (unknown) Medical History (units (unknown) date) (Reviewed 08/04/22 @ unknown) 13:29 by Cat Peter PA-C) (unknown) (no (unknown) (unknown) Multidrug resistant (unit s (unknown) date) organism: No MDRO unknown) (unknown) (no (unknown) (unknown) Narrative (units (unkn own) date) unknown) (unknown) (no (unknown) (unknown) Narrative: (units (unk nown) date) unknown) (unknown) (no (unknown) (unknown) New (units (unkno wn) date) unknown) (unknown) (no (unknown) (unknown) Objective (units (unkn own) date) unknown) (unknown) (no (unknown) (unknown) Operative (units (unkn own) date) Date/Time/Diagnoses unknown) (unknown) (no (unknown) (unknown) Operative Notes (units (unknown) date) unknown) (unknown) (no (unknown) (unknown) Other facility: (units (unknown) date) Acute Care Rehab unknown) facility (unknown) (no (unknown) (unknown) Other treatments: (units (unknown) date) -Patient had unknown) significant drop in baseline EMG and motor evoked (unknown) (no (unknown) (unknown) Overall status at (units (unknown) date) discharge: patient unknown) is progressing back to baseline (unknown) (no (unknown) (unknown) Oxygen Delivery (units (unknown) date) Method Room Air unknown) (unknown) (no (unknown) (unknown) Oxygen Flow Rate 0 (units (unknown) date) unknown) (unknown) (no (unknown) (unknown) PFSH (units (unkno wn) date) unknown) (unknown) (no (unknown) (unknown) Patient (units (unkno wn) date) Disposition: SNF unknown) (unknown) (no (unknown) (unknown) Patient failed (units ( unknown) date) multiple unknown) conservative management with worsening pain weakness and (unknown) (no (unknown) (unknown) Patient has been (units (unknown) date) having difficulty unknown) performing activity of daily living.? After (unknown) (no (unknown) (unknown) Patient has been (units (unknown) date) having progressively unknown) worsening symptoms consistent with (unknown) (no (unknown) (unknown) Patient is (units (unk nown) date) complaining of mild unknown) back pain. He continues to have somewhat (unknown) (no (unknown) (unknown) Patient states he (units (unknown) date) is doing well this unknown) morning. Pain is well controlled. Denies (unknown) (no (unknown) (unknown) Patient: Faith Rosario (unit s (unknown) date) MR#: [id number] unknown) (unknown) (no (unknown) (unknown) Physician (units (unkn own) date) Instructions: unknown) Evaluate and Treat (unknown) (no (unknown) (unknown) Physician (units (unkn own) date) Instructions: unknown) Evaluate and treat (unknown) (no (unknown) (unknown) Plan for placement (units (unknown) date) to SNF today. unknown) (unknown) (no (unknown) (unknown) Plan of Treatment: (units (unknown) date) unknown) (unknown) (no (unknown) (unknown) Pleasant 86-year-old (unit s (unknown) date) male resting unknown) comfortably in bed in no apparent distress. On (unknown) (no (unknown) (unknown) Pleasant (units (unkno wn) date) 86-year-old male, unknown) resting comfortably in bed, no acute distress. (unknown) (no (unknown) (unknown) Precancerous lesion (unit s (unknown) date) unknown) (unknown) (no (unknown) (unknown) Prescriptions: (units (unknown) date) unknown) (unknown) (no (unknown) (unknown) Prevent blood clots (unit s (unknown) date) unknown) (unknown) (no (unknown) (unknown) Primary Care (units (u nknown) date) Provider: unknown) Perico Sherman (unknown) (no (unknown) (unknown) Primary care (units (u nknown) date) physician: unknown) (unknown) (no (unknown) (unknown) Procedure + (units (un known) date) Clinicians unknown) (unknown) (no (unknown) (unknown) Procedure: (units (unk nown) date) unknown) (unknown) (no (unknown) (unknown) Prosthetic devices, (unit s (unknown) date) grafts, tissues, unknown) transplants, or devices: (unknown) (no (unknown) (unknown) Provider (units (unkno wn) date) unknown) (unknown) (no (unknown) (unknown) Provider: (units (unkn own) date) Cat Peter P.A-C unknown) (unknown) (no (unknown) (unknown) Pulse Oximetry 98 (units (unknown) date) 97 97 unknown) (unknown) (no (unknown) (unknown) Pulse Rate 77 84 79 (unit s (unknown) date) unknown) (unknown) (no (unknown) (unknown) Reason for (units (unk nown) date) consultation: unknown) Medical evaluation prior to transfer to inpatient (unknown) (no (unknown) (unknown) Reason for (units (unk nown) date) rehabilitation: unknown) Post-operative therapy (unknown) (no (unknown) (unknown) Rehab type: (units (un known) date) Physical therapy and unknown) Occupational therapy (unknown) (no (unknown) (unknown) Report to your (units (unknown) date) healthcare provider unknown) any signs of infection, such as:: chills, (unknown) (no (unknown) (unknown) Respiratory Rate 16 (unit s (unknown) date) 18 15 unknown) (unknown) (no (unknown) (unknown) Result Diagrams: (units (unknown) date) unknown) (unknown) (no (unknown) (unknown) Rx Instructions: (units (unknown) date) unknown) (unknown) (no (unknown) (unknown) S/P lumbar spinal (units (unknown) date) fusion (11/18/21) unknown) (unknown) (no (unknown) (unknown) S/p T11-T12 (units (un known) date) laminectomy and unknown) posterior fusion 07/30/22 (unknown) (no (unknown) (unknown) Same procedure as (units (unknown) date) scheduled: Yes unknown) (unknown) (no (unknown) (unknown) Sciatica (units (unkno wn) date) unknown) (unknown) (no (unknown) (unknown) See Rx Instructions (unit s (unknown) date) .ROUTE .COMPLEX Qty: unknown) 21 0RF (unknown) (no (unknown) (unknown) Sensation is (units (u nknown) date) grossly intact in unknown) BLE. (unknown) (no (unknown) (unknown) Signed (units (unkno wn) date) By:<Electronically unknown) signed by Cat Peter> (unknown) (no (unknown) (unknown) [facility] (units (unknown) date) Orthopedics: unknown) [phone] (unknown) (no (unknown) (unknown) Skin/Wound/Dressing (unit s (unknown) date) Care unknown) (unknown) (no (unknown) (unknown) Smoking Status: (units (unknown) date) Never smoker unknown) (unknown) (no (unknown) (unknown) Social History (units (unknown) date) (Reviewed 08/04/22 @ unknown) 13:29 by Cat Peter PA-C) (unknown) (no (unknown) (unknown) Special (units (unkno wn) date) Rehabilitation unknown) Services (unknown) (no (unknown) (unknown) Specimen(s): none (units (unknown) date) sent unknown) (unknown) (no (unknown) (unknown) Spinal stenosis (units (unknown) date) unknown) (unknown) (no (unknown) (unknown) Stand Alone Forms: (units (unknown) date) Surgery Discharge unknown) (unknown) (no (unknown) (unknown) Status at Discharge (unit s (unknown) date) unknown) (unknown) (no (unknown) (unknown) Strength LLE: Quad (units (unknown) date) is 5/5, hamstring, unknown) 4+ out of 5, df/PF 4- out of 5, EHL 5/5. (unknown) (no (unknown) (unknown) Strength RLE: Quad (units (unknown) date) 4/5, hamstring 3/5, unknown) plantar flexion 3/5, EHL 4+ out of 5. (unknown) (no (unknown) (unknown) Summary (units (unkno wn) date) unknown) (unknown) (no (unknown) (unknown) Surgeon: Chepe Cade (units (unknown) date) unknown) (unknown) (no (unknown) (unknown) Surgical History (units (unknown) date) (Reviewed 08/04/22 @ unknown) 13:29 by Cat Peter PA-C) (unknown) (no (unknown) (unknown) Temperature 97.9 F (units (unknown) date) 97.6 F unknown) (unknown) (no (unknown) (unknown) The main concern was (unit s (unknown) date) his significant unknown) decrease in neurovascular status during the (unknown) (no (unknown) (unknown) Time Patient Seen: (units (unknown) date) 07:40 unknown) (unknown) (no (unknown) (unknown) Time of procedure: (units (unknown) date) 14:20 unknown) (unknown) (no (unknown) (unknown) Visit (units (unkno wn) date) Report/Discharge unknown) Packet (unknown) (no (unknown) (unknown) Vital Signs (units (un known) date) unknown) (unknown) (no (unknown) (unknown) [Embedded Image Not (unit s (unknown) date) Available] unknown) (unknown) (no (unknown) (unknown) acetaminophen 325 (units (unknown) date) mg Tablet unknown) (unknown) (no (unknown) (unknown) alcohol intake: (units (unknown) date) current unknown) (unknown) (no (unknown) (unknown) amlodipine 5 mg (units (unknown) date) Tablet unknown) (unknown) (no (unknown) (unknown) aspirin 81 mg (units ( unknown) date) tablet,delayed unknown) release (DR/EC) (unknown) (no (unknown) (unknown) awake for the first (unit s (unknown) date) 1-2 weeks. unknown) (unknown) (no (unknown) (unknown) catheter if unable (units (unknown) date) to void. unknown) (unknown) (no (unknown) (unknown) comparable to (units ( unknown) date) left.? He is still unknown) complaining of significant right-sided lower (unknown) (no (unknown) (unknown) decreased sensation (unit s (unknown) date) in bilateral lower unknown) extremities. He notes his weakness has (unknown) (no (unknown) (unknown) degrees) or (units (un known) date) twisting at the unknown) waist. No lifting > 20 pounds. (unknown) (no (unknown) (unknown) dermatomes (units (unk nown) date) bilaterally. unknown) (unknown) (no (unknown) (unknown) discharge, we will (units (unknown) date) transition to a unknown) Medrol Dosepak. (unknown) (no (unknown) (unknown) discussing risks (units (unknown) date) benefits of unknown) treatment options, patient elected proceed with (unknown) (no (unknown) (unknown) docusate sodium 100 (unit s (unknown) date) mg Capsule unknown) (unknown) (no (unknown) (unknown) edema. (units (unkno wn) date) unknown) (unknown) (no (unknown) (unknown) exam, he's alert (units (unknown) date) and oriented x3. He unknown) has? in LLE 5/5 quadriceps, 4+/5 (unknown) (no (unknown) (unknown) extremity motor (units (unknown) date) functions. unknown) (unknown) (no (unknown) (unknown) extremity weakness, (unit s (unknown) date) which is somewhat unknown) consistent with his baseline prior to (unknown) (no (unknown) (unknown) famotidine [Pepcid (units (unknown) date) AC] 20 mg Tablet unknown) (unknown) (no (unknown) (unknown) fever or chills. (units (unknown) date) unknown) (unknown) (no (unknown) (unknown) fever, night (units (u nknown) date) sweats, unusual unknown) drainage and unusual redness (unknown) (no (unknown) (unknown) flexion, 3/5 knee (units (unknown) date) extension. unknown) (unknown) (no (unknown) (unknown) fluticasone (units (un known) date) propion-salmeterol unknown) [Advair Diskus] 500-50 mcg/dose Blister With (unknown) (no (unknown) (unknown) for DVT prophylaxis (unit s (unknown) date) unknown) (unknown) (no (unknown) (unknown) from postop day 1.? (unit s (unknown) date) He is still having unknown) significant limitations with right lower (unknown) (no (unknown) (unknown) further details.? He (unit s (unknown) date) is currently working unknown) with physical therapy and occupational (unknown) (no (unknown) (unknown) hamstring/knee (units (unknown) date) flexion, 4+/5 unknown) plantar/dorsiflexion . RLE 4+/5 EHL, 4-/5 hip (unknown) (no (unknown) (unknown) household members: (units (unknown) date) none unknown) (unknown) (no (unknown) (unknown) hydroxyzine pamoate (unit s (unknown) date) 25 mg Capsule unknown) (unknown) (no (unknown) (unknown) initial flip to (units (unknown) date) prone during initial unknown) surgical positioning.? Please see plan for (unknown) (no (unknown) (unknown) intraoperative (units (unknown) date) findings. unknown) (unknown) (no (unknown) (unknown) k> 08/05/22 0755 (units (unknown) date) unknown) (unknown) (no (unknown) (unknown) lisinopril 40 mg (units (unknown) date) Tablet unknown) (unknown) (no (unknown) (unknown) methylprednisolone (units (unknown) date) [Medrol (Trey)] 4 mg unknown) tablets,dose pack (unknown) (no (unknown) (unknown) metoprolol (units (unk nown) date) succinate 100 mg unknown) Tablet Extended Release 24 Hr (unknown) (no (unknown) (unknown) more intensive (units (unknown) date) physical therapy, unknown) and I concur with this plan. (unknown) (no (unknown) (unknown) muscle groups; he (units (unknown) date) was examined in unknown) recovery room post anesthesia prior to (unknown) (no (unknown) (unknown) myelopathy.? 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 OK to resume home BP meds now. (unknown) (no (unknown) (unknown) neuro structures (units (unknown) date) and facilitate unknown) recovery. OK to resume normal BP meds now. (unknown) (no (unknown) (unknown) neuro structures (units (unknown) date) and facilitate unknown) recovery. (unknown) (no (unknown) (unknown) neuromonitoring (units (unknown) date) after patient was unknown) placed into prone position prior to starting (unknown) (no (unknown) (unknown) on his MRI as (units ( unknown) date) hyerintense signal unknown) indicating spinal cord edema. (unknown) (no (unknown) (unknown) orally per package (units (unknown) date) directions once unknown) discharged from [facility] (unknown) (no (unknown) (unknown) oxycodone 5 mg (units (unknown) date) Tablet unknown) (unknown) (no (unknown) (unknown) plastic wrap to (units (unknown) date) protect from shower unknown) stream. No soaking or submerging until all (unknown) (no (unknown) (unknown) potential from (units (unknown) date) neuromonitoring unknown) after patient was placed into prone position (unknown) (no (unknown) (unknown) present on his MRI (units (unknown) date) as hyerintense unknown) signal indicating spinal cord edema. Upon (unknown) (no (unknown) (unknown) prior to starting (units (unknown) date) surgery. unknown) (unknown) (no (unknown) (unknown) rehab (units (unkno wn) date) unknown) (unknown) (no (unknown) (unknown) retention related to (unit s (unknown) date) constipation.? unknown) Continue monitoring, he may need a new booker (unknown) (no (unknown) (unknown) sensation to both (units (unknown) date) legs and significant unknown) motor weakness to both legs in multiple (unknown) (no (unknown) (unknown) signals. Patient (units (unknown) date) had significant post unknown) surgery physical exam with decreased (unknown) (no (unknown) (unknown) stayed about the (units (unknown) date) same in last 24 unknown) hours. (unknown) (no (unknown) (unknown) surgery. (units (unkno wn) date) unknown) (unknown) (no (unknown) (unknown) surgery.? He is (units (unknown) date) currently on IV unknown) steroids due to his neurologic changes. (unknown) (no (unknown) (unknown) swelling that will (units (unknown) date) not resolve with unknown) elevating, fever over 101?, significantly (unknown) (no (unknown) (unknown) the scabs fall off (units (unknown) date) (approximately 6 unknown) weeks). (unknown) (no (unknown) (unknown) therapy and (units (un known) date) occupational therapy unknown) are recommending an acute rehab facility for (unknown) (no (unknown) (unknown) therapy.? He notes (units (unknown) date) that his baseline unknown) sensation is returning and right feels (unknown) (no (unknown) (unknown) tissue perfusion. (units (unknown) date) unknown) (unknown) (no (unknown) (unknown) transfer to his (units (unknown) date) room on the floor. unknown) This was expected and consistent with his (unknown) (no (unknown) (unknown) transferred to an (units (unknown) date) acute care rehab unknown) facility. (unknown) (no (unknown) (unknown) twisting x6 weeks. (units (unknown) date) unknown) (unknown) (no (unknown) (unknown) when safe. (units (unk nown) date) unknown) (unknown) (no (unknown) (unknown) with a folded (units ( unknown) date) pillowcase. unknown) (unknown) (no (unknown) (unknown) worsening balance (units (unknown) date) consistent with unknown) myelopathy correlating to his MRI findings.? (unknown) (no (unknown) (unknown) worsening pain, or (units (unknown) date) are concerned you unknown) might need to go to the Emergency Room. Result panel 132 (unknown) (no (unknown) (unknown) (no value) (units (unk nown) date) unknown) (unknown) (no (unknown) (unknown) (past 8 hours): (units (unknown) date) unknown) (unknown) (no (unknown) (unknown) ADDENDUM (units (u nknown) date) unknown) (unknown) (no (unknown) (unknown) Call the office (units (unknown) date) if you have chest unknown) pain, shortness of breath, significant (unknown) (no (unknown) (unknown) -Asthma :Continue (units (unknown) date) Advair unknown) (unknown) (no (unknown) (unknown) -Continue with home (unit s (unknown) date) exercises as unknown) directed by your physical therapist. (unknown) (no (unknown) (unknown) -Follow-up with (units (unknown) date) your surgeon 6 weeks unknown) postoperatively. (unknown) (no (unknown) (unknown) -Follow-up with (units (unknown) date) your surgeon or PA unknown) in the office in 10-14 days after surgery. (unknown) (no (unknown) (unknown) -He is receiving IV (unit s (unknown) date) steroids to decrease unknown) spinal cord inflammation, which was (unknown) (no (unknown) (unknown) -He received IV (units (unknown) date) steroids to decrease unknown) spinal cord inflammation, which was present (unknown) (no (unknown) (unknown) -His BP was kept (units (unknown) date) higher intentionally unknown) in order to improving perfusion to his (unknown) (no (unknown) (unknown) -Hypertension :ok (units (unknown) date) to resume normal BP unknown) meds now (unknown) (no (unknown) (unknown) -Hypertension and (units (unknown) date) Asthma, being unknown) managed by hospitalist team (unknown) (no (unknown) (unknown) -Ice your incision (units (unknown) date) as needed for unknown) pain/inflammation/sw elling. Protect your skin (unknown) (no (unknown) (unknown) -Incentive (units (unk nown) date) Spirometer unknown) (breathing device from hospital): 5-10xs every hour while (unknown) (no (unknown) (unknown) -Keep dressing in (units (unknown) date) place until unknown) postoperative follow-up office visit. (unknown) (no (unknown) (unknown) -Limit bending, (units (unknown) date) lifting, twisting x6 unknown) weeks. No deep bending (more than 90 (unknown) (no (unknown) (unknown) -Okay to shower. (units (unknown) date) Keep wound out of unknown) direct water stream. Can use PressNSeal (unknown) (no (unknown) (unknown) -POD#5 s/p T11-12 (units (unknown) date) laminectomy and unknown) posterior fusion with instrumentation (unknown) (no (unknown) (unknown) -Patient had (units (u nknown) date) significant drop in unknown) baseline EMG and motor evoked potential from (unknown) (no (unknown) (unknown) -Plan to continue (units (unknown) date) current medical unknown) management, take sedating medication only as (unknown) (no (unknown) (unknown) -Please call the (units (unknown) date) office if dressing unknown) becomes wet, soiled, or saturated. 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 Urine culture showed no growth.? (unknown) (no (unknown) (unknown) -Walk frequently. (units (unknown) date) unknown) (unknown) (no (unknown) (unknown) -Weight-bearing as (units (unknown) date) tolerated. Use front unknown) wheeled walker, and progress to cane (unknown) (no (unknown) (unknown) -Will continue (units (unknown) date) monitor and assess unknown) his neuro status, which is slightly improved (unknown) (no (unknown) (unknown) -continue with (units (unknown) date) physical unknown) therapy/occupational therapy.? No bending, lifting, (unknown) (no (unknown) (unknown) -discontinue (units (u nknown) date) Lovenox upon unknown) discharge and change to aspirin 81 mg b.i.d. x6 weeks (unknown) (no (unknown) (unknown) -disposition, acute (units (unknown) date) rehab today or unknown) tomorrow, if authorized in bed is available.? (unknown) (no (unknown) (unknown) -h/o myelopathy (units (unknown) date) with Postop spinal unknown) cord edema (unknown) (no (unknown) (unknown) -he will need (units ( unknown) date) intense rehab during unknown) his recovery, therefore he will be (unknown) (no (unknown) (unknown) -s/p T11-12 (units (un known) date) laminectomy and unknown) posterior fusion with instrumentation (unknown) (no (unknown) (unknown) -there is (units (unkn own) date) significant concern unknown) about him being safe upon discharge.? Physical (unknown) (no (unknown) (unknown) 06:00 08/04/22 (units (unknown) date) unknown) (unknown) (no (unknown) (unknown) 07:52 08/04/22 (units (unknown) date) unknown) (unknown) (no (unknown) (unknown) 08:00 (units (unkno wn) date) unknown) (unknown) (no (unknown) (unknown) 1 inh INHALATION (units (unknown) date) QAM unknown) (unknown) (no (unknown) (unknown) 1. T11-12 bilateral (unit s (unknown) date) laminectomy and unknown) facetecomies (unknown) (no (unknown) (unknown) 100 mg PO BID PRN (units (unknown) date) (Reason: unknown) constipation) Qty: 30 0RF (unknown) (no (unknown) (unknown) 100 mg PO DAILY (units (unknown) date) unknown) (unknown) (no (unknown) (unknown) 07/30/22 12:35 (units (unknown) date) unknown) (unknown) (no (unknown) (unknown) 07/30/22 18:59 (units (unknown) date) unknown) (unknown) (no (unknown) (unknown) 07/30/22 20:30 (units (unknown) date) unknown) (unknown) (no (unknown) (unknown) 08/01/22 15:35 (units (unknown) date) unknown) (unknown) (no (unknown) (unknown) 08/02/22 09:26 (units (unknown) date) unknown) (unknown) (no (unknown) (unknown) 08/04/22 1533 (units ( unknown) date) unknown) (unknown) (no (unknown) (unknown) 08/04/22 (units (unkno wn) date) unknown) (unknown) (no (unknown) (unknown) 08/05/22 0755 (units ( unknown) date) unknown) (unknown) (no (unknown) (unknown) 08/06/22 0802 (units ( unknown) date) unknown) (unknown) (no (unknown) (unknown) 2. T11-12 (units (unkn own) date) posterolateral unknown) fusion (unknown) (no (unknown) (unknown) 20 mg PO BID PRN (units (unknown) date) (Reason: dyspepsia) unknown) Qty: 30 0RF (unknown) (no (unknown) (unknown) 25 mg PO Q4HR PRN (units (unknown) date) (Reason: Muscle unknown) spasm/pain/nausea) Qty: 30 0RF (unknown) (no (unknown) (unknown) 3. T11-12 posterior (unit s (unknown) date) non-segmental unknown) instrumentation (unknown) (no (unknown) (unknown) 30 (units (unkno wn) date) unknown) (unknown) (no (unknown) (unknown) 4. Utilization of (units (unknown) date) microsurgical unknown) technique and operating microscope (unknown) (no (unknown) (unknown) 40 mg PO DAILY (units (unknown) date) unknown) (unknown) (no (unknown) (unknown) 5 mg PO DAILY (units ( unknown) date) unknown) (unknown) (no (unknown) (unknown) 5 mg PO Q3HR PRN (units (unknown) date) (Reason: Pain, unknown) Moderate (4-6)) Qty: 20 0RF (unknown) (no (unknown) (unknown) 650 mg PO Q6HR PRN (units (unknown) date) (Reason: Pain, Mild unknown) (1-3)) Qty: 240 2RF (unknown) (no (unknown) (unknown) 81 mg PO BID 42 (units (unknown) date) Days Qty: 84 0RF unknown) (unknown) (no (unknown) (unknown) Activities: (units (un known) date) unknown) (unknown) (no (unknown) (unknown) Addendum Documented (unit s (unknown) date) By: Jack Church P.A-C unknown) [place] (unknown) (no (unknown) (unknown) Addendum Documented (unit s (unknown) date) By: Cat Mckeon P.A-C unknown) [place] (unknown) (no (unknown) (unknown) Addendum Signed By: (unit s (unknown) date) <Electronically unknown) signed by Jack Tinajero (unknown) (no (unknown) (unknown) Addendum Signed By: (unit s (unknown) date) <Electronically unknown) signed by Cat Mckeon P.A-C Walk (unknown) (no (unknown) (unknown) Age/Sex: 86 / M (units (unknown) date) unknown) (unknown) (no (unknown) (unknown) Anesthesia Type: (units (unknown) date) General unknown) (unknown) (no (unknown) (unknown) Assessment and Plan (unit s (unknown) date) unknown) (unknown) (no (unknown) (unknown) Assessment: (units (un known) date) unknown) (unknown) (no (unknown) (unknown) Lens Marker: Jack Church (units (unknown) date) [place] unknown) (unknown) (no (unknown) (unknown) Asthma (units (unkno wn) date) unknown) (unknown) (no (unknown) (unknown) Bilateral lower (units (unknown) date) extremity: Sensation unknown) is grossly intact throughout all (unknown) (no (unknown) (unknown) Blood Pressure (units (unknown) date) 153/76 H 168/78 H unknown) (unknown) (no (unknown) (unknown) Blood products (units (unknown) date) transfused: none unknown) (unknown) (no (unknown) (unknown) Cat Peter PA-C (unit s (unknown) date) unknown) (unknown) (no (unknown) (unknown) Chief complaint: (units (unknown) date) s/p thoracic fusion; unknown) h/o R foot drop, myelopathy (unknown) (no (unknown) (unknown) Click Yes if (units (u nknown) date) Unassisted: No unknown) (unknown) (no (unknown) (unknown) Closure Type: (units ( unknown) date) primary unknown) (unknown) (no (unknown) (unknown) Cognitive/behaviora (unit s (unknown) date) l status at unknown) discharge: at baseline, oriented (unknown) (no (unknown) (unknown) Comment: (units (unkno wn) date) unknown) (unknown) (no (unknown) (unknown) Consult to (units (unk nown) date) Hospitalist Service unknown) Routine (unknown) (no (unknown) (unknown) Consult to (units (unk nown) date) Occupational Therapy unknown) Evaluate + Treat (unknown) (no (unknown) (unknown) Consult to Physical (unit s (unknown) date) Therapy Evaluate + unknown) Treat (unknown) (no (unknown) (unknown) Consulting (units (unk nown) date) Provider: unknown) George Das (unknown) (no (unknown) (unknown) Consults: (units (unkn own) date) unknown) (unknown) (no (unknown) (unknown) Continue current (units (unknown) date) medical management unknown) and therapy. (unknown) (no (unknown) (unknown) Continued (units (unkn own) date) unknown) (unknown) (no (unknown) (unknown) : 1935 (units (unknown) date) Acct:[id number] unknown) (unknown) (no (unknown) (unknown) Date Patient Seen: (units (unknown) date) 08/04/22 unknown) (unknown) (no (unknown) (unknown) Date of Service: (units (unknown) date) 07/30/22 unknown) (unknown) (no (unknown) (unknown) Date of admission: (units (unknown) date) unknown) (unknown) (no (unknown) (unknown) Date of procedure: (units (unknown) date) 07/30/22 unknown) (unknown) (no (unknown) (unknown) Denies fever or (units (unknown) date) chills. He is ready unknown) to be discharged to the [facility]hab (unknown) (no (unknown) (unknown) Device (units (unkno wn) date) unknown) (unknown) (no (unknown) (unknown) Diet/Activity/Treat (unit s (unknown) date) ments unknown) (unknown) (no (unknown) (unknown) Diet: Diet as (units ( unknown) date) Tolerated unknown) (unknown) (no (unknown) (unknown) Discharge (units (unkn own) date) Assessment + Plan unknown) (unknown) (no (unknown) (unknown) Discharge Data (units (unknown) date) unknown) (unknown) (no (unknown) (unknown) Discharge Date: (units (unknown) date) 08/04/22 unknown) (unknown) (no (unknown) (unknown) Discharge (units (unkn own) date) Diagnosis: unknown) (unknown) (no (unknown) (unknown) Discharge Health (units (unknown) date) Status unknown) (unknown) (no (unknown) (unknown) Discharge Plan (units (unknown) date) unknown) (unknown) (no (unknown) (unknown) Discharge Providers (unit s (unknown) date) unknown) (unknown) (no (unknown) (unknown) Discharge Summary (units (unknown) date) unknown) (unknown) (no (unknown) (unknown) Discharge orders + (units (unknown) date) Medications unknown) (unknown) (no (unknown) (unknown) Discharge provider: (unit s (unknown) date) unknown) (unknown) (no (unknown) (unknown) Dr. Cade at 6 weeks (units (unknown) date) postop. unknown) (unknown) (no (unknown) (unknown) Dressing/Wound (units (unknown) date) care: unknown) (unknown) (no (unknown) (unknown) Perico Sherman MD (units (unknown) date) [Primary Care unknown) Provider] (unknown) (no (unknown) (unknown) EHL. (units (unkno wn) date) unknown) (unknown) (no (unknown) (unknown) Estimated Blood (units (unknown) date) Loss (mL): 20 unknown) (unknown) (no (unknown) (unknown) Exam Narrative: (units (unknown) date) unknown) (unknown) (no (unknown) (unknown) Exam (units (unkno wn) date) unknown) (unknown) (no (unknown) (unknown) Follow up [facility] (units (unknown) date) weeks post op. If unknown) transportation is too difficult, ok for (unknown) (no (unknown) (unknown) Follow up [facility] (units (unknown) date) weeks post op. unknown) (unknown) (no (unknown) (unknown) Follow (units (unkno wn) date) up/Referrals: unknown) (unknown) (no (unknown) (unknown) Follow-up: (units (unk nown) date) unknown) (unknown) (no (unknown) (unknown) Functional status (units (unknown) date) at discharge: uses unknown) cane/walker (unknown) (no (unknown) (unknown) Globus revolve (units (unknown) date) screws unknown) (unknown) (no (unknown) (unknown) Graves' disease (units (unknown) date) unknown) (unknown) (no (unknown) (unknown) HPI: Patient states (unit s (unknown) date) he is doing well unknown) this morning.? Pain is well controlled.? (unknown) (no (unknown) (unknown) HTN (hypertension) (units (unknown) date) unknown) (unknown) (no (unknown) (unknown) Has provider been (units (unknown) date) notified: Yes unknown) (unknown) (no (unknown) (unknown) He may benefit from (unit s (unknown) date) AFO to his RLE to unknown) facilitate ambulation. 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 unknown) () (unknown) (no (unknown) (unknown) Hospital Course (units (unknown) date) unknown) (unknown) (no (unknown) (unknown) Hospital Course: (units (unknown) date) unknown) (unknown) (no (unknown) (unknown) Hx of sinus surgery (unit s (unknown) date) () unknown) (unknown) (no (unknown) (unknown) Hyperthyroidism (units (unknown) date) unknown) (unknown) (no (unknown) (unknown) Indications: (units (u nknown) date) unknown) (unknown) (no (unknown) (unknown) Instructions: DI (units (unknown) date) for Laminectomy unknown) (unknown) (no (unknown) (unknown) [facility] (units (unknown) date) [address] unknown) [place] [address] (unknown) (no (unknown) (unknown) LLE 5/5 quadriceps, (unit s (unknown) date) 5/5 hamstring/knee unknown) flexion, 5/5 plantar/dorsiflexion , 5/5 (unknown) (no (unknown) (unknown) Labs (units (unkno wn) date) unknown) (unknown) (no (unknown) (unknown) Chepe Cade MD (units (u nknown) date) [Physician] - (10-14 unknown) days for postoperative visit) (unknown) (no (unknown) (unknown) Perico Sherman MD (units (unknown) date) unknown) (unknown) (no (unknown) (unknown) Medical History (units (unknown) date) (Reviewed 08/04/22 @ unknown) 13:29 by Cat Peter PA-C) (unknown) (no (unknown) (unknown) Multidrug resistant (unit s (unknown) date) organism: No MDRO unknown) (unknown) (no (unknown) (unknown) Narrative (units (unkn own) date) unknown) (unknown) (no (unknown) (unknown) Narrative: (units (unk nown) date) unknown) (unknown) (no (unknown) (unknown) New (units (unkno wn) date) unknown) (unknown) (no (unknown) (unknown) Objective (units (unkn own) date) unknown) (unknown) (no (unknown) (unknown) Operative (units (unkn own) date) Date/Time/Diagnoses unknown) (unknown) (no (unknown) (unknown) Operative Notes (units (unknown) date) unknown) (unknown) (no (unknown) (unknown) Other facility: (units (unknown) date) [facility] unknown) facility (unknown) (no (unknown) (unknown) Other treatments: (units (unknown) date) -Patient had unknown) significant drop in baseline EMG and motor evoked (unknown) (no (unknown) (unknown) Overall status at (units (unknown) date) discharge: patient unknown) is progressing back to baseline (unknown) (no (unknown) (unknown) Oxygen Delivery (units (unknown) date) Method Room Air unknown) (unknown) (no (unknown) (unknown) Oxygen Flow Rate 0 (units (unknown) date) unknown) (unknown) (no (unknown) (unknown) PFSH (units (unkno wn) date) unknown) (unknown) (no (unknown) (unknown) Patient (units (unkno wn) date) Disposition: SNF unknown) (unknown) (no (unknown) (unknown) Patient failed (units ( unknown) date) multiple unknown) conservative management with worsening pain weakness and (unknown) (no (unknown) (unknown) Patient has been (units (unknown) date) having difficulty unknown) performing activity of daily living.? After (unknown) (no (unknown) (unknown) Patient has been (units (unknown) date) having progressively unknown) worsening symptoms consistent with (unknown) (no (unknown) (unknown) Patient is (units (unk nown) date) complaining of mild unknown) back pain. He continues to have somewhat (unknown) (no (unknown) (unknown) Patient states he (units (unknown) date) is doing well this unknown) morning. Pain is well controlled. Denies (unknown) (no (unknown) (unknown) Patient: Faith Rosario (unit s (unknown) date) MR#: [id number] unknown) (unknown) (no (unknown) (unknown) Physical Exam: (units (unknown) date) unknown) (unknown) (no (unknown) (unknown) Physician (units (unkn own) date) Instructions: unknown) Evaluate and Treat (unknown) (no (unknown) (unknown) Physician (units (unkn own) date) Instructions: unknown) Evaluate and treat (unknown) (no (unknown) (unknown) Plan for placement (units (unknown) date) to Acute Care Rehab unknown) today. (unknown) (no (unknown) (unknown) Plan for placement (units (unknown) date) to SNF today. unknown) (unknown) (no (unknown) (unknown) Plan of Treatment: (units (unknown) date) unknown) (unknown) (no (unknown) (unknown) Pleasant 86-year-old (unit s (unknown) date) male resting unknown) comfortably in bed in no apparent distress. On (unknown) (no (unknown) (unknown) Pleasant (units (unkno wn) date) 86-year-old male, unknown) resting comfortably in bed, no acute distress. (unknown) (no (unknown) (unknown) Precancerous lesion (unit s (unknown) date) unknown) (unknown) (no (unknown) (unknown) Prescriptions: (units (unknown) date) unknown) (unknown) (no (unknown) (unknown) Prevent blood clots (unit s (unknown) date) unknown) (unknown) (no (unknown) (unknown) Primary Care (units (u nknown) date) Provider: unknown) Perico Sherman (unknown) (no (unknown) (unknown) Primary care (units (u nknown) date) physician: unknown) (unknown) (no (unknown) (unknown) Procedure + (units (un known) date) Clinicians unknown) (unknown) (no (unknown) (unknown) Procedure: (units (unk nown) date) unknown) (unknown) (no (unknown) (unknown) Prosthetic devices, (unit s (unknown) date) grafts, tissues, unknown) transplants, or devices: (unknown) (no (unknown) (unknown) Provider (units (unkno wn) date) unknown) (unknown) (no (unknown) (unknown) Provider: (units (unkn own) date) Cat Peter P.A-C unknown) (unknown) (no (unknown) (unknown) Pulse Oximetry 98 (units (unknown) date) 97 97 unknown) (unknown) (no (unknown) (unknown) Pulse Rate 77 84 79 (unit s (unknown) date) unknown) (unknown) (no (unknown) (unknown) RLE 4+/5 EHL, 4/5 (units (unknown) date) hip flexion, 3+/5 unknown) knee extension, 4/5 PF. (unknown) (no (unknown) (unknown) Reason for (units (unk nown) date) consultation: unknown) Medical evaluation prior to transfer to inpatient (unknown) (no (unknown) (unknown) Reason for (units (unk nown) date) rehabilitation: unknown) Post-operative therapy (unknown) (no (unknown) (unknown) Rehab type: (units (un known) date) Physical therapy and unknown) Occupational therapy (unknown) (no (unknown) (unknown) Report to your (units (unknown) date) healthcare provider unknown) any signs of infection, such as:: chills, (unknown) (no (unknown) (unknown) Respiratory Rate 16 (unit s (unknown) date) 18 15 unknown) (unknown) (no (unknown) (unknown) Result Diagrams: (units (unknown) date) unknown) (unknown) (no (unknown) (unknown) Rx Instructions: (units (unknown) date) unknown) (unknown) (no (unknown) (unknown) S/P lumbar spinal (units (unknown) date) fusion (11/18/21) unknown) (unknown) (no (unknown) (unknown) S/p T11-T12 (units (un known) date) laminectomy and unknown) posterior fusion 07/30/22 (unknown) (no (unknown) (unknown) Same procedure as (units (unknown) date) scheduled: Yes unknown) (unknown) (no (unknown) (unknown) Sciatica (units (unkno wn) date) unknown) (unknown) (no (unknown) (unknown) See Rx Instructions (unit s (unknown) date) .ROUTE .COMPLEX Qty: unknown) 21 0RF (unknown) (no (unknown) (unknown) Sensation is (units (u nknown) date) grossly intact in unknown) BLE. (unknown) (no (unknown) (unknown) Signed (units (unkno wn) date) By:<Electronically unknown) signed by Cat Peter> (unknown) (no (unknown) (unknown) [facility] (units (unknown) date) Orthopedics: unknown) [phone] (unknown) (no (unknown) (unknown) Skin/Wound/Dressing (unit s (unknown) date) Care unknown) (unknown) (no (unknown) (unknown) Smoking Status: (units (unknown) date) Never smoker unknown) (unknown) (no (unknown) (unknown) Social History (units (unknown) date) (Reviewed 08/04/22 @ unknown) 13:29 by Cat Peter PA-C) (unknown) (no (unknown) (unknown) Special (units (unkno wn) date) Rehabilitation unknown) Services (unknown) (no (unknown) (unknown) Specimen(s): none (units (unknown) date) sent unknown) (unknown) (no (unknown) (unknown) Spinal stenosis (units (unknown) date) unknown) (unknown) (no (unknown) (unknown) Stand Alone Forms: (units (unknown) date) Surgery Discharge unknown) (unknown) (no (unknown) (unknown) Status at Discharge (unit s (unknown) date) unknown) (unknown) (no (unknown) (unknown) Strength LLE: Quad (units (unknown) date) is 5/5, hamstring, unknown) 4+ out of 5, df/PF 4- out of 5, EHL 5/5. (unknown) (no (unknown) (unknown) Strength RLE: Quad (units (unknown) date) 4/5, hamstring 3/5, unknown) plantar flexion 3/5, EHL 4+ out of 5. (unknown) (no (unknown) (unknown) Strength: (units (unkn own) date) unknown) (unknown) (no (unknown) (unknown) Summary (units (unkno wn) date) unknown) (unknown) (no (unknown) (unknown) Surgeon: Chepe Cade (units (unknown) date) unknown) (unknown) (no (unknown) (unknown) Surgical History (units (unknown) date) (Reviewed 08/04/22 @ unknown) 13:29 by Cat Peter PA-C) (unknown) (no (unknown) (unknown) Temperature 97.9 F (units (unknown) date) 97.6 F unknown) (unknown) (no (unknown) (unknown) The main concern was (unit s (unknown) date) his significant unknown) decrease in neurovascular status during the (unknown) (no (unknown) (unknown) Time Patient Seen: (units (unknown) date) 07:40 unknown) (unknown) (no (unknown) (unknown) Time of procedure: (units (unknown) date) 14:20 unknown) (unknown) (no (unknown) (unknown) Visit (units (unkno wn) date) Report/Discharge unknown) Packet (unknown) (no (unknown) (unknown) Vital Signs (units (un known) date) unknown) (unknown) (no (unknown) (unknown) [Embedded Image Not (unit s (unknown) date) Available] unknown) (unknown) (no (unknown) (unknown) acetaminophen 325 (units (unknown) date) mg Tablet unknown) (unknown) (no (unknown) (unknown) alcohol intake: (units (unknown) date) current unknown) (unknown) (no (unknown) (unknown) amlodipine 5 mg (units (unknown) date) Tablet unknown) (unknown) (no (unknown) (unknown) aspirin 81 mg (units ( unknown) date) tablet,delayed unknown) release (DR/EC) (unknown) (no (unknown) (unknown) awake for the first (unit s (unknown) date) 1-2 weeks. unknown) (unknown) (no (unknown) (unknown) catheter if unable (units (unknown) date) to void. unknown) (unknown) (no (unknown) (unknown) comparable to (units ( unknown) date) left.? He is still unknown) complaining of significant right-sided lower (unknown) (no (unknown) (unknown) decreased sensation (unit s (unknown) date) in bilateral lower unknown) extremities. He notes his weakness has (unknown) (no (unknown) (unknown) degrees) or (units (un known) date) twisting at the unknown) waist. No lifting > 20 pounds. (unknown) (no (unknown) (unknown) dermatomes (units (unk nown) date) bilaterally. unknown) (unknown) (no (unknown) (unknown) discharge, we will (units (unknown) date) transition to a unknown) Medrol Dosepak. (unknown) (no (unknown) (unknown) discussing risks (units (unknown) date) benefits of unknown) treatment options, patient elected proceed with (unknown) (no (unknown) (unknown) docusate sodium 100 (unit s (unknown) date) mg Capsule unknown) (unknown) (no (unknown) (unknown) edema. (units (unkno wn) date) unknown) (unknown) (no (unknown) (unknown) er> 08/06/22 0802 (units (unknown) date) unknown) (unknown) (no (unknown) (unknown) exam, he's alert (units (unknown) date) and oriented x3. He unknown) has? in LLE 5/5 quadriceps, 4+/5 (unknown) (no (unknown) (unknown) exam, he's alert (units (unknown) date) and oriented x3. unknown) (unknown) (no (unknown) (unknown) extremity motor (units (unknown) date) functions. unknown) (unknown) (no (unknown) (unknown) extremity weakness, (unit s (unknown) date) which is somewhat unknown) consistent with his baseline prior to (unknown) (no (unknown) (unknown) facility to remove (units (unknown) date) seema at 2 weeks unknown) if incision looks good. Will need to see (unknown) (no (unknown) (unknown) facility. (units (unkn own) date) unknown) (unknown) (no (unknown) (unknown) famotidine [Pepcid (units (unknown) date) AC] 20 mg Tablet unknown) (unknown) (no (unknown) (unknown) fever or chills. (units (unknown) date) unknown) (unknown) (no (unknown) (unknown) fever, night (units (u nknown) date) sweats, unusual unknown) drainage and unusual redness (unknown) (no (unknown) (unknown) flexion, 3/5 knee (units (unknown) date) extension. unknown) (unknown) (no (unknown) (unknown) fluticasone (units (un known) date) propion-salmeterol unknown) [Advair Diskus] 500-50 mcg/dose Blister With (unknown) (no (unknown) (unknown) for DVT prophylaxis (unit s (unknown) date) unknown) (unknown) (no (unknown) (unknown) from postop day 1.? (unit s (unknown) date) He is still having unknown) significant limitations with right lower (unknown) (no (unknown) (unknown) further details.? He (unit s (unknown) date) is currently working unknown) with physical therapy and occupational (unknown) (no (unknown) (unknown) hamstring/knee (units (unknown) date) flexion, 4+/5 unknown) plantar/dorsiflexion . RLE 4+/5 EHL, 4-/5 hip (unknown) (no (unknown) (unknown) household members: (units (unknown) date) none unknown) (unknown) (no (unknown) (unknown) hydroxyzine pamoate (unit s (unknown) date) 25 mg Capsule unknown) (unknown) (no (unknown) (unknown) initial flip to (units (unknown) date) prone during initial unknown) surgical positioning.? Please see plan for (unknown) (no (unknown) (unknown) intraoperative (units (unknown) date) findings. unknown) (unknown) (no (unknown) (unknown) k> 08/05/22 0755 (units (unknown) date) unknown) (unknown) (no (unknown) (unknown) lisinopril 40 mg (units (unknown) date) Tablet unknown) (unknown) (no (unknown) (unknown) methylprednisolone (units (unknown) date) [Medrol (Trey)] 4 mg unknown) tablets,dose pack (unknown) (no (unknown) (unknown) metoprolol (units (unk nown) date) succinate 100 mg unknown) Tablet Extended Release 24 Hr (unknown) (no (unknown) (unknown) more intensive (units (unknown) date) physical therapy, unknown) and I concur with this plan. (unknown) (no (unknown) (unknown) muscle groups; he (units (unknown) date) was examined in unknown) recovery room post anesthesia prior to (unknown) (no (unknown) (unknown) myelopathy.? 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 OK to resume home BP meds now. (unknown) (no (unknown) (unknown) neuro structures (units (unknown) date) and facilitate unknown) recovery. OK to resume normal BP meds now. (unknown) (no (unknown) (unknown) neuro structures (units (unknown) date) and facilitate unknown) recovery. (unknown) (no (unknown) (unknown) neuromonitoring (units (unknown) date) after patient was unknown) placed into prone position prior to starting (unknown) (no (unknown) (unknown) on his MRI as (units ( unknown) date) hyerintense signal unknown) indicating spinal cord edema. (unknown) (no (unknown) (unknown) orally per package (units (unknown) date) directions once unknown) discharged from [facility] (unknown) (no (unknown) (unknown) oxycodone 5 mg (units (unknown) date) Tablet unknown) (unknown) (no (unknown) (unknown) plastic wrap to (units (unknown) date) protect from shower unknown) stream. No soaking or submerging until all (unknown) (no (unknown) (unknown) potential from (units (unknown) date) neuromonitoring unknown) after patient was placed into prone position (unknown) (no (unknown) (unknown) present on his MRI (units (unknown) date) as hyerintense unknown) signal indicating spinal cord edema. Upon (unknown) (no (unknown) (unknown) prior to starting (units (unknown) date) surgery. unknown) (unknown) (no (unknown) (unknown) rehab (units (unkno wn) date) unknown) (unknown) (no (unknown) (unknown) retention related to (unit s (unknown) date) constipation.? unknown) Continue monitoring, he may need a new booker (unknown) (no (unknown) (unknown) sensation to both (units (unknown) date) legs and significant unknown) motor weakness to both legs in multiple (unknown) (no (unknown) (unknown) signals. Patient (units (unknown) date) had significant post unknown) surgery physical exam with decreased (unknown) (no (unknown) (unknown) stayed about the (units (unknown) date) same in last 24 unknown) hours. (unknown) (no (unknown) (unknown) surgery. (units (unkno wn) date) unknown) (unknown) (no (unknown) (unknown) surgery.? He is (units (unknown) date) currently on IV unknown) steroids due to his neurologic changes. (unknown) (no (unknown) (unknown) swelling that will (units (unknown) date) not resolve with unknown) elevating, fever over 101?, significantly (unknown) (no (unknown) (unknown) the scabs fall off (units (unknown) date) (approximately 6 unknown) weeks). (unknown) (no (unknown) (unknown) therapy and (units (un known) date) occupational therapy unknown) are recommending an acute rehab facility for (unknown) (no (unknown) (unknown) therapy.? He notes (units (unknown) date) that his baseline unknown) sensation is returning and right feels (unknown) (no (unknown) (unknown) tissue perfusion. (units (unknown) date) unknown) (unknown) (no (unknown) (unknown) transfer to his (units (unknown) date) room on the floor. unknown) This was expected and consistent with his (unknown) (no (unknown) (unknown) transferred to an (units (unknown) date) acute care rehab unknown) facility. (unknown) (no (unknown) (unknown) twisting x6 weeks. (units (unknown) date) unknown) (unknown) (no (unknown) (unknown) when safe. (units (unk nown) date) unknown) (unknown) (no (unknown) (unknown) with a folded (units ( unknown) date) pillowcase. unknown) (unknown) (no (unknown) (unknown) worsening balance (units (unknown) date) consistent with unknown) myelopathy correlating to his MRI findings.? (unknown) (no (unknown) (unknown) worsening pain, or (units (unknown) date) are concerned you unknown) might need to go to the Emergency Room. Result panel 133 (unknown) (no date) (unknown) (unknown) Negative (units (unkn own) unknown) (unknown) (no date) (unknown) (unknown) Negative (units (unkn own) unknown) Social History date description facility 2022-08-02 00:00 Never smoked tobacco ([facility]) [facility] Vital Signs date measurement value units 2022-07-30 00:00 BMI 25.7 kg/m2 2022-07-30 00:00 height_metric 182.88 cm 2022-07-30 00:00 height_standard 72 in 2022-07-30 00:00 weight_metric 86.18 kg 2022-07-30 00:00 weight_standard 189.99 lb 2022-08-06 00:00 BP_diastolic 55 mmHg 2022-08-06 00:00 BP_systolic 138 mmHg 2022-08-06 00:00 heart_rate 70 /min 2022-08-06 00:00 o2_saturation 97 % 2022-08-06 00:00 respiration_rate 16 /min 2022-08-06 00:00 temperature_metric 36.39 C 2022-08-06 00:00 temperature_standard 97.5 F
[2022-10-02 20:15] LABS: BASOPHILS % (AUTO) 0.3 %; EOSINOPHILS # (AUTO) 0.2 10^3/uL (0.0-0.7); EOSINOPHILS % (AUTO) 1.8 %; HCT - HEMATOCRIT 34.6 % (42.0-52.0); HGB - HEMOGLOBIN 11.2 g/dL (14.0-18.0); LYMPHOCYTES # (AUTO) 2.5 10^3/uL (1.5-3.5); MEAN CORPUSCULAR HEMOGLOBIN 29.6 pg (27.0-31.0); MEAN CORPUSCULAR HGB CONC 32.4 g/dL (32.0-36.0); MEAN CORPUSCULAR VOLUME 91.5 fL (80.0-94.0); MEAN PLATELET VOLUME 9.8 fL (7.4-11.4); MONOCYTES % (AUTO) 8.4 %; NEUTROPHILS # (AUTO) 7.7 10^3/uL (1.5-6.6); PLT - PLATELET COUNT 294 10^3/uL (130-450); RED BLOOD COUNT 3.78 10^6/uL (4.70-6.10); RED CELL DISTRIBUTION WIDTH 12.6 % (12.0-15.0); WHITE BLOOD COUNT 11.5 x10^3/uL (4.8-10.8)
[2022-10-02 20:29] LABS: ALBUMIN 3.3 g/dL (3.2-5.5); ALBUMIN/GLOBULIN RATIO 0.8 (1.0-2.2); BILIRUBIN,TOTAL 0.7 mg/dL (0.2-1.0); CALCIUM 8.5 mg/dL (8.5-10.3); POTASSIUM 3.9 mmol/L (3.5-5.0); TOTAL PROTEIN 7.4 g/dL (6.7-8.2)
[2022-10-02 20:37] LABS: BILIRUBIN,URINE NEGATIVE (NEGATIVE); GLUCOSE, URINE (UA) NEGATIVE (NEGATIVE); KETONES,URINE (UA) NEGATIVE (NEGATIVE); LEUKOCYTE ESTERASE, URINE MODERATE (NEGATIVE); NITRITE,URINE POSITIVE (NEGATIVE); OCCULT BLOOD,URINE LARGE (NEGATIVE); PROTEIN,URINE 30 mg/dL (NEGATIVE); UROBILINOGEN,URINE 0.2 (NORMAL) E.U./dL (NORMAL)
[2022-10-02 20:39] LABS: CLARITY,URINE CLOUDY (CLEAR)
[2022-10-02 20:45] LABS: BACTERIA,URINE Many /HPF (None Seen); SQUAMOUS EPITHELIAL CELL,UR NONE SEEN (<= Few); WBC,URINE >25 /HPF (0-3)
[2022-10-02] MEDS ORDERED: HYDROcod/ACETAM 5/325 MG TABLET PO STA (20:45)
[2022-10-02] MEDS ORDERED: CIPROFLOXACIN 250 MG TABLET PO STA (20:46)
[2022-10-02 21:14] VITALS: BP 154/74
== END 2022-10-02 21:40 | disposition home or self-care (01) ==
LOC: EDUNIT# → ED 19:39
DX: R60.0 Localized edema (principal); T83.511A Infection and inflammatory reaction due to indwelling urethral catheter, initial encounter; L89.159 Pressure ulcer of sacral region, unspecified stage; G82.20 Paraplegia, unspecified
CPT/HCPCS: 36415; 80053; 81001; 83690; 85025; 87077; 87086; 87181; 96361; 96374; 99284; A9270; 81003

== ENCOUNTER 2022-10-02 21:58 | Outpatient (CLI) | payer MEDICARE | END 2022-10-02 21:59 | disposition home or self-care (01) | LOC: EMS 21:58 | PROVIDERS: ATTEND Emergency Medicine | DX: R53.1 Weakness (principal); G82.20 Paraplegia, unspecified | CPT/HCPCS: A0425; A0428 ==

== ENCOUNTER 2022-10-15 05:49 | Outpatient (CLI) | payer MEDICARE | END 2022-10-15 05:50 | disposition critical access hospital (66) | LOC: EMS 05:49 | DX: R53.1 Weakness (principal); R19.7 Diarrhea, unspecified; K92.1 Melena | CPT/HCPCS: A0425; A0429 ==

== ENCOUNTER 2022-10-15 06:06 | Emergency (ER) | payer MEDICARE ==
--- OUTSIDE RECORDS SUMMARY | 2022-10-15 06:27 | EXTERNAL MEDICAL SUMMARY RPT | Continuity of Care Document ---
:1935 Author Organization [facility] Address [address] [place] [address] Phone Care Team Providers Name Role Phone Unavailable Unavailable Unavailable Perico Sherman Unavailable Unavailable Allergies and Intolerances date description facility type (no date) [facility] (unknown) Encounters No information. Functional Status No information. Immunizations No information. Medications date description facility 2022-08-04 00:00 Oxycodone [facility] 2022-08-04 00:00 Docusate Sodium [facility] 2022-08-04 00:00 Aspirin [facility] 2022-08-04 00:00 Famotidine [facility] 2022-08-04 00:00 Methylprednisolone [facility] 2022-08-04 00:00 Hydroxyzine Pamoate [facility] Problems date description facility 2022-07-30 12:39 Other spondylosis with myelopathy, [facility] 2022-07-30 12:39 Spinal stenosis, [facility] 2022-07-30 13:12 Other spondylosis with myelopathy, [facility] 2022-07-30 13:12 Spinal stenosis, [facility] 2022-07-30 13:31 Other spondylosis with myelopathy, [facility] 2022-07-30 13:31 Spinal stenosis, [facility] 2022-07-30 13:48 Other spondylosis with myelopathy, [facility] 2022-07-30 13:48 Spinal stenosis, [facility] 2022-07-31 16:19 Other spondylosis with myelopathy, [facility] 2022-07-31 16:19 Spinal stenosis, thoracic [facility] 2022-08-03 00:00 Right foot drop [facility] 2022-08-03 13:54 Foot drop, right foot [facility] 2022-08-03 13:54 Other spondylosis with myelopathy, [facility] 2022-08-03 13:54 Spinal stenosis, [facility] 2022-08-04 12:24 Foot drop, [facility] 2022-08-04 12:24 Other spondylosis with myelopathy, [facility] 2022-08-04 12:24 Spinal stenosis, thoracic [facility] 2022-08-04 13:15 Foot drop, [facility] 2022-08-04 13:15 Other spondylosis with myelopathy, [facility] 2022-08-04 13:15 Spinal stenosis, [facility] 2022-08-04 15:03 Foot drop, [facility] 2022-08-04 15:03 Other spondylosis with myelopathy, [facility] 2022-08-04 15:03 Spinal stenosis, [facility] 2022-08-05 09:13 Foot drop, [facility] 2022-08-05 09:13 Other spondylosis with myelopathy, [facility] 2022-08-05 09:13 Spinal stenosis, [facility] 2022-08-06 08:17 Foot drop, [facility] 2022-08-06 08:17 Other spondylosis with myelopathy, [facility] 2022-08-06 08:17 Spinal stenosis, [facility] 2022-08-06 09:06 Foot drop, [facility] 2022-08-06 09:06 Other spondylosis with myelopathy, [facility] 2022-08-06 09:06 Spinal stenosis, [facility] 2022-08-06 15:22 Foot drop, [facility] 2022-08-06 15:22 Other spondylosis with myelopathy, [facility] 2022-08-06 15:22 Spinal stenosis, [facility] 2022-08-06 18:50 Foot drop, [facility] 2022-08-06 18:50 Other spondylosis with myelopathy, [facility] 2022-08-06 18:50 Spinal stenosis, [facility] 2022-08-06 18:52 Foot drop, [facility] 2022-08-06 18:52 Other spondylosis with myelopathy, [facility] 2022-08-06 18:52 Spinal stenosis, thoracic region [facility] Procedures date description facility 2022-07-30 00:00 Release Thoracic Spinal Cord, Open Appr oach [facility] 2022-07-30 00:00 Excision of Thoracic Vertebral Disc, Op en [facility] Approach 2022-07-30 00:00 fusion of thoracic vertebral joint with [facility] autologous tissue substitute, posterior approach, posterior column, open approac h 2022-07-30 00:00 fusion of thoracic vertebral joint with [facility] interbody fusion device, posterior appro ach, anterior column, open approach 2022-07-30 00:00 XR fluoro, less than 60 minutes [facility] 2022-07-30 00:00 XR thoracic spine, 2 views [facility] Results/Labs test date author facility value unit interpret ation Result panel 1 (unknown) (no date) (unknown[facility] Result panel 2 (unknown) (no date) (unknown) [facility] ([facility]) Result panel 3 (unknown) (no date) (unknown) [facility]) Result panel 4 (unknown) (no date) (unknown) [facility]) Result panel 5 (unknown) (no date) (unknown) [facility]) Result panel 6 (unknown) (no date) (unknown) [facility]) Result panel 7 (unknown) (no date) (unknown) [facility]) Result panel 8 (unknown) (no date) (unknown) [facility]) Result panel 9 (unknown) (no date) (unknown) [facility]) Result panel 10 (unknown) (no date) (unknown) [facility] unknown) [...] Result panel 78 (unknown) (no date) (unknown) (unknown) Negative (units (unkn own) unknown) (unknown) (no date) (unknown) (unknown) Negative (units (unkn own) unknown) Result panel 79 (unknown) (no (unknown) (unknown) (no value) (units [...] (unknown) (unknown) : 1935 (units (unknown) date) Acct:[id number] unknown) (unknown) (no (unknown) (unknown) Date of [...] unknown) date) unknown) (unknown) (no (unknown) (unknown) [facility] (units (unknown) date) [address] unknown) [place] [address] (unknown) (no (unknown) (unknown) Patient: (units (unkno wn) date) Faith Rosario MR#: unknown) [id number] (unknown) (no (unknown) (unknown) Possibility delay (units [...] less-positive unknown) ultimate med/surg outcome Result panel 80 (unknown) (no (unknown) (unknown) (no value) (units (unk nown) date) unknown) (unknown) (no (unknown) (unknown) 07/30/22 (units (unkno wn) date) unknown) (unknown) (no (unknown) (unknown) [address] [place] [address] (units (unknown) date) unknown) (unknown) (no (unknown) (unknown) 730 (units (unkno wn) date) unknown) (unknown) (no (unknown) (unknown) Accession Number: (units (unknown) date) [id number] unknown) (unknown) (no (unknown) (unknown) Age/Sex: 86 / M (units (unknown) date) Date of Service: unknown) (unknown) (no (unknown) (unknown) [place], [place] (units ( unknown) date) [address] unknown) (unknown) (no (unknown) (unknown) Approved by: Jarred (units (unknown) date) Gino Beard on unknown) 07/30/2022 at 20:50 (unknown) (no (unknown) (unknown) COMPARISON: None. (units (unknown) date) unknown) (unknown) (no (unknown) (unknown) : 1935 (units (unknown) date) Acct:[id number] unknown) (unknown) (no (unknown) (unknown) Dictated by: Jarred (units (unknown) date) Gino Beard on unknown) 07/30/2022 at 20:49 (unknown) (no (unknown) (unknown) FINDINGS: (units (unkn own) date) unknown) (unknown) (no (unknown) (unknown) IMPRESSION: (units (un known) date) Intraoperative unknown) fluoroscopic support for T11-T12 posterior spinal (unknown) (no (unknown) (unknown) INDICATIONS: (units (u nknown) date) T11-12 FUSION unknown) (unknown) (no (unknown) (unknown) [facility] (units (unknown) date) unknown) (unknown) (no [...] (unkno wn) date) Faith Rosario MR#: unknown) [id number] (unknown) (no (unknown) (unknown) Please see (units [...] gross hardware unknown) complication noted. Result panel 81 (unknown) (no (unknown) (unknown) (no value) (units [...] date) General unknown) (unknown) (no (unknown) (unknown) Jig Filler: Jack Church (units (unknown) date) [place] unknown) [...] (unknown) (unknown) : 1935 (units (unknown) date) Acct:[id number] unknown) (unknown) (no (unknown) (unknown) Date of [...] nknown) date) unknown) (unknown) (no (unknown) (unknown) [facility] (units (unknown) date) [address] unknown) [place] [address] (unknown) (no (unknown) (unknown) Operative (units (unkn [...] (unkno wn) date) Faith Rosario MR#: unknown) [id number] (unknown) (no (unknown) (unknown) Plan for (units [...] correlating to his MRI findings. Result panel 82 (unknown) (no (unknown) (unknown) (no value) (units [...] date) General unknown) (unknown) (no (unknown) (unknown) Jig Filler: Jack Church (units (unknown) date) [place] unknown) [...] (unknown) (unknown) : 1935 (units (unknown) date) Acct:[id number] unknown) (unknown) (no (unknown) (unknown) Date of [...] nknown) date) unknown) (unknown) (no (unknown) (unknown) [facility] (units (unknown) date) [address] unknown) [place] [address] (unknown) (no (unknown) (unknown) MARS retractors (units [...] (unkno wn) date) Faith Rosario MR#: unknown) [id number] (unknown) (no (unknown) (unknown) Plan for (units [...] correlating to his MRI findings. Result panel 83 (unknown) (no (unknown) (unknown) (no value) (units [...] (unknown) (unknown) : 1935 (units (unknown) date) Acct:[id number] unknown) (unknown) (no (unknown) (unknown) Date of [...] this patient's care (unknown) (no (unknown) (unknown) [facility] (units (unknown) date) [address] unknown) [place] [address] (unknown) (no (unknown) (unknown) Laboratory Results (units [...] (unkno wn) date) Faith Rosario MR#: unknown) [id number] (unknown) (no (unknown) (unknown) Plan to continue [...] was expected and consistent with Result panel 84 (unknown) (no date) (unknown) (unknown) 12.1 g/dl (unkn own) (unknown) (no date) (unknown) (unknown) 37.2 % (unkn own) Result panel 85 (unknown) (no (unknown) (unknown) (no value) (units [...] (unknown) (unknown) : 1935 (units (unknown) date) Acct:[id number] unknown) (unknown) (no (unknown) (unknown) Date Patient [...] (unknown) date) unknown) (unknown) (no (unknown) (unknown) [facility] (units (unknown) date) [address] unknown) [place] [address] (unknown) (no (unknown) (unknown) Laboratory Results (units [...] (unkno wn) date) Faith Rosario MR#: unknown) [id number] (unknown) (no (unknown) (unknown) Physical therapy (units [...] therapy. He notes that his Result panel 86 (unknown) (no (unknown) (unknown) (no value) (units [...] (unknown) (unknown) : 1935 (units (unknown) date) Acct:[id number] unknown) (unknown) (no (unknown) (unknown) Date of [...] (unknown) date) unknown) (unknown) (no (unknown) (unknown) [facility] (units (unknown) date) [address] unknown) [place] [address] (unknown) (no (unknown) (unknown) Laboratory Results (units [...] (unkno wn) date) Faith Rosario MR#: unknown) [id number] (unknown) (no (unknown) (unknown) Postoperative day: (units [...] (units (unkno wn) date) unknown) Result panel 87 (unknown) (no date) (unknown) (unknown) 0-1/HPF (units [...] (units (unkn own) Cultured unknown) Result panel 88 (unknown) (no (unknown) (unknown) (no value) (units [...] (unknown) (unknown) : 1935 (units (unknown) date) Acct:[id number] unknown) (unknown) (no (unknown) (unknown) Date of [...] this patient's care (unknown) (no (unknown) (unknown) [facility] (units (unknown) date) [address] unknown) [place] [address] (unknown) (no (unknown) (unknown) Laboratory Results (units [...] (unkno wn) date) Faith Rosario MR#: unknown) [id number] (unknown) (no (unknown) (unknown) Precancerous (units (u [...] (unknown) date) facetecomies, unknown) T11-12 posterolateral fusion [id number] posterior (unknown) (no (unknown) (unknown) lisinopril 40 [...] exclusive of unknown) procedural time. Result panel 89 (unknown) (no (unknown) (unknown) (no value) (units [...] (unknown) (unknown) : 1935 (units (unknown) date) Acct:[id number] unknown) (unknown) (no (unknown) (unknown) Date of [...] this patient's care (unknown) (no (unknown) (unknown) [facility] (units (unknown) date) [address] [place] [address] unknown) [place] [address] (unknown) (no (unknown) (unknown) Laboratory Results (units [...] (unkno wn) date) Faith Rosario MR#: unknown) [id number] (unknown) (no (unknown) (unknown) Plans are in [...] (unknown) date) facetecomies, unknown) T11-12 posterolateral fusion [id number] posterior (unknown) (no (unknown) (unknown) lisinopril 40 [...] 600 and 1L overnight. He Result panel 90 (unknown) (no (unknown) (unknown) (no value) (units [...] (unknown) (unknown) : 1935 (units (unknown) date) Acct:[id number] unknown) (unknown) (no (unknown) (unknown) Date of [...] this patient's care (unknown) (no (unknown) (unknown) [facility] (units (unknown) date) [address] unknown) [place] [address] (unknown) (no (unknown) (unknown) Laboratory Results (units [...] Faith Rosario (unit s (unknown) date) MR#: [id number] unknown) (unknown) (no (unknown) (unknown) Plans are [...] (unknown) date) facetecomies, T11-12 unknown) posterolateral fusion [id number] posterior (unknown) (no (unknown) (unknown) lisinopril 40 [...] 600 and 1L overnight. He Result panel 91 (unknown) (no (unknown) (unknown) (no value) (units [...] (unknown) (unknown) : 1935 (units (unknown) date) Acct:[id number] unknown) (unknown) (no (unknown) (unknown) Date of [...] this patient's care (unknown) (no (unknown) (unknown) [facility] (units (unknown) date) [address] [place] [address] Street unknown) [place] [address] (unknown) (no (unknown) (unknown) Laboratory Results (units [...] Faith Rosario (unit s (unknown) date) MR#: [id number] unknown) (unknown) (no (unknown) (unknown) Pending (units [...] (unknown) date) facetecomies, T11-12 unknown) posterolateral fusion [id number] posterior (unknown) (no (unknown) (unknown) lisinopril 40 [...] 600 and 1L overnight. He Result panel 92 (unknown) (no (unknown) (unknown) (no value) (units [...] (unknown) (unknown) : 1935 (units (unknown) date) Acct:[id number] unknown) (unknown) (no (unknown) (unknown) Date Patient [...] (unknown) date) unknown) (unknown) (no (unknown) (unknown) [facility] (units (unknown) date) [address] [place] [address] unknown) [place] [address] (unknown) (no (unknown) (unknown) Laboratory Results (units [...] (unkno wn) date) Faith Rosario MR#: unknown) [id number] (unknown) (no (unknown) (unknown) Postoperative day: (units [...] in Dr. Cade's plan earlier. Result panel 93 (unknown) (no (unknown) (unknown) (no value) (units [...] (unknown) (unknown) : 1935 (units (unknown) date) Acct:[id number] unknown) (unknown) (no (unknown) (unknown) Date of [...] this patient's care (unknown) (no (unknown) (unknown) [facility] (units (unknown) date) [address] unknown) [place] [address] (unknown) (no (unknown) (unknown) Laboratory Results (units [...] (unkno wn) date) Faith Rosario MR#: unknown) [id number] (unknown) (no (unknown) (unknown) Plan to continue [...] was expected and consistent with Result panel 94 (unknown) (no (unknown) (unknown) (no value) (units [...] (unknown) (unknown) : 1935 (units (unknown) date) Acct:[id number] unknown) (unknown) (no (unknown) (unknown) Date of [...] this patient's care (unknown) (no (unknown) (unknown) [facility] (units (unknown) date) [address] unknown) [place] [address] (unknown) (no (unknown) (unknown) Laboratory Results (units [...] (unkno wn) date) Faith Rosario MR#: unknown) [id number] (unknown) (no (unknown) (unknown) Precancerous (units (u [...] exclusive of unknown) procedural time. Result panel 95 (unknown) (no (unknown) (unknown) (no value) (units [...] (unknown) (unknown) : 1935 (units (unknown) date) Acct:[id number] unknown) (unknown) (no (unknown) (unknown) Date of [...] this patient's care (unknown) (no (unknown) (unknown) [facility] (units (unknown) date) [address] [place] [address] unknown) [place] [address] (unknown) (no (unknown) (unknown) Laboratory Results (units [...] (unkno wn) date) Faith Rosario MR#: unknown) [id number] (unknown) (no (unknown) (unknown) Plan for placement [...] exclusive of unknown) procedural time. Result panel 96 (unknown) (no date) (unknown) (unknown) No growth. (units (un known) unknown) Result panel 97 (unknown) (no (unknown) (unknown) (no value) (units [...] (unknown) (unknown) : 1935 (units (unknown) date) Acct:[id number] unknown) (unknown) (no (unknown) (unknown) Date of [...] (unknown) date) unknown) (unknown) (no (unknown) (unknown) [facility] (units (unknown) date) [address] unknown) [place] [address] (unknown) (no (unknown) (unknown) Labs (units (unkno [...] (unkno wn) date) Faith Rosario MR#: unknown) [id number] (unknown) (no (unknown) (unknown) Per surgery (units [...] (unknown) date) facetecomies, unknown) T11-12 posterolateral fusion [id number] posterior (unknown) (no (unknown) (unknown) movements. (units [...] regimen as well (unknown) (no (unknown) (unknown) [employer] (units (u nknown) date) pending insurance unknown) [...] paralysis.? He was placed on Result panel 98 (unknown) (no date) (unknown) (unknown) No growth. (units (un known) unknown) Result panel 99 (unknown) (no (unknown) [...] date) General unknown) (unknown) (no (unknown) (unknown) Jig Filler: Jack W (units (unknown) date) [place] unknown) [...] (unknown) (unknown) : 1935 (units (unknown) date) Acct:[id number] unknown) (unknown) (no (unknown) (unknown) Date Patient [...] nknown) date) unknown) (unknown) (no (unknown) (unknown) [facility] (units (unknown) date) [address] [place] [address] unknown) [place] [address] (unknown) (no (unknown) (unknown) Labs (units (unkno wn) date) unknown) (unknown) (no (unknown) (unknown) Perico Sherman MD (units (unknown) date) unknown) (unknown) (no (unknown) (unknown) Medical History (units (unknown) date) (Reviewed 08/01/22 unknown) @ 16:51 by Cat Peter PA-C) (unknown) (no (unknown) (unknown) Narrative: (units [...] (unkno wn) date) Faith Rosario MR#: unknown) [id number] (unknown) (no (unknown) (unknown) Physician (units (unkn [...] (unknown) Reason for (units (unk n) date) consultation: unknown) Medical evaluation prior to [...] correlating to his MRI findings.? Result panel 100 (unknown) (no (unknown) (unknown) (no value) (units [...] known) date) unknown) (unknown) (no (unknown) (unknown) Jig Filler: Jack W (units (unknown) date) [place] unknown) [...] (unknown) (unknown) : 1935 (units (unknown) date) Acct:[id number] unknown) (unknown) (no (unknown) (unknown) Date Patient [...] nknown) date) unknown) (unknown) (no (unknown) (unknown) [facility] (units (unknown) date) [address] unknown) [place] [address] (unknown) (no (unknown) (unknown) Labs (units (unkno [...] unknown) (unknown) (no (unknown) (unknown) PFSH (units (o wn) date) unknown) (unknown) (no [...] (unknown) (no (unknown) (unknown) Patient is (units (k n) date) complaining of mild unknown) low back pain. He continues to have somewhat (unknown) (no (unknown) (unknown) Patient: (units (o wn) date) Faith Rosario MR#: unknown) [id number] (unknown) (no (unknown) (unknown) Physician (units (unkn [...] (unknown) (no (unknown) (unknown) Prosthetic (units (unk ) date) devices, grafts, unknown) tissues, transplants, or [...] (unknown) (unknown) Reason for (units (unk n) ) consultation: unknown) Medical evaluation prior to transfer [...] correlating to his MRI findings.? Result panel 101 (unknown) (no (unknown) (unknown) (no value) (units [...] known) date) unknown) (unknown) (no (unknown) (unknown) Jig Filler: Jack Church (units (unknown) date) [place]ancho unknown) [...] (unknown) (unknown) : 1935 (units (unknown) date) Acct:[id number] unknown) (unknown) (no (unknown) (unknown) Date Patient [...] nknown) date) unknown) (unknown) (no (unknown) (unknown) [facility] (units (unknown) date) [address] unknown) [place] [address] (unknown) (no (unknown) (unknown) Labs (units (unkno [...] (unkno wn) date) Faith Rosario MR#: unknown) [id number] (unknown) (no (unknown) (unknown) Physician (units (unkn [...] correlating to his MRI findings.? Result panel 102 (unknown) (no (unknown) (unknown) [...] known) date) unknown) (unknown) (no (unknown) (unknown) Jig Filler: Jack Church (units (unknown) date) [place]ancho unknown) [...] (unknown) (unknown) : 1935 (units (unknown) date) Acct:[id number] unknown) (unknown) (no (unknown) (unknown) Date Patient [...] date) provider: unknown) (unknown) (no (unknown) (unknown) Sherman,Perico, MD (units (unknown) date) [Primary Care unknown) [...] nknown) date) unknown) (unknown) (no (unknown) (unknown) [facility] (units (unknown) date) [address] unknown) [place] [address] (unknown) (no (unknown) (unknown) Labs (units (unkno [...] somewhat (unknown) (no (unknown) (unknown) Patient: (units (o wn) date) Faith Rosario MR#: unknown) [id number] (unknown) (no (unknown) (unknown) Physician (units (unkn [...] unknown) (unknown) (no (unknown) (unknown) Procedure: (units (k n) date) unknown) (unknown) (no (unknown) (unknown) [...] (unknown) Reason for (units (unk n) date) consultation: unknown) Medical evaluation prior to [...] correlating to his MRI findings.? Result panel 103 (unknown) (no (unknown) (unknown) [...] known) date) unknown) (unknown) (no (unknown) (unknown) Jig Filler: Jack Church (units (unknown) date) [place] unknown) [...] (unknown) (unknown) : 1935 (units (unknown) date) Acct:[id number] unknown) (unknown) (no (unknown) (unknown) Date Patient [...] nknown) date) unknown) (unknown) (no (unknown) (unknown) [facility] (units (unknown) date) [address] unknown) [place] [address] (unknown) (no (unknown) (unknown) Labs (units (unkno [...] (unkno wn) date) Faith Rosario MR#: unknown) [id number] (unknown) (no (unknown) (unknown) Physician (units (unkn [...] correlating to his MRI findings.? Result panel 104 (unknown) (no (unknown) (unknown) [...] known) date) unknown) (unknown) (no (unknown) (unknown) Jig Filler: Jack W (units (unknown) date) [place] unknown) [...] (unknown) (unknown) : 1935 (units (unknown) date) Acct:[id number] unknown) (unknown) (no (unknown) (unknown) Date Patient [...] nknown) date) unknown) (unknown) (no (unknown) (unknown) [facility] (units (unknown) date) [address] [place] [address] unknown) [place] [address] (unknown) (no (unknown) (unknown) Labs (units (unkno [...] (unkno wn) date) Faith Rosario MR#: unknown) [id number] (unknown) (no (unknown) (unknown) Physician (units (unkn [...] regimen as well (unknown) (no (unknown) (unknown) [employer] (units (u nknown) date) pending insurance unknown) [...] correlating to his MRI findings.? Result panel 105 (unknown) (no (unknown) (unknown) [...] known) date) unknown) (unknown) (no (unknown) (unknown) Jig Filler: Jack Church (units (unknown) date) [place] unknown) [...] (unknown) (unknown) : 1935 (units (unknown) date) Acct:[id number] unknown) (unknown) (no (unknown) (unknown) Date Patient [...] for Laminectomy unknown) (unknown) (no (unknown) (unknown) [facility] (units (unknown) date) [address] unknown) [place] [address] (unknown) (no (unknown) (unknown) Labs (units (unkno [...] (unkno wn) date) Faith Rosario MR#: unknown) [id number] (unknown) (no (unknown) (unknown) Physician (units (unkn [...] nown) date) unknown) (unknown) (no (unknown) (unknown) [facility] (units (unknown) date) Orthopedics: unknown) [phone] (unknown) (no (unknown) (unknown) Smoking Status: (units [...] date) unknown) (unknown) (no (unknown) (unknown) Surgeon: Cheep Cade (units (unknown) date) unknown) (unknown) (no [...] go to the Emergency Room. Result panel 106 (unknown) (no (unknown) (unknown) [...] known) date) unknown) (unknown) (no (unknown) (unknown) Jig Filler: Jack Church (units (unknown) date) Pancho unknown) [...] (unknown) (unknown) : 1935 (units (unknown) date) Acct:[id number] unknown) (unknown) (no (unknown) (unknown) Date Patient [...] for Laminectomy unknown) (unknown) (no (unknown) (unknown) [facility] (units (unknown) date) [address] unknown) [place] [address] (unknown) (no (unknown) (unknown) Labs (units (unkno [...] (unkno wn) date) Faith Rosario MR#: unknown) [id number] (unknown) (no (unknown) (unknown) Physician (units (unkn [...] nown) date) unknown) (unknown) (no (unknown) (unknown) [facility] (units (unknown) date) Orthopedics: unknown) [phone] (unknown) (no (unknown) (unknown) Smoking Status: (units [...] go to the Emergency Room. Result panel 107 (unknown) (no (unknown) (unknown) (no value) (units [...] known) date) unknown) (unknown) (no (unknown) (unknown) Jig Filler: Jack W (units (unknown) date) Pancho unknown) [...] (unknown) (unknown) : 1935 (units (unknown) date) Acct:[id number] unknown) (unknown) (no (unknown) (unknown) Date Patient [...] for Laminectomy unknown) (unknown) (no (unknown) (unknown) [facility] (units (unknown) date) [address] unknown) [place] [address] (unknown) (no (unknown) (unknown) Labs (units (unkno [...] Faith Rosario (unit s (unknown) date) MR#: [id number] unknown) (unknown) (no (unknown) (unknown) Physician (units [...] by Cat Peter> (unknown) (no (unknown) (unknown) [facility] (units (unknown) date) Orthopedics: unknown) [phone] (unknown) (no (unknown) (unknown) Skin/Wound/Dressing (unit s [...] (unknown) date) directions once unknown) discharged from [facility] (unknown) (no (unknown) (unknown) oxycodone 5 [...] go to the Emergency Room. Result panel 108 (unknown) (no (unknown) (unknown) [...] date) unknown) (unknown) (no (unknown) (unknown) 08/05/22 3455 (units ( unknown) date) unknown) (unknown) (no [...] by Jack Tinajero (unknown) (no (unknown) (unknown) Age/Sex: 86 / M (units (unknown) date) unknown) (unknown) (no (unknown) (unknown) Anesthesia Type: (units (unknown) date) General unknown) (unknown) (no (unknown) (unknown) Assessment and Plan (unit s (unknown) date) unknown) (unknown) (no (unknown) (unknown) Assessment: (units (un known) date) unknown) (unknown) (no (unknown) (unknown) Jig Filler: Jack Church (units (unknown) date) Pancho unknown) [...] (unknown) (unknown) : 1935 (units (unknown) date) Acct:[id number] unknown) (unknown) (no (unknown) (unknown) Date Patient [...] for Laminectomy unknown) (unknown) (no (unknown) (unknown) [facility] (units (unknown) date) [address] [place] [address] unknown) [place] [address] (unknown) (no (unknown) (unknown) Labs (units (unkno [...] Faith Rosario (unit s (unknown) date) MR#: [id number] unknown) (unknown) (no (unknown) (unknown) Physician (units [...] by Cat Peter> (unknown) (no (unknown) (unknown) [facility] (units (unknown) date) Orthopedics: unknown) [phone] (unknown) (no (unknown) (unknown) Skin/Wound/Dressing (unit s [...] (unknown) date) directions once unknown) discharged from [facility] (unknown) (no (unknown) (unknown) oxycodone 5 [...] go to the Emergency Room. Result panel 109 (unknown) (no (unknown) (unknown) [...] known) date) unknown) (unknown) (no (unknown) (unknown) Jig Filler: Jack Church (units (unknown) date) Pancho unknown) [...] (unknown) (unknown) : 1935 (units (unknown) date) Acct:[id number] unknown) (unknown) (no (unknown) (unknown) Date Patient [...] for Laminectomy unknown) (unknown) (no (unknown) (unknown) [facility] (units (unknown) date) [address] unknown) [place] [address] (unknown) (no (unknown) (unknown) LLE 5/5 quadriceps, [...] Faith Rosario (unit s (unknown) date) MR#: [id number] unknown) (unknown) (no (unknown) (unknown) Physical Exam: [...] (unknown) (no (unknown) (unknown) Reason for (units () date) consultation: unknown) Medical evaluation prior to [...] by Cat Peter> (unknown) (no (unknown) (unknown) [facility] (units (unknown) date) Orthopedics: unknown) [phone] (unknown) (no (unknown) (unknown) Skin/Wound/Dressing (unit s [...] date) unknown) (unknown) (no (unknown) (unknown) Surgeon: Chpee Cade (units (unknown) date) unknown) (unknown) (no [...] (unknown) date) directions once unknown) discharged from [facility] (unknown) (no (unknown) (unknown) oxycodone 5 [...] go to the Emergency Room. Result panel 110 (unknown) (no date) (unknown) (unknown) Negative (units (unkn own) unknown) (unknown) (no date) (unknown) (unknown) Negative (units (unkn own) unknown) Social History date description facility 2022-08-02 00:00 Never smoked tobacco ([facility] Vital Signs date measurement value units 2022-07-30 [...]
[2022-10-15] MEDS ORDERED: SODIUM CHLORIDE 0.9% 500 ML IV STA (07:35)
[2022-10-15 07:41] LABS: BASOPHILS % (AUTO) 0.2 %; HCT - HEMATOCRIT 37.8 % (42.0-52.0); HGB - HEMOGLOBIN 12.2 g/dL (14.0-18.0); LYMPHOCYTES # (AUTO) 1.7 10^3/uL (1.5-3.5); LYMPHOCYTES % (AUTO) 8.6 %; MEAN CORPUSCULAR HEMOGLOBIN 29.5 pg (27.0-31.0); MEAN CORPUSCULAR HGB CONC 32.3 g/dL (32.0-36.0); MEAN CORPUSCULAR VOLUME 91.3 fL (80.0-94.0); MEAN PLATELET VOLUME 10.8 fL (7.4-11.4); MONOCYTES % (AUTO) 5.2 %; NEUTROPHILS # (AUTO) 16.5 10^3/uL (1.5-6.6); NEUTROPHILS % (AUTO) 85.6 %; PLT - PLATELET COUNT 352 10^3/uL (130-450); RED BLOOD COUNT 4.14 10^6/uL (4.70-6.10); RED CELL DISTRIBUTION WIDTH 12.8 % (12.0-15.0); WHITE BLOOD COUNT 19.2 x10^3/uL (4.8-10.8)
[2022-10-15 07:50] LABS: ALBUMIN 3.4 g/dL (3.2-5.5); ALBUMIN/GLOBULIN RATIO 0.9 (1.0-2.2); BILIRUBIN,TOTAL 0.8 mg/dL (0.2-1.0); CALCIUM 9.3 mg/dL (8.5-10.3); CREATININE 1.4 mg/dL (0.6-1.2); POTASSIUM 4.7 mmol/L (3.5-5.0); TOTAL PROTEIN 7.3 g/dL (6.7-8.2)
[2022-10-15] MEDS ORDERED: iohexoL-300 100 ML VIAL ONE (07:55)
[2022-10-15 07:58] LABS: INR 1.1 (0.8-1.2); PT - PROTHROMBIN TIME 12.4 secs (9.9-12.6)
--- NOTE | 2022-10-15 08:51 | CT Report ---
PROCEDURE: ABDOMEN/PELVIS W INDICATIONS: LLQ pain/rectal bleeding CONTRAST: 100ml Omnipaque 300 TECHNIQUE: After the administration of intravenous contrast, 5 mm thick sections acquired from the diaphragms to the symphysis. 5 mm thick coronal and sagittal reformats were acquired. For radiation dose reducti on, the following was used: automated exposure control, adjustment of mA and/or kV according to jigna ent size. COMPARISON: CT lumbar spine 06/18/2022 FINDINGS: Visualized lung bases: No pleural effusion. Left basilar atelectasis and/or scarring. Liver and biliary tree: No suspect focal hepatic lesion. No biliary ductal dilation. Gallbladder: No radiopaque cholelithiasis. Spleen: Unremarkable. Pancreas: Unremarkable. Adrenal glands: Unremarkable. Kidneys and ureters: No hydronephrosis. Urothelial thickening and enhancement of the left renal pelvi s/proximal ureter. Gastrointestinal tract: Small hiatal hernia. No evidence of small bowel obstruction. A rectosigmoid a nastomosis is present. Colonic wall thickening with adjacent fat stranding present at least from the level of the hepatic flexure through the sigmoid colon, possibly also involving the ascending colon. Inflammatory change appears worst at the sigmoid colon. Peritoneal cavity: No free air. Trace pelvic free fluid. Bladder: A Pugh catheter is present and the bladder is largely decompressed. Pelvic organs: Unremarkable CT appearance. Vasculature: No abdominal aortic aneurysm. Musculoskeletal: Prior L3-L5 fusion. T11-T12 fusion changes now present. Multilevel degenerative rivera ge of the visualized spine. Left hip arthroplasty. IMPRESSION: 1. Findings compatible with a colitis involving at least the sigmoid colon through the hepatic flexur e, possibly also the ascending colon/pancolitis. Findings could be secondary to an infectious or infl ammatory etiology. Correlation for C. difficile infection may be helpful. 2. Urothelial thickening and enhancement of the left renal pelvis/proximal ureter is present. This is a nonspecific finding however correlation for urinary tract infection may be helpful. Reviewed by: Binu Lopez MD on 10/15/2022 8:49 AM PST Approved by: Binu Lopez MD on 10/15/2022 8:49 AM PST Station ID: [id number]
--- NOTE | 2022-10-15 09:15 | ED Physician Documentation ---
History of Present Illness - Stated complaint Stated Complaint: GEN WEAKNESS - Chief complaint Chief Complaint: Abd Pain - History obtained from History obtained from: Patient, Family (Patient's son) - Additonal information Additional information: Patient is an 86-year-old male presenting for evaluation of diarrhea starting this morning. Per the son he noticed blood in one of the bowel movements that was bright red in color mixed with stool. Patient reports having lower abdominal cramping prior to having bowel movements. Patient had spinal surgery in August and spent 5 weeks in a half-way facility. Since being home he reports declining and over the last day has not had much to eat or drink. Per the son, he had a syncopal episode yesterday while in his wheelchair. Patient reports feeling dizzy and lightheaded prior to the episode and had brief LOC. He did not hit his head. He denies having chest pain or difficulty breathing. His urine in the catheter has been darker. They have not noted cloudiness or sediment. No blood in the urine. He does not take a blood thinner. Review of Systems Constitutional: denies: Fever Cardiac: denies: Chest pain / pressure Respiratory: denies: Dyspnea GI: reports: Abdominal Pain, Nausea, Diarrhea, Bloody / black stool : denies: Hematuria Neurologic: reports: Generalized weakness, Syncope PD PAST MEDICAL HISTORY - Past Medical History Past Medical History: Yes Cardiovascular: None Respiratory: Asthma Endocrine/Autoimmune: None GI: Colon polyps : None HEENT: None Psych: None Musculoskeletal: None Derm: None - Past Surgical History Past Surgical History: Yes General: Bowel surgery, Colonoscopy Ortho: Hip replacement, Knee replacement - Present Medications Home Medications: Ambulatory Orders Medication Instructions Recorded Confirmed Albuterol Sulfate [Ventolin Hfa] 1 puffs INH DAILY PRN 06/13/14 10/15/22 Beclomethasone 80 Mcg [Qvar 80] 1 puffs INH DAILY 06/13/14 10/15/22 Aspirin EC [Ecotrin] 81 mg PO BID 10/02/22 10/15/22 Baclofen 5 mg PO Q6HR PRN 10/02/22 10/15/22 Ciprofloxacin HCl [Cipro] 500 mg PO BID #14 tablet 10/02/22 10/15/22 Famotidine [Pepcid] 20 mg PO BID 10/02/22 10/15/22 Furosemide [Lasix] 20 mg PO DAILY #7 tablet 10/02/22 10/15/22 Gabapentin [Neurontin] 100 mg PO HS 10/02/22 10/15/22 HYDROcod/ACETAM 5/325 [[place] 5/325] 1 ea PO Q6H PRN #14 tablet 10/02/22 10/15/22 Lisinopril [Zestril] 40 mg PO DAILY 10/02/22 10/15/22 Metoprolol Succinate 100 mg PO DAILY 10/02/22 10/15/22 amLODIPine [Norvasc] 5 mg PO DAILY 10/02/22 10/15/22 traMADol [Ultram] 50 mg PO Q12H PRN 10/02/22 10/15/22 traZODone [Desyrel] 50 mg PO HS 10/02/22 10/15/22 - Allergies Allergies/Adverse Reactions: Allergies Allergy/AdvReac Type Severity Reaction Status Date / Time azithromycin [From Zithromax] Allergy Hives Verified 10/15/22 06:12 Penicillins Allergy Hives Verified 10/15/22 06:12 - Social History Does the pt smoke?: No Smoking Status: Never smoker Does the pt drink ETOH?: Yes Does the pt have substance abuse?: No - Immunizations Immunizations are current?: Yes - POLST Patient has POLST: No PD ED PE NORMAL - General General: Alert and oriented X 3, No acute distress, Well developed/nourished - HEENT HEENT: Atraumatic - Neck Neck: No bony TTP - Cardiac Cardiac: RRR - Respiratory Respiratory: No respiratory distress, Clear bilaterally - Abdomen Abdomen: Normal bowel sounds, Soft, Non distended, Other (Lower abdominal tenderness) - Male Male : Other (Pugh catheter in place with dark yellow urine) - Extremities Extremities: Other (Bilateral lower extremity edema) - Neuro Neuro: Alert and oriented X 3, diazo technician 2-12 intact, No motor deficit (Generalized weakness but no focal deficits), No sensory deficit, Normal speech Results - Vitals Vitals: Vital Signs - 24 hr 10/15/22 10/15/22 10/15/22 06:13 07:27 09:04 Temperature 37.1 C Heart Rate 100 92 106 H Respiratory 17 16 15 Rate Blood Pressure 100/87 H 116/82 H 159/62 H O2 Saturation 96 100 100 If not protocol : Oxygen Flow, liters/minute 10/15/22 10/15/22 10/15/22 10:23 12:00 14:00 Temperature Heart Rate 79 101 H 98 Respiratory 22 16 15 Rate Blood Pressure 115/72 153/63 H 145/74 H O2 Saturation 93 100 100 If not protocol 2 : Oxygen Flow, liters/minute 10/15/22 16:02 Temperature Heart Rate 105 H Respiratory 17 Rate Blood Pressure 137/59 H O2 Saturation 99 If not protocol : Oxygen Flow, liters/minute Oxygen O2 Source Room air - EKG (time done) 0740 Rate: Rate (enter#) (87) Rhythm: NSR [place]: Normal Intervals: No: Prolonged QT Ischemia: No: ST elevation c/w ischemia - Labs Labs: Microbiology 10/15/22 09:15 Occult Blood - Final Stool Laboratory Tests 10/15/22 10/15/22 10/15/22 07:02 07:02 07:44 WBC 19.2 H RBC 4.14 L Hgb 12.2 L Hct 37.8 L MCV 91.3 MCH 29.5 MCHC 32.3 RDW 12.8 Plt Count 352 MPV 10.8 Neut # (Auto) 16.5 H Lymph # (Auto) 1.7 Garden # (Auto) 1.0 Eos # (Auto) 0.0 Baso # (Auto) 0.0 Absolute Nucleated RBC 0.00 Nucleated RBC % 0.0 PT 12.4 INR 1.1 Sodium 141 Potassium 4.7 Chloride 102 Carbon Dioxide 23 Anion Gap 16.0 H BUN 34 H Creatinine 1.4 H Estimated GFR (MDRD) 48 L Glucose 165 H Lactic Acid Calcium 9.3 Total Bilirubin 0.8 AST 28 ALT 21 Alkaline Phosphatase 63 Total Protein 7.3 Albumin 3.4 Globulin 3.9 Albumin/Globulin Ratio 0.9 L Lipase 23 Urine Color Urine Clarity Urine pH Ur Specific Dexter Urine Protein Urine Glucose (UA) Urine Ketones Urine Occult Blood Urine Nitrite Urine Bilirubin Urine Urobilinogen Ur Leukocyte Esterase Urine RBC Urine WBC Ur Squamous Epith Cells Urine Bacteria Ur Microscopic Review Urine Culture Comments Stl C. diff Tox B Gene SARS-CoV-2 (PCR) 10/15/22 10/15/22 10/15/22 09:15 09:30 09:45 WBC RBC Hgb Hct MCV MCH MCHC RDW Plt Count MPV Neut # (Auto) Lymph # (Auto) Garden # (Auto) Eos # (Auto) Baso # (Auto) Absolute Nucleated RBC Nucleated RBC % PT INR Sodium Potassium Chloride Carbon Dioxide Anion Gap BUN Creatinine Estimated GFR (MDRD) Glucose Lactic Acid 1.4 Calcium Total Bilirubin AST ALT Alkaline Phosphatase Total Protein Albumin Globulin Albumin/Globulin Ratio Lipase Urine Color YELLOW Urine Clarity CLEAR Urine pH 5.5 Ur Specific Dex[place] 1.010 Urine Protein TRACE Urine Glucose (UA) NEGATIVE Urine Ketones NEGATIVE Urine Occult Blood MODERATE H Urine Nitrite NEGATIVE Urine Bilirubin NEGATIVE Urine Urobilinogen 0.2 (NORMAL) Ur Leukocyte Esterase NEGATIVE Urine RBC 0-5 Urine WBC 6-10 H Ur Squamous Epith Cells NONE SEEN Urine Bacteria Moderate H Ur Microscopic Review INDICATED Urine Culture Comments NOT INDICATED Stl C. diff Tox B Gene NEGATIVE SARS-CoV-2 (PCR) 10/15/22 10:00 WBC RBC Hgb Hct MCV MCH MCHC RDW Plt Count MPV Neut # (Auto) Lymph # (Auto) Garden # (Auto) Eos # (Auto) Baso # (Auto) Absolute Nucleated RBC Nucleated RBC % PT INR Sodium Potassium Chloride Carbon Dioxide Anion Gap BUN Creatinine Estimated GFR (MDRD) Glucose Lactic Acid Calcium Total Bilirubin AST ALT Alkaline Phosphatase Total Protein Albumin Globulin Albumin/Globulin Ratio Lipase Urine Color Urine Clarity Urine pH Ur Specific Dexter Urine Protein Urine Glucose (UA) Urine Ketones Urine Occult Blood Urine Nitrite Urine Bilirubin Urine Urobilinogen Ur Leukocyte Esterase Urine RBC Urine WBC Ur Squamous Epith Cells Urine Bacteria Ur Microscopic Review Urine Culture Comments Stl C. diff Tox B Gene SARS-CoV-2 (PCR) NOT DETECTED PD Medical Decision Making - ED course Complexity details: reviewed results, re-evaluated patient, d/w patient ED course: Pt presenting with generalized weakness, diarrhea, starting today and syncopal episode yesterday. No CP or SOB. No head injury. No focal deficits to suggest stroke. Labs reviewed and significant for WBC of 19, Cr 1.4 (prev 1.0). Pt has lower abdominal tenderness and CT shows colitis. I did also review his images. Cdiff negative. Pt started on antibiotics for infectious colitis with stool culture pending. ?UTI, pt has chronic indwelling. Pt requires admission for further management. No beds available but the case was discussed with the hospitalist earlier. Did review the case with our hospitalist, Dr. Phillip. There may be a pending discharge and available bed this afternoon.I presented the case and she is in agreement with plans for IV Cipro and Flagyl for the treatment of his colitis, recommends a clear liquid diet and continuing with maintenance fluids. Pt signed out at shift change. Departure - Departure Disposition: [facility] DC/Xfer Clinical Impression: Colitis, Leukocytosis, Syncope Condition: Fair
[2022-10-15] MEDS ORDERED: iohexoL-300 100 ML VIAL IVP ONE (09:51)
[2022-10-15 09:59] LABS: BILIRUBIN,URINE NEGATIVE (NEGATIVE); CLARITY,URINE CLEAR (CLEAR); GLUCOSE, URINE (UA) NEGATIVE (NEGATIVE); KETONES,URINE (UA) NEGATIVE (NEGATIVE); LEUKOCYTE ESTERASE, URINE NEGATIVE (NEGATIVE); NITRITE,URINE NEGATIVE (NEGATIVE); OCCULT BLOOD,URINE MODERATE (NEGATIVE); PH,URINE 5.5 PH (5.0-7.5); PROTEIN,URINE TRACE mg/dL (NEGATIVE); UROBILINOGEN,URINE 0.2 (NORMAL) E.U./dL (NORMAL)
[2022-10-15 10:11] LABS: RBC,URINE 0-5 /HPF (0-5)
[2022-10-15 10:12] LABS: BACTERIA,URINE Moderate /HPF (None Seen); SQUAMOUS EPITHELIAL CELL,UR NONE SEEN (<= Few)
--- NOTE | 2022-10-15 11:04 | XRAY Report ---
PROCEDURE: Chest 1 View X-Ray INDICATIONS: weak TECHNIQUE: One view of the chest was acquired. COMPARISON: None. FINDINGS: Surgical changes and devices: Spinal fixation rods. Lungs and pleura: Left basilar opacity Mediastinum: Mediastinal contours appear normal. Heart size is mildly enlarged. Bones and chest wall: No suspicious bony lesions. Overlying soft tissues appear unremarkable. IMPRESSION: Left basilar opacity. This could represent focal atelectasis or potentially developing airspace disea se. Reviewed by: Teresita Simmons MD on 10/15/2022 11:[address] [facility] Approved by: Teresita Simmons MD on 10/15/2022 11:[address] [facility] Station ID: [id number]
[2022-10-15] MEDS ORDERED: SODIUM CHLORIDE 0.9% 1,000 ML IV STA (12:04)
[2022-10-15] MEDS: CIPROFLOXACIN 400 MG/200 ML 400 MG/200 ML BAG IV SCH (12:21)
[2022-10-15] MEDS: metroNIDAZOLE 500 MG/100 ML 500 MG/100 ML BAG IV SCH ×2 (14:36→21:25)
[2022-10-15] MEDS ORDERED: ONDANSETRON 4 MG/2 ML VIAL IVP PRN (17:03)
[2022-10-15] MEDS ORDERED: oxyCODONE 5 MG TABLET PO PRN (17:03)
[2022-10-15] MEDS ORDERED: ALBUTEROL 1 PUFF INH PRN (17:04)
[2022-10-15] MEDS ORDERED: BACLOFEN 10 MG TABLET PO PRN (17:05)
[2022-10-15] MEDS: GABAPENTIN 100 MG CAPSULE PO SCH (21:25)
[2022-10-15] MEDS: traZODone 50 MG TABLET PO SCH (21:25)
[2022-10-16] MEDS: CIPROFLOXACIN 400 MG/200 ML 400 MG/200 ML BAG IV SCH ×2 (00:56→13:07)
[2022-10-16] MEDS: metroNIDAZOLE 500 MG/100 ML 500 MG/100 ML BAG IV SCH ×3 (05:05→20:56)
[2022-10-16] MEDS ORDERED: metroNIDAZOLE 500 MG/100 ML 500 MG/100 ML BAG ONE (05:05)
[2022-10-16 06:15] LABS: BASOPHILS % (AUTO) 0.2 %; EOSINOPHILS % (AUTO) 0.1 %; HCT - HEMATOCRIT 31.6 % (42.0-52.0); HGB - HEMOGLOBIN 10.2 g/dL (14.0-18.0); LYMPHOCYTES # (AUTO) 2.1 10^3/uL (1.5-3.5); LYMPHOCYTES % (AUTO) 11.7 %; MEAN CORPUSCULAR HEMOGLOBIN 30.1 pg (27.0-31.0); MEAN CORPUSCULAR HGB CONC 32.3 g/dL (32.0-36.0); MEAN CORPUSCULAR VOLUME 93.2 fL (80.0-94.0); MEAN PLATELET VOLUME 10.8 fL (7.4-11.4); MONOCYTES # (AUTO) 1.3 10^3/uL (0.0-1.0); MONOCYTES % (AUTO) 7.3 %; NEUTROPHILS # (AUTO) 14.4 10^3/uL (1.5-6.6); NEUTROPHILS % (AUTO) 80.3 %; PLT - PLATELET COUNT 255 10^3/uL (130-450); RED BLOOD COUNT 3.39 10^6/uL (4.70-6.10); WHITE BLOOD COUNT 17.9 x10^3/uL (4.8-10.8)
[2022-10-16 06:22] LABS: CALCIUM 8.4 mg/dL (8.5-10.3); CREATININE 1.1 mg/dL (0.6-1.2); POTASSIUM 3.5 mmol/L (3.5-5.0)
[2022-10-16] MEDS: PANTOPRAZOLE 40 MG TABLET PO SCH (06:43)
[2022-10-16] MEDS ORDERED: lisinopriL 5 MG TABLET PO SCH (09:00)
[2022-10-16] MEDS: MULTIVITAMIN TABLET PO SCH (09:02)
[2022-10-16] MEDS: amLODIPine 5 MG TABLET PO SCH (09:30)
[2022-10-16] MEDS: METOPROLOL SUCCINATE 50 MG TABLET PO SCH (09:30)
[2022-10-16] MEDS: ACETAMINOPHEN 500 MG TABLET PO PRN ×2 (13:58→20:26)
--- NOTE | 2022-10-16 18:10 | ED Physician Documentation ---
ED Addendum - Addendum Addendum: Patient has been boarding in the emergency department overnight for the treatment of the colitis and leukocytosis. There are no inpatient beds available. His labs are slightly improved today. He was tolerating clear liquids without difficulty yesterday. He has not had any diarrhea since yesterday. I discussed the case with the hospitalist during morning rounds. They are not many discharges anticipated for the day and so patient will likely remain in the emergency department for continued management.She recommends advancing his diet to a regular diet.Patient's abdominal exam this morning is benign with no tenderness. His vital signs otherwise appear stable.Cultures are so far negative.
[2022-10-16] MEDS: traZODone 50 MG TABLET PO SCH (20:57)
[2022-10-16] MEDS: GABAPENTIN 100 MG CAPSULE PO SCH (20:57)
[2022-10-17] MEDS: CIPROFLOXACIN 400 MG/200 ML 400 MG/200 ML BAG IV SCH ×2 (01:08→14:28)
[2022-10-17] MEDS: metroNIDAZOLE 500 MG/100 ML 500 MG/100 ML BAG IV SCH ×2 (04:50→13:21)
[2022-10-17] MEDS: ACETAMINOPHEN 500 MG TABLET PO PRN (04:53)
[2022-10-17] MEDS: PANTOPRAZOLE 40 MG TABLET PO SCH (06:24)
[2022-10-17 07:38] LABS: BASOPHILS # (AUTO) 0.1 10^3/uL (0.0-0.1); BASOPHILS % (AUTO) 0.4 %; EOSINOPHILS # (AUTO) 0.1 10^3/uL (0.0-0.7); EOSINOPHILS % (AUTO) 1.1 %; HCT - HEMATOCRIT 30.2 % (42.0-52.0); HGB - HEMOGLOBIN 9.6 g/dL (14.0-18.0); LYMPHOCYTES # (AUTO) 1.9 10^3/uL (1.5-3.5); LYMPHOCYTES % (AUTO) 15.6 %; MEAN CORPUSCULAR HEMOGLOBIN 29.5 pg (27.0-31.0); MEAN CORPUSCULAR HGB CONC 31.8 g/dL (32.0-36.0); MEAN CORPUSCULAR VOLUME 92.9 fL (80.0-94.0); MEAN PLATELET VOLUME 10.9 fL (7.4-11.4); MONOCYTES # (AUTO) 0.8 10^3/uL (0.0-1.0); MONOCYTES % (AUTO) 6.5 %; NEUTROPHILS # (AUTO) 9.4 10^3/uL (1.5-6.6); NEUTROPHILS % (AUTO) 76.2 %; PLT - PLATELET COUNT 224 10^3/uL (130-450); RED BLOOD COUNT 3.25 10^6/uL (4.70-6.10); RED CELL DISTRIBUTION WIDTH 12.8 % (12.0-15.0); WHITE BLOOD COUNT 12.3 x10^3/uL (4.8-10.8)
[2022-10-17 07:47] LABS: ALBUMIN 2.5 g/dL (3.2-5.5); ALBUMIN/GLOBULIN RATIO 0.9 (1.0-2.2); BILIRUBIN,TOTAL 0.8 mg/dL (0.2-1.0); CALCIUM 8.1 mg/dL (8.5-10.3); POTASSIUM 3.5 mmol/L (3.5-5.0); TOTAL PROTEIN 5.2 g/dL (6.7-8.2)
[2022-10-17] MEDS: amLODIPine 5 MG TABLET PO SCH (09:20)
[2022-10-17] MEDS: lisinopriL 20 MG TABLET PO SCH (09:20)
[2022-10-17] MEDS: METOPROLOL SUCCINATE 50 MG TABLET PO SCH (09:33)
[2022-10-17] MEDS: MULTIVITAMIN TABLET PO SCH (09:33)
[2022-10-17] MEDS ORDERED: traMADol 50 MG TABLET PO STA (09:39)
[2022-10-17] MEDS ORDERED: BACLOFEN 10 MG TABLET PO STA (09:39)
--- NOTE | 2022-10-17 09:41 | ED Physician Documentation ---
ED Addendum - Addendum Addendum: 10/17/22 09:40The patient states he had been able to take some foods orally. He states he had a small formed stool last night without diarrhea nor blood. He denies abdominal pain or cramps since yesterday. It does sound like his colitis is improving. He maintains on Cipro Flagyl IV. We can transition to oral medications perhaps. I will get some advice on rounds this morning. The patient still has a feeling of general weakness. He is also having increase in his leg cramps and states he had not had his baclofen or tramadol in the last day or 2. They had been ordered as needed but because he had not asked for them. We can give doses this morning. He does have superficial heel sores that are tender. We can wrap his heels. At this point the need for hospitalization may be obviated by his improvement. We can have social work discuss home health or other options. I will discuss with the hospitalist on rounds.
[2022-10-17] MEDS: traMADol 50 MG TABLET PO SCH (19:23)
[2022-10-17] MEDS: CIPROFLOXACIN 250 MG TABLET PO SCH (20:10)
[2022-10-17] MEDS: GABAPENTIN 100 MG CAPSULE PO SCH (20:11)
[2022-10-17] MEDS: metroNIDAZOLE 250 MG TABLET PO SCH (20:11)
[2022-10-17] MEDS: traZODone 50 MG TABLET PO SCH (20:12)
[2022-10-18] MEDS: PANTOPRAZOLE 40 MG TABLET PO SCH (06:39)
[2022-10-18] MEDS: traMADol 50 MG TABLET PO SCH ×2 (10:28→20:41)
[2022-10-18] MEDS: lisinopriL 20 MG TABLET PO SCH (10:28)
[2022-10-18] MEDS: CIPROFLOXACIN 250 MG TABLET PO SCH ×2 (10:28→20:41)
[2022-10-18] MEDS: METOPROLOL SUCCINATE 50 MG TABLET PO SCH (10:28)
[2022-10-18] MEDS: metroNIDAZOLE 250 MG TABLET PO SCH ×2 (10:28→20:41)
[2022-10-18] MEDS: amLODIPine 5 MG TABLET PO SCH (10:28)
[2022-10-18] MEDS: MULTIVITAMIN TABLET PO SCH (10:28)
--- NOTE | 2022-10-18 12:38 | ED Physician Documentation ---
ED Addendum - Addendum Addendum: The patient appears well again today. He continues on oral treatment for his colitis. He is had minimal to no abdominal cramps. He is formed stool started yesterday. However the duration of treatment for his colitis should still be 5 or 6-day duration. He is having some oral intake. He still has general weakness though with some difficulty getting up unassisted. We are looking at trying to get penitentiary for him short-term for strengthening and rehab. He will need to continue medication for his recent colitis for another few days but this could be oral medication. Regular diet. 10/18/22 12:36
[2022-10-18] MEDS: traZODone 50 MG TABLET PO SCH (20:41)
[2022-10-18] MEDS: GABAPENTIN 100 MG CAPSULE PO SCH (20:41)
[2022-10-19] MEDS: lisinopriL 20 MG TABLET PO SCH (08:59)
[2022-10-19] MEDS: amLODIPine 5 MG TABLET PO SCH (08:59)
[2022-10-19] MEDS: MULTIVITAMIN TABLET PO SCH (09:14)
[2022-10-19] MEDS: PANTOPRAZOLE 40 MG TABLET PO SCH (09:14)
[2022-10-19] MEDS: CIPROFLOXACIN 250 MG TABLET PO SCH ×2 (09:14→20:36)
[2022-10-19] MEDS: METOPROLOL SUCCINATE 50 MG TABLET PO SCH (09:14)
[2022-10-19] MEDS: metroNIDAZOLE 250 MG TABLET PO SCH ×2 (09:14→20:36)
[2022-10-19] MEDS: traMADol 50 MG TABLET PO SCH ×2 (09:14→20:35)
--- NOTE | 2022-10-19 09:30 | ED Physician Documentation ---
ED Addendum - Addendum Addendum: 10/19/22 09:28The patient reportedly rested well overnight no particular problems. His blood pressure was noted to be slightly low this morning at approximately 108 systolic. He has not really been eating as much or fluids. He appears well otherwise but we can probably hold for now his amlodipine and lisinopril. He does have history of atrial fibrillation and his rate has been okay but I would not want to change his metoprolol. He has been here for a while now. Could consider some basic routine labs to make sure his kidney function electrolytes are okay.
[2022-10-19 09:50] LABS: BASOPHILS % (AUTO) 0.4 %; EOSINOPHILS # (AUTO) 0.3 10^3/uL (0.0-0.7); EOSINOPHILS % (AUTO) 3.4 %; HCT - HEMATOCRIT 32.4 % (42.0-52.0); HGB - HEMOGLOBIN 10.5 g/dL (14.0-18.0); LYMPHOCYTES # (AUTO) 2.4 10^3/uL (1.5-3.5); LYMPHOCYTES % (AUTO) 29.5 %; MEAN CORPUSCULAR HEMOGLOBIN 29.3 pg (27.0-31.0); MEAN CORPUSCULAR HGB CONC 32.4 g/dL (32.0-36.0); MEAN CORPUSCULAR VOLUME 90.5 fL (80.0-94.0); MEAN PLATELET VOLUME 10.4 fL (7.4-11.4); MONOCYTES # (AUTO) 0.7 10^3/uL (0.0-1.0); MONOCYTES % (AUTO) 8.5 %; NEUTROPHILS # (AUTO) 4.8 10^3/uL (1.5-6.6); NEUTROPHILS % (AUTO) 57.8 %; PLT - PLATELET COUNT 269 10^3/uL (130-450); RED BLOOD COUNT 3.58 10^6/uL (4.70-6.10); RED CELL DISTRIBUTION WIDTH 12.6 % (12.0-15.0); WHITE BLOOD COUNT 8.2 x10^3/uL (4.8-10.8)
[2022-10-19 10:01] LABS: CALCIUM 8.3 mg/dL (8.5-10.3); POTASSIUM 3.9 mmol/L (3.5-5.0)
[2022-10-19] MEDS: ACETAMINOPHEN 500 MG TABLET PO PRN (19:58)
[2022-10-19] MEDS: GABAPENTIN 100 MG CAPSULE PO SCH (20:36)
[2022-10-19] MEDS: traZODone 50 MG TABLET PO SCH (20:36)
[2022-10-20] MEDS: PANTOPRAZOLE 40 MG TABLET PO SCH (06:47)
[2022-10-20] MEDS: METOPROLOL SUCCINATE 50 MG TABLET PO SCH (08:40)
[2022-10-20] MEDS: amLODIPine 5 MG TABLET PO SCH (08:40)
[2022-10-20] MEDS: traMADol 50 MG TABLET PO SCH ×2 (08:40→20:54)
[2022-10-20] MEDS: lisinopriL 20 MG TABLET PO SCH (08:40)
[2022-10-20] MEDS: CIPROFLOXACIN 250 MG TABLET PO SCH ×2 (08:40→20:54)
[2022-10-20] MEDS: metroNIDAZOLE 250 MG TABLET PO SCH ×2 (08:40→20:54)
[2022-10-20] MEDS: MULTIVITAMIN TABLET PO SCH (08:40)
--- NOTE | 2022-10-20 17:17 | ED Physician Documentation ---
ED Addendum - Addendum Addendum: 10/20/22 17:15 Patient continues to board in the emergency department pending social work placement for intermediate treatment or rehabilitation. In brief he presented on 15 October for abdominal pain and initial CT scan was concerning for colitis. He has been managed here on oral antibiotics and the colitis appears to have begun to resolve. He is tolerating a diet. However his family is requesting help with his continued care at home. In review of the note yesterday the patient had had some mild hypotension. His amlodipine and lisinopril were held though he continued to receive the metoprolol for his history of atrial fibrillation. For the last 24 hours now his blood pressures have been stable with well-controlled heart rate. CBC and electrolytes yesterday showed no worrisome findings. He continues to tolerate his diet. We will continue to board until appropriate disposition is found with the help of social work.
[2022-10-20] MEDS: GABAPENTIN 100 MG CAPSULE PO SCH (20:54)
[2022-10-20] MEDS: traZODone 50 MG TABLET PO SCH (20:55)
[2022-10-21] MEDS: PANTOPRAZOLE 40 MG TABLET PO SCH (06:34)
[2022-10-21] MEDS: traMADol 50 MG TABLET PO SCH ×2 (08:33→20:44)
[2022-10-21] MEDS: lisinopriL 20 MG TABLET PO SCH (08:33)
[2022-10-21] MEDS: MULTIVITAMIN TABLET PO SCH (08:33)
[2022-10-21] MEDS: METOPROLOL SUCCINATE 50 MG TABLET PO SCH (08:33)
[2022-10-21] MEDS: amLODIPine 5 MG TABLET PO SCH (08:33)
--- NOTE | 2022-10-21 14:20 | ED Physician Documentation ---
ED Addendum - Addendum Addendum: Patient has been boarding in the emergency department. He was initially seen and found to have colitis. While awaiting for an inpatient bed he did improve in the emergency department on IV antibiotics and a liquid diet. He was able to transition to oral antibiotics and a regular diet and has since had regular stools. His stool cultures have been negative. He is seen sitting at a bedside chair watching shows on his computer.He reports still feeling weak with ambulation. He was seen by PT and OT a few days ago And per their notes they stated he was a minimal assist. We will have them reassess him today. Social work continues to work on placement or helping us find a safe disposition.
[2022-10-21] MEDS: traZODone 50 MG TABLET PO SCH (20:44)
[2022-10-21] MEDS: GABAPENTIN 100 MG CAPSULE PO SCH (20:44)
[2022-10-22] MEDS: PANTOPRAZOLE 40 MG TABLET PO SCH (06:35)
[2022-10-22] MEDS: traMADol 50 MG TABLET PO SCH ×2 (09:52→21:04)
[2022-10-22] MEDS: amLODIPine 5 MG TABLET PO SCH (09:52)
[2022-10-22] MEDS: MULTIVITAMIN TABLET PO SCH (09:52)
[2022-10-22] MEDS: lisinopriL 20 MG TABLET PO SCH (09:52)
[2022-10-22] MEDS: METOPROLOL SUCCINATE 50 MG TABLET PO SCH (09:52)
--- NOTE | 2022-10-22 15:23 | ED Physician Documentation ---
ED Addendum - Addendum Addendum: Patient remains boarding in the emergency department [facility] As they do not have all of the paperwork. Plan for likely discharge tomorrow. Patient otherwise has no complaints. Has been sitting up at the bedside.
[2022-10-22] MEDS: ACETAMINOPHEN 500 MG TABLET PO PRN (17:52)
[2022-10-22] MEDS: GABAPENTIN 100 MG CAPSULE PO SCH (20:53)
[2022-10-22] MEDS: traZODone 50 MG TABLET PO SCH (21:04)
[2022-10-23] MEDS: PANTOPRAZOLE 40 MG TABLET PO SCH (06:34)
[2022-10-23 08:35] VITALS: BP 107/43
[2022-10-23] MEDS: traMADol 50 MG TABLET PO SCH (08:41)
[2022-10-23] MEDS: lisinopriL 20 MG TABLET PO SCH (08:42)
[2022-10-23] MEDS: amLODIPine 5 MG TABLET PO SCH (08:42)
[2022-10-23] MEDS: MULTIVITAMIN TABLET PO SCH (08:42)
[2022-10-23] MEDS: METOPROLOL SUCCINATE 50 MG TABLET PO SCH (08:42)
--- NOTE | 2022-10-23 10:58 | ED Physician Documentation ---
ED Addendum - Addendum Addendum: Patient has been boarding in the emergency department and after being found to have colitis with recent syncope. He improved while boarding in the emergency department and thus did not end up getting admitted to the hospital. However he has remained weak for several weeks and not able to be at home on his own. Family is not able to help care for him and his have asked for placement which social work has been working on. Patient has been resting comfortably overnight with no complaints. Patient has been accepted to [facility] with plan for pickup this afternoon at 2 PM. Departure - Departure Disposition: Home, Self Care Clinical Impression: Colitis, Leukocytosis, Syncope, Chronic back pain, Bed sore on heel Condition: Stable Instructions: ED Fainting Unkn Cause Follow-Up: Perico Sherman MD [Provider Admit Priv/Credential] - Comments: You were initially found to have colitis which is inflammation of your intestinal tract. Your stool cultures have come back negative and you have completed a course of antibiotics. You are now tolerating a regular diet And are having formed stools. You are also seen after a fainting episode. This could be related to periods of low blood pressure. At times we have needed to hold your blood pressure medications. They may need to be lowered or adjusted and I would recommend close follow-up with your primary care doctor. If you have any new or worsening symptoms please return to the emergency department. You are going to be discharged to [facility] to continue to work on your strength and rehabilitate.
== END 2022-10-23 13:20 | disposition home or self-care (01) ==
LOC: EDUNIT# → ED 06:06
DX: A09 Infectious gastroenteritis and colitis, unspecified (principal); D72.829 Elevated white blood cell count, unspecified; R55 Syncope and collapse; R53.1 Weakness; R25.2 Cramp and spasm; I95.9 Hypotension, unspecified; I10 Essential (primary) hypertension; I48.91 Unspecified atrial fibrillation; M54.9 Dorsalgia, unspecified; G89.29 Other chronic pain; L89.629 Pressure ulcer of left heel, unspecified stage; L89.619 Pressure ulcer of right heel, unspecified stage; Z20.822 Contact with and (suspected) exposure to COVID-19; Z76.4 Other boarder to healthcare facility
CPT/HCPCS: 36415; 71045; 74177; 80048; 80053; 81001; 82272; 83605; 83690; 83735; 85025; 85610; 87040; 87045; 87046; 87427; 87493; 87635; 93005; 94640; 94664; 96361; 96365; 96366; 96367; 96368; 99284; A9270; Q9967; 81003; 87086

== ENCOUNTER 2023-12-30 11:25 | Emergency (ER) | payer MEDICARE ==
--- NOTE | 2023-12-30 14:02 | Ultrasound Report ---
PROCEDURE: Duplex Ext Veins Right INDICATIONS: leg swelling and weakness TECHNIQUE: Real-time imaging, as well as color and pulse Doppler interrogation, were performed of the lower extr emity deep veins from the inguinal ligament to the popliteal fossa. Attempted visualization of the ca lf veins was performed. COMPARISON: None. FINDINGS: The deep veins are normally compressible, and free of intraluminal thrombus. Limited evalu ation of the calf veins. Color and pulse Doppler demonstrate normal phasic intraluminal flow. There is normal augmentation response to distal compression maneuver. IMPRESSION: No deep venous thrombosis of the visualized lower extremity. Reviewed by: Almita Gurrola MD, PhD on 12/30/2023 2:00 PM PDT Approved by: Almita Gurrola MD, PhD on 12/30/2023 2:00 PM PDT Station ID: [id number]
--- NOTE | 2023-12-30 14:18 | ED Physician Documentation ---
PD HPI LOWER EXT INJURY - Stated complaint Stated Complaint: RT LEG PX,WEAKNESS - Chief complaint Chief Complaint: Ext Problem - History obtained from History obtained from: Patient - History of Present Illness PD HPI LOW EXT INJURY LOCATION: Right, Lower leg (has had some swelling in right leg increased from baseline for the past week or so. chronic pain both legs from nerve injury during back surgery/fusion. Has noted feeling arms weak as well for few days and more difficult to stand for transfers/lift himself up. Wheelchair bound due to weakness legs.), Ankle Type of injury: Other (increased edema right leg over days or more. Some cramping in muscles.). No: Fall, Twist Where injury occurred: Home Timing - details: Gradual onset Associated symptoms: Weakness (chronic due to back nerve injuries/disc process and then kai injury with surgery.) Contributing factors: Prior ortho surgery (lumbar spine disc surgery with fusion.) Review of Systems Constitutional: reports: Fatigue. denies: Fever, Chills, Myalgias Nose: denies: Congestion Cardiac: denies: Chest pain / pressure Respiratory: denies: Dyspnea, Cough GI: reports: Abdominal Pain (some lower abd cramping intermittent few days.). denies: Nausea, Vomiting, Diarrhea Skin: denies: Lesions PD PAST MEDICAL HISTORY - Past Medical History Past Medical History: Yes Cardiovascular: Hypertension Respiratory: Asthma Neuro: None Endocrine/Autoimmune: None GI: Colon polyps : Benign prostate hypertrophy HEENT: None Psych: None Musculoskeletal: Other Derm: None - Past Surgical History Past Surgical History: Yes General: Bowel surgery, Colonoscopy Ortho: Hip replacement, Knee replacement, Spine surgery - Present Medications Home Medications: Ambulatory Orders Medication Instructions Recorded Confirmed Albuterol Sulfate [Ventolin Hfa] 1 puffs INH DAILY PRN 06/13/14 10/15/22 Beclomethasone 80 Mcg [Qvar 80] 1 puffs INH DAILY 06/13/14 10/15/22 Aspirin EC [Ecotrin] 81 mg PO BID 10/02/22 10/15/22 Baclofen 5 mg PO Q6HR PRN 10/02/22 10/15/22 Ciprofloxacin HCl [Cipro] 500 mg PO BID #14 tablet 10/02/22 10/15/22 Famotidine [Pepcid] 20 mg PO BID 10/02/22 10/15/22 Furosemide [Lasix] 20 mg PO DAILY #7 tablet 10/02/22 10/15/22 Gabapentin [Neurontin] 100 mg PO HS 10/02/22 10/15/22 HYDROcod/ACETAM 5/325 [[place] 5/325] 1 ea PO Q6H PRN #14 tablet 10/02/22 10/15/22 Lisinopril [Zestril] 40 mg PO DAILY 10/02/22 10/15/22 Metoprolol Succinate 100 mg PO DAILY 10/02/22 10/15/22 amLODIPine [Norvasc] 5 mg PO DAILY 10/02/22 10/15/22 traMADol [Ultram] 50 mg PO Q12H PRN 10/02/22 10/15/22 traZODone [Desyrel] 50 mg PO HS 10/02/22 10/15/22 Ciprofloxacin [Cipro] 250 mg PO Q12H #14 tablet 12/30/23 - Allergies Allergies/Adverse Reactions: Allergies Allergy/AdvReac Type Severity Reaction Status Date / Time azithromycin [From Zithromax] Allergy Hives Verified 12/30/23 11:29 Penicillins Allergy Hives Verified 12/30/23 11:29 - Social History Does the pt smoke?: No Smoking Status: Never smoker Does the pt drink ETOH?: Yes Does the pt have substance abuse?: No - Immunizations Immunizations are current?: Yes - POLST Patient has POLST: No PD ED PE NORMAL - Vitals Vital signs reviewed: Yes - General General: Alert and oriented X 3, No acute distress, Well developed/nourished - Cardiac Cardiac: RRR, No murmur - Respiratory Respiratory: No respiratory distress, Clear bilaterally - Abdomen Abdomen: Soft, Non tender - Male Male : Other (booker catheter out with good drainage. Cloudy urine in bag. ) - Back Back: No CVA TTP - Derm Derm: Normal color, Warm and dry Results - Vitals Vitals: Vital Signs - 24 hr 12/30/23 12/30/23 12/30/23 11:30 14:09 14:12 Temperature 36.8 C Heart Rate 73 120 H 66 Respiratory 16 18 Rate Blood Pressure 116/88 H 124/50 L O2 Saturation 98 97 12/30/23 16:16 Temperature Heart Rate 74 Respiratory 18 Rate Blood Pressure 153/69 H O2 Saturation 98 Oxygen O2 Source Room air - Labs Labs: Laboratory Tests 12/30/23 12/30/23 12/30/23 14:47 15:03 15:03 WBC 8.8 RBC 4.02 L Hgb 12.3 L Hct 37.7 L MCV 93.8 MCH 30.6 MCHC 32.6 RDW 12.7 Plt Count 247 MPV 11.4 Neut # (Auto) 5.7 Lymph # (Auto) 2.3 [place] # (Auto) 0.5 Eos # (Auto) 0.3 Baso # (Auto) 0.0 Absolute Nucleated RBC 0.00 Nucleated RBC % 0.0 Sodium 140 Potassium 4.9 H Chloride 106 Carbon Dioxide 27 Anion Gap 7.0 BUN 37 H Creatinine 1.3 Estimated GFR (MDRD) 52 L Glucose 101 Calcium 9.9 Phosphorus 3.2 Magnesium 2.2 Total Bilirubin 0.4 AST 14 ALT 10 Alkaline Phosphatase 65 B-Natriuretic Peptide Total Protein 7.4 Albumin 4.2 Globulin 3.2 Albumin/Globulin Ratio 1.3 Lipase 45 Urine Color YELLOW Urine Clarity HAZY Urine pH 6.0 Ur Specific [place] 1.020 Urine Protein TRACE Urine Glucose (UA) NEGATIVE Urine Ketones NEGATIVE Urine Occult Blood TRACE-INTA Urine Nitrite POSITIVE H Urine Bilirubin NEGATIVE Urine Urobilinogen 0.2 (NORMAL) Ur Leukocyte Esterase MODERATE H Urine RBC 6-10 H Urine WBC >25 H Ur Squamous Epith Cells RARE Squamous Amorphous Sediment Few Urine Bacteria Moderate H Ur Microscopic Review INDICATED Urine Culture Comments INDICATED 12/30/23 15:03 WBC RBC Hgb Hct MCV MCH MCHC RDW Plt Count MPV Neut # (Auto) Lymph # (Auto) [place] # (Auto) Eos # (Auto) Baso # (Auto) Absolute Nucleated RBC Nucleated RBC % Sodium Potassium Chloride Carbon Dioxide Anion Gap BUN Creatinine Estimated GFR (MDRD) Glucose Calcium Phosphorus Magnesium Total Bilirubin AST ALT Alkaline Phosphatase B-Natriuretic Peptide 29 Total Protein Albumin Globulin Albumin/Globulin Ratio Lipase Urine Color Urine Clarity Urine pH Ur Specific [place] Urine Protein Urine Glucose (UA) Urine Ketones Urine Occult Blood Urine Nitrite Urine Bilirubin Urine Urobilinogen Ur Leukocyte Esterase Urine RBC Urine WBC Ur Squamous Epith Cells Amorphous Sediment Urine Bacteria Ur Microscopic Review Urine Culture Comments PD Medical Decision Making - ED course Complexity details: considered differential ED course: The patient has had increased feeling of weakness in his legs and noted some swelling in particular in the right leg over the last several days. This morning he also felt generalized weakness and difficulty lifting himself for transfer from his wheelchair. History of upper lumbar surgery with injury to the nerves and cord so he was left with considerable weakness in the legs. He is mostly wheelchair-bound but can hold himself up on his legs long enough for transfers etc. No recent illness. He denies fever. He has not noticed any fevers or back or belly pain. No recent change in medicines. Will check CBC, lytes, UA to assess for general/metabolic causes for increased general weakness. US right leg to eval for DVT given his wheelchair and bed bound status with new swelling. Care to Dr. Weir at shift change, with negative US so far but pending labs/UA. Departure - Departure Disposition: 01 Home, Self Care Clinical Impression: Weak Pain of lower extremity Qualifiers: Laterality: right Qualified Code(s): M79.604 - Pain in right leg Catheter-associated urinary tract infection Qualifiers: Indwelling urinary catheter type: indwelling urethral catheter Encounter type: initial encounter Qualified Code(s): T83.511A - Infection and inflammatory reaction due to indwelling urethral catheter, initial encounter Condition: Good Record reviewed to determine appropriate education?: Yes Instructions: ED UTI Cystitis Male Prescriptions: Ciprofloxacin [Cipro] 250 mg PO Q12H #14 tablet Comments: I sent your prescription electronically to the [facility] in [place]. You were seen today for weakness and right leg pain. The ultrasound of your leg showed no clot. You did have evidence of a catheter associated UTI and we switched out your Booker catheter and started you on antibiotics. We will culture your urine, the results should be done in 48-72 hours. If an antibiotic change is necessary we will call you. Return if worse in the meantime, especially if you develop increasing flank pain, fevers, or cannot keep down the medication. Forms: PCP List Discharge Date/Time: 12/30/23 16:17
[2023-12-30 15:08] LABS: BASOPHILS % (AUTO) 0.5 %; EOSINOPHILS # (AUTO) 0.3 10^3/uL (0.0-0.7); EOSINOPHILS % (AUTO) 3.3 %; HCT - HEMATOCRIT 37.7 % (42.0-52.0); HGB - HEMOGLOBIN 12.3 g/dL (14.0-18.0); LYMPHOCYTES # (AUTO) 2.3 10^3/uL (1.5-3.5); LYMPHOCYTES % (AUTO) 25.5 %; MEAN CORPUSCULAR HEMOGLOBIN 30.6 pg (27.0-31.0); MEAN CORPUSCULAR HGB CONC 32.6 g/dL (32.0-36.0); MEAN CORPUSCULAR VOLUME 93.8 fL (80.0-94.0); MEAN PLATELET VOLUME 11.4 fL (7.4-11.4); MONOCYTES # (AUTO) 0.5 10^3/uL (0.0-1.0); MONOCYTES % (AUTO) 5.9 %; NEUTROPHILS # (AUTO) 5.7 10^3/uL (1.5-6.6); NEUTROPHILS % (AUTO) 64.7 %; PLT - PLATELET COUNT 247 10^3/uL (130-450); RED BLOOD COUNT 4.02 10^6/uL (4.70-6.10); RED CELL DISTRIBUTION WIDTH 12.7 % (12.0-15.0); WHITE BLOOD COUNT 8.8 x10^3/uL (4.8-10.8)
[2023-12-30 15:14] LABS: BILIRUBIN,URINE NEGATIVE (NEGATIVE); GLUCOSE, URINE (UA) NEGATIVE (NEGATIVE); KETONES,URINE (UA) NEGATIVE (NEGATIVE); LEUKOCYTE ESTERASE, URINE MODERATE (NEGATIVE); NITRITE,URINE POSITIVE (NEGATIVE); OCCULT BLOOD,URINE TRACE-INTA (NEGATIVE); PROTEIN,URINE TRACE mg/dL (NEGATIVE); UROBILINOGEN,URINE 0.2 (NORMAL) E.U./dL (NORMAL)
[2023-12-30 15:15] LABS: CLARITY,URINE HAZY (CLEAR)
[2023-12-30 15:21] LABS: ALBUMIN 4.2 g/dL (3.2-5.5); ALBUMIN/GLOBULIN RATIO 1.3 (1.0-2.2); BILIRUBIN,TOTAL 0.4 mg/dL (0.2-1.0); CALCIUM 9.9 mg/dL (8.5-10.3); CREATININE 1.3 mg/dL (0.6-1.3); MAGNESIUM 2.2 mg/dL (1.7-2.3); PHOSPHORUS 3.2 mg/dL (2.5-5.0); POTASSIUM 4.9 mmol/L (3.5-4.5); TOTAL PROTEIN 7.4 g/dL (6.4-8.9)
[2023-12-30 15:27] LABS: AMORPHOUS SEDIMENT,UR Few /LPF; BACTERIA,URINE Moderate /HPF (None Seen); SQUAMOUS EPITHELIAL CELL,UR RARE Squamous (<= Few); WBC,URINE >25 /HPF (0-3)
--- NOTE | 2023-12-30 15:39 | ED Physician Documentation ---
ED Addendum - Addendum Addendum: 12/30/23 15:39 Signout to me from Dr. Charles at shift change. Briefly 88-year-old gentleman with right leg swelling and generalized weakness. 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 Remainder of workup demonstrated unremarkable CBC save mild anemia and CMP showing mild prerenal azotemia with normal BNP. His urinalysis was positive and seems reasonable to start him on antibiotics pending cultures given the circumstances. Chose Cipro based on prior cultures. His Pugh was changed out by the nurse. Disposition: Discharged home Condition: Stable Diagnoses: 1. Right leg pain 2. General weakness 3. Catheter associated UTI
[2023-12-30] MEDS: LIDOCAINE 2% URO-JET 5 ML SYRINGE UR STA (15:50)
[2023-12-30] MEDS: CIPROFLOXACIN 250 MG TABLET PO STA (15:50)
[2023-12-30 16:19] VITALS: BP 153/69; O2SAT 98
== END 2023-12-30 16:17 | disposition home or self-care (01) ==
LOC: ED 11:25
DX: M79.661 Pain in right lower leg (principal); R53.1 Weakness; T83.511A Infection and inflammatory reaction due to indwelling urethral catheter, initial encounter; N39.0 Urinary tract infection, site not specified; I10 Essential (primary) hypertension; Z99.3 Dependence on wheelchair
CPT/HCPCS: 36415; 51702; 80053; 81001; 83690; 83735; 83880; 84100; 85025; 87086; 93971; 99284; A9270; 81003

== ENCOUNTER 2023-12-31 21:40 | Emergency (ER) | payer MEDICARE ==
--- NOTE | 2023-12-31 21:46 | ED Physician Documentation ---
History of Present Illness - Stated complaint Stated Complaint: RT ARM WEAKNESS/DRIFT - History obtained from History obtained from: Patient, EMS - Additonal information Additional information: 88yM on metoprolol, lasix, triamcinolone, gabapentin, p/w RUE weakness since 7pm tonight. R hand dominant. patient was just dx with uti and is on baclofen. caregiver states they noted some confusion today. ems states they saw him for weakness yesterday as well in the lower extremity that then resolved. stroke code called on arrival. further history limited by patient acuity. PD PAST MEDICAL HISTORY - Past Medical History Cardiovascular: Hypertension Respiratory: Asthma Neuro: None Endocrine/Autoimmune: None GI: Colon polyps : Benign prostate hypertrophy HEENT: None Psych: None Musculoskeletal: Other Derm: None - Past Surgical History Past Surgical History: Yes General: Bowel surgery, Colonoscopy Ortho: Hip replacement, Knee replacement, Spine surgery - Present Medications Home Medications: Ambulatory Orders Medication Instructions Recorded Confirmed Albuterol Sulfate [Ventolin Hfa] 1 puffs INH DAILY PRN 06/13/14 10/15/22 Beclomethasone 80 Mcg [Qvar 80] 1 puffs INH DAILY 06/13/14 10/15/22 Aspirin EC [Ecotrin] 81 mg PO BID 10/02/22 10/15/22 Baclofen 5 mg PO Q6HR PRN 10/02/22 10/15/22 Ciprofloxacin HCl [Cipro] 500 mg PO BID #14 tablet 10/02/22 10/15/22 Famotidine [Pepcid] 20 mg PO BID 10/02/22 10/15/22 Furosemide [Lasix] 20 mg PO DAILY #7 tablet 10/02/22 10/15/22 Gabapentin [Neurontin] 100 mg PO HS 10/02/22 10/15/22 HYDROcod/ACETAM 5/325 [[place] 5/325] 1 ea PO Q6H PRN #14 tablet 10/02/22 10/15/22 Lisinopril [Zestril] 40 mg PO DAILY 10/02/22 10/15/22 Metoprolol Succinate 100 mg PO DAILY 10/02/22 10/15/22 amLODIPine [Norvasc] 5 mg PO DAILY 10/02/22 10/15/22 traMADol [Ultram] 50 mg PO Q12H PRN 10/02/22 10/15/22 traZODone [Desyrel] 50 mg PO HS 10/02/22 10/15/22 Ciprofloxacin [Cipro] 250 mg PO Q12H #14 tablet 12/30/23 - Allergies Allergies/Adverse Reactions: Allergies Allergy/AdvReac Type Severity Reaction Status Date / Time azithromycin [From Zithromax] Allergy Hives Verified 12/31/23 22:21 Penicillins Allergy Hives Verified 12/31/23 22:21 - Social History Does the pt smoke?: No Smoking Status: Never smoker Does the pt drink ETOH?: Yes Does the pt have substance abuse?: No - Immunizations Immunizations are current?: Yes - POLST Patient has POLST: No PD ED PE NORMAL - Vitals Vital signs reviewed: Yes - General General: No acute distress, Other (elderly appearing) - HEENT HEENT: Atraumatic, PERRL, EOMI, Moist mucous membranes, Pharynx benign - Neck Neck: Supple, no meningeal sign - Cardiac Cardiac: RRR - Respiratory Respiratory: No respiratory distress, Clear bilaterally - Abdomen Abdomen: Non tender, Non distended - Derm Derm: Normal color, Warm and dry - Extremities Extremities: Other (RUE significant drift against gravity. LUE no drift. otherwise strength intact) - Neuro Neuro: [place]beater 2-12 intact, No motor deficit, No sensory deficit, Normal speech Eye Opening: Spontaneous Motor: Obeys Commands Verbal: Oriented GCS Score: 15 Results - Vitals Vitals: Vital Signs - 24 hr 12/31/23 12/31/23 21:50 22:05 Temperature 36.5 C Heart Rate 133 H 80 Respiratory 18 14 Rate Blood Pressure 131/69 H 145/58 H O2 Saturation 97 97 Oxygen O2 Source Room air - EKG (time done) 2226 EKG releavant findings:: EKG personally interpreted by author of this note. Relevant findings are: Rate: Rate (enter#) (88) Rhythm: NSR Pipestem: Normal Intervals: Normal SD QRS: Normal Ischemia: Normal ST segments - Labs Labs: Laboratory Tests 12/31/23 21:43 WBC 10.4 RBC 4.02 L Hgb 12.0 L Hct 37.1 L MCV 92.3 MCH 29.9 MCHC 32.3 RDW 12.7 Plt Count 235 MPV 12.0 H Neut # (Auto) 7.0 H Lymph # (Auto) 2.3 [place] # (Auto) 0.8 Eos # (Auto) 0.3 Baso # (Auto) 0.0 Absolute Nucleated RBC 0.00 Nucleated RBC % 0.0 PD Medical Decision Making - ED course ED course: 88yM p/w RUE weakness since 7pm tonight. also with mild confusion reported by caregiver. denies other deficits. stroke code called and patient is sent directly to ct. NIHSS 2 (RUE/RLE drift) on arrival. 10:13pm - decision made to give TNK in conjunction with telestroke provider. Patient consents to TNK. 10:17pm - tnk administered. plan to transfer patient to higher level of care. - Critical Care Time(min): 45 Time Includes: Direct patient care, Review records, Reassess patient, Document care, Coordinate care, Medical consult Data interpretation: Labs, CXR Departure - Departure Disposition: 02 Transfer Acute Care Hosp Clinical Impression: CVA (cerebral vascular accident), Right arm weakness, Right leg weakness Condition: Serious Forms: PCP List
[2023-12-31] MEDS ORDERED: iohexoL-300 100 ML VIAL ONE (21:48)
[2023-12-31 21:55] LABS: BASOPHILS % (AUTO) 0.3 %; EOSINOPHILS # (AUTO) 0.3 10^3/uL (0.0-0.7); EOSINOPHILS % (AUTO) 2.7 %; HCT - HEMATOCRIT 37.1 % (42.0-52.0); LYMPHOCYTES # (AUTO) 2.3 10^3/uL (1.5-3.5); LYMPHOCYTES % (AUTO) 21.8 %; MEAN CORPUSCULAR HEMOGLOBIN 29.9 pg (27.0-31.0); MEAN CORPUSCULAR HGB CONC 32.3 g/dL (32.0-36.0); MEAN CORPUSCULAR VOLUME 92.3 fL (80.0-94.0); MONOCYTES # (AUTO) 0.8 10^3/uL (0.0-1.0); MONOCYTES % (AUTO) 7.4 %; NEUTROPHILS % (AUTO) 67.5 %; PLT - PLATELET COUNT 235 10^3/uL (130-450); RED BLOOD COUNT 4.02 10^6/uL (4.70-6.10); RED CELL DISTRIBUTION WIDTH 12.7 % (12.0-15.0); WHITE BLOOD COUNT 10.4 x10^3/uL (4.8-10.8)
--- NOTE | 2023-12-31 22:06 | CT Report ---
PROCEDURE: Head W/O Stroke Protocol INDICATIONS: RUE weak TECHNIQUE: Noncontrast 4.5 mm thick angled axial sections acquired from the foramen magnum to the vertex, with c oronal reformats. For radiation dose reduction, the following was used: automated exposure control, adjustment of mA and/or kV according to patient size. COMPARISON: None. FINDINGS: Image quality: Excellent. CSF spaces: Basal cisterns are patent. No extra-axial fluid collections. Ventricles are normal in size and shape. Brain: No midline shift. No intracranial masses or hemorrhage. Grewal-white matter interface is norm al. Skull and face: Calvarium and visualized facial bones are intact, without suspicious lesions. Sinuses: Visualized sinuses and mastoids are clear. IMPRESSION: No acute intracranial pathology Findings were discussed with ordering provider on 12/31/2023 at 10:02 PM. This study fulfills neurological imaging criteria for inclusion or exclusion of acute stroke therapie s based on available published neurological imaging guidelines. Reviewed by: Raji Foster MD on 12/31/2023 10:04 PM PDT Approved by: Raji Foster MD on 12/31/2023 10:04 PM PDT Station ID: [id number]
[2023-12-31] MEDS ORDERED: TENECTEPLASE 50 MG/10 ML VIAL IVP ONE (22:14)
[2023-12-31] MEDS: TENECTEPLASE 50 MG/10 ML VIAL IVP STA (22:17)
--- NOTE | 2023-12-31 22:43 | XRAY Report ---
PROCEDURE: Chest 1V INDICATIONS: Chest Pain TECHNIQUE: One view of the chest was acquired. COMPARISON: 10/15/2022. FINDINGS: Surgical changes and devices: None. Lungs and pleura: No pleural effusions or pneumothorax. Left basilar opacity is redemonstrated. Mediastinum: Mediastinal contours appear normal. Heart size is normal. Bones and chest wall: No suspicious bony lesions. Overlying soft tissues appear unremarkable. IMPRESSION: Left basilar opacity is redemonstrated. Given stability, may represent atelectasis or prominent peric ardial fat. No new acute cardiopulmonary process. Reviewed by: Raji Foster MD on 12/31/2023 10:42 PM PDT Approved by: Raji Foster MD on 12/31/2023 10:42 PM PDT Station ID: [id number]
--- NOTE | 2023-12-31 22:49 | CT Report ---
PROCEDURE: Angio Head/Neck INDICATIONS: STROKE CODE - RUE WEAK TECHNIQUE: After the administration of intravenous contrast, 1 mm thick sections acquired from the aortic arch t hrough the [place]. 3-dimensional ywgouuh-vmwdrqiar-gnofkoovwm (MIP) and/or volume renderin g reformats were acquired of the central intracranial vasculature and neck separately. For radiation dose reduction, the following was used: automated exposure control, adjustment of mA and/or kV acco rding to patient size. CONTRAST: [id number] 80 ml COMPARISON: None. FINDINGS: Image quality: Diagnostic. HEAD CT: Please refer to same day CT head. HEAD CT ANGIOGRAPHY: Anterior circulation: Intracranial internal carotid arteries are normal in size and flow with athero sclerotic vascular calcifications. 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 The flow within the middle cerebral arteries is normal and symmetric. The anterior communicating a rtery is seen. No aneurysms are seen. Posterior circulation: Visualized portions of the vertebral arteries demonstrate normal caliber, and join to form a normal appearing basilar artery. Focal area of moderate stenosis of the left P2 segme nt. Right posterior cerebral arteries are normal in appearance. No aneurysms are seen. NECK CT ANGIOGRAPHY: Carotid system: The great vessels demonstrate a conventional anatomy as they arise from the aortic a rch. The origins of the common carotid arteries appear patent. The common carotid arteries demonstr ate normal caliber and courses. As well as vascular calcifications of the bilateral carotid bifurcati ons with less than 50% stenosis.. The internal carotid arteries demonstrate normal calibers and cour ses. Posterior circulation: The origins of the vertebral arteries both appear widely patent. The more terry perior extracranial portions of both vertebral arteries also demonstrate normal courses and calibers. They join to form a normal appearing basilar artery. Soft tissues: Visualized neck soft tissues demonstrate no suspicious abnormalities.] Thyroid nodule measuring 2.7 cm. Bones: No suspicious bony lesions. Visualized cervical spine appears normally aligned. 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 Focal area of moderate stenosis of the left P2 segment. No significant arterial abnormalities within the neck. The estimate of stenosis included in the report of the imaging study was calculated using the NASCET method Reviewed by: Raji Benitez MD on 12/31/2023 10:48 PM PDT Approved by: Raji Benitez MD on 12/31/2023 10:48 PM PDT Station ID: [id number]
[2023-12-31 22:54] LABS: ALBUMIN 3.9 g/dL (3.2-5.5); ALBUMIN/GLOBULIN RATIO 1.4 (1.0-2.2); BILIRUBIN,TOTAL 0.5 mg/dL (0.2-1.0); CALCIUM 9.4 mg/dL (8.5-10.3); CREATININE 1.5 mg/dL (0.6-1.3); POTASSIUM 4.8 mmol/L (3.5-4.5); TOTAL PROTEIN 6.6 g/dL (6.4-8.9)
[2023-12-31 23:46] VITALS: BP 118/91; O2SAT 95
== END 2023-12-31 23:50 | disposition short-term general hospital (02) ==
LOC: ED 21:40
DX: I63.9 Cerebral infarction, unspecified (principal); G81.91 Hemiplegia, unspecified affecting right dominant side; R29.702 NIHSS score 2; I10 Essential (primary) hypertension
CPT/HCPCS: 36415; 37195; 70450; 70496; 70498; 71045; 80053; 83690; 85025; 93005; 99285; 99291; J3101